=== PATIENT | female | born 1935 | race Caucasian/White ===

== ENCOUNTER → 2018-06-05 11:31 | Outpatient (CLI) | payer MEDICARE, SELFPAY ==
[2018-06-05 12:51] LABS: AST(SGOT) 28 U/L (15-37); Alanine Aminotransfer ALT/SGPT 37 U/L (13-56); Anion Gap 9 (5-15); BUN 22 mg/dL (7-18); BUN/Creat Ratio 21.2 RATIO (10-20); Calcium,Total 9.1 mg/dL (8.5-10.1); Chloride 106 mmol/L (98-107); Cholesterol 130 mg/dL (200); Creatinine, Serum 1.04 mg/dL (0.55-1.02); EST Glomerular Filtration Rate 54 mL/min (>60); Est Glom Filt Rate - Afr Amer 65 mL/min (>60); Glucose 207 mg/dL (74-106); High Density Lipoprotein 40 mg/dL; Potassium 3.7 mmol/L (3.5-5.1); Sodium Level 140 mmol/L (136-145); T4 Total, Thyroxin 10.8 ug/dL (4.8-13.9); Thyroid Stim Hormone (TSH) 1.05 uIU/mL (0.358-3.74); Triglycerides 160 mg/dL; Very Low Density Lipoprotein 32 mg/dL (5-40)
== END ==
PROVIDERS: Family Provider Family Medicine; PCP Family Medicine; Visit Provider Family Medicine
DX: E78.5 Hyperlipidemia, unspecified (principal); E03.9 Hypothyroidism, unspecified; I10 Essential (primary) hypertension
CPT/HCPCS: 36415; 80048; 80061; 84436; 84443; 84450; 84460

== ENCOUNTER → 2018-12-04 11:09 | Outpatient (CLI) | payer MEDICARE, SELFPAY ==
[2018-12-04 12:29] LABS: Anion Gap 9 (5-15); BUN 17 mg/dL (7-18); BUN/Creat Ratio 19.3 RATIO (10-20); Calcium,Total 8.8 mg/dL (8.5-10.1); Chloride 104 mmol/L (98-107); Creatinine, Serum 0.88 mg/dL (0.55-1.02); EST Glomerular Filtration Rate 65 mL/min (>60); Est Glom Filt Rate - Afr Amer 79 mL/min (>60); Glucose 118 mg/dL (74-106); Potassium 3.5 mmol/L (3.5-5.1); Sodium Level 139 mmol/L (136-145)
== END ==
PROVIDERS: Family Provider Family Medicine; PCP Family Medicine; Visit Provider Family Medicine
DX: I10 Essential (primary) hypertension (principal)
CPT/HCPCS: 36415; 80048

== ENCOUNTER → 2019-06-19 | Outpatient (CLI) | payer MEDICARE, SELFPAY ==
[2019-06-19 14:33] LABS: AST(SGOT) 30 U/L (15-37); Alanine Aminotransfer ALT/SGPT 37 U/L (13-56); Cholesterol 139 mg/dL (200); High Density Lipoprotein 42 mg/dL; T4 Total, Thyroxin 13.5 ug/dL (4.8-13.9); Thyroid Stim Hormone (TSH) 1.45 uIU/mL (0.358-3.74); Triglycerides 132 mg/dL; Very Low Density Lipoprotein 26 mg/dL (5-40)
== END | disposition home or self-care (01) ==
LOC: MFPLAB 11:45
PROVIDERS: Family Provider Family Medicine; PCP Family Medicine; Referring Provider Family Medicine; Visit Provider Family Medicine
DX: E03.9 Hypothyroidism, unspecified (principal); E78.5 Hyperlipidemia, unspecified
CPT/HCPCS: 36415; 80061; 84436; 84443; 84450; 84460

== ENCOUNTER → 2020-07-01 11:39 | Outpatient (CLI) | payer MEDICARE, SELFPAY ==
[2020-06-23 10:47] VITALS: BMI 26.4
[2020-07-01 15:52] LABS: AST(SGOT) 25 U/L (15-37); Alanine Aminotransfer ALT/SGPT 29 U/L (13-56); Albumin, Serum 4.1 g/dL (3.2-5.0); Alkaline Phosphatase 76 U/L (45-117); Anion Gap 3 (5-15); BUN 18 mg/dL (7-18); BUN/Creat Ratio 20.7 RATIO (10-20); Bilirubin, Direct 0.18 mg/dL (0.00-0.30); Calcium,Total 9.3 mg/dL (8.5-10.1); Chloride 109 mmol/L (98-107); Cholesterol 136 mg/dL (200); Creatinine, Serum 0.87 mg/dL (0.55-1.02); EST Glomerular Filtration Rate 66 mL/min (>60); Est Glom Filt Rate - Afr Amer 80 mL/min (>60); Glucose 94 mg/dL (74-106); High Density Lipoprotein 42 mg/dL; Potassium 4.4 mmol/L (3.5-5.1); Protein, Total 8.1 g/dL (6.4-8.2); Sodium Level 139 mmol/L (136-145); T4 Total, Thyroxin 11.7 ug/dL (4.8-13.9); Triglycerides 125 mg/dL; Very Low Density Lipoprotein 25 mg/dL (5-40)
== END ==
PROVIDERS: PCP Family Medicine; Referring Provider Family Medicine; Visit Provider Internal Medicine Cardiovascular Disease
DX: E78.5 Hyperlipidemia, unspecified (principal); I10 Essential (primary) hypertension; E03.9 Hypothyroidism, unspecified; I34.0 Nonrheumatic mitral (valve) insufficiency; I42.8 Other cardiomyopathies; I27.20 Pulmonary hypertension, unspecified; E78.2 Mixed hyperlipidemia; E78.00 Pure hypercholesterolemia, unspecified
CPT/HCPCS: 36415; 80048; 80061; 80076; 84436; 84443

== ENCOUNTER → 2020-07-15 10:47 | Outpatient (CLI) | payer MEDICARE, SELFPAY ==
[2020-06-23 10:47] VITALS: BMI 26.4
--- NOTE | 2020-07-15 10:49 | ECHOD_ITS ---
Reason For Study: CMP, PHTN Procedure This was a 2D Doppler, Color Flow transthoracic echocardiogram. Exam performed in department. Left Ventricle Normal LV size. Left ventricular systolic function is normal. The estimated ejection fraction is 55 %. No regional wall motion abnormalities noted. Right Ventricle Normal RV size. Normal systolic function. Atria The left atrium is moderately enlarged. The right atrium is mildly enlarged. No doppler evidence for ASD. Mitral Valve There is no mitral annular calcification. Mild diffuse mitral valve thickening. Moderate (2+) eccentric mitral valve insufficiency. Tricuspid Valve Normal tricuspid valve. Mild to moderate (1-2+) tricuspid valve insufficiency. Right ventricular systolic pressure estimated to be 42 mmHg. Aortic Valve Trisinus/trileaflet aortic valve. Mild focal aortic valve calcification. Trivial aortic valve insufficiency. Pulmonic Valve The pulmonic valve is not well visualized. Mild (1+) pulmonic valve insufficiency. Great Vessels Normal sized aortic root. Pericardium/Pleural No pericardial effusion. MMode/2D Measurements & Calculations LVIDd: 5.2 cm IVSd: 1.1 cm Ao root diam: 3.1 cm LVIDs: 3.6 cm LVPWd: 1.1 cm RVDd: 3.5 cm FS: 30.7 % LAV(MOD-bp): 84.0 ml LA A4 area: 25.9 cm2 LA dimension(2D): 4.8 cm LAV(MOD-bp) Indexed: 44.7 ml/m2 LAV(MOD-sp2): 81.2 ml LAV(MOD-sp4): 87.0 ml RA A4 area: 17.7 cm2 Time Measurements MV dec time: 0.15 sec Doppler Measurements & Calculations MV E max alex: 102.7 cm/sec Lat Peak E' Alex: 8.4 cm/sec Med Peak E' Alex: 3.3 cm/sec MV A max alex: 41.8 cm/sec E/E' lat: 12.2 E/E' med: 31.4 MV E/A: 2.5 Ao V2 max: 133.5 cm/sec AI max alex: 427.4 cm/sec LV V1 max: 71.0 cm/sec Ao max P.1 mmHg AI max P.1 mmHg LV V1 max P.0 mmHg Ao V2 mean: 100.8 cm/sec AI dec slope: 219.7 cm/sec2 LV V1 mean P.2 mmHg Ao mean P.3 mmHg AI P1/2t: 569.8 msec LV V1 mean: 52.3 cm/sec Ao V2 VTI: 31.6 cm LV V1 VTI: 17.9 cm MR max alex: 531.9 cm/sec PA V2 max: 84.0 cm/sec PI dec slope: 213.2 cm/sec2 MR max P.2 mmHg TR max alex: 312.1 cm/sec TR max P.0 mmHg Interpretation Summary Left ventricular systolic function is normal. The estimated ejection fraction is 55 %. The left atrium is moderately enlarged. The right atrium is mildly enlarged. Mild diffuse mitral valve thickening. Moderate (2+) eccentric mitral valve insufficiency. Mild to moderate (1-2+) tricuspid valve insufficiency. Mild focal aortic valve calcification. Trivial aortic valve insufficiency. Mild (1+) pulmonic valve insufficiency. Right ventricular systolic pressure estimated to be 42 mmHg. Transmitral diastolic flow velocities suggest diastolic dysfunction (pseudonormal pattern). Ordering Physician: Dwight Acuña Referring Physician: Rebekah Beckford Performed By: Cari Montilla, RDCS, RVT
== END ==
PROVIDERS: PCP Family Medicine; Referring Provider Internal Medicine Cardiovascular Disease; Visit Provider Internal Medicine Cardiovascular Disease
DX: E78.2 Mixed hyperlipidemia (principal); I34.0 Nonrheumatic mitral (valve) insufficiency; I42.8 Other cardiomyopathies; I27.20 Pulmonary hypertension, unspecified; I10 Essential (primary) hypertension
CPT/HCPCS: 93306

== ENCOUNTER → 2021-03-03 10:19 | Outpatient (CLI) | payer MEDICARE, SELFPAY ==
[2021-01-15 12:57] VITALS: BMI 26.6
[2021-03-03 12:34] LABS: Anion Gap 4 (5-15); BUN 17 mg/dL (7-18); BUN/Creat Ratio 18.1 RATIO (10-20); Calcium,Total 9.5 mg/dL (8.5-10.1); Chloride 107 mmol/L (98-107); Creatinine, Serum 0.94 mg/dL (0.55-1.02); EST Glomerular Filtration Rate 60 mL/min (>60); Est Glom Filt Rate - Afr Amer 73 mL/min (>60); Glucose 106 mg/dL (74-106); Potassium 4.2 mmol/L (3.5-5.1); Sodium Level 137 mmol/L (136-145)
== END ==
PROVIDERS: PCP Family Medicine; Referring Provider Family Medicine; Visit Provider Family Medicine
DX: I10 Essential (primary) hypertension (principal)
CPT/HCPCS: 36415; 80048

== ENCOUNTER → 2021-08-25 11:03 | Outpatient (CLI) | payer MEDICARE, SELFPAY ==
[2021-08-25 12:33] LABS: AST(SGOT) 27 U/L (15-37); Alanine Aminotransfer ALT/SGPT 33 U/L (13-56); Cholesterol 144 mg/dL (200); High Density Lipoprotein 41 mg/dL; Thyroid Stim Hormone (TSH) 1.32 uIU/mL (0.358-3.74); Triglycerides 134 mg/dL; Very Low Density Lipoprotein 27 mg/dL (5-40)
== END ==
PROVIDERS: PCP Family Medicine; Referring Provider Family Medicine; Visit Provider Family Medicine
DX: E03.9 Hypothyroidism, unspecified (principal); E78.5 Hyperlipidemia, unspecified
CPT/HCPCS: 36415; 80061; 84436; 84443; 84450; 84460

== ENCOUNTER 2021-12-15 11:02 | Outpatient (CLI) | payer MEDICARE, SELFPAY | END 2021-12-15 23:59 | disposition short-term general hospital (02) | LOC: MTLAB 11:03 | PROVIDERS: PCP Family Medicine; Referring Provider Family Medicine; Visit Provider Family Medicine | DX: N39.0 Urinary tract infection, site not specified (principal) | CPT/HCPCS: 87086; 87088 ==

== ENCOUNTER 2022-02-18 04:06 | Emergency (ER) | payer MEDICARE, SELFPAY ==
[2022-02-18 04:07] VITALS: BP 176/66; PULSE 62; RESP 19; TEMP 36.6; O2SAT 92; BMI 25.2
[2022-02-18 04:09] VITALS: BP 182/58; PULSE 63; RESP 24; O2SAT 92; BMI 25.2
--- NOTE | 2022-02-18 04:09 | RAD_ITS ---
EXAM: AP chest. HISTORY: Neuro deficit, acute, stroke suspected TECHNIQUE: XR Chest 1 View. Upright. COMPARISON: None. LIMITATIONS: None. HEART: Normal size. TUBES/LINES: None. LUNGS: The lungs are adequately inflated with mild increased linear markings predominantly in the mid to lower lung gunter, greater on the right. No confluent alveolar infiltrate or effusion. Mild bronchopulmonary cuffing in the medial lungs, possibly mild peribronchiolar edema or chronic changes. PLEURA: Normal. MEDIASTINUM: Slight peripheral calcification of the aortic arch and minimally tortuous appearance of descending thoracic aorta, no obvious kal aneurysm. BONES/SOFT TISSUES: Normal. OTHER: Normal. CONCLUSION: No confluent alveolar infiltrate or effusions. Mild increased lung markings and mildly thick-walled appearance of bronchovascular structures, uncertain chronicity. Electronically Signed: Coleen Sullivan MD at 5:24 EDT , RAD/Chest 1 View
--- NOTE | 2022-02-18 04:09 | CT_ITS ---
EXAM: CT brain without IV contrast. HISTORY: Neuro deficit, acute, stroke suspected TECHNIQUE: CT Head Stroke Protocol W/O Contrast Injection 3.75 mm axial images, 2.5 mm coronal and sagittal reconstructions. COMPARISON: None. LIMITATIONS: None. BRAIN: There is a hyperdense appearance of right M2 segment in the anterior right sylvian fissure, right sylvian fissure narrowing, and loss of juan-white matter differentiation on both sides of these right sylvian fissure, right subinsular cortex, adjacent right frontal lobe. Estimated Aspects score of 5-6. No hemorrhage. No midline shift. VENTRICLES: No hydrocephalus. EXTRA-AXIAL SPACES: No hemorrhages, fluid collections, or masses. CALVARIUM/SKULL BASE: Normal. Mild hyperostosis frontalis. FACE/SINUSES: Visualized portions unremarkable with the exception of mucous retention cyst in the left maxillary sinus. SOFT TISSUES: Normal. OTHER: None. CONCLUSION: Findings highly consistent with ischemic infarct in the right MCA distribution including dense artery sign and multifocal blurring of juan-white matter junctions with right sylvian fissure narrowing. Estimated ASPECT score 5-6. No hemorrhage or midline shift. N.B. : The above Results were Read Back by Coleen Sullivan MD to Alber Bates and understanding confirmed on 02/18/2022 04:28:33 (ET). Electronically Signed: Coleen Sullivan MD at 4:29 EDT , CT/STROKE Brain/Head without Cont
--- NOTE | 2022-02-18 04:09 | EKG12_ITS ---
Test Reason : DYSRHYTHMIA Blood Pressure : / mmHG Vent. Rate : 060 BPM Atrial Rate : 059 BPM P-R Int : 000 ms QRS Dur : 104 ms QT Int : 456 ms P-R-T Axes : 000 -10 045 degrees QTc Int : 456 ms Sinus rhythm Otherwise normal ECG Confirmed by FRANSISCA CHOI, SARITA ([id number]), editor publications SUNNY LAROSE ([id number]) on 02/19/2022 2:16:50 PM Referred By: JUMANA Confirmed By:ABDON GONGORA MD
--- NOTE | 2022-02-18 04:10 | CT_ITS ---
We are attempting to reach an attending provider to discuss findings. An addendum with communication details will be sent when the communication is complete. STUDY: CTA HEAD AND NECK WITH CONTRAST REASON FOR EXAM: Female, 86 years old. Neuro deficit, acute, stroke suspected RADIATION DOSAGE (If Supplied By Facility): CTDIvol = ( 21.39 ) mGy, DLP = ( 663.88 ) mGycm TECHNIQUE: CT angiography was performed with a multi-detector CT scanner. Data acquisition was obtained from the skull base through the vertex following intravenous administration of ISOVUE 370 100ML. MIP images were reconstructed from the axial data set. Post-processing of the angiographic images was performed, with multiplanar reformation and 3D reconstruction. Individualized dose optimization techniques were used for this CT. COMPARISON: No relevant priors. EXAM: CT angiogram brain. TECHNIQUE: CTA HEAD. COMPARISON: None. LIMITATIONS: None. CAROTID ARTERIES: Normal. ANTERIOR CEREBRAL ARTERIES: Normal. MIDDLE CEREBRAL ARTERIES: There is abrupt filling defect and almost complete occlusion of distal right M1-M2 bifurcation, slight serpiginous appearance of contrast in the proximal anterior branch, it is better opacified distally, and nonopacification of proximal posterior M2 branch in the anterior sylvian fissure with some collateral flow filling distal branches, essentially complete occlusion for a length of at least 7 mm at the proximal M2 branches presumably due to thrombus. POSTERIOR CEREBRAL ARTERIES: Normal. BASILAR ARTERY: Normal. VERTEBRAL ARTERIES: Normal. Mildly dominant left vertebral artery. Bilateral posterior inferior cerebellar arteries are patent. VENOUS STRUCTURES: Normal. OTHER: None. CONCLUSION: Filling defect consistent with thrombus at the right M1 M2 bifurcation, especially occluding the posterior branch in the anterior sylvian fissure but involving both origins, with some collateral flow. EXAM: CT angiogram neck. HISTORY: Neuro deficit, acute, stroke suspected TECHNIQUE: CTA Neck W/ Contrast Injection COMPARISON: None. LIMITATIONS: None. AORTIC ARCH: Mild peripheral calcification of the aortic arch. Mild calcification of the proximal left subclavian artery, now narrowing. CAROTID ARTERIES: Mild atherosclerotic calcification of the left carotid bulb, no significant narrowing. VERTEBRAL ARTERIES: Normal. OTHER ARTERIES: Normal. VENOUS STRUCTURES: Normal. BONES/SOFT TISSUES: Multiple small hypodensities in the thyroid, the largest roughly 1 cm in the left lobe. Straightening of the usual lordotic curvature with marked disc space narrowing at C3-T1 OTHER: Mild increased interstitial markings in the lung apices, presumed mild pulmonary edema. Mildly thickened airways in the lung apices. CONCLUSION: No suspicious vascular findings in the neck. Minimal atherosclerotic changes. Mild interstitial edema and airway thickening at the lung apices and moderate degenerative cervical spine changes. Electronically Signed: Coleen Sullivan MD at 4:51 EDT , CT/STROKE CTA Head AND Neck W/Con
[2022-02-18 04:36] LABS: Absolute Lymphocyte Count 1.29 X10^3/uL (0.83-4.51); Basophil# 0.02 X10^3/uL; Basophil% 0.2 % (0-1); Eosinophil# 0.04 X10^3/uL; Eosinophils% 0.5 % (0-5); Hematocrit 34.9 % (37-47); Hemoglobin 11.9 g/dL (12.0-15.0); Lymphocyte # 1.29 X10^3/ul (0.83-4.51); Mean Corp Hgb Conc 34.1 g/dL (32-36); Mean Corpuscular Hgb 30.1 pg (27.0-32.0); Mean Corpuscular Volume 88.1 fL (81-99); Mean Platelet Vol. 9.9 fl (6.2-12.0); Monocyte# 0.69 X10^3/uL; Monocyte% 8.6 % (0-10); NRBC Flagged by Analyzer 0 % (0-5); Neutrophil # 5.97 X10^3/uL (2.7-7.7); Neutrophil % 74.3 % (47-70); Platelet Count 244 K/mm3 (150-450); RBC Distribution Width CV 12.3 % (11.6-14.6); Red Blood Count 3.96 M/mm3 (4.2-5.4)
[2022-02-18 04:39] VITALS: BP 170/69; PULSE 68; RESP 18; O2SAT 93
[2022-02-18 04:48] LABS: International Normalized Ratio 1.3; Prothrombin Time (Protime)PT. 15.5 SECONDS (11.7-14.9)
[2022-02-18 04:49] LABS: Partial Thromboplast Time 31.1 Seconds (24.1-36.2)
[2022-02-18 04:55] LABS: Anion Gap 5 (5-15); BUN 25 mg/dL (7-18); BUN/Creat Ratio 28.7 RATIO (10-20); Calcium,Total 8.6 mg/dL (8.5-10.1); Chloride 104 mmol/L (98-107); Creatinine, Serum 0.87 mg/dL (0.55-1.02); EST Glomerular Filtration Rate 65 mL/min (>60); Est Glom Filt Rate - Afr Amer 79 mL/min (>60); Estimated Creatinine Clearance 46.82 ml/min; Glucose 221 mg/dL (74-106); Sodium Level 134 mmol/L (136-145); Troponin-I HS 25 pg/mL (3.0-54.0)
--- NOTE | 2022-02-18 04:56 | EDS_ITS ---
HPI History of Present Illness Chief Complaint: Neuro S/Sx Informant: patient and EMS Onset/Context/Timing Onset: Today Context: Sudden Onset Timing: Continuous Quality and Location: Positive for Left Facial Droop, Left Leg Parasthesia, Left Arm Weakness and Left Leg Weakness Worsened by: Nothing Relieved by: Nothing Associated Symptoms Associated Symptoms: Negative for Headache, Nausea, Vomiting and Chest Pain Narrative Narrative: Patient presents with stroke symptoms that were noticed when she woke up this morning. Patient went to bed last night around 11 PM. This was her last known well. Patient woke up around 4 AM with left-sided weakness and left facial weakness. Patient denies any headaches. Patient denies any visual changes. Patient denies any chest pain or shortness of breath. EMS noted that the patient was having difficulty lifting her left arm and left leg. [facility] Medical History (Updated 02/18/22 @ 05:[address] Abler Bates DO) Essential hypertension Hypothyroidism Mixed hyperlipidemia Non-Hodgkin lymphoma Non-rheumatic mitral regurgitation Nonischemic cardiomyopathy Pulmonary hypertension Home Medications levothyroxine 25 mcg tablet 25 mcg PO DAILY 12/11/19 [History Last Taken Unknown] simvastatin 20 mg tablet 20 mg PO DAILY 12/11/19 [History Last Taken Unknown] spironolactone 25 mg tablet 25 mg PO DAILY 12/11/19 [History Last Taken Unknown] Allergy/AdvReac Type Severity Reaction Status Date / Time Latex, Natural Rubber Allergy Other Verified 02/18/22 04:38 lisinopril Allergy Other Verified 02/18/22 04:38 Family History Mother CHF (congestive heart failure) Father Diabetes Surgical History History of hysterectomy History of tubal ligation Social History Smoking Status: Never smoker alcohol intake: never substance use type: does not use caffeine: Yes Type: carbonated beverages Number of servings: 1 ROS ROS ED Constitutional Constitutional ED: Denies chills or fever(s) Eyes Eyes: Denies blurry vision or change in vision ENT ENT ED: Denies rhinorrhea or sore throat Cardiovascular Cardiovascular: Denies chest pain or palpitations Respiratory/Chest Respiratory/Chest: Denies cough or dyspnea Gastrointestinal Gastrointestinal: Denies nausea or vomiting Genitourinary Genitourinary ED: Denies dysuria or hematuria Musculoskeletal Musculoskeletal: Denies back pain or neck pain Integumentary Denies abscess or rash Neurologic Neurologic: Reports paresthesias and weakness; Denies headache(s) Allergic/Immunologic Allergic/Immunologic ED: Denies mouth swelling or urticaria EXAM Physical Exam Const Vital Signs: 02/18/22 04:07 02/18/22 04:09 02/18/22 04:39 Temperature 97.9 F Temperature Source Temporal Pulse Rate 62 63 68 Respiratory Rate 19 H 24 H 18 Blood Pressure 176/66 H 182/58 H 170/69 H Blood Pressure Mean 102 99 102 Pulse Ox 92 92 93 Oxygen Delivery Method Room Air Room Air Room Air 02/18/22 05:01 02/18/22 05:09 02/18/22 05:26 Temperature 97.6 F L 97.6 F L Temperature Source Temporal Pulse Rate 60 62 67 Respiratory Rate 19 H 16 15 Blood Pressure 170/69 H 164/73 H 164/73 H Blood Pressure Mean 102 103 Pulse Ox 93 93 93 Oxygen Delivery Method Room Air Room Air Positive well nourished and well developed General Appearance ED: well developed and NAD HEENT Reports moist mucous membranes Neck supple and no JVD Resp normal respiratory effort and clear to auscultation bilaterally Cardio Rate: regular rate Rhythm: regular rhythm GI soft to palpation and non-tender Extremity normal to inspection Neuro oriented x3 Neuro Narrative: There is weakness of the left upper extremity and left lower extremity. Patient was able to lift both the left upper extremity and left lower extremity off of the bed however she was not able to hold them for more than 5 seconds. There is left facial weakness. There is decreased sensation to the left lower extremity. There is good sensation over the face and upper extremities bilaterally. Sensorium / Orientation: alert Motor Exam: strength abnormal Psych mental status grossly normal STROKE Vital Signs/Narrative: Vital Signs Temp Pulse Resp BP Pulse Ox 02/18/22 05:26 97.6 F L 67 15 164/73 H 93 02/18/22 05:09 97.6 F L 62 16 164/73 H 93 02/18/22 05:01 60 19 H 170/69 H 93 02/18/22 04:39 68 18 170/69 H 93 02/18/22 04:09 63 24 H 182/58 H 92 02/18/22 04:07 97.9 F 62 19 H 176/66 H 92 MDM MDM MDM Narrative Medical decision making narrative: EKG was obtained. On my interpretation, it showed a normal sinus rhythm with a rate of 60. MD interval, QRS interval, and QTc intervals were all normal. [place] was normal. There are no acute ST or T wave changes. CBC was within normal limits. PT was 15.5 and INR is 1.3. PTT was 31.1. Basic metabolic profile was essentially within normal limits. High- sensitivity troponin was 25. CT scan of the brain was obtained. There are early ischemic changes noted in the right M2 distribution. This was interpreted by the radiologist and reviewed by myself. CTA of the head and neck was obtained. There is a large vessel occlusion of the right M2 artery at the bifurcation of the M1 M2 segments. Patient was evaluated by [facility] teleneurology, Dr. Vicente. Patient is not a candidate for TPA since she is a wake-up stroke and her last known well was 5 hours prior to arrival. She recommended transferring the patient to [facility] for possible clot retrieval. Patient and family understand and are agreeable with the plan. Patient will be transferred to the emergency department [facility] as a level 1 stroke to the service of Dr. Foster. Lab Data Attestation: I reviewed the patient's lab results. Labs: Laboratory Results - last 24 hr 02/18/22 02/18/22 02/18/22 04:30 04:30 04:30 WBC 8.0 RBC 3.96 L Hgb 11.9 L Hct 34.9 L MCV 88.1 MCH 30.1 MCHC 34.1 RDW Std Deviation 40.0 RDW Coeff of [place] 12.3 Plt Count 244 MPV 9.9 Immature Gran % (Auto) 0.400 Neut % (Auto) 74.3 H Lymph % (Auto) 16.0 L [place] % (Auto) 8.6 Eos % (Auto) 0.5 Baso % (Auto) 0.2 Absolute Neuts (auto) 6.0 Absolute Lymphs (auto) 1.29 Nucleated RBC % 0 PT 15.5 H INR 1.3 APTT 31.1 Sodium 134 L Potassium 4.0 Chloride 104 Carbon Dioxide 25.0 Anion Gap 5 BUN 25 H Creatinine 0.87 Estim Creat Clear Calc 46.82 Est GFR (MDRD) Af Amer 79 Est GFR (MDRD) Non-Af 65 BUN/Creatinine Ratio 28.7 H Glucose 221 H Calcium 8.6 Troponin I High Sens 25 POC Glucose 02/18/22 05:23 WBC RBC Hgb Hct MCV MCH MCHC RDW Std Deviation RDW Coeff of [place] Plt Count MPV Immature Gran % (Auto) Neut % (Auto) Lymph % (Auto) [place] % (Auto) Eos % (Auto) Baso % (Auto) Absolute Neuts (auto) Absolute Lymphs (auto) Nucleated RBC % PT INR APTT Sodium Potassium Chloride Carbon Dioxide Anion Gap BUN Creatinine Estim Creat Clear Calc Est GFR (MDRD) Af Amer Est GFR (MDRD) Non-Af BUN/Creatinine Ratio Glucose Calcium Troponin I High Sens POC Glucose 192 H Radiography Diagnostic Testing: Clinical Impression(s) from Imaging Studies Brain CT 02/18/22 04:09 Chest X-Ray 02/18/22 04:09 Head/Neck CTA 02/18/22 04:10 ADDENDUM: 02/18/22 0506 EKG Initial EKG: Attestation: I personally reviewed and interpreted this EKG as follows: Interpretation: Sinus Rhythm (60) and No Acute Injury Pattern Stroke Documentation Questions Stroke Team Activated: Yes Reviewed Inclusion/Exclusion criteria: Yes Was Patient considered for Endovascular Intervention?: Yes-CTA +,PT transferred for further eval of endovascular intervention IV Alteplase (t-PA) Administered: No Critical Care Time Critical Care Time: Yes Critical care time (excluding procedures): 30-74 minutes (33), Including time spent:, Discussing w/Patient &/or Family/Marine Mechanic, Discussing w/Consultants, Arranging Admission or Transfer and Performing Direct Patient Care at Bedside Discharge Plan Triage Chief Complaint: Neuro S/Sx ED Provider: Alber Bates Dx/Rx/DC Orders Clinical Impression: 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
[2022-02-18 05:01] VITALS: BP 170/69; PULSE 60; RESP 19; O2SAT 93
[2022-02-18 05:09] VITALS: BP 164/73; PULSE 62; RESP 16; TEMP 36.4; O2SAT 93
[2022-02-18 05:26] VITALS: BP 164/73; PULSE 67; RESP 15; TEMP 36.4; O2SAT 93
[2022-02-18 05:26] LABS: Bedside Glucose 192 mg/dL (74-106)
== END 2022-02-18 05:28 | disposition short-term general hospital (02) ==
PROVIDERS: Emergency Provider Emergency Medicine; PCP Family Medicine; Visit Provider Emergency Medicine
DX: I63.311 Cerebral infarction due to thrombosis of right middle cerebral artery (principal); I10 Essential (primary) hypertension; E78.2 Mixed hyperlipidemia; E03.9 Hypothyroidism, unspecified; Z79.899 Other long term (current) drug therapy
CPT/HCPCS: 70450; 70496; 70498; 71045; 80048; 82962; 84484; 85025; 85610; 85730; 93005; 99285; Q9967

== ENCOUNTER 2022-02-26 20:08 | Inpatient (IN) | payer MEDICARE, SELFPAY ==
[2022-02-26 20:10] VITALS: BP 132/56; PULSE 49; RESP 18; TEMP 36.5; O2SAT 98
[2022-02-26 20:15] VITALS: BMI 28.2
[2022-02-26 21:00] VITALS: PULSE 47; O2SAT 95
[2022-02-26 22:00] VITALS: BP 146/58; PULSE 48; RESP 18; TEMP 36.6; O2SAT 95
[2022-02-26 22:21] LABS: Bedside Glucose 137 mg/dL (74-106)
[2022-02-26] MEDS: Atorvastatin Calcium 10 MG Tablet PO (23:47)
[2022-02-26] MEDS: APIXABAN 5 MG TABLET PO (23:48)
[2022-02-26] MEDS: Acetaminophen 500 MG Tablet 1000 MG PO (23:52)
[2022-02-27] VITALS (9 sets, daily range): BP systolic 113–155; BP diastolic 51–93; PULSE 44–72; RESP 16–18; TEMP 36.2–36.7; O2SAT 95–98
[2022-02-27] MEDS: Levothyroxine 25 MCG TABLET PO (05:33)
[2022-02-27 07:01] LABS: Bedside Glucose 123 mg/dL (74-106)
[2022-02-27 07:18] LABS: Absolute Lymphocyte Count 1.36 X10^3/uL (0.83-4.51); Absolute Neutrophil Count 6.2 X10^3/uL (2.0-7.7); Basophil# 0.03 X10^3/uL; Basophil% 0.3 % (0-1); Eosinophil# 0.23 X10^3/uL; Eosinophils% 2.6 % (0-5); Hemoglobin 9.5 g/dL (12.0-15.0); Lymphocyte # 1.36 X10^3/ul (0.83-4.51); Lymphocyte % 15.7 % (19-41); Mean Corp Hgb Conc 31.7 g/dL (32-36); Mean Corpuscular Hgb 29.7 pg (27.0-32.0); Mean Corpuscular Volume 93.8 fL (81-99); Mean Platelet Vol. 9.7 fl (6.2-12.0); Monocyte# 0.74 X10^3/uL; Monocyte% 8.5 % (0-10); NRBC Flagged by Analyzer 0 % (0-5); Neutrophil # 6.18 X10^3/uL (2.7-7.7); Neutrophil % 71.3 % (47-70); Platelet Count 309 K/mm3 (150-450); RBC Distribution Width CV 12.7 % (11.6-14.6); RBC Distribution Width SD 43.8 fl (35.1-43.9); White Blood Count 8.7 K/mm3 (4.4-11.0)
[2022-02-27 07:37] LABS: BUN 23 mg/dL (7-18); Creatinine, Serum 0.78 mg/dL (0.55-1.02); EST Glomerular Filtration Rate 74 mL/min (>60); Glucose 121 mg/dL (74-106)
[2022-02-27 07:38] LABS: ALB/GLOB Ratio 0.5 RATIO (0.9-2.4); AST(SGOT) 103 U/L (15-37); Alanine Aminotransfer ALT/SGPT 144 U/L (13-56); Albumin, Serum 2.3 g/dL (3.2-5.0); Alkaline Phosphatase 129 U/L (45-117); Anion Gap 5 (5-15); BUN/Creat Ratio 29.4 RATIO (10-20); Calcium,Total 8.9 mg/dL (8.5-10.1); Chloride 105 mmol/L (98-107); Est Glom Filt Rate - Afr Amer 90 mL/min (>60); Globulin 4.4 g/dL (2.2-4.2); Magnesium 1.9 mg/dL (1.6-2.6); Phosphorus 3.2 mg/dL (2.5-4.9); Potassium 3.8 mmol/L (3.5-5.1); Protein, Total 6.7 g/dL (6.4-8.2); Sodium Level 136 mmol/L (136-145)
[2022-02-27] MEDS: Multivitamins,Ther W-Minerals Tablet 1 TABLET PO (08:09)
[2022-02-27] MEDS: APIXABAN 5 MG TABLET PO ×2 (08:09→22:08)
[2022-02-27 11:21] LABS: Bedside Glucose 190 mg/dL (74-106)
--- NOTE | 2022-02-27 11:38 | HP.PCM_ITS ---
HPI - General General Date of Admission: 02/26/22 HPI Narrative RUPESH HUSTON, is a 86 YO F with a PMH of hypertension, hyperlipidemia, coronary artery disease, non-Hodgkin's lymphoma, pulmonary hypertension, nonischemic cardiomyopathy, hypothyroidism and nonrheumatic mitral regurgitation who presented to the emergency department at [facility] on 02/18/2022 complaining of sudden onset of left facial droop, left leg numbness and weakness and left arm weakness. She woke up with the sx in the AM and was last known well at 11 PM the preceding night. NC CTB showed early ischemic changes in the R M2 distribution. CTA of the head and neck was obtained and showed a large vessel occlusion of the right M2 at the bifurcation of the M1 and M2 segments. Telestroke was consulted and transfer to [facility] was recommended for possible thrombectomy. NIH at presentation to [facility] was 14. CT head showed early changes in the R M2 distribution. CTA showed R M2 occlusion. CTP at [facility] showed areas of perfusion deficit within the right MCA territory with moderate sized areas of mismatched perfusion abnormality in the posterior right MCA territory along the right parietotemporal region consistent with ischemic penumbra. There was a small area of matched perfusion deficit consistent with core infarct along the right posterior insula. There was a 49 cc mismatch and the patient was taken to the OR for emergent thrombectomy. TICI 2b revascularization was obtained. MRI of the brain done on 02/19/22 showed acute/recent infarct involving the right insula and adjacent portion of the right frontal parietal and temporal lobes with some petechial hemorrhage causing some mass effect and a mild midline shift which did not required intervention and remained stable on follow up CT scans. Significant lab included a HGBA1C of 5.9 and a LDL of 83. HDL was low at 38. While at [facility] she had PAF and was started on anticoagulation. She was placed on Coreg for rate control. MBS was completed and she had mild oral pharyngeal dysphagia. A minced and moist diet was started with thin liquids however, she failed to take in adequate fluids and calories and a Dobbhoff feeding tube was placed. Other complications at [facility] in addition to PAF were aspiration PNA (treated with 5 days of Unasyn)and urine retention (UA was negative). she was evaluated by PT,OT and ST and recommendation was made for acute rehab at [place]. Prior to the stroke she was living alone and independent. She was transferred to the acute inpt rehab unit at [facility] on 02/26/22 for 3 hours of therapy daily to restore function at or near her prior level of function. ECHO at [facility] showed the left ventricle to be mildly enlarged. There were no regional wall motion abnormalities and the EF was 55%. There was mild BL atrial enlargement. The right ventricle was also mildly enlarged but had normal function. The estimated right PA systolic pressure was elevated at 45 which is consistent with moderate pulmonary hypertension. There was no mention of a PFO. All lab from this morning was personally reviewed. The white blood cell count is normal at 8.7. Hemoglobin is decreased at 9.5 with an MCV of 93.8 and the RDW is normal. Platelets were within normal limits. Sodium and potassium are within normal limits. The BUN was 23 with a creatinine of 0.78 and an estimated creatinine clearance of 37.8. GFR is 74 which is consistent with stage II chronic renal failure however I feel the creatinine clearance more accurately reflects her kidney function. FBS is 121. Magnesium is 1.9. Phosphorus is within normal limits. Bilirubin is normal however the AST is elevated at 103, the ALT is 144 and the alkaline phosphatase is mildly elevated at 129. Post void residuals are 0 and 18 so far. The feeding tube was removed prior to transfer to rehab. BS prior to lunch today was 190. She is on sliding scale insulin coverage. All documentation from the ED at [facility] and from [facility] was reviewed along with the old chart from [facility]. PCP is Dr. Rebekah Beckford She sees Dr. Acuña for cardiology. [facility] Medical History (Updated 02/27/22 @ 13:[address] Teodora Fuchs DO) Biatrial enlargement Essential hypertension Hypothyroidism Mixed hyperlipidemia Non-Hodgkin lymphoma Non-rheumatic mitral regurgitation Nonischemic cardiomyopathy Normochromic normocytic anemia Pulmonary hypertension Home Medications levothyroxine 25 mcg tablet 25 mcg PO DAILY 12/11/19 [History Last Taken Unknown] Allergy/AdvReac Type Severity Reaction Status Date / Time amlodipine Allergy Other Verified 02/27/22 02:13 hydrochlorothiazide Allergy Other Verified 02/27/22 02:12 Latex, Natural Rubber Allergy Other Verified 02/18/22 04:38 lisinopril Allergy Other Verified 02/18/22 04:38 losartan Allergy Other Verified 02/27/22 02:11 Family History Mother CHF (congestive heart failure) Father Diabetes Surgical History History of hysterectomy History of tubal ligation Social History Smoking Status: Never smoker alcohol intake: never substance use type: does not use caffeine: Yes Type: carbonated beverages Number of servings: 1 ROS Constitutional Constitutional: Reports fatigue and weakness; Denies anorexia, change in weight, chills, fever(s) or night sweats Eyes Eyes: Denies blurry vision, change in vision, eye pain or loss of vision ENT HEENT: Reports dysphagia; Denies abnormal hearing, headache(s), hearing loss, nasal congestion or sore throat Cardiovascular Cardiovascular: Denies chest pain, dyspnea on exertion, edema, lightheadedness, orthopnea, palpitations, paroxysmal nocturnal dyspnea or syncope Respiratory/Chest Respiratory/Chest: Denies cough, dyspnea, shortness of breath at rest, shortness of breath with exertion or wheezing Gastrointestinal Gastrointestinal: Denies abdominal pain, constipation, diarrhea, dyspepsia, hematemesis, hematochezia, nausea or vomiting Genitourinary Genitourinary: Reports other Details: had urine retention while at [facility] ; Denies dysuria, hematuria, nocturia, urinary frequency, urinary hesitancy, urinary incontinence or urinary urgency Musculoskeletal Musculoskeletal: Denies back pain, joint pain, joint swelling or neck pain Integumentary Integumentary: Reports dry skin; Denies jaundice, rash or wounds Neurologic Neurologic: Reports focal weakness and sensory deficit; Denies confusion, disequilibrium, dizziness, headache(s), paresthesias, seizures or tremor(s) Psychiatric Psychiatric: Denies anxiety, depression, homicidal ideation or suicidal ideation Endocrine Endocrinology: Denies change in body appearance, polydipsia or polyuria Hematologic/Lymphatic Hematologic/Lymphatic: Denies easy bleeding, easy bruising or lymphadenopathy Allergic/Immunologic Allergic/Immunologic: Denies rhinitis, eczemia or asthma Vital Signs Vital Signs Vital Signs: 02/26/22 20:10 02/26/22 21:00 02/26/22 22:00 Temperature 97.7 F L 98 F Temperature Source Temporal Temporal Pulse Rate 49 L 47 L 48 L Pulse Rate [Lying] Pulse Rate [Sitting (for 1 minute prior to obtaining)] Pulse Rate [Standing (for 1 minute prior to obtaining)] Respiratory Rate 18 18 Respiratory Effort Normal Non-Labored Respiratory Depth Normal Respiratory Pattern Normal Blood Pressure 132/56 H 146/58 H Blood Pressure [Lying] Blood Pressure [Sitting (for 1 minute prior to obtaining)] Blood Pressure [Standing (for 1 minute prior to obtaining)] Blood Pressure Mean 81 87 Blood Pressure Mean [Lying] Blood Pressure Mean [Sitting (for 1 minute prior to obtaining)] Blood Pressure Mean [Standing (for 1 minute prior to obtaining)] Blood Pressure Source Monitor Monitor Blood Pressure Position Semi-Fowlers Semi-Fowlers Blood Pressure Location Right Arm Right Arm Pulse Ox 98 95 95 Oxygen Delivery Method Room Air Room Air Room Air 02/27/22 00:00 02/27/22 05:45 02/27/22 06:00 Temperature 98.1 F Temperature Source Temporal Pulse Rate 47 L Pulse Rate [Lying] 47 L Pulse Rate [Sitting (for 1 minute prior to obtaining)] 48 L Pulse Rate [Standing (for 1 minute prior to obtaining)] 53 L Respiratory Rate 18 Respiratory Effort Respiratory Depth Respiratory Pattern Blood Pressure 138/51 H Blood Pressure [Lying] 146/59 H Blood Pressure [Sitting (for 1 minute prior to obtaining)] 155/62 H Blood Pressure [Standing (for 1 minute prior to obtaining)] 113/93 H Blood Pressure Mean 80 Blood Pressure Mean [Lying] 88 Blood Pressure Mean [Sitting (for 1 minute prior to obtaining)] 93 Blood Pressure Mean [Standing (for 1 minute prior to obtaining)] 99 Blood Pressure Source Monitor Blood Pressure Position Semi-Fowlers Blood Pressure Location Right Arm Pulse Ox 95 98 Oxygen Delivery Method Room Air Room Air 02/27/22 08:30 02/27/22 10:00 Temperature 97.5 F L Temperature Source Oral Pulse Rate 50 L 49 L Pulse Rate [Lying] Pulse Rate [Sitting (for 1 minute prior to obtaining)] Pulse Rate [Standing (for 1 minute prior to obtaining)] Respiratory Rate 18 Respiratory Effort Normal Respiratory Depth Normal Respiratory Pattern Normal Blood Pressure 140/55 H Blood Pressure [Lying] Blood Pressure [Sitting (for 1 minute prior to obtaining)] Blood Pressure [Standing (for 1 minute prior to obtaining)] Blood Pressure Mean 83 Blood Pressure Mean [Lying] Blood Pressure Mean [Sitting (for 1 minute prior to obtaining)] Blood Pressure Mean [Standing (for 1 minute prior to obtaining)] Blood Pressure Source Monitor Blood Pressure Position Semi-Fowlers Blood Pressure Location Right Arm Pulse Ox 98 Oxygen Delivery Method Room Air Room Air Weight Weight: 175 lb 0.752 oz Body Mass Index (BMI) 28.2 Indicators for Scoring Admitted with or Primary Diagnosis of CVA/Stroke: Yes Hx of CVA/Stroke: No Modified Radames Score MRS Score at time of Evaluation: 4-Moderate/severe disability NIHSS NIHSS 1a. Level of Consciousness: Alert; keenly responsive 1b. LOC Questions: Answers BOTH questions correctly. 1c. LOC Commands: Performs both tasks correctly. 2. Best Gaze: Normal 3. Visual: No visual loss 4. Facial Palsy: Normal symmetrical movements 5a. Left Arm: Some effort against gravity; 5b. Right Arm: No drift; arm holds 90 (or 45) degrees for full 10 seconds 6a. Left Leg: Drift; leg falls by the end of 5-seconds, but does not hit bed 6b. Right Leg: No drift; leg holds 30-degree position for full 5 seconds 7. Limb Ataxia: Absent 8. Sensory: [id number] sensory loss; (LUE only) 9. Best Language: No aphasia; normal 10. Dysarthria: Normal 11. Extinction and Inattention: No abnormality Total: 4 Stroke Questions a.Reviewed Inclusion/Exclusion criteria: No Physical Exam Const alert, oriented x3, no apparent distress and well nourished Constitutional Narrative: looks tired, she just finished PT General Appearance: cooperative and well developed HEENT normocephalic, head/scalp atraumatic, moist oral mucous membranes and oropharynx normal Eyes PERRL and EOMs intact bilaterally Neck No nuchal rigidity, supple, No nodes and no carotid bruits General: trachea midline Lymph Lymphatic: no lymphadenopathy noted Resp normal respiratory effort and clear to auscultation bilaterally Cardio regular rhythm, S1 normal heart sound, S2 normal heart sound, no murmurs, no rub and no gallops Cardio Narrative: no ectopy Rate: bradycardia GI soft to palpation GI Narrative: mildly distended and tympanic, no rebound tenderness, she c/o mild tenderness with palpation. She had a BM today. Normal BS's, no masses and no hepatosplenomegaly. Extremity normal capillary refill and no calf tenderness Extremity Narrative: ROSA MARIA vazqueze are in place radial and DP pulses are 3/3 General Extremity: Negative for clubbing, cyanosis or edema Skin General Skin Exam: no breakdown and dry skin; Negative for skin tear(s) Rashes: no rashes Wounds: Negative for wounds noted Neuro CN's II-XII intact bilaterally Neuro Narrative: mild decrease in sensation of the LUE, Left arm is weak and there is also weakness in the left leg but, not as bad as in the left arm, no facial asymmetry, no neglect Speech: speech normal Psych cooperative, affect normal, denies homicidal ideation and denies suicidal ideation Psych Narrative: makes good eye contact Appearance: appropriate Attitude: No agitated Mood & Affect: Negative for anxious Results Lab / Micro Data Result Diagrams: 02/27/22 07:00 02/27/22 07:00 Labs: Laboratory Results - last 24 hr 02/26/22 22:16: POC Glucose 137 H 02/27/22 06:56: POC Glucose 123 H 02/27/22 07:00: WBC 8.7, RBC 3.20 L, Hgb 9.5 L, Hct 30.0 L, MCV 93.8, MCH 29.7, MCHC 31.7 L, RDW Std Deviation 43.8, RDW Coeff of Satnam 12.7, Plt Count 309, MPV 9.7, Immature Gran % (Auto) 1.600 H, Neut % (Auto) 71.3 H, Lymph % (Auto) 15.7 L , [place] % (Auto) 8.5, Eos % (Auto) 2.6, Baso % (Auto) 0.3, Absolute Neuts (auto) 6.2, Absolute Lymphs (auto) 1.36, Nucleated RBC % 0 02/27/22 07:00: Sodium 136, Potassium 3.8, Chloride 105, Carbon Dioxide 26.0, Anion Gap 5, BUN 23 H, Creatinine 0.78, Estim Creat Clear Calc 37.80, Est GFR (MDRD) Af Amer 90, Est GFR (MDRD) Non-Af 74, BUN/Creatinine Ratio 29.4 H, Glucose 121 H, Calcium 8.9, Phosphorus 3.2, Magnesium 1.9, Total Bilirubin 0.70, AST 103 H, ALT 144 H, Alkaline Phosphatase 129 H, Total Protein 6.7, Albumin 2.3 L, Globulin 4.4 H, Albumin/Globulin Ratio 0.5 L 02/27/22 11:12: POC Glucose 190 H Assessment & Plan Assessment/Plan (1) Physical debility: (2) Acute stroke due to occlusion of right middle cerebral artery: (3) Paroxysmal atrial fibrillation: (4) Clot: (5) Chronic anticoagulation: (6) Acute left hemiparesis: (7) Dysphagia, oropharyngeal: (8) Bradycardia: (9) Orthostatic hypotension: (10) Urine retention: (11) Prediabetes: (12) Abnormal LFTs: (13) Normochromic normocytic anemia: (14) Non-rheumatic mitral regurgitation: (15) Pulmonary hypertension: (16) Nonischemic cardiomyopathy: (17) Hypothyroidism: (18) Non-Hodgkin lymphoma: (19) Mixed hyperlipidemia: (20) Essential hypertension: (21) Biatrial enlargement: PLAN: PLAN PT for gait stability OT for ADL's ST for evaluation Analgesics as needed Bowel protocol Fall precautions Assess for Anxiety/Depression GI prophylaxis - not ordered at this time. She denies N/V/epigastric pain and denies any hx of PUD or GERD. Hemoccult stool has been ordered because of the anemia DVT prophylaxis - she is on full dose Eliquis for PAF Follow up with Dr. Beckford, Dr. Acuña and neurology following DC from Rehab AM lab including CMP, CBC, Mag and Phos-personally reviewed. Will add a vitamin D level, TSH and T4. Decrease Coreg to 6.25 mg twice daily and continue to hold if her heart rate is less than 55. Normal saline at 75 cc/h x 2 L and recheck orthostatics in the a.m. Orthostasis may be related to Flomax. I reviewed the PT/OT notes. Has not been seen by speech yet. Thought process seems pretty good to me....she answered all my questions correctly Add a magnesium supplement and potassium supplement to keep the levels at 2 and 4 respectively. Recheck lab next week Charges/Coding Visit Charges Inpatient E&M: 72887 Init Hosp L3
[2022-02-27] MEDS: Insulin Lispro 100 UNIT/ML INSULN.PEN SC ×2 (12:25→16:30)
--- NOTE | 2022-02-27 14:02 | PCM.RU.PYE ---
Admission Information Primary Diagnosis:: Post stroke debility with left hemiparesis and oral pharyngeal dysphagia Status Changes from Prescreening?: No changes Identified Actual Problem List:: Alteration in Sleep, Mobility Impaired, Self Care Deficit, Diabetes, Hyperglycemia, BP, Hypotension and Alteration-Leisure Activ. Potential Problem List:: DVT, Bleeding, Infection, UTI, Aspiration, Falls, Skin Integrity and Depression Risk of Complications DVT: LMWH and ROSA MARIA Hose Bleeding: Monitor Lab Values, Nursing to Teach Precautions for anti-coagulation therapy., Wound, if applicable, to be assessed every shift. and Stroke patients assessed for lethargy or change in status. Infection: Clinical Staff to Monitor for S/S of infection: and S/S of infection include fever, redness, warmth, etc. Urinary Tract Infection: Monitor for frequency, burning, discomfort, or incontinence. and Nursing will obtain urine sample for urinalysis and C&S when ordered. Aspiration: Clinical staff will monitor for coughing, drooling, congestion., Speech will evaluate swallowing and dsyphasia. and Nursing will monitor patient swallowing during meals. Falls: Patient will be evaluated for Fall Precautions and Patient will be placed on Fall Precautions as indicated per protocol. Skin Breakdown: Nursing will assess skin daily using assessment tool. and Nursing will place on Skin Breakdown Precautions as indicated. Pain: Clinical staff will assess patient's pain level per protocol., Medications will be given, if needed, and the pain level reassessed. and Other methods: Massage, distraction, decrease stimulus, etc. used PRN. Plan of Care Patient requires physician specializing in physical medicine and rehab oversight to provide close medical supervision of rehab issues including: Pain Management, Sleep Problems, Bowel and Bladder, Medical and co-morbidity Management, DVT prophylaxis, Rehabilitation Leadership and Coordination of treatment team Patient needs Physical Therapy: For a minimum of 1 hour and At least 5 out of 7 days Patient needs Physical Therapy to improve:: Mobility, Strengthening, Transfers, Stretching, ROM, Endurance, Stairs, Gait and Balance Patient needs Occupational Therapy: For a minimum of 1 hour and At least 5 out of 7 days Patient needs Occupational Therapy to improve ADL's incl.: Eating, Grooming, Bathing, Dressing, Toileting, Toilet transfers, Community Reintegration, Higher functioning activities, Household tasks, Adaptive Equipment, Splinting and Other activities as determined Patient requires speech therapy: For a minimum of 1 hour and At least 5 out of 7 days Patient requires speech therapy for: Swallowing, Cognition, Language Skills and Compensatory Strategies Patient requires 24/ Rehabilitation Nursing for: Pain Issues, Identifying and preventing risk factors, Monitoring and reporting current medical conditions, Assisting with ambulation, transfer, and all ADL's, Teaching patients about disease process and medications, Family teaching, Providing safe environment, Bowel and Bladder Issues, Skin integrity and Medication Management Patient needs Big Data Lead/ Case Management for: Discharge Planning, Arranging Home Equipment or Services and Family Interventions Patient needs Dietary and Nutrition Services for: Adequate Nutrition, Nutritional Supplements and Nutritional Education Goals Patient will ambulate: - (250 feet with least restrictive device at mod I) Patient will complete upper body dressing at: - (Supervision) Patient will complete lower body dressing at: - (Supervision) Patient will complete toileting at: - (Distant supervision) Patient will perform bathing at: - (Supervision) Patient will complete grooming at: MOD I level of assist. Patient will complete home management skills at: - (Supervision) Patient will achieve: - (12 steps with 1 handrail at mod I and 1 curb step) Patient will have pain level of: of 3 or less Patient's skin will: remain intact Patient will receive: adequate nutrition. Discharge Planning Pt Prognosis for Sig. Practical Improv. w/in Reasonable Time: Good Estimated Length of stay (days): 28 Anticipated D/C Destination: Home w/ family or friends Was Preadmission Assessment Accurate?: Yes
[2022-02-27 14:30] LABS: T4 Free Direct 1.57 ng/dL (0.76-1.46); Thyroid Stim Hormone (TSH) 3.97 uIU/mL (0.358-3.74)
[2022-02-27] MEDS: 0.9% Normal Saline 1,000 ML 75 ML IV (16:09)
[2022-02-27 16:16] LABS: Bedside Glucose 155 mg/dL (74-106)
[2022-02-27] MEDS: Magnesium Chloride 64 MG Delay Rel.Tablet 128 MG PO (16:17)
[2022-02-27] MEDS: Potassium Chloride Oral Tablet 10 MEQ PO (16:20)
[2022-02-27] MEDS: Tamsulosin HCl 0.4 MG Capsule PO (16:35)
[2022-02-27] MEDS: 0.9% Saline Lock 10 ML Syringe IV (17:25)
[2022-02-27 22:05] LABS: Bedside Glucose 110 mg/dL (74-106)
[2022-02-27] MEDS: Menthol/Lanolin/Calamine/Znox 113 GM Tube 1 APPLIC TOPICAL (22:07)
[2022-02-27] MEDS: Atorvastatin Calcium 10 MG Tablet PO (22:08)
--- NOTE | 2022-02-28 04:00 | NURSING ---
PT INCONTINENT OF STOOL AND URINE AND STOOL SPECIMEN SENT TO LAB. HEMATURIA NOTED IN ATTENDS. PT STRAIGHT CATHED FOR SMALL AMT RED URINE AND SENT TO LAB. PT TOLERATES PROCEDURE WELL. PT STATES SHE HAS MILD STINGING WHEN URINATING.
[2022-02-28 04:10] LABS: Mucous, Urine 0 SEEN /hpf (<or=2+); Squamous Epithelial Cells - UA 0 SEEN /hpf (5-10)
[2022-02-28 04:22] LABS: Color, Urine Red (Yellow); Glucose, Dipstick Normal (Normal); Ketone-Dipstick 5 mg/dl (Negative); Leukocyte Esterase-Dipstick 100 /ul (Negative); Nitrite-Dipstick Negative (Negative); Occult Blood-Urine 250 /ul (Negative); Protein-Dipstick 500 mg/dl (Negative); Urine Bilirubin Dipstick Negative (Negative); Urine Clarity Turbid (Clear); Urine Urobilinogen Normal (Normal)
[2022-02-28 04:30] LABS: Amorphous Sediment 2+; Bacteria 2+ /hpf (None Seen); Red Blood Cells-Urine > 100 SEEN /hpf (0-5); White Blood Cells >100 SEEN /hpf (0-5)
[2022-02-28 04:35] VITALS: BP 154/60; BP 158/65; BP 174/66; PULSE 50; PULSE 53; PULSE 56
[2022-02-28] MEDS: Acetaminophen 500 MG Tablet 1000 MG PO ×2 (04:43→21:45)
[2022-02-28] MEDS: Menthol/Lanolin/Calamine/Znox 113 GM Tube 1 APPLIC TOPICAL ×2 (05:00→21:41)
[2022-02-28] MEDS: Levothyroxine 25 MCG TABLET PO (05:00)
--- NOTE | 2022-02-28 05:16 | NURSING ---
DR CHAVEZ NOTIFIED OF PT'S UA RESULTS.
--- NOTE | 2022-02-28 05:21 | PCM.HOSP.N ---
Hospitalist Note Patient with onset hematuria. UA obtained and concerning for UTI. UCx requested. Will place on IV rocephin pending Dr. Fuchs evaluation and/or culture.
[2022-02-28] MEDS: 0.9% Normal Saline 1,000 ML 75 ML IV (05:29)
[2022-02-28 06:35] VITALS: O2SAT 95
--- NOTE | 2022-02-28 06:41 | NURSING ---
SEVEN ARRIVES TO UNIT FROM PHARMACY.
[2022-02-28] MEDS: Ceftriaxone 1 GM/50 ML BAG IV (06:42)
[2022-02-28 07:10] LABS: Bedside Glucose 114 mg/dL (74-106)
[2022-02-28 08:45] VITALS: BP 150/60; PULSE 56; RESP 20; TEMP 36.3; O2SAT 97
[2022-02-28] MEDS: Multivitamins,Ther W-Minerals Tablet 1 TABLET PO (08:59)
[2022-02-28] MEDS: APIXABAN 5 MG TABLET PO ×2 (08:59→21:40)
[2022-02-28] MEDS: Glucerna Shake 120 ML LIQUID PO ×2 (08:59→17:08)
[2022-02-28] MEDS: Potassium Chloride Oral Tablet 10 MEQ PO (08:59)
[2022-02-28] MEDS: Magnesium Chloride 64 MG Delay Rel.Tablet 128 MG PO ×2 (08:59)
[2022-02-28 10:00] VITALS: PULSE 51
[2022-02-28 11:15] LABS: Bedside Glucose 129 mg/dL (74-106)
--- NOTE | 2022-02-28 12:00 | NURSING ---
Son given update regarding new order for IV ATB.
[2022-02-28 16:25] LABS: Bedside Glucose 114 mg/dL (74-106)
[2022-02-28] MEDS: Tamsulosin HCl 0.4 MG Capsule PO (17:06)
[2022-02-28 19:27] VITALS: BP 166/56; PULSE 50; RESP 14; TEMP 35.8; O2SAT 98
[2022-02-28] MEDS: Atorvastatin Calcium 10 MG Tablet PO (21:40)
[2022-02-28 22:00] VITALS: PULSE 50
[2022-02-28 22:26] LABS: Bedside Glucose 134 mg/dL (74-106)
[2022-03-01 05:26] VITALS: BP 135/84; BP 146/51; BP 149/52; PULSE 50; PULSE 51; PULSE 54
[2022-03-01] MEDS: Acetaminophen 500 MG Tablet 1000 MG PO (06:00)
[2022-03-01] MEDS: Levothyroxine 25 MCG TABLET PO (06:00)
[2022-03-01] MEDS: Menthol/Lanolin/Calamine/Znox 113 GM Tube 1 APPLIC TOPICAL ×2 (06:11→21:21)
[2022-03-01 06:14] VITALS: BMI 28.2
[2022-03-01 07:11] LABS: Bedside Glucose 98 mg/dL (74-106)
[2022-03-01 07:32] VITALS: BP 146/51; PULSE 51; RESP 16; TEMP 36.1; O2SAT 98
[2022-03-01 08:39] LABS: Vitamin D,25 Hydroxy 18.3 ng/mL
[2022-03-01] MEDS: Potassium Chloride Oral Tablet 10 MEQ PO (08:52)
[2022-03-01] MEDS: Multivitamins,Ther W-Minerals Tablet 1 TABLET PO (08:53)
[2022-03-01] MEDS: Glucerna Shake 120 ML LIQUID PO ×3 (09:09→17:04)
[2022-03-01] MEDS: APIXABAN 5 MG TABLET PO ×2 (09:10→21:15)
[2022-03-01] MEDS: 0.9% Saline Lock 10 ML Syringe IV ×2 (09:16→21:10)
[2022-03-01] MEDS: Ceftriaxone 1 GM/50 ML BAG IV (09:17)
--- NOTE | 2022-03-01 09:35 | PCM.PROGNOTE ---
Subjective Subjective Rosa was seen on team rounds today. Day #2 Rocephin Afebrile VSS-remains bradycardic even with decrease in the Coreg dose. Blood pressure since Tuesday have ranged from 136/74 to 166/56. Coreg has been held since Tuesday evening. Orthostatic vital signs are negative today. Maintaining appropriate oxygen saturation on RA Oral intake is just over 1 L a day. She is also had 2 L of IV NS over the weekend. Last bowel movement was today. She remains incontinent of urine. The blood sugar record was reviewed and all blood sugars are less than 130 so will discontinue Accu-Cheks at this time. She has a glucose intolerance but is not diabetic. Discussed with nursing - no problems that need addressed Reviewed the PT/OT/ST notes Medication list reviewed. All lab was personally reviewed. TSH was 3.97 and the free T4 is 1.57. Vitamin D level is low at 18.3. UA over the weekend showed ketones greater than 100 RBCs per high-power field and greater than 100 WBCs per high-power field. There was 2+ bacteria. She is on Eliquis 5 mg p.o. twice daily. Urine culture is pending. Stool for occult blood was negative. Objective Data Objective Data Vital Signs: Vital Signs Temp Pulse Resp BP Pulse Ox 97.0 F L 51 L 16 146/51 H 98 03/01/22 07:32 03/01/22 07:32 03/01/22 07:32 03/01/22 07:32 03/01/22 07:32 Oxygen Delivery Method Room Air Weight: 175 lb 0.752 oz Body Mass Index (BMI) 28.2 Intake & Output: Intake and Output for Last 24 Hours 02/27/22 02/28/22 03/01/22 23:59 23:59 23:59 Intake Total 1020 / 1020 3210 / 3210 400 / 400 Output Total 925 / 925 600 / 600 Balance 95 / 95 2610 / 2610 400 / 400 Lab / Micro Data Result Diagrams: 02/27/22 07:00 02/27/22 07:00 Labs: Laboratory Results - last 24 hr 02/28/22 05:55: Vitamin D 25-Hydroxy 18.3 02/28/22 11:03: POC Glucose 129 H 02/28/22 16:11: POC Glucose 114 H 02/28/22 21:39: POC Glucose 134 H 03/01/22 06:10: POC Glucose 98 Micro: Microbiology 02/28/22 03:35 Stool Stool Occult Blood (DONTAE) - Final Physical Exam Const Constitutional Narrative: she is quite fatigued after therapy. She is more alert today than she was on Tuesday when I first saw her. General Appearance: cooperative Eyes PERRL, conjunctivae normal and no scleral icterus Chest Chest: symmetrical chest wall rise Resp clear to auscultation bilaterally Cardio regular rhythm and no gallops Rate: bradycardia GI normal to inspection, nondistended, normoactive bowel sounds, soft to palpation and non-tender GI Narrative: no guarding with palpation Extremity no calf tenderness Assessment & Plan Assessment/Plan (1) Hematuria: (2) Chronic anticoagulation: (3) Bradycardia: (4) Paroxysmal atrial fibrillation: (5) Acute left hemiparesis: (6) Physical debility: (7) Acute stroke due to occlusion of right middle cerebral artery: (8) Hypothyroidism: (9) Inadequate caloric intake: (10) Sick sinus syndrome: (11) Abnormal LFTs: PLAN: 1. CBC with diff in the AM and also a CMP and MAG 2. EKG to see if she is SB or Junctional rhythm 3. After I see the EKG will discuss with her programming specialist, Dr. Dwight Acuña. 4. She has ketones in the urine and she is eating < 50% of her meals........I am going to add Remeron at HS to help to stimulate the appetite. 5. Continue Rocephin and await the results of the urine culture to make changes. The prelim is suspected E. Coli....sensitivities are pending. I spoke with Dr. Acuña and will order a 24H holter monitor and then talk again. Charges/Coding Visit Charges Inpatient E&M: 47831 Subs Hosp L2
--- NOTE | 2022-03-01 09:41 | EKG12_ITS ---
Test Reason : RYLAND Blood Pressure : / mmHG Vent. Rate : 049 BPM Atrial Rate : 049 BPM P-R Int : 000 ms QRS Dur : 096 ms QT Int : 496 ms P-R-T Axes : 000 009 067 degrees QTc Int : 448 ms Sinus bradycardia Nonspecific ST and T wave abnormality Abnormal ECG When compared with ECG of 18-FEB-2022 05:01, Junctional rhythm has replaced Sinus rhythm Nonspecific T wave abnormality now evident in Lateral leads Confirmed by FRANSISCA CHOI, SARITA ([id number]), editorial assistant SUNNY LAROSE ([id number]) on 03/05/2022 1:27:56 PM Referred By: GERSON Confirmed By:ABDON GONGORA MD
[2022-03-01 10:00] VITALS: PULSE 51
[2022-03-01] MEDS: Cholecalciferol (VIT D3) 25 MCG TABLET (1,000 UNITS) PO (11:20)
[2022-03-01 12:51] VITALS: BMI 28.2
[2022-03-01] MEDS: Tamsulosin HCl 0.4 MG Capsule PO (17:03)
[2022-03-01 19:40] VITALS: BP 142/46; PULSE 51; RESP 16; TEMP 36.8; O2SAT 98
[2022-03-01] MEDS: Atorvastatin Calcium 10 MG Tablet PO (21:15)
[2022-03-01] MEDS: Mirtazapine 15 MG Tablet 7.5 MG PO (21:16)
[2022-03-01 21:50] VITALS: BMI 28.2
[2022-03-01 22:00] VITALS: PULSE 46; RESP 16
[2022-03-02] MEDS: Menthol/Lanolin/Calamine/Znox 113 GM Tube 1 APPLIC TOPICAL ×2 (05:10→20:41)
[2022-03-02] MEDS: Levothyroxine 25 MCG TABLET PO (05:10)
[2022-03-02 05:48] LABS: Absolute Lymphocyte Count 1.58 X10^3/uL (0.83-4.51); Absolute Neutrophil Count 7.1 X10^3/uL (2.0-7.7); Basophil# 0.03 X10^3/uL; Basophil% 0.3 % (0-1); Eosinophil# 0.19 X10^3/uL; Hematocrit 31.2 % (37-47); Hemoglobin 9.6 g/dL (12.0-15.0); Lymphocyte # 1.58 X10^3/ul (0.83-4.51); Lymphocyte % 16.3 % (19-41); Mean Corp Hgb Conc 30.8 g/dL (32-36); Mean Corpuscular Volume 94.3 fL (81-99); Mean Platelet Vol. 9.1 fl (6.2-12.0); Monocyte# 0.66 X10^3/uL; Monocyte% 6.8 % (0-10); NRBC Flagged by Analyzer 0 % (0-5); Neutrophil # 7.09 X10^3/uL (2.7-7.7); Neutrophil % 73.1 % (47-70); Platelet Count 359 K/mm3 (150-450); RBC Distribution Width CV 13.1 % (11.6-14.6); RBC Distribution Width SD 44.6 fl (35.1-43.9); Red Blood Count 3.31 M/mm3 (4.2-5.4); White Blood Count 9.7 K/mm3 (4.4-11.0)
[2022-03-02 06:23] LABS: ALB/GLOB Ratio 0.6 RATIO (0.9-2.4); AST(SGOT) 38 U/L (15-37); Alanine Aminotransfer ALT/SGPT 87 U/L (13-56); Albumin, Serum 2.3 g/dL (3.2-5.0); Alkaline Phosphatase 108 U/L (45-117); Anion Gap 3 (5-15); BUN 11 mg/dL (7-18); BUN/Creat Ratio 17.6 RATIO (10-20); Calcium,Total 8.9 mg/dL (8.5-10.1); Chloride 111 mmol/L (98-107); Creatinine, Serum 0.62 mg/dL (0.55-1.02); EST Glomerular Filtration Rate 96 mL/min (>60); Est Glom Filt Rate - Afr Amer 116 mL/min (>60); Globulin 4.1 g/dL (2.2-4.2); Glucose 89 mg/dL (74-106); Magnesium 1.9 mg/dL (1.6-2.6); Protein, Total 6.4 g/dL (6.4-8.2); Sodium Level 141 mmol/L (136-145)
[2022-03-02 07:33] VITALS: BP 160/58; PULSE 56; RESP 16; TEMP 36.4; O2SAT 96
[2022-03-02] MEDS: Multivitamins,Ther W-Minerals Tablet 1 TABLET PO (08:56)
[2022-03-02] MEDS: Potassium Chloride Oral Tablet 10 MEQ PO (08:56)
[2022-03-02] MEDS: Glucerna Shake 120 ML LIQUID PO ×2 (08:57→12:09)
[2022-03-02] MEDS: APIXABAN 5 MG TABLET PO ×2 (08:57→20:29)
[2022-03-02] MEDS: Cholecalciferol (VIT D3) 25 MCG TABLET (1,000 UNITS) PO (08:57)
[2022-03-02] MEDS: Magnesium Chloride 64 MG Delay Rel.Tablet 128 MG PO (08:57)
--- NOTE | 2022-03-02 09:30 | PN_ITS ---
Subjective Subjective Rocephin day #3 Afebrile VSS-heart rate is 56 this morning. It was 46 last night at 10 PM. Systolic blood pressure is consistently high. Maintaining appropriate oxygen saturation on RA Oral intake is improving. She took 1300 cc p.o. yesterday. Remains incontinent of urine. Discussed with nursing - no problems that need addressed Reviewed the PT/OT/ST notes Medication list reviewed. All lab was personally reviewed. White blood cell count is normal at 9.7. Immature granulocytes are still high at 1.5% but this is down from 1.6% at admission. Platelets are within normal limits. She has lymphopenia. Hemoglobin is stable at 9.6. Potassium is 4.0 and BUN is down to 11 from 23 and the creatinine is 0.62 today. AST and ALT are coming down and they are 38 and 87 respectively today. Calcium is within normal limits and the magnesium is 1.9. The Holtor monitor was placed on her today. Urine culture grew greater than 100,000 colonies of E. coli. It is resistant to ampicillin, ampicillin/sulbactam and cefazolin. It is sensitive to ceftriaxone. It is also sensitive to Nitrofurantoin and Bactrim and Levaquin but, due to her age and confusion due to the recent stroke I am concerned about adding to the confusion. She has been afebrile but, she did have a Ramsey prior to admission to rehab so I am going to treat. Will give a total of 5 days of Rocephin and repeat a UA and urine culture 1 week after the antibiotics have concluded. I spoke with the SW today and she had done a depression screening on Rosa today and she scored high. I had started her on Remeron last night to help with appetite, sleep and depression. She denied pain, SOB, lightheadedness, dysuria. She does have urinary frequency and she is still incontinent of urine. Objective Data Objective Data Vital Signs: Vital Signs Temp Pulse Resp BP Pulse Ox 97.5 F L 56 L 16 160/58 H 96 03/02/22 07:33 03/02/22 07:33 03/02/22 07:33 03/02/22 07:33 03/02/22 07:33 Oxygen Delivery Method Room Air Weight: 175 lb 0.752 oz Body Mass Index (BMI) 28.2 Intake & Output: Intake and Output for Last 24 Hours 02/28/22 03/01/22 03/02/22 23:59 23:59 23:59 Intake Total 3210 / 3210 1350 / 1410 120 / 120 Output Total 600 / 600 Balance 2610 / 2610 1350 / 1410 120 / 120 Lab / Micro Data Result Diagrams: 03/02/22 05:35 03/02/22 05:35 Labs: Laboratory Results - last 24 hr 03/02/22 05:35: WBC 9.7, RBC 3.31 L, Hgb 9.6 L, Hct 31.2 L, MCV 94.3, MCH 29.0, MCHC 30.8 L, RDW Std Deviation 44.6 H, RDW Coeff of Satnam 13.1, Plt Count 359, MPV 9.1, Immature Gran % (Auto) 1.500 H, Neut % (Auto) 73.1 H, Lymph % (Auto) 16.3 L , Morton % (Auto) 6.8, Eos % (Auto) 2.0, Baso % (Auto) 0.3, Absolute Neuts (auto) 7.1, Absolute Lymphs (auto) 1.58, Nucleated RBC % 0 03/02/22 05:35: Sodium 141, Potassium 4.0, Chloride 111 H, Carbon Dioxide 27.0, Anion Gap 3 L, BUN 11, Creatinine 0.62, Estim Creat Clear Calc 37.80, Est GFR (MDRD) Af Amer 116, Est GFR (MDRD) Non-Af 96, BUN/Creatinine Ratio 17.6, Glucose 89, Calcium 8.9, Magnesium 1.9, Total Bilirubin 0.40, AST 38 H, ALT 87 H, Alkaline Phosphatase 108, Total Protein 6.4, Albumin 2.3 L, Globulin 4.1, Albumin/Globulin Ratio 0.6 L Micro: Microbiology 02/28/22 04:00 Urine Catheter - Catheter Urine Culture - Final Presumptive E. coli 02/28/22 03:35 Stool Stool Occult Blood (DONTAE) - Final Physical Exam Const alert Constitutional Narrative: more alert today. Walking with an upright posture using the FWW. Eyes EOMs intact bilaterally, conjunctivae normal and no scleral icterus Resp no use of accessory muscles and clear to auscultation bilaterally Effort and Inspection: able to speak in complete sentences Cardio regular rhythm and no gallops Cardio Narrative: bradycardia GI normal to inspection, nondistended, normoactive bowel sounds, soft to palpation, non-tender and non-distended Extremity no calf tenderness and no pedal edema Assessment & Plan Assessment/Plan (1) Sick sinus syndrome: (2) Chronic anticoagulation: (3) Paroxysmal atrial fibrillation: (4) Acute stroke due to occlusion of right middle cerebral artery: (5) Catheter-associated urinary tract infection: (6) Vitamin D deficiency: (7) Depression determined by examination: (8) Presbycusis: PLAN: 1. Continue the Rocephin for 5 days. Repeat a UA and urine culture 5-7 days after the antibiotic concludes. 2. Schedule Tylenol 3. Continue the Potassium. Maintain the K at least at 4. 4. Continue the mag supplement. 5. Continue therapy 6,, Holtor monitor placed today Charges/Coding Visit Charges Inpatient E&M: 09929 Subs Hosp L2
[2022-03-02 10:00] VITALS: BP 153/58; BP 155/68; BP 172/65; PULSE 54; PULSE 61
[2022-03-02] MEDS: 0.9% Saline Lock 10 ML Syringe IV ×2 (10:22→20:12)
[2022-03-02] MEDS: Ceftriaxone 1 GM/50 ML BAG IV (10:23)
[2022-03-02] MEDS: Acetaminophen 500 MG Tablet 1000 MG PO ×2 (14:03→20:55)
--- NOTE | 2022-03-02 14:24 | CASEMGMT ---
Social Work Met with patient to complete initial assessment. Introduced self and role. Discussed code status. Pt states she wants to be saved but only if she will have the same quality of life and doesn't want on machines. Explained at the time of cardiac arrest, the first responders are not going to make the assessment of 'quality of life'. Pt did confirm full code and will refer to the living will, as needed. Explained [employer] insurance with NRD 03/04 and continued stay is not guaranteed with each review. The goal is for pt to return home alone. Son lives across the street. At Team meeting with son present, will discuss further assistance pt will have at home, and need for alternative DC plan. PHQ-9 completed, scored 22/27, which indicates severe depression. Pt was very open about new depressive feelings since stroke. Explained depression and increased emotions are common after strokes. Validated feelings. Provided supportive listening. Explained and provided stroke support group brochure. pt agreeable to be added to mailing list. Explained the start of antidepressant to monitor during stay. Pt agreed. Communicated to and antidepressant started. Offered to pt ongoing emotional support. SW to continue to follow. Michelle Lara ,SR SOLUTIONS CONSULTANT TEXTILES AND CLOTHING TEACHER
[2022-03-02 17:00] VITALS: BMI 28.2
[2022-03-02] MEDS: Tamsulosin HCl 0.4 MG Capsule PO (17:47)
[2022-03-02 19:35] VITALS: BP 129/90; PULSE 51; RESP 15; TEMP 36.3; O2SAT 93
[2022-03-02 20:28] VITALS: BMI 28.2
[2022-03-02] MEDS: Atorvastatin Calcium 10 MG Tablet PO (20:29)
[2022-03-02] MEDS: Mirtazapine 15 MG Tablet 7.5 MG PO (20:30)
[2022-03-02 22:00] VITALS: PULSE 50; RESP 15
[2022-03-03] MEDS: Levothyroxine 25 MCG TABLET PO (05:49)
[2022-03-03] MEDS: Acetaminophen 500 MG Tablet 1000 MG PO ×3 (05:49→21:10)
[2022-03-03] MEDS: Menthol/Lanolin/Calamine/Znox 113 GM Tube 1 APPLIC TOPICAL ×2 (05:50→21:11)
[2022-03-03 07:56] VITALS: BP 139/52; PULSE 56; RESP 18; TEMP 36.6; O2SAT 94
[2022-03-03] MEDS: Magnesium Chloride 64 MG Delay Rel.Tablet 128 MG PO (08:18)
[2022-03-03] MEDS: Potassium Chloride Oral Tablet 10 MEQ PO (08:18)
[2022-03-03] MEDS: Cholecalciferol (VIT D3) 25 MCG TABLET (1,000 UNITS) PO (08:18)
[2022-03-03] MEDS: APIXABAN 5 MG TABLET PO ×2 (08:18→21:11)
[2022-03-03] MEDS: Glucerna Shake 120 ML LIQUID PO ×2 (08:18→17:38)
[2022-03-03] MEDS: Multivitamins,Ther W-Minerals Tablet 1 TABLET PO (08:18)
[2022-03-03 10:00] VITALS: BP 148/74; BP 152/67; BP 158/65; PULSE 51; PULSE 52; PULSE 54
[2022-03-03] MEDS: Ceftriaxone 1 GM/50 ML BAG IV (11:10)
[2022-03-03 15:28] VITALS: BMI 28.2
[2022-03-03] MEDS: Tamsulosin HCl 0.4 MG Capsule PO (17:38)
[2022-03-03 19:21] VITALS: BP 150/62; PULSE 73; RESP 16; TEMP 37; O2SAT 99
[2022-03-03] MEDS: Senna/Docusate Sodium 1 Tablet 2 TABLET PO (21:10)
[2022-03-03] MEDS: Atorvastatin Calcium 10 MG Tablet PO (21:11)
[2022-03-03] MEDS: Mirtazapine 15 MG Tablet 7.5 MG PO (21:11)
[2022-03-03] MEDS: 0.9% Saline Lock 10 ML Syringe IV (21:22)
[2022-03-04 05:07] VITALS: BP 134/58; BP 153/51; BP 164/49; PULSE 59; PULSE 60; PULSE 65
[2022-03-04] MEDS: Menthol/Lanolin/Calamine/Znox 113 GM Tube 1 APPLIC TOPICAL ×2 (05:47→21:26)
[2022-03-04] MEDS: Acetaminophen 500 MG Tablet 1000 MG PO ×3 (05:47→21:24)
[2022-03-04] MEDS: Levothyroxine 25 MCG TABLET PO (05:47)
[2022-03-04] MEDS: Glucerna Shake 120 ML LIQUID PO (07:58)
[2022-03-04] MEDS: APIXABAN 5 MG TABLET PO ×2 (07:59→21:23)
[2022-03-04] MEDS: Cholecalciferol (VIT D3) 25 MCG TABLET (1,000 UNITS) PO (07:59)
[2022-03-04] MEDS: Multivitamins,Ther W-Minerals Tablet 1 TABLET PO (07:59)
[2022-03-04] MEDS: Magnesium Chloride 64 MG Delay Rel.Tablet 128 MG PO (07:59)
[2022-03-04] MEDS: Potassium Chloride Oral Tablet 10 MEQ PO (07:59)
[2022-03-04 09:00] VITALS: BP 153/51; PULSE 59; RESP 12; TEMP 35.9; O2SAT 95
--- NOTE | 2022-03-04 10:13 | PN_ITS ---
Subjective Subjective Afebrile VSS - systolic is mildly above goal. diastolics are in goal. Heart rate for the past 36 hours has ranged from 51-73. Orthostatics were negative today. Maintaining appropriate oxygen saturation on RA Oral intake is poor. If the weights can be believed her weight is up 9 and 1/2 pounds since admission . Reviewed the polisher eyeglass frames's note from yesterday. She is eating at least 50% of her meals now, up from 25% at admission. Last bowel movement was today. Remains incontinent of urine. Discussed with nursing - no problems that need addressed. Patient keeps saying she wants to go home.....she lives alone. Reviewed the PT/OT/ST notes - she is progressing. MRS is now down to a 3, from 4 at admission. Still having some left side neglect. Still fatigues easily but, willing to work because she wants to go home. She lives alone but, her son lives across the street. she ambulated 200 today with a WW at [facility] on carpet, 150' up/down inclined surface. She walked 120' with a st cane at [facility]. She is able to do her own hygiene after toileting now. Still requiring moderate assist for bathing and max assist for LB dressing. She was able to stand for 4 minutes without UE support yesterday to do home management tasks. Medication list reviewed. She wants to go home and tells me that she will be OK at home. I reinforced with her that if can not do an activity here she would not be able to do it at home. She has has deficits in cognitive function, rama with executive function and she would not be safe without 24/7 supervision for now. She may be with continued therapy. She denies shortness of breath, chest pain, lightheadedness, palpitations, dysuria. She is still incontinent of urine. Results of the 24 hour holtor which was removed yesterday are still pending. Objective Data Objective Data Vital Signs: Vital Signs Temp Pulse Resp BP Pulse Ox 96.7 F L 59 L 12 153/51 H 95 03/04/22 09:00 03/04/22 09:00 03/04/22 09:00 03/04/22 09:00 03/04/22 09:00 Oxygen Delivery Method Room Air Weight: 175 lb 7.807 oz Body Mass Index (BMI) 28.2 Intake & Output: Intake and Output for Last 24 Hours 03/02/22 03/03/22 03/04/22 23:59 23:59 23:59 Intake Total 524 / 524 710 / 710 250 / 250 Balance 524 / 524 710 / 710 250 / 250 Lab / Micro Data Result Diagrams: 03/02/22 05:35 03/02/22 05:35 Micro: Microbiology 02/28/22 04:00 Urine Catheter - Catheter Urine Culture - Final Presumptive E. coli 02/28/22 03:35 Stool Stool Occult Blood (DONTAE) - Final Physical Exam Const alert and no apparent distress Constitutional Narrative: Lying in bed. She is arguing with her son and I get t he impression this is a regular thing. He tells me that she will not take the antidepressant at home. She has always tended to do what she thinks is best..... HEENT HEENT Narrative: Very HOU[place] in the left ear......does better if you are on her R side when speaking to her. MM are moist Eyes PERRL, conjunctivae normal and no scleral icterus Resp normal respiratory effort and clear to auscultation bilaterally Resp Narrative: She was lying flat in bed when I saw her earlier today and she had no resp distress.orthopnea. Effort and Inspection: able to speak in complete sentences Cardio regular rhythm and no gallops Cardio Narrative: HR is approximately 60 GI normal to inspection, nondistended, normoactive bowel sounds, soft to palpation and non-tender Extremity Extremity Narrative: she has ankle edema today and also has some mild pretibial edema which she has not had before. Skin General Skin Exam: no breakdown Rashes: no rashes Assessment & Plan Assessment/Plan (1) Depression determined by examination: (2) Catheter-associated urinary tract infection: (3) Chronic anticoagulation: (4) Bradycardia: (5) Urine retention: (6) Paroxysmal atrial fibrillation: (7) Acute left hemiparesis: (8) Acute stroke due to occlusion of right middle cerebral artery: (9) Pulmonary hypertension: PLAN: 1. Lasix 20 mg X 1 today. 2. Await the results of the Holtor. 3. Continue the Apixaban for PAF 4. Coreg was discontinued last Tuesday 5. Continue therapy. 6. I had a discussion with the pt and her son about depression and the increased incidence in stroke patients and how the patients with depression don't tend to do so well. She at least will now be able to meake an informed decision about whether to discontinue the Remeron or not. I can not at this time recommend her going home at OR unless she has 13/06 supervision......she has poor safety awareness, decreased ability with executive function, thinks she can do more than she can at this time and she lives alone.......I do not think she would be safe. Charges/Coding Visit Charges Inpatient E&M: 79418 Subs Hosp L2
--- NOTE | 2022-03-04 14:28 | CASEMGMT ---
Social Work IDT met with patient and son for Team meeting. Discussed patient's progress in PT/OT/ST and nursing. Pt making progress. Explained [employer] NRD 03/10 with DC plans in place as continued stay is not guaranteed. IDT is recommending 24/ supervision at home. Pt lives at home alone. Son agrees and insisted on sister staying with pt at home for a few weeks to assist with transition. Provided son resources for [facility] and nonskilled HHC. Pt still struggling with loss of independence and changes from stroke. Provided emotional support. Will ReTeam. SW to continue to follow. Michelle Lara, [employer] FIELD TECHNICIAN SPOOL SORTER
--- NOTE | 2022-03-04 14:44 | NS ---
Calorie Count ordered for 03/04, 03/05, and 03/06. Discussed w/ nursing staff- staff to record percent of each food consumed on tray menu. Please keep pt menus in room for dietitian to collect. Results of 03/04 calorie count will be available in dietitian documentation on 03/05. Call clinical dietitian at [phone] with questions. Christy Lin MS, RDN, LD
[2022-03-04 16:43] VITALS: BMI 28.2
[2022-03-04 17:27] VITALS: BP 158/67; PULSE 56; RESP 16; TEMP 36.3; O2SAT 99
[2022-03-04] MEDS: Ceftriaxone 1 GM/50 ML BAG IV (17:56)
[2022-03-04] MEDS: Tamsulosin HCl 0.4 MG Capsule PO (18:00)
[2022-03-04] MEDS: Furosemide 20 MG Tablet PO (18:00)
[2022-03-04] MEDS: Atorvastatin Calcium 10 MG Tablet PO (21:23)
[2022-03-04] MEDS: Mirtazapine 15 MG Tablet 7.5 MG PO (21:23)
[2022-03-04] MEDS: 0.9% Saline Lock 10 ML Syringe IV (21:31)
[2022-03-04 22:35] VITALS: BMI 28.2
[2022-03-05] MEDS: Levothyroxine 25 MCG TABLET PO (05:19)
[2022-03-05] MEDS: Acetaminophen 500 MG Tablet 1000 MG PO ×3 (05:19→20:58)
[2022-03-05] MEDS: Menthol/Lanolin/Calamine/Znox 113 GM Tube 1 APPLIC TOPICAL ×2 (05:21→20:59)
[2022-03-05 06:00] VITALS: BP 143/59; BP 153/62; BP 154/56; PULSE 54; PULSE 58; PULSE 59
[2022-03-05 07:35] VITALS: BP 153/62; PULSE 58; RESP 18; TEMP 36.6; O2SAT 95
[2022-03-05] MEDS: Glucerna Shake 120 ML LIQUID PO ×2 (08:24→17:24)
[2022-03-05] MEDS: Magnesium Chloride 64 MG Delay Rel.Tablet 128 MG PO (08:25)
[2022-03-05] MEDS: APIXABAN 5 MG TABLET PO ×2 (08:25→21:00)
[2022-03-05] MEDS: Cholecalciferol (VIT D3) 25 MCG TABLET (1,000 UNITS) PO (08:25)
[2022-03-05] MEDS: Multivitamins,Ther W-Minerals Tablet 1 TABLET PO (08:25)
[2022-03-05] MEDS: Potassium Chloride Oral Tablet 10 MEQ PO (08:26)
[2022-03-05] MEDS: Ceftriaxone 1 GM/50 ML BAG IV (09:59)
[2022-03-05] MEDS: 0.9% Saline Lock 10 ML Syringe IV (10:06)
[2022-03-05 15:41] VITALS: BMI 28.2
--- NOTE | 2022-03-05 15:54 | PN_ITS ---
Progress Note Afebrile VSS - systolics are consistently above goal. Maintaining appropriate oxygen saturation on RA Oral intake is erratic Discussed with nursing - no problems that need addressed Reviewed the PT/OT/ST notes - The ST related to me that the patient was questioning why she is taking some of the medications and I went in and we discussed all her medications and why she is taking them. She had been on Coreg at admission to rehab but this was discontinued due to severe bradycardia and fatigue. I discussed the results of the holtor with Dr. Acuña today and no intervention needed at this time. Medication list reviewed. She tells me that she was up a lot last night urinating.....she got 20 mg of Lasix yesterday in the late afternoon. For increase in weight and pretibial and ankle edema that was getting worse. The bed is in a position with the knees elevated and the ankles downhill from the knees which is not helping the swelli ng. She is wearing the TEDS. She tells me that her legs always swell at home. She will have a weight tomorrow. She is still having urinary incontinence. Denies dysuria. Alert and oriented X3. NAD. Sitting up in bed. Lungs - CTA H- regular rate and rhythm today. no ectopy, no gallop the edema in the pretibial area is gone and the ankle edema has improved but is still mild....similar to what it was at admission. ABD - soft, NT, ND with normal BS's skin - no breakdown and no bruising Impressions 1. hx of Pulmonary HTN with swelling in the distal LE's - better with the dose of Lasix given yesterday. Await the weight tomorrow. 2. HTN - will start hydralazine 10 mg p.o. twice daily and continue to monitor the BP's 3. Depression-continue Remeron....no adverse reactions so far 4. anemia - stable. Will recheck HH and a CMP next Tuesday 5. Pulmonary HTN - moderate along with venous insufficiency - follow weights. Nursing told not to elevate the knees when she is in bed because this contributes to the edema. Visit Charges Inpatient E&M: 11255 Subs Hosp L2
[2022-03-05] MEDS: Tamsulosin HCl 0.4 MG Capsule PO (17:25)
[2022-03-05 19:13] VITALS: BP 133/45; PULSE 55; RESP 18; TEMP 36.6; O2SAT 98
[2022-03-05] MEDS: Mirtazapine 15 MG Tablet 7.5 MG PO (20:58)
[2022-03-05] MEDS: Senna/Docusate Sodium 1 Tablet 2 TABLET PO (20:58)
[2022-03-05] MEDS: Atorvastatin Calcium 10 MG Tablet PO (20:58)
[2022-03-05 20:59] VITALS: BP 148/58; PULSE 58
[2022-03-05] MEDS: hydrALAZINE 10 MG Tablet PO (20:59)
[2022-03-05 22:09] VITALS: BMI 28.2
[2022-03-06] VITALS (7 sets, daily range): BP systolic 129–169; BP diastolic 54–70; PULSE 60–66; RESP 16–18; TEMP 36.5–36.6; O2SAT 95–99; BMI 28.2
[2022-03-06] MEDS: Acetaminophen 500 MG Tablet 1000 MG PO ×2 (05:12→13:01)
[2022-03-06] MEDS: Levothyroxine 25 MCG TABLET PO (05:13)
[2022-03-06] MEDS: Menthol/Lanolin/Calamine/Znox 113 GM Tube 1 APPLIC TOPICAL ×2 (05:18→21:19)
[2022-03-06] MEDS: 0.9% Saline Lock 10 ML Syringe IV ×3 (05:26→20:18)
[2022-03-06] MEDS: hydrALAZINE 10 MG Tablet PO ×2 (08:06→21:18)
[2022-03-06] MEDS: Glucerna Shake 120 ML LIQUID PO ×2 (08:06→13:01)
[2022-03-06] MEDS: Cholecalciferol (VIT D3) 25 MCG TABLET (1,000 UNITS) PO (08:06)
[2022-03-06] MEDS: Potassium Chloride Oral Tablet 10 MEQ PO (08:06)
[2022-03-06] MEDS: APIXABAN 5 MG TABLET PO ×2 (08:06→21:19)
[2022-03-06] MEDS: Multivitamins,Ther W-Minerals Tablet 1 TABLET PO (08:06)
[2022-03-06] MEDS: Magnesium Chloride 64 MG Delay Rel.Tablet 128 MG PO (08:06)
[2022-03-06] MEDS: Ceftriaxone 1 GM/50 ML BAG IV (09:00)
[2022-03-06] MEDS: Tamsulosin HCl 0.4 MG Capsule PO (18:10)
[2022-03-06] MEDS: Mirtazapine 15 MG Tablet 7.5 MG PO (21:19)
[2022-03-06] MEDS: Atorvastatin Calcium 10 MG Tablet PO (21:19)
[2022-03-06] MEDS: Acetaminophen 650 MG/20 ML UDC 1000 MG PO (21:20)
[2022-03-07] MEDS: Levothyroxine 25 MCG TABLET PO (05:25)
[2022-03-07] MEDS: Menthol/Lanolin/Calamine/Znox 113 GM Tube 1 APPLIC TOPICAL ×2 (05:25→21:28)
[2022-03-07] MEDS: Acetaminophen 650 MG/20 ML UDC 1000 MG PO ×2 (05:25→13:04)
[2022-03-07 06:00] VITALS: BP 119/51; BP 129/49; BP 133/48; PULSE 59; PULSE 60; PULSE 65
[2022-03-07 07:47] VITALS: PULSE 67
[2022-03-07] MEDS: Cholecalciferol (VIT D3) 25 MCG TABLET (1,000 UNITS) PO (07:47)
[2022-03-07] MEDS: Multivitamins,Ther W-Minerals Tablet 1 TABLET PO (07:47)
[2022-03-07] MEDS: hydrALAZINE 10 MG Tablet PO ×2 (07:47→21:28)
[2022-03-07] MEDS: Potassium Chloride Oral Tablet 10 MEQ PO (07:47)
[2022-03-07] MEDS: Glucerna Shake 120 ML LIQUID PO ×2 (07:48→17:50)
[2022-03-07] MEDS: Magnesium Chloride 64 MG Delay Rel.Tablet 128 MG PO (07:48)
[2022-03-07] MEDS: APIXABAN 5 MG TABLET PO ×2 (07:48→21:28)
[2022-03-07 07:49] VITALS: BP 123/40; PULSE 58; RESP 16; TEMP 36.2; O2SAT 94
[2022-03-07] MEDS: Ceftriaxone 1 GM/50 ML BAG IV (10:32)
[2022-03-07] MEDS: 0.9% Saline Lock 10 ML Syringe IV ×2 (10:33→21:34)
[2022-03-07 14:21] VITALS: BMI 28.2
[2022-03-07] MEDS: Tamsulosin HCl 0.4 MG Capsule PO (17:50)
[2022-03-07 18:55] VITALS: BP 137/47; PULSE 55; RESP 16; TEMP 36.8; O2SAT 98
[2022-03-07 19:36] VITALS: PULSE 66; RESP 17; O2SAT 94; BMI 28.2
[2022-03-07] MEDS: Mirtazapine 15 MG Tablet 7.5 MG PO (21:27)
[2022-03-07] MEDS: Atorvastatin Calcium 10 MG Tablet PO (21:27)
[2022-03-07 21:28] VITALS: PULSE 64
[2022-03-08] MEDS: Levothyroxine 25 MCG TABLET PO (05:15)
[2022-03-08] MEDS: Acetaminophen 650 MG/20 ML UDC 1000 MG PO ×3 (05:15→19:57)
[2022-03-08] MEDS: Menthol/Lanolin/Calamine/Znox 113 GM Tube 1 APPLIC TOPICAL ×2 (05:15→19:56)
[2022-03-08 06:00] VITALS: BP 129/52; BP 131/59; BP 139/53; PULSE 58; PULSE 59
[2022-03-08 07:23] VITALS: BP 127/73; PULSE 64; RESP 16; TEMP 36.4; O2SAT 97
[2022-03-08 07:40] VITALS: BP 127/73; PULSE 64
[2022-03-08] MEDS: Magnesium Chloride 64 MG Delay Rel.Tablet 128 MG PO (07:40)
[2022-03-08] MEDS: hydrALAZINE 10 MG Tablet PO ×2 (07:40→19:56)
[2022-03-08] MEDS: Cholecalciferol (VIT D3) 25 MCG TABLET (1,000 UNITS) PO (07:40)
[2022-03-08] MEDS: Senna/Docusate Sodium 1 Tablet 2 TABLET PO (07:40)
[2022-03-08] MEDS: Multivitamins,Ther W-Minerals Tablet 1 TABLET PO (07:41)
[2022-03-08] MEDS: Potassium Chloride Oral Tablet 10 MEQ PO (07:41)
[2022-03-08] MEDS: APIXABAN 5 MG TABLET PO ×2 (07:41→19:55)
[2022-03-08] MEDS: Glucerna Shake 120 ML LIQUID PO ×2 (07:41→12:54)
[2022-03-08] MEDS: Ceftriaxone 1 GM/50 ML BAG IV (10:12)
[2022-03-08] MEDS: 0.9% Saline Lock 10 ML Syringe IV ×2 (10:14→20:15)
--- NOTE | 2022-03-08 13:40 | CASEMGMT ---
Social Work Called son to follow up on DC plans, if sister is able stay with pt at DC. Son confirmed the plan is for sister to come into town to stay at home with pt. Reexplained the insurance update is 03/10 and if continued stay is not approve, pt would have to DC 03/11. Son stated he and sister need notice to have sister come into town and get things ready in the home. Acknowledged, but explained unfortunately insurance does not have to give more than a days notice for DC. Suggested to begin getting things in order for pt to return home as she could be home as early as 03/11. Son stated he doesn't know what he needs to get in order because he doesn't know how the pt is doing; he hasn't spoken to anyone to get an update on how pt is ambulating, what devices she is using. Kindly reminded him of the Team meeting 03/04 that majority of the meeting was discussing pt's abilities. Explained that is the purpose of this worker's phone call to confirm DC plans and inquire about DME needs ,etc. Encouraged son to call in any time to get further updates on pt. Son stated he didn't hear any details about her mobility or needs she would have. Offered to have therapist call him to update him on pt's abilities since . Son agreed. SW to follow up after conversation to confirm DC plans. Will continue to follow. NORMA Mendez
[2022-03-08 15:33] VITALS: BMI 28.2
--- NOTE | 2022-03-08 15:42 | PCM.PROGNOTE ---
Subjective Subjective Afebrile VSS-blood pressure is within goal. The heart rate has ranged from 55-65 over the weekend. Maintaining appropriate oxygen saturation on RA Oral intake is improving. I reviewed the dietitian's note from 02/04/2022 and the patient is now adequately meeting her nutritional needs. Last bowel movement is today. Discussed with nursing - no problems that need addressed Reviewed the PT/OT/ST notes -0 Although she was not seen on TEAM rounds today we discussed her a team meeting prior to rounds starting. She still has poor insight into her deficits and poor safety awareness. Although she is progressing well with therapy she would not be safe at home without 13/06 supervision at this time. Medication list reviewed. Rosa denies CP, SOB, lightheadedness, palpitations, N/V/abd pain, dysuria. Urinary frequency has improved with tx of the UTI. No urine retention. The only thing she is really complaining about is how many pills she is taking. She is still asking me how this happened even though I have already explained this to her several times. Objective Data Objective Data Vital Signs: Vital Signs Temp Pulse Resp BP Pulse Ox 97.6 F L 64 16 127/73 H 97 03/08/22 07:23 03/08/22 07:40 03/08/22 07:23 03/08/22 07:40 03/08/22 07:23 Oxygen Delivery Method Room Air Weight: 171 lb 3.2 oz Body Mass Index (BMI) 28.2 Intake & Output: Intake and Output for Last 24 Hours 03/06/22 03/07/22 03/08/22 23:59 23:59 23:59 Intake Total 1490 / 1490 1470 / 1470 575 / 575 Output Total 700 / 700 800 / 800 Balance 790 / 790 670 / 670 575 / 575 Lab / Micro Data Result Diagrams: 03/09/22 05:34 03/02/22 05:35 Micro: Microbiology 02/28/22 04:00 Urine Catheter - Catheter Urine Culture - Final Presumptive E. coli 02/28/22 03:35 Stool Stool Occult Blood (DONTAE) - Final Physical Exam Const alert and no apparent distress General Appearance: cooperative HEENT moist oral mucous membranes Eyes conjunctivae normal and no scleral icterus Resp clear to auscultation bilaterally Cardio regular rhythm Cardio Narrative: HR is in the high 50's at the time of my exam. GI normal to inspection, nondistended, normoactive bowel sounds, soft to palpation and non-tender GI Narrative: No guarding with palpation Extremity no calf tenderness and no pedal edema Skin General Skin Exam: no breakdown Rashes: no rashes Psych Psych Narrative: She is more pleasant and less grumpy than at admission. More talkative also. Appearance: grossly normal Assessment & Plan Assessment/Plan (1) Depression determined by examination: (2) Vitamin D deficiency: (3) Catheter-associated urinary tract infection: (4) Chronic anticoagulation: (5) Bradycardia: (6) Acute left hemiparesis: (7) Clot: (8) Cognitive dysfunction: PLAN: 1. Continue therapy. 2. I do not feel she would be safe at home by herself and will require 24/7 supervision at SD. She is ambulating much better and is doing her ADL's but, her memory is poor, she is impulsive and she has poor safety awareness. Charges/Coding Visit Charges Inpatient E&M: 88968 Subs Hosp L2
[2022-03-08] MEDS: Tamsulosin HCl 0.4 MG Capsule PO (17:50)
[2022-03-08 19:23] VITALS: BP 168/58; PULSE 60; RESP 17; TEMP 36.2; O2SAT 97
[2022-03-08] MEDS: Mirtazapine 15 MG Tablet 7.5 MG PO (19:55)
[2022-03-08 19:56] VITALS: BP 168/58; PULSE 60
[2022-03-08] MEDS: Atorvastatin Calcium 10 MG Tablet PO (19:56)
[2022-03-08 20:14] VITALS: BMI 28.2
[2022-03-08 22:00] VITALS: PULSE 63; RESP 16; O2SAT 97
[2022-03-09 05:41] LABS: Hematocrit 36.3 % (37-47); Hemoglobin 11.1 g/dL (12.0-15.0); Mean Corp Hgb Conc 30.6 g/dL (32-36); Mean Corpuscular Hgb 29.1 pg (27.0-32.0); Mean Corpuscular Volume 95.3 fL (81-99); Mean Platelet Vol. 8.9 fl (6.2-12.0); Platelet Count 255 K/mm3 (150-450); RBC Distribution Width CV 13.7 % (11.6-14.6); RBC Distribution Width SD 47.2 fl (35.1-43.9); Red Blood Count 3.81 M/mm3 (4.2-5.4); White Blood Count 5.7 K/mm3 (4.4-11.0)
[2022-03-09] MEDS: Acetaminophen 650 MG/20 ML UDC 1000 MG PO ×3 (05:42→20:00)
[2022-03-09] MEDS: Levothyroxine 25 MCG TABLET PO (05:42)
[2022-03-09] MEDS: Menthol/Lanolin/Calamine/Znox 113 GM Tube 1 APPLIC TOPICAL ×2 (05:43→20:01)
[2022-03-09 07:26] VITALS: BP 137/48; PULSE 57; RESP 18; TEMP 36.5; O2SAT 96
[2022-03-09] MEDS: APIXABAN 5 MG TABLET PO ×2 (07:50→19:59)
[2022-03-09] MEDS: Cholecalciferol (VIT D3) 25 MCG TABLET (1,000 UNITS) PO (07:50)
[2022-03-09] MEDS: Potassium Chloride Oral Tablet 10 MEQ PO (07:50)
[2022-03-09] MEDS: Multivitamins,Ther W-Minerals Tablet 1 TABLET PO (07:50)
[2022-03-09] MEDS: Glucerna Shake 120 ML LIQUID PO (07:50)
[2022-03-09] MEDS: Magnesium Chloride 64 MG Delay Rel.Tablet 128 MG PO (07:51)
[2022-03-09 08:00] VITALS: O2SAT 99
[2022-03-09 09:31] VITALS: BP 137/48; PULSE 60
[2022-03-09] MEDS: hydrALAZINE 10 MG Tablet PO ×2 (09:31→19:59)
[2022-03-09] MEDS: 0.9% Saline Lock 10 ML Syringe IV (11:07)
--- NOTE | 2022-03-09 11:29 | PCM.PN.BLA ---
Progress Note Day #05/27 Rocephin Blood pressure is adequately controlled. Heart rate ranges from the high 50s to mid 60s. She denies lightheadedness. Maintaining appropriate oxygen saturation on room air Good oral intake She has lost approximately 6-1/2 pounds since admission to the rehab unit however her appetite is much improved since the addition of Remeron to her drug regimen and she is taking in adequate nutrition now. All lab from today was personally reviewed. The white blood cell count is within normal limits. Hemoglobin is up to 11.1 from 9.6. Platelets are within normal limits. Once again she asked my how this happened. She also complained about how many medications she is taking. Can not seem to recall what I have explained to her in the past about the stroke and why she is on the meds she is on. She denies dysuria and the nurses tell me she is sleeping better and not up as much at night asking to go to the BR. No diarrhea. Denies lightheadedness. Physical Exam Const alert and no apparent distress Constitutional Narrative: sassy......this seems to be her personality. She has definitely perked up since she is sleeping at night and the Remeron was started. General Appearance: cooperative Resp normal respiratory effort and clear to auscultation bilaterally Effort and Inspection: able to speak in complete sentences Cardio regular rate, regular rhythm and no gallops GI normal to inspection, nondistended, normoactive bowel sounds, soft to palpation and non-tender Extremity no calf tenderness and no pedal edema Skin General Skin Exam: no breakdown Rashes: no rashes Assessment & Plan Assessment/Plan (1) Cognitive dysfunction: (2) Sick sinus syndrome: (3) Chronic anticoagulation: (4) Paroxysmal atrial fibrillation: (5) Clot: (6) Acute stroke due to occlusion of right middle cerebral artery: (7) Hypothyroidism: (8) Catheter-associated urinary tract infection: PLAN: 1. Rocephin will finish today 2. Continue the Remeron - no adverse SE's and she is doing better with appetite and improved mood 3. Plan for DC is still up in the air. The SW called her son, Yang, today to see if someone would be able to be with her 13/06 at least for the first 2 weeks to make sure she is going to be safe at home.......needs continued ST to improve cognitive function. No driving if she is able to go home. Yang also talked with the PT on the phone. 4. Continue therapy Visit Charges Inpatient E&M: 41611 Subs Hosp L2
[2022-03-09] MEDS: Ceftriaxone 1 GM Vial IM (13:21)
[2022-03-09] MEDS: Tamsulosin HCl 0.4 MG Capsule PO (16:01)
[2022-03-09 17:00] VITALS: BMI 28.2
[2022-03-09 19:00] VITALS: BP 140/50; PULSE 57; RESP 16; TEMP 36.2; O2SAT 97
[2022-03-09] MEDS: Mirtazapine 15 MG Tablet 7.5 MG PO (19:58)
[2022-03-09 19:59] VITALS: BP 140/50; PULSE 57
[2022-03-09] MEDS: Atorvastatin Calcium 10 MG Tablet PO (19:59)
[2022-03-09 23:05] VITALS: BMI 28.2
[2022-03-10] MEDS: Levothyroxine 25 MCG TABLET PO (05:37)
[2022-03-10] MEDS: Acetaminophen 650 MG/20 ML UDC 1000 MG PO (05:37)
[2022-03-10] MEDS: Menthol/Lanolin/Calamine/Znox 113 GM Tube 1 APPLIC TOPICAL ×2 (05:40→20:09)
[2022-03-10 08:39] VITALS: BP 146/49; PULSE 61; RESP 18; TEMP 36.6; O2SAT 97
[2022-03-10 09:04] VITALS: BP 146/49; PULSE 64
[2022-03-10] MEDS: APIXABAN 5 MG TABLET PO ×2 (09:04→20:10)
[2022-03-10] MEDS: Cholecalciferol (VIT D3) 25 MCG TABLET (1,000 UNITS) PO (09:04)
[2022-03-10] MEDS: Potassium Chloride Oral Tablet 10 MEQ PO (09:04)
[2022-03-10] MEDS: Multivitamins,Ther W-Minerals Tablet 1 TABLET PO (09:04)
[2022-03-10] MEDS: Magnesium Chloride 64 MG Delay Rel.Tablet 128 MG PO (09:04)
[2022-03-10] MEDS: hydrALAZINE 10 MG Tablet PO ×2 (09:04→20:07)
--- NOTE | 2022-03-10 09:20 | CASEMGMT ---
Social Work Followed up with son after PT spoke with him yesterday. Son stated he will talk to his sister tori to confirm, but the plan remains taking pt home with sister providing 13/06 supervision. Discussed DME needs. Son to purchase cane, shower chair, half bed rail, and get another grab bar in the shower. Assisted will direction on medical supply companies. SW to order FWW and HHC. SW to continue to follow. Michelle Lara, NORMA RODRIGUEZW
--- NOTE | 2022-03-10 15:31 | CASEMGMT ---
Addendum entered by Michelle Lara 03/10/22 15:39: Received return phone call from son. Son expressed frustration with the short notice for DC. Son stated I don't know how you expect my sister to come in from [place] with a day and a half notice. I specifically told you we needed several days notice. Reexplained it is the insurance companies decision on a discharge date and the notice only needs to be a day minimum, and they provided two days notice. Offered appeal rights, but cautioned if the reason for appealing is going to be because his sister cannot get into town soon enough, the appeal is likely to not be overturned. Son wants to file the appeal because this is ridiculous. Provided phone number for appeal. Son stated he will talk to his sister tori and will speak with SW tomorrow at Team meeting. Son did confirm [facility] and [facility] referrals. Original Note: Social Work Left message with son updating him insurance issued LCD 03/11, DC 03/12. Offered appeal information. Son previously stated he prefers [facility]. Referral made for PT/OT/ST/SN. Referred to [facility] for [facility]. Will still Team 03/11. Plan: DC home alone 03/12, [facility] PT/OT/ST/SN, [facility] Michelle Lara, GUIDE DOG MOBILITY INSTRUCTOR CAMERA CONTROL OPERATOR
[2022-03-10 15:53] VITALS: BMI 28.2
[2022-03-10] MEDS: Tamsulosin HCl 0.4 MG Capsule PO (17:53)
[2022-03-10 19:00] VITALS: BP 144/51; PULSE 56; RESP 14; TEMP 36.3; O2SAT 97
[2022-03-10 20:07] VITALS: BP 144/51; PULSE 60
[2022-03-10] MEDS: Mirtazapine 15 MG Tablet 7.5 MG PO (20:10)
[2022-03-10] MEDS: Atorvastatin Calcium 10 MG Tablet PO (20:10)
[2022-03-10 23:25] VITALS: BMI 28.2
[2022-03-11] MEDS: Levothyroxine 25 MCG TABLET PO (06:43)
[2022-03-11] MEDS: Menthol/Lanolin/Calamine/Znox 113 GM Tube 1 APPLIC TOPICAL ×2 (06:44→21:48)
[2022-03-11 07:55] VITALS: BP 121/50; PULSE 64; RESP 16; TEMP 36.5; O2SAT 94
[2022-03-11] MEDS: Potassium Chloride Oral Tablet 10 MEQ PO (08:42)
[2022-03-11] MEDS: Magnesium Chloride 64 MG Delay Rel.Tablet 128 MG PO (08:43)
[2022-03-11] MEDS: Senna/Docusate Sodium 1 Tablet 2 TABLET PO ×2 (08:43→21:46)
[2022-03-11] MEDS: Multivitamins,Ther W-Minerals Tablet 1 TABLET PO (08:43)
[2022-03-11] MEDS: APIXABAN 5 MG TABLET PO ×2 (08:43→21:47)
[2022-03-11] MEDS: Cholecalciferol (VIT D3) 25 MCG TABLET (1,000 UNITS) PO (08:44)
[2022-03-11 08:48] VITALS: BP 121/50; PULSE 64
[2022-03-11] MEDS: hydrALAZINE 10 MG Tablet PO ×2 (08:48→21:47)
--- NOTE | 2022-03-11 12:27 | DCINST_ITS ---
Discharge Instructions Diet Discharge Diet: - (no added salt, low fat, carb consistent diet) Activity Discharge Activity: May Not Drive and Use Walker (Use the walker for ambulating longer distances in the community.) Weight Bearing Status: Full weight bearing Lifting Restrictions: no more than 5-10 lbs. Keep extremity elevated above heart level: Legs Dressing / Incision Call your doctor if you observe: Fever of 101 or Higher, Inability to urinate, Inability to have a bowel movement, Shortness of breath, Dizziness, Fainting spells, Chest pain, Increased palpitations (irregular heartbeat) and Calf discomfort Follow Up Care Please Follow Up With: Rebekah Beckford MD When: within the next 1-2 weeks. Test Results: Test results from this visit will be discussed in further detail at your follow-up appointment, if applicable. Discharge Plan Admission Admit Date/Time: 02/26/22 20:08 Primary Reason for Your Visit: Post stroke debility Attending Provider: Teodora Fuchs Primary Care Provider: Rebekah Beckford Instructions Additional Instructions / Restrictions: 1. Schedule regular trips to the toilet during the daytime to prevent incontinence of urine. Wear a Depends at night. 2. Drink enough fluids every day to keep your urine a pale yellow. This will help to maintain good blood flow to your brain and help prevent future strokes. 3. Take ALL of the medications prescribed to you as directed.......this will help prevent additional strokes. 4. When you are leaving your house and walking longer distances consider using a wheeled walker rather than a straight cane. It provides greater stability. 5. I think it would be an excellent idea for YOU to fill your pill box and have either your son or daughter check it with you. I want you to do as much as you can independently at home to preserve your ability to function and maintain independence. Use it or lose it! If someone else does everything for you it will increase debility and decrease independence. 6. I started you on an antidepressant when you came to rehab. We give every patient with a stroke a test to determine if you may be depressed and your scored high on the test for depression meaning you are likely depressed. since starting the antidepressant which is called Remeron (also called Mirtazapine) you are eating better, drinking better and you are more talkative and social. We have all enjoyed your quick wit and your sassy demeanor. Being by your self all the time leads to depression and depression in older folks leads to memory loss and cognitive decline. Don't isolate yourself at home. Doing crosswords puzzles, anagrams, Sudoku and reading the paper daily are some of the things you could do daily to keep your mind sharp. Playing games and doing jigsaw puzzles also helps. Keep active. 7. I would like you to take the antidepressant for at least 3-6 months and if you are doing well at that time discuss with Dr. Beckford possibly discontinuing the antidepressant to see how you do. you are only the lowest dose there is of the Remeron and you have had no adverse drug reactions. It will help to keep you motivated to work hard in therapy and regain your independence. 8. You were place on a potassium supplement and a magnesium supplement to help keep your heart in a regular rhythm rather than in atrial fibrillation. The lab we checked prior to you leaving rehab showed the potassium and magnesium are now at a good level. 9. Since you were dehydrated when you came to the hospital and you were on a diuretic at that time I would avoid using a diuretic to control your BP. You were not drinking enough water and being dehydrated decreases the blood flow to the brain and can cause strokes. You were put on a drug called Coreg to slow your heart down when you were in atrial fibrillation but, when your heart went back into a normal rhythm it was TOO SLOW and we had to discontinued the Coreg. I currently have you on a BP medication called Hydralazine twice a day and your BP looks good. Hydralazine does not slow the heart rate down.....it can increase the heart rate by a few beats per minute. 10. If you start having bleeding from your gums, blood in your stool, large bruises, nose bleeds or blood in your urine call Dr. Beckford for instructions. 11.. You can not drive. Your concentration still waxes and wanes and I think you would be putting yourself and others at risk if you drive. If the neurologist says you can drive I recommend attending a course/exam to make sure that you will be safe driving. The secondary social studies teacher gave you the name of the course we generally recommend for patients with strokes and traumatic brain injuries prior to them starting to drive again. 12. Take care of yourself Rosa. If you have any questions after you leave rehab please call me at: Office: [phone] Discharge Orders/Prescriptions Prescriptions: New Eliquis 5 mg Tablet 5 mg PO BID Qty: 60 RF: 0 atorvastatin 10 mg Tablet 10 mg PO QHS Qty: 30 RF: 0 cholecalciferol (vitamin D3) 25 mcg (1,000 unit) Tablet 25 mcg PO DAILY Qty: 30 RF: 0 hydralazine 10 mg Tablet 10 mg PO BID Qty: 60 RF: 0 Mag 64 64 mg Tablet,Delayed Release (Dr/Ec) 128 mg PO DAILY Qty: 60 RF: 0 tamsulosin 0.4 mg Capsule 0.4 mg PO DAILY@1730 Qty: 30 RF: 0 mirtazapine 15 mg Tablet 7.5 mg PO QHS Qty: 16 RF: 0 potassium chloride 10 mEq Tablet,Er Particles/Crystals 10 meq PO DAILYCM Qty: 30 RF: 0 Multivitamins,Ther W-Minerals [Multivitamin With Minerals (Bkc)] 1 tab PO BREAKFAST Qty: 0 RF: 0 Continued levothyroxine 25 mcg tablet 25 mcg PO DAILY Qty: 30 RF: 0 Referrals / Follow Up: Yobani Teresa MD [Other] - 07/05/22 10:00 am Rebekah Beckford MD [Primary Care Provider] - 03/17/22 10:10 am Disposition Disposition (needs filled in before D/C Order can be placed): Home Health Service
--- NOTE | 2022-03-11 13:05 | CASEMGMT ---
Social Work IDT met with patient and son for Team meeting. Discussed patient's progress in PT/OT/ST and nursing. Pt is engaging well in conversation today. Inquired to son about appeal. Son stated he has taken the day off work tomorrow so he can discharge her and sister will be in town Tuesday afternoon. [facility] is already scheduled and [facility] has already arrived to pt room. NORMA Mendez
[2022-03-11 14:17] VITALS: BMI 28.2
[2022-03-11] MEDS: Tamsulosin HCl 0.4 MG Capsule PO (17:02)
[2022-03-11 19:13] VITALS: BP 150/58; PULSE 69; RESP 18; TEMP 36.8; O2SAT 97
[2022-03-11 21:43] VITALS: BP 138/51; PULSE 70
[2022-03-11] MEDS: Mirtazapine 15 MG Tablet 7.5 MG PO (21:46)
[2022-03-11 21:47] VITALS: BP 138/51; PULSE 70
[2022-03-11] MEDS: Atorvastatin Calcium 10 MG Tablet PO (21:54)
[2022-03-12] MEDS: Levothyroxine 25 MCG TABLET PO (06:59)
[2022-03-12] MEDS: Menthol/Lanolin/Calamine/Znox 113 GM Tube 1 APPLIC TOPICAL (06:59)
[2022-03-12 07:24] VITALS: BP 135/47; PULSE 66; RESP 16; TEMP 36.9; O2SAT 96
[2022-03-12 08:37] VITALS: PULSE 66
[2022-03-12] MEDS: Multivitamins,Ther W-Minerals Tablet 1 TABLET PO (08:37)
[2022-03-12] MEDS: Magnesium Chloride 64 MG Delay Rel.Tablet 128 MG PO (08:37)
[2022-03-12] MEDS: APIXABAN 5 MG TABLET PO (08:37)
[2022-03-12] MEDS: hydrALAZINE 10 MG Tablet PO (08:37)
[2022-03-12] MEDS: Senna/Docusate Sodium 1 Tablet 2 TABLET PO (08:37)
[2022-03-12] MEDS: Potassium Chloride Oral Tablet 10 MEQ PO (08:37)
[2022-03-12] MEDS: Cholecalciferol (VIT D3) 25 MCG TABLET (1,000 UNITS) PO (08:38)
--- NOTE | 2022-03-12 10:09 | DS.PCM_ITS ---
Providers Date of Admission: 02/26/22 Primary Care Physician: Dr. Rebekah Beckford MD Reason For Visit: Post Stroke Debility Diagnosis Discharge Diagnosis (1) Physical debility: Status: Acute Code(s): R53.81 - Other malaise (2) Clot: Status: Acute Code(s): I82.90 - Acute embolism and thrombosis of unspecified vein (3) Acute stroke due to occlusion of right middle cerebral artery: Status: Acute Code(s): I63.511 - Cerebral infarction due to unspecified occlusion or stenosis of right middle cerebral artery (4) History of embolectomy: Status: Acute Code(s): Z98.890 - Other specified postprocedural states (5) Cognitive dysfunction: Status: Acute Code(s): F09 - Unspecified mental disorder due to known physiological condition (6) Dysphagia, oropharyngeal: Status: Acute Code(s): R13.12 - Dysphagia, oropharyngeal phase (7) Acute left hemiparesis: Status: Acute Code(s): G81.94 - Hemiplegia, unspecified affecting left nondominant side (8) Dehydration: Status: Resolved Code(s): E86.0 - Dehydration (9) Paroxysmal atrial fibrillation: Status: Acute Code(s): I48.0 - Paroxysmal atrial fibrillation (10) Chronic anticoagulation: Status: Acute Code(s): Z79.01 - local intermodal truck driver (current) use of anticoagulants (11) Inanition: Status: Acute Code(s): R64 - Cachexia (12) Depression determined by examination: Status: Acute Code(s): F32.A - Depression, unspecified (13) Normochromic normocytic anemia: Status: Acute Code(s): D64.9 - Anemia, unspecified (14) Bradycardia: Status: Resolved Code(s): R00.1 - Bradycardia, unspecified (15) Sick sinus syndrome: Status: Suspected Code(s): I49.5 - Sick sinus syndrome (16) Urine retention: Status: Acute Code(s): R33.9 - Retention of urine, unspecified (17) Hematuria: Status: Resolved Code(s): R31.9 - Hematuria, unspecified (18) Catheter-associated urinary tract infection: Status: Resolved Code(s): T83.511A - Infection and inflammatory reaction due to indwelling urethral catheter, initial encounter; N39.0 - Urinary tract infection, site not specified (19) Abnormal LFTs: Status: Resolved Code(s): R79.89 - Other specified abnormal findings of blood chemistry (20) Orthostatic hypotension: Status: Resolved Code(s): I95.1 - Orthostatic hypotension (21) Hypothyroidism: Status: Chronic Code(s): E03.9 - Hypothyroidism, unspecified (22) Vitamin D deficiency: Status: Acute Code(s): E55.9 - Vitamin D deficiency, unspecified (23) Biatrial enlargement: Status: Chronic Code(s): I51.7 - Cardiomegaly (24) Pulmonary hypertension: Status: Chronic Code(s): I27.20 - Pulmonary hypertension, unspecified (25) Nonischemic cardiomyopathy: Status: Inactive Code(s): I42.8 - Other cardiomyopathies (26) Non-Hodgkin lymphoma: Status: Chronic Code(s): C85.90 - Non-Hodgkin lymphoma, unspecified, unspecified site (27) Mixed hyperlipidemia: Status: Chronic Code(s): E78.2 - Mixed hyperlipidemia (28) Essential hypertension: Status: Chronic Code(s): I10 - Essential (primary) hypertension (29) Presbycusis: Status: Acute Code(s): H91.10 - Presbycusis, unspecified ear (30) Prediabetes: Status: Acute Code(s): R73.03 - Prediabetes Plan: 1. Discharge home with [facility] for PT/OT/ST/RN. Her daughter and son will provide / observation/supervision for at least 2 weeks to determine if she is able to safely function independently living alone again. They will also allow Rosa to set up her pillbox for the week under their supervision. They will allow her to function as independently as possible and not do tasks for her that she could do herself, including but not limited to household management. 2. Rosa agrees to take all medications as prescribed and if she thinks that she is having an adverse reaction she will call her PCP for instructions on what to do. 3. She will follow up with Dr. Teresa at [facility] for neurology. 4. She will follow up with Dr. Acuña for cardiology care. 5. She will follow up with Dr. Beckford within the next 1-2 weeks for primary care. 6. DME included a FWW. She is to use the FWW for ambulating outside of the home for longer distances and can use a straight cane in the house. 7. Vitamin D was low at 18 and she was started on a supplement. If she has not had a BMD test in the past 2 years would consider to evaluate for osteopenia/osteoporosis. 8. Continue Remeron at 7.5 mg Q HS. Her oral intake has improved from taking 25% of her diet and needing a feeding tube at [facility] to eating 75-100% following addition of the Remeron to her drug regimen. She has had no adverse reactions and she is sleeping well, she is more talkative and outgoing and confusion has significantly improved. Medications at Discharge Home Medications Multivitamins,Ther W-Minerals [Multivitamin With Minerals (BKC)] 1 tab PO BREAKFAST #0 03/11/22 apixaban [Eliquis] 5 mg PO BID #60 tab 03/11/22 atorvastatin 10 mg PO QHS #30 tab 03/11/22 cholecalciferol (vitamin D3) 25 mcg PO DAILY #30 tab 03/11/22 hydralazine 10 mg PO BID #60 tab 03/11/22 levothyroxine 25 mcg PO DAILY #30 tab 03/11/22 magnesium chloride [Mag 64] 128 mg PO DAILY #60 tab 03/11/22 mirtazapine 7.5 mg PO QHS #16 tab 03/11/22 potassium chloride 10 meq PO DAILYCM #30 tab 03/11/22 tamsulosin 0.4 mg PO DAILY@1730 #30 cap 03/11/22 Hospital Course Operations - (Thrombectomy at [facility] to remove clot from the R MCA and restore TICI 2b flow. ) Procedures - (24 hr holtor monitor ) Summary of Care Provided Minutes Spent on Discharge: 40 Hospital Course: ROSA HUSTON, is a 86 YO F with a PMH of essential hypertension, hyperlipidemia, coronary artery disease, non-Hodgkin's lymphoma, pulmonary hypertension, nonischemic cardiomyopathy, hypothyroidism and nonrheumatic mitral regurgitation who presented to the emergency department at [facility] on 02/18/2022 complaining of sudden onset of left facial droop, left leg numbness/weakness and left arm weakness. She woke up with the sx in the AM and was last known well at 11 PM the preceding night. [place] CTB showed early ischemic changes in the R M2 distribution. CTA of the head and neck was obtained and showed a large vessel occlusion of the right M2 at the bifurcation of the M1 and M2 segments. Telestroke was consulted and transfer to [facility] was recommended for possible thrombectomy. NIH at presentation to [facility] was 14. CT head showed early changes in the R M2 distribution. CTA showed R M2 occlusion. CTP at [facility] showed areas of perfusion deficit within the right MCA territory with moderate sized areas of mismatched perfusion abnormality in the posterior right MCA territory along the right parietotemporal region consistent with ischemic penumbra. There was a small area of matched perfusion deficit consistent with core infarct along the right posterior insula. There was a 49 cc mismatch and the patient was taken to the OR for emergent thrombectomy. TICI 2b revascularization was obtained. MRI of the brain done on 02/19/22 showed acute/recent infarct involving the right insula and adjacent portion of the right frontal, parietal and temporal lobes with some petechial hemorrhage causing some mass effect and a mild midline shift which did not require intervention and remained stable on follow up CT scans. Significant lab included a HGBA1C of 5.9 and a LDL of 83. HDL was low at 38. While at [facility] she had PAF and was started on anticoagulation. She was placed on Coreg for rate control. Eliquis was increased to 5 mg BID because she had an embolic stroke while taking 2.5 mg BID. MBS was completed and she had mild oral pharyngeal dysphagia. A minced and moist diet was started with thin liquids however, she failed to take in adequate fluids and calories and a Dobbhoff feeding tube was placed. Other complications at [facility] in addition to PAF were aspiration PNA (treated with 5 days of Unasyn)and urine retention (UA was negative). She was started on Flomax and this resolved the urine retention. She was evaluated by PT,OT and ST and recommendation was made for acute rehab at [place]. Prior to the stroke she was living alone and independent. She was transferred to the acute inpt rehab unit at [facility] on 02/26/22 for 3 hours of therapy daily to restore function at or near her prior level of function. ECHO at [facility] showed the left ventricle to be mildly enlarged. There were no regional wall motion abnormalities and the EF was 55%. There was mild BL atrial enlargement. The right ventricle was also mildly enlarged but had normal function. The estimated right PA systolic pressure was elevated at 45 which is consistent with moderate pulmonary hypertension. There was no mention of a PFO. Rosa was quite depressed when she presented to the rehab unit. She was dehydrated and not eating more than 25% of her meals. The SW administered a depression inventory and she scored in the high range for likelihood of depression. She also had confusion and decreased motivation to do therapy. Memory was poor. She was started on Remeron 7.5 mg Q HS and within a week her appetite had increased. At the time of DC she is eating 75-100% of her meals and she is doing much better with cognitive function. She is now talkative and interacting well with the staff. She is laughing and has a very quit wit. She had a Ramsey catheter while at [facility] and developed a UTI with increased urinary frequency, urinary incontinence and dysuria. She was started on IV Rocephin and a urine culture was ordered. The urine grew E. Coli and it was resistant to Ampicillin, Augmentin and Zosyn. It was sensitive to Rocephin and the Rocephin was continued for a total of 7 days. She is now continent of urin e during the day but, still has incontinence at night. She was advised to schedule regular visits during the day to the toilet and consider wearing Depends at night. Post void residuals were checked during her time in rehab and she is no longer retaining urine since she has started the Flomax. Orthostatics were positive at admission. We hydrated with IV fluids and the orthostatic hypotension resolved. Since her appetite has increased she has been staying adequately hydrated and is aware of how much she has to drink to stay well hydrated. Spironolactone was discontinued and she was started on a potassium supplement. K just prior to DC was 4. She is also taking a magnesium supplement now to keep the Mag at about 2. She converted to SR during her admission and became quite bradycardic dipping down into the 30's at times. The Coreg dose was decreased and then had to be discontinued. A Holtor monitor was obtained because SSS was suspected. The Holtor was obtained 3-4 days AFTER the Coreg had been discontinued. The minimum heart rate was 39 bpm and the maximum heart rate while in normal sinus rhythm was 81 bpm. The average heart rate was 53 and the patient was asymptomatic. She had occasional premature atrial complexes, 30 atrial couplets and 18 atrial runs totaling 76 beats. The fastest run of ectopic atrial rhythm was 3 beats with a heart rate of 135 bpm. There were occasional premature ventricular complexes and 4 ventricular couplets with no VT. Dr. Acuña recommended no intervention at this time and Rosa will follow up with him in the office post DC. Rosa make excellent progress in therapy and prior to discharge she was able to ascend/descend 5 steps with 1 handrail at [facility]. She has ambulated up to 200' with a SC on various surfaces at [facility] (contact guard assist). She is independent with her ADL's. She was discharged home on 03/12/22 with [facility] for PT/OT/ST/RN. She will have 13/06 supervision provided by family. She has appts set up for Dr. Teresa at [facility] and with Dr. Beckford. She will also be set up for a follow up appt with Dr. Acuña. On the day of DC her NIHSS score was 6 and it was 4 at admission to rehab but, she had been lying in bed for quite a while and she was stiff. she could not hold the L arm up at all and it fell immediately to the bed. The left leg fell to the bed with 2 sec. I reviewed the therapy notes from the prceding day and the strength in the Left arm and leg was better.......I suspect she needs to get up and moving for things to loosen up. Physical Exam Const alert, oriented x3 and no apparent distress General Appearance: cooperative, well kempt and well developed HEENT moist oral mucous membranes HEENT Narrative: can not hear if you are on her left side due to severe hearing loss.......hearing in the R ear is grossly normal. Head and Scalp: normocephalic Eyes PERRL, EOMs intact bilaterally, conjunctivae normal and no scleral icterus Neck No nuchal rigidity, no lymphadenopathy and no carotid bruits General: trachea midline Chest Chest: symmetrical chest wall rise Resp normal respiratory effort, normal air movement and clear to auscultation bilaterally Effort and Inspection: able to speak in complete sentences Cardio regular rate, regular rhythm, S1 normal heart sound, S2 normal heart sound and no gallops GI normal to inspection, nondistended, normoactive bowel sounds, soft to palpation and non-tender Extremity no calf tenderness and no pedal edema Skin no rashes or lesions noted General Skin Exam: no breakdown Wounds: Negative for wounds noted Neuro Neuro Narrative: see the NIHSS. I spoke to PT and OT this morning and tehy verify that she can not move the LUE unless the OT supports the arm then she has some movement in the forearm/wrist. The Left hip gets stiff and she has a hard time with the left leg until she gets loosened up. She was even exercising with weights on the Left leg yesterday. Psych mental status grossly normal, cooperative and affect normal Psych Narrative: affect is no longer flat and she is pleasant now and interacts with staff well Appearance: grossly normal and appropriate Attitude: calm Activity / Motor Behavior: appropriate eye contact; Negative for psychomotor slowing or restless Mood & Affect: euthymic mood; Negative for tearful or fearful Attention / Concentration: other attention and concentration have significantly improved since admission. She needs occasional voice cues to focus and pay attention but, she then does better. Weight / BMI Weight Weight: 167 lb 5.294 oz Body Mass Index (BMI) 28.2 ABG / Lab / Microbiology Data Result Diagrams: 03/09/22 05:34 03/02/22 05:35 Microbiology: Microbiology 02/28/22 04:00 Urine Catheter - Catheter Urine Culture - Final Presumptive E. coli 02/28/22 03:35 Stool Stool Occult Blood (DONTAE) - Final Indicators for Scoring Admitted with or Primary Diagnosis of CVA/Stroke: Yes Hx of CVA/Stroke: Yes Modified Teller Score MRS Score at time of Evaluation: 3-Moderate disability NIHSS NIHSS 1a. Level of Consciousness: Alert; keenly responsive 1b. LOC Questions: Answers BOTH questions correctly. 1c. LOC Commands: Performs both tasks correctly. 2. Best Gaze: Normal 3. Visual: No visual loss 4. Facial Palsy: Normal symmetrical movements 5a. Left Arm: No effort against gravity; arm falls 5b. Right Arm: No drift; arm holds 90 (or 45) degrees for full 10 seconds 6a. Left Leg: Some effort against gravity; 6b. Right Leg: No drift; leg holds 30-degree position for full 5 seconds 7. Limb Ataxia: Absent 8. Sensory: Krxn-rs-rthhqekn sensory loss; (mild decrease in sensation to the left face and the L arm) 9. Best Language: No aphasia; normal 10. Dysarthria: Normal 11. Extinction and Inattention: No abnormality Total: 6 Stroke Questions Stroke Team Activated: No D/C Instructions Discharge Diet: - (no added salt, low fat, carb consistent diet) Weight Bearing Status: Full weight bearing Keep extremity elevated above heart level: Legs Call your doctor if you observe: Fever of 101 or Higher, Inability to urinate, Inability to have a bowel movement, Shortness of breath, Dizziness, Fainting spells, Chest pain, Increased palpitations (irregular heartbeat) and Calf discomfort Please Follow Up With: Rebekah Beckford MD When: within the next 1-2 weeks. Meaningful Use Info Meaningful Use Diagnoses (Choose all that apply): Ischemic CVA (embolic to the R MCA M2 branch) CVA Therapy Assessed for PT,OT and/or ST?: Yes Ischemic Stroke Antithrombotic order at d/c?: No Reason antithrombotic not ordered: Treatment not Indicated Dx of Atrial fib/flutter?: Yes Anticoagulant at discharge?: Yes Statins at discharge?: Yes Primary Dx Acute Ischemic CVA?: Yes IV tPA ordered during stay?: No Reason IV t-PA not ordered: Treatment not Indicated (We are a rehab unit and she was treated for CVA at another facility.......she was on Eliquis at the time of the stroke. She had an embolectomy at [facility]. ) Discharge Plan Admission Admit Date/Time: 02/26/22 20:08 Primary Reason for Your Visit: Post stroke debility Attending Provider: Teodora Fuchs Primary Care Provider: Rebekah Beckford Instructions Additional Instructions / Restrictions: 1. Schedule regular trips to the toilet during the daytime to prevent incontinence of urine. Wear a Depends at night. 2. Drink enough fluids every day to keep your urine a pale yellow. This will help to maintain good blood flow to your brain and help prevent future strokes. 3. Take ALL of the medications prescribed to you as directed.......this will help prevent additional strokes. 4. When you are leaving your house and walking longer distances consider using a wheeled walker rather than a straight cane. It provides greater stability. 5. I think it would be an excellent idea for YOU to fill your pill box and have either your son or daughter check it with you. I want you to do as much as you can independently at home to preserve your ability to function and maintain independence. Use it or lose it! If someone else does everything for you it will increase debility and decrease independence. 6. I started you on an antidepressant when you came to rehab. We give every patient with a stroke a test to determine if you may be depressed and your scored high on the test for depression meaning you are likely depressed. since starting the antidepressant which is called Remeron (also called Mirtazapine) you are eating better, drinking better and you are more talkative and social. We have all enjoyed your quick wit and your sassy demeanor. Being by your self all the time leads to depression and depression in older folks leads to memory loss and cognitive decline. Don't isolate yourself at home. Doing crosswords puzzles, anagrams, Sudoku and reading the paper daily are some of the things you could do daily to keep your mind sharp. Playing games and doing jigsaw puzzles also helps. Keep active. 7. I would like you to take the antidepressant for at least 3-6 months and if you are doing well at that time discuss with Dr. Beckford possibly discontinuing the antidepressant to see how you do. you are only the lowest dose there is of the Remeron and you have had no adverse drug reactions. It will help to keep you motivated to work hard in therapy and regain your independence. 8. You were place on a potassium supplement and a magnesium supplement to help keep your heart in a regular rhythm rather than in atrial fibrillation. The lab we checked prior to you leaving rehab showed the potassium and magnesium are now at a good level. 9. Since you were dehydrated when you came to the hospital and you were on a diuretic at that time I would avoid using a diuretic to control your BP. You were not drinking enough water and being dehydrated decreases the blood flow to the brain and can cause strokes. You were put on a drug called Coreg to slow your heart down when you were in atrial fibrillation but, when your heart went back into a normal rhythm it was TOO SLOW and we had to discontinued the Coreg. I currently have you on a BP medication called Hydralazine twice a day and your BP looks good. Hydralazine does not slow the heart rate down.....it can increase the heart rate by a few beats per minute. 10. If you start having bleeding from your gums, blood in your stool, large bruises, nose bleeds or blood in your urine call Dr. Beckford for instructions. 11.. You can not drive. Your concentration still waxes and wanes and I think you would be putting yourself and others at risk if you drive. If the neurologist says you can drive I recommend attending a course/exam to make sure that you will be safe driving. The social organization professor gave you the name of the course we generally recommend for patients with strokes and traumatic brain injuries prior to them starting to drive again. 12. Take care of yourself Rosa. If you have any questions after you leave rehab please call me at: Office: [phone] Discharge Orders/Prescriptions Prescriptions: New Eliquis 5 mg Tablet 5 mg PO BID Qty: 60 RF: 0 atorvastatin 10 mg Tablet 10 mg PO QHS Qty: 30 RF: 0 cholecalciferol (vitamin D3) 25 mcg (1,000 unit) Tablet 25 mcg PO DAILY Qty: 30 RF: 0 hydralazine 10 mg Tablet 10 mg PO BID Qty: 60 RF: 0 Mag 64 64 mg Tablet,Delayed Release (Dr/Ec) 128 mg PO DAILY Qty: 60 RF: 0 tamsulosin 0.4 mg Capsule 0.4 mg PO DAILY@1730 Qty: 30 RF: 0 mirtazapine 15 mg Tablet 7.5 mg PO QHS Qty: 16 RF: 0 potassium chloride 10 mEq Tablet,Er Particles/Crystals 10 meq PO DAILYCM Qty: 30 RF: 0 Multivitamins,Ther W-Minerals [Multivitamin With Minerals (Bkc)] 1 tab PO BREAKFAST Qty: 0 RF: 0 Continued levothyroxine 25 mcg tablet 25 mcg PO DAILY Qty: 30 RF: 0 Referrals / Follow Up: Yobani Teresa MD [Other] - 07/05/22 10:00 am Rebekah Beckford MD [Primary Care Provider] - 03/17/22 10:10 am Disposition Disposition (needs filled in before D/C Order can be placed): Home Health Service Charges/Coding Visit Charges Inpatient E&M: 58223 Disch Hosp
[2022-03-12 11:00] VITALS: BMI 28.2
--- NOTE | 2022-03-12 13:49 | NURSING ---
discharge instructions given to pt and pts son. pt and son deny questions or concerns. pt discharged home via car transport.
== END 2022-03-12 13:50 | disposition home health service (06) | DRG 57 ==
PROVIDERS: Admitting Provider Internal Medicine; PCP Family Medicine; Visit Provider Internal Medicine
DX: I69.354 Hemiplegia and hemiparesis following cerebral infarction affecting left non-dominant side (principal); I42.8 Other cardiomyopathies; C85.90 Non-Hodgkin lymphoma, unspecified, unspecified site; I27.20 Pulmonary hypertension, unspecified; B96.20 Unspecified Escherichia coli [E. coli] as the cause of diseases classified elsewhere; D64.9 Anemia, unspecified; T83.511A Infection and inflammatory reaction due to indwelling urethral catheter, initial encounter; I48.0 Paroxysmal atrial fibrillation; E11.22 Type 2 diabetes mellitus with diabetic chronic kidney disease; N39.0 Urinary tract infection, site not specified; I25.10 Atherosclerotic heart disease of native coronary artery without angina pectoris; N18.2 Chronic kidney disease, stage 2 (mild); E03.9 Hypothyroidism, unspecified; E78.2 Mixed hyperlipidemia; I12.9 Hypertensive chronic kidney disease with stage 1 through stage 4 chronic kidney disease, or unspecified chronic kidney disease; E55.9 Vitamin D deficiency, unspecified; I69.392 Facial weakness following cerebral infarction; Z79.01 Long term (current) use of anticoagulants; R13.12 Dysphagia, oropharyngeal phase; Z79.890 Hormone replacement therapy; Z79.899 Other long term (current) drug therapy; F32.A Depression, unspecified
CPT/HCPCS: 36415; 80053; 81001; 82274; 82306; 82962; 83735; 84100; 84439; 84443; 85025; 85027; 87086; 87088; 87186; 92507; 92523; 92526; 92610; 93005; 93225; 93226; 96125; 97110; 97112; 97116; 97129; 97130; 97162; 97165; 97530; 97535; 97802; 97803; 99251; J7030; J7050; A4216; G0463

== ENCOUNTER → 2022-03-17 | Outpatient (CLI) | payer MEDICARE, SELFPAY ==
[2022-03-17 15:40] LABS: ALB/GLOB Ratio 0.5 RATIO (0.9-2.4); AST(SGOT) 141 U/L (15-37); Alanine Aminotransfer ALT/SGPT 154 U/L (13-56); Alkaline Phosphatase 107 U/L (45-117); Anion Gap 7 (5-15); BUN 14 mg/dL (7-18); BUN/Creat Ratio 17.8 RATIO (10-20); CPK Total, Creatine Kinase 23 U/L (26-192); Calcium,Total 9.9 mg/dL (8.5-10.1); Chloride 103 mmol/L (98-107); Creatinine, Serum 0.79 mg/dL (0.55-1.02); EST Glomerular Filtration Rate 73 mL/min (>60); Est Glom Filt Rate - Afr Amer 89 mL/min (>60); Globulin 5.6 g/dL (2.2-4.2); Glucose 160 mg/dL (74-106); Potassium 4.1 mmol/L (3.5-5.1); Protein, Total 8.6 g/dL (6.4-8.2); Sodium Level 136 mmol/L (136-145)
[2022-03-17 15:49] LABS: Erythrocyte Sedimentation Rate 65 mm/hr (0-30)
[2022-03-17 15:54] LABS: Absolute Lymphocyte Count 1.04 X10^3/uL (0.83-4.51); Absolute Neutrophil Count 8.3 X10^3/uL (2.0-7.7); Basophil# 0.01 X10^3/uL; Basophil% 0.1 % (0-1); Eosinophil# 0.07 X10^3/uL; Eosinophils% 0.7 % (0-5); Hemoglobin 12.3 g/dL (12.0-15.0); Lymphocyte # 1.04 X10^3/ul (0.83-4.51); Mean Corp Hgb Conc 31.5 g/dL (32-36); Mean Corpuscular Hgb 29.2 pg (27.0-32.0); Mean Corpuscular Volume 92.6 fL (81-99); Mean Platelet Vol. 10.3 fl (6.2-12.0); Monocyte# 0.89 X10^3/uL; Monocyte% 8.6 % (0-10); NRBC Flagged by Analyzer 0 % (0-5); Neutrophil # 8.31 X10^3/uL (2.7-7.7); Neutrophil % 80.2 % (47-70); Platelet Count 334 K/mm3 (150-450); RBC Distribution Width CV 13.6 % (11.6-14.6); RBC Distribution Width SD 45.9 fl (35.1-43.9); Red Blood Count 4.21 M/mm3 (4.2-5.4); White Blood Count 10.4 K/mm3 (4.4-11.0)
[2022-03-19 15:08] LABS: Creatine Kinase MB 0 % (0-3); Creatine Kinase MM 100 % (97-100); Creatine Kinase,Total,Serum 27 U/L (26-161); Macro I 0 % (Not Observed); Macro II 0 % (Not Observed)
[2022-03-19 18:08] LABS: Creatine Kinase BB 0 % (0)
== END | disposition home or self-care (01) ==
LOC: MFPLAB 11:26
PROVIDERS: PCP Family Medicine; Referring Provider Family Medicine; Visit Provider Family Medicine
DX: M79.10 Myalgia, unspecified site (principal)
CPT/HCPCS: 36415; 80053; 82550; 82552; 85025; 85652

== ENCOUNTER → 2022-03-26 | Outpatient (CLI) | payer MEDICARE, SELFPAY ==
[2022-03-26 12:33] LABS: Absolute Lymphocyte Count 1.74 X10^3/uL (0.83-4.51); Absolute Neutrophil Count 4.7 X10^3/uL (2.0-7.7); Basophil# 0.02 X10^3/uL; Basophil% 0.3 % (0-1); Eosinophil# 0.13 X10^3/uL; Eosinophils% 1.8 % (0-5); Hemoglobin 11.7 g/dL (12.0-15.0); Lymphocyte # 1.74 X10^3/ul (0.83-4.51); Lymphocyte % 24.1 % (19-41); Mean Corp Hgb Conc 30.8 g/dL (32-36); Mean Corpuscular Hgb 29.1 pg (27.0-32.0); Mean Corpuscular Volume 94.5 fL (81-99); Mean Platelet Vol. 9.8 fl (6.2-12.0); Monocyte# 0.48 X10^3/uL; Monocyte% 6.7 % (0-10); NRBC Flagged by Analyzer 0 % (0-5); Neutrophil # 4.68 X10^3/uL (2.7-7.7); Neutrophil % 64.9 % (47-70); Platelet Count 395 K/mm3 (150-450); RBC Distribution Width CV 13.9 % (11.6-14.6); RBC Distribution Width SD 47.9 fl (35.1-43.9); Red Blood Count 4.02 M/mm3 (4.2-5.4); White Blood Count 7.2 K/mm3 (4.4-11.0)
[2022-03-26 12:58] LABS: ALB/GLOB Ratio 0.8 RATIO (0.9-2.4); AST(SGOT) 38 U/L (15-37); Alanine Aminotransfer ALT/SGPT 56 U/L (13-56); Albumin, Serum 3.4 g/dL (3.2-5.0); Alkaline Phosphatase 90 U/L (45-117); Anion Gap 8 (5-15); BUN 14 mg/dL (7-18); BUN/Creat Ratio 21.2 RATIO (10-20); Calcium,Total 9.3 mg/dL (8.5-10.1); Chloride 108 mmol/L (98-107); Creatinine, Serum 0.66 mg/dL (0.55-1.02); EST Glomerular Filtration Rate 90 mL/min (>60); Est Glom Filt Rate - Afr Amer 109 mL/min (>60); Globulin 4.1 g/dL (2.2-4.2); Glucose 101 mg/dL (74-106); Potassium 4.1 mmol/L (3.5-5.1); Protein, Total 7.5 g/dL (6.4-8.2); Sodium Level 142 mmol/L (136-145)
== END | disposition home or self-care (01) ==
LOC: MFPLAB 10:04
PROVIDERS: PCP Family Medicine; Referring Provider Family Medicine; Visit Provider Family Medicine
DX: R74.8 Abnormal levels of other serum enzymes (principal)
CPT/HCPCS: 36415; 80053; 85025

== ENCOUNTER → 2022-10-11 | Outpatient (CLI) | payer MEDICARE, SELFPAY | END | disposition home or self-care (01) | LOC: LABSPEC 11:05 | PROVIDERS: PCP Family Medicine; Visit Provider Family Medicine | DX: R35.0 Frequency of micturition (principal); R19.7 Diarrhea, unspecified | CPT/HCPCS: 87177; 87209 ==

== ENCOUNTER → 2023-01-11 | Outpatient (CLI) | payer MEDICARE, SELFPAY ==
[2023-01-11 15:31] LABS: Anion Gap 8 (5-15); BUN 18 mg/dL (7-18); Calcium,Total 9.6 mg/dL (8.5-10.1); Chloride 106 mmol/L (98-107); Cholesterol 192 mg/dL (200); Creatinine, Serum 0.78 mg/dL (0.55-1.02); EST Glomerular Filtration Rate 74 mL/min (>60); Est Glom Filt Rate - Afr Amer 89 mL/min (>60); Glucose 104 mg/dL (74-106); High Density Lipoprotein 42 mg/dL; Potassium 4.3 mmol/L (3.5-5.1); Sodium Level 141 mmol/L (136-145); Triglycerides 99 mg/dL; Very Low Density Lipoprotein 20 mg/dL (5-40)
== END | disposition home or self-care (01) ==
LOC: MFPLAB 11:59
PROVIDERS: PCP Family Medicine; Referring Provider Family Medicine; Visit Provider Family Medicine
DX: I10 Essential (primary) hypertension (principal)
CPT/HCPCS: 36415; 80048; 80061

== ENCOUNTER 2023-11-25 15:26 | Emergency (ER) | payer MEDICARE, SELFPAY ==
[2023-11-25 15:29] VITALS: BP 141/123; PULSE 117; RESP 18; TEMP 35.7; O2SAT 98; BMI 21.1
--- NOTE | 2023-11-25 16:27 | EDS_ITS ---
HPI History of Present Illness Chief Complaint: Nausea/Vomiting/Diarrhea Informant: patient and family Narrative Narrative: Patient presents with GI symptoms. History is through her and somewhat through her sister. Patient is extremely nonspecific. Despite trying to pin her down to specific answers I cannot get them. Her biggest complaints is that she wants a Pepsi because she has not had 1 today. Her second biggest complaint is that she is not sleeping well at night. They evidently were at a [employer] event where multiple people have had nausea vomiting diarrhea afterwards. There is a question of norovirus but I cannot get how this was found or diagnosed. She has never been tested. Patient states that about 4 to 5 days ago she had a upset stomach. She she cannot define what this means. There was never any pain though. She never had diarrhea until 2 episodes last night. Never had blood in that. She has never vomited. She denies being nauseated but then states she cannot eat because her stomach is upset. I think she means she is nauseated. But she adamantly denies pain. She has not been sleeping well this week because of all these issues. So last night she took equate medicine that had a side effect of drowsiness. She took 3 of them. She did sleep. She has no idea what these medicines were. I explained that equally it is a brand name. This does not define what medications were in it. [facility] Medical History Biatrial enlargement Chronic anticoagulation Clot Essential hypertension Hypothyroidism Mixed hyperlipidemia Non-Hodgkin lymphoma Non-rheumatic mitral regurgitation Nonischemic cardiomyopathy Normochromic normocytic anemia Prediabetes Presbycusis Pulmonary hypertension Home Medications Multivitamins,Ther W-Minerals [Multivitamin With Minerals (BKC)] 1 tab PO BREAKFAST ##0 03/11/22 [Rx Last Taken Unknown] apixaban 5 mg tablet (Eliquis) 5 mg PO BID #60 tabs 03/11/22 [Rx Last Taken Unknown] atorvastatin 10 mg tablet 10 mg PO QHS #30 tabs 03/11/22 [Rx Last Taken Unknown] cholecalciferol (vitamin D3) 25 mcg (1,000 unit) tablet 25 mcg PO DAILY #30 tabs 03/11/22 [Rx Last Taken Unknown] hydralazine 10 mg tablet 10 mg PO BID #60 tabs 03/11/22 [Rx Last Taken Unknown] levothyroxine 25 mcg tablet 25 mcg PO DAILY hypothyroidism #30 tabs 03/11/22 [Rx Last Taken Unknown] magnesium chloride 64 mg (magnesium chloride) tablet,delayed release (Mag 64) 128 mg (2 x 64 mg) PO DAILY #60 tabs 03/11/22 [Rx Last Taken Unknown] mirtazapine 15 mg tablet 7.5 mg (1/2 x 15 mg) PO QHS #16 tabs 03/11/22 [Rx Last Taken Unknown] potassium chloride 10 mEq tablet,extended release(part/cryst) 10 meq PO DAILYCM #30 tabs 03/11/22 [Rx Last Taken Unknown] tamsulosin 0.4 mg capsule 0.4 mg PO DAILY@1730 #30 caps 03/11/22 [Rx Last Taken Unknown] cephalexin 500 mg capsule 500 mg PO TID 7 days #21 CAPSULES 11/25/23 [Rx Last Taken Unknown] ondansetron 4 mg disintegrating tablet 4 mg PO Q8H PRN PRN Nausea #10 tabs 11/25/23 [Rx Last Taken Unknown] Allergy/AdvReac Type Severity Reaction Status Date / Time amlodipine Allergy Other Verified 11/25/23 15:29 hydrochlorothiazide Allergy Other Verified 11/25/23 15:29 Latex, Natural Rubber Allergy Other Verified 11/25/23 15:29 lisinopril Allergy Other Verified 11/25/23 15:29 losartan Allergy Other Verified 11/25/23 15:29 Family History Mother CHF (congestive heart failure) Father Diabetes Surgical History History of embolectomy History of hysterectomy History of tubal ligation Social History Smoking Status: Never smoker alcohol intake: never substance use type: does not use caffeine: Yes Type: carbonated beverages Number of servings: 1 ROS ROS ED Constitutional Constitutional ED: Denies fever(s) or subjective Eyes Eyes: Denies change in vision ENT ENT ED: Reports rhinorrhea and other Details: Patient did admit to rhinorrhea. But no other URI symptoms. Cardiovascular Cardiovascular: Denies chest pain Respiratory/Chest Respiratory/Chest: Denies cough Gastrointestinal Gastrointestinal: Reports diarrhea and nausea; Denies abdominal pain, constipation, melena or vomiting Genitourinary Genitourinary ED: Denies dysuria Musculoskeletal Musculoskeletal: Denies myalgias Integumentary Denies rash Neurologic Neurologic: Denies headache(s), paresthesias or weakness Endocrine Endocrinology: Denies polydipsia or polyuria Hematologic/Lymphatic Hematologic/Lymphatic: Reports easy bleeding and easy bruising Allergic/Immunologic Allergic/Immunologic ED: Denies urticaria EXAM Physical Exam Narrative Exam Narrative: CONSTITUTIONAL: Patient is nontoxic in appearance. The patient looks comfortable. HEENT: No notable trauma. Mucous membranes do look dry on exam. No sinus tenderness. No drainage. No indication of pain with swallowing. EYES: No conjunctival injection. CARDIOVASCULAR: Regular rate when I listen to the patient. No notable murmur. No JVD. RESPIRATORY: No respiratory distress. Breathing is unlabored. No wheezes. No rhonchi. No rales. No pain with a deep breath. GASTROINTESTINAL: Not distended. Bowel sounds are normal. No tenderness. No guarding. No rebound. No palpable mass. No bruit. Overall very benign abdomen. GENITOURINARY: No tenderness over the bladder. No CVA tenderness. MUSCULOSKELETAL: Atraumatic. No peripheral edema. No cord. No tenderness along the deep venous system. No asymmetry. NEUROLOGICAL: Patient is alert and appropriate. No focal deficit noted. She is not a good informant for details. SKIN: No noted rashes. No diaphoresis. PSYCHIATRIC: Patient is calm. Mood is appropriate. She gets very excited and animated when she talks about getting a Pepsi. She drinks Pepsi every day and she has not had 1 today. Her sister calls her a Pepsi addict. Const Vital Signs: 11/25/23 15:29 Temperature 96.3 F L Temperature Source Temporal Pulse Rate 117 H Respiratory Rate 18 Blood Pressure 141/123 H Blood Pressure Mean 129 Pulse Ox 98 Oxygen Delivery Method Room Air MDM MDM MDM Narrative Medical decision making narrative: Patient's CBC is normal. Patient's electrolytes do show a slight bump of her creatinine to 1.39. But she is given IV fluids here. She states she only had 2 episodes of diarrhea and no vomiting. Her glucose is normal at 85. Her urine?does show will be dark of night Treitz leukocyte Estrace 25-58 set in for or plus bacteria. This is consistent with UTI even though there is no burning. I talked with the patient and her sister. Since her viral studies are negative, she is able to eat and drink, I really do not want to put her in the hospital. I think if we can manage her as an outpatient she will do better. I will write for some Zofran in case she develops nausea although she denies being nauseated. Her history is sometimes a little hard to follow. Lab Data Labs: Laboratory Results - last 24 hr 11/25/23 11/25/23 16:45 17:10 WBC 7.7 RBC 4.67 Hgb 13.3 Hct 42.5 MCV 91.0 MCH 28.5 MCHC 31.3 L RDW Std Deviation 48.8 H RDW Coeff of [place]nam 15.3 H Plt Count 242 MPV 10.6 Immature Gran % (Auto) 0.500 Neut % (Auto) 72.7 H Lymph % (Auto) 15.4 L [place] % (Auto) 10.7 H Eos % (Auto) 0.3 Baso % (Auto) 0.4 Absolute Neuts (auto) 5.6 Absolute Lymphs (auto) 1.19 Nucleated RBC % 0 Sodium 140 Potassium 4.5 Chloride 108 H Carbon Dioxide 22.0 Anion Gap 10 BUN 35 H Creatinine 1.39 H Estim Creat Clear Calc 27.04 Est GFR (MDRD) Af Amer 46 L Est GFR (MDRD) Non-Af 38 L BUN/Creatinine Ratio 25.2 H Glucose 85 Calcium 9.6 Urine Color Yellow Urine Clarity Sl. Cloudy Urine pH 5.0 Ur Specific [place] 1.025 Urine Protein 30 H Urine Glucose (UA) Normal Urine Ketones 5 H Urine Occult Blood 25 H Urine Nitrite Positive H Urine Bilirubin 1 H Urine Urobilinogen 1 H Ur Leukocyte Esterase 500 H Urine RBC 0 SEEN Urine WBC 25-50 SEEN Ur Squamous Epith Cells 0-5 SEEN Urine Bacteria 4+ Urine Mucus 0 SEEN Discharge Plan Triage Chief Complaint: Nausea/Vomiting/Diarrhea ED Provider: Ian Horn Dx/Rx/DC Orders Clinical Impression: Acute UTI, Dehydration Instructions: Urinary Tract Infections in Women, Dehydration Prescriptions: New cephalexin [cephalexin] 500 mg capsule 500 mg PO TID 7 Days Qty: 21 0RF ondansetron [ondansetron] 4 mg tablet,disintegrating 4 mg PO Q8H PRN PRN (Reason: Nausea) Qty: 10 0RF No Action Eliquis 5 mg Tablet 5 mg PO BID Qty: 60 0RF Rx Instructions: take 1 tab every 12 hours to prevent blood clots/strokes atorvastatin 10 mg Tablet 10 mg PO QHS Qty: 30 0RF Rx Instructions: Take this medication at bedtime cholecalciferol (vitamin D3) 25 mcg (1,000 unit) Tablet 25 mcg PO DAILY Qty: 30 0RF hydralazine 10 mg Tablet 10 mg PO BID Qty: 60 0RF Mag 64 64 mg Tablet,Delayed Release (Dr/Ec) 128 mg PO DAILY Qty: 60 0RF tamsulosin 0.4 mg Capsule 0.4 mg PO DAILY@1730 Qty: 30 0RF Rx Instructions: To prevent urine retention mirtazapine 15 mg Tablet 7.5 mg PO QHS Qty: 16 0RF Rx Instructions: 1/2 tab at bedtime every night potassium chloride 10 mEq Tablet,Er Particles/Crystals 10 meq PO DAILYCM Qty: 30 0RF Multivitamins,Ther W-Minerals [Multivitamin With Minerals (Bkc)] 1 tab PO BREAKFAST Qty: 0 0RF levothyroxine 25 mcg tablet 25 mcg PO DAILY Qty: 30 0RF Primary Care Provider: Rebekah Beckford Referrals: Rebekah Beckford MD [Primary Care Provider] - 3-5 Days Disposition Disposition: Home, Self Care
[2023-11-25] MEDS: Ondansetron 4 MG/2 ML Vial IV (16:57)
[2023-11-25] MEDS: 0.9% Normal Saline (1000mL) 1,000 ML 1000 ML IV (16:57)
[2023-11-25 16:59] LABS: Absolute Lymphocyte Count 1.19 X10^3/uL (0.83-4.51); Absolute Neutrophil Count 5.6 X10^3/uL (2.0-7.7); Basophil# 0.03 X10^3/uL; Basophil% 0.4 % (0-1); Eosinophil# 0.02 X10^3/uL; Eosinophils% 0.3 % (0-5); Hematocrit 42.5 % (37-47); Hemoglobin 13.3 g/dL (12.0-15.0); Lymphocyte # 1.19 X10^3/ul (0.83-4.51); Lymphocyte % 15.4 % (19-41); Mean Corp Hgb Conc 31.3 g/dL (32-36); Mean Corpuscular Hgb 28.5 pg (27.0-32.0); Mean Platelet Vol. 10.6 fl (6.2-12.0); Monocyte# 0.83 X10^3/uL; Monocyte% 10.7 % (0-10); NRBC Flagged by Analyzer 0 % (0-5); Neutrophil # 5.63 X10^3/uL (2.7-7.7); Neutrophil % 72.7 % (47-70); Platelet Count 242 K/mm3 (150-450); RBC Distribution Width CV 15.3 % (11.6-14.6); RBC Distribution Width SD 48.8 fl (35.1-43.9); Red Blood Count 4.67 M/mm3 (4.2-5.4); White Blood Count 7.7 K/mm3 (4.4-11.0)
[2023-11-25 17:11] LABS: Anion Gap 10 (5-15); BUN 35 mg/dL (7-18); BUN/Creat Ratio 25.2 RATIO (10-20); Calcium,Total 9.6 mg/dL (8.5-10.1); Chloride 108 mmol/L (98-107); Creatinine, Serum 1.39 mg/dL (0.55-1.02); EST Glomerular Filtration Rate 38 mL/min (>60); Est Glom Filt Rate - Afr Amer 46 mL/min (>60); Estimated Creatinine Clearance 27.04 ml/min; Glucose 85 mg/dL (74-106); Potassium 4.5 mmol/L (3.5-5.1); Sodium Level 140 mmol/L (136-145)
[2023-11-25 17:16] LABS: Mucous, Urine 0 SEEN /hpf (<or=2+); Red Blood Cells-Urine 0 SEEN /hpf (0-5)
[2023-11-25 17:29] LABS: Color, Urine Yellow (Yellow); Glucose, Dipstick Normal (Normal); Ketone-Dipstick 5 mg/dl (Negative); Leukocyte Esterase-Dipstick 500 /ul (Negative); Nitrite-Dipstick Positive (Negative); Occult Blood-Urine 25 /ul (Negative); Protein-Dipstick 30 mg/dl (Negative); Specific Gravity, Urine 1.025 (1.002-1.030); Urine Clarity Sl. Cloudy (Clear); Urine Urobilinogen 1 mg/dl (Normal)
[2023-11-25 17:31] LABS: Urine Bilirubin Dipstick 1 mg/dL (Negative)
[2023-11-25 17:36] LABS: Bacteria 4+ /hpf (None Seen); Squamous Epithelial Cells - UA 0-5 SEEN /hpf (5-10); White Blood Cells 25-50 SEEN /hpf (0-5)
[2023-11-25 18:00] VITALS: RESP 20
[2023-11-25] MEDS: Cephalexin 250 MG Capsule 500 MG PO (19:27)
[2023-11-25 19:31] VITALS: BP 123/73; PULSE 79; RESP 18; O2SAT 97
== END 2023-11-25 20:10 | disposition home or self-care (01) ==
PROVIDERS: Emergency Provider Emergency Medicine; PCP Family Medicine; Visit Provider Emergency Medicine
DX: N39.0 Urinary tract infection, site not specified (principal); E86.0 Dehydration
CPT/HCPCS: 80048; 81001; 85025; 87631; 96361; 96374; 99282; J7030; A4216; J2405

== ENCOUNTER 2023-12-01 14:44 | Emergency (ER) | payer MEDICARE, SELFPAY ==
[2023-12-01] VITALS (8 sets, daily range): BP systolic 119–141; BP diastolic 74–87; PULSE 68–101; RESP 15–16; TEMP 36.4; O2SAT 97–99
[2023-12-01 15:42] LABS: Absolute Neutrophil Count 3.7 X10^3/uL (2.0-7.7); Basophil# 0.02 X10^3/uL; Basophil% 0.4 % (0-1); Eosinophil# 0.07 X10^3/uL; Eosinophils% 1.3 % (0-5); Hematocrit 40.3 % (37-47); Hemoglobin 12.6 g/dL (12.0-15.0); Lymphocyte % 21.6 % (19-41); Mean Corp Hgb Conc 31.3 g/dL (32-36); Mean Corpuscular Hgb 28.5 pg (27.0-32.0); Mean Corpuscular Volume 91.2 fL (81-99); Mean Platelet Vol. 10.1 fl (6.2-12.0); Monocyte# 0.51 X10^3/uL; Monocyte% 9.2 % (0-10); NRBC Flagged by Analyzer 0 % (0-5); Neutrophil # 3.69 X10^3/uL (2.7-7.7); Neutrophil % 66.4 % (47-70); Platelet Count 202 K/mm3 (150-450); RBC Distribution Width CV 15.6 % (11.6-14.6); RBC Distribution Width SD 50.9 fl (35.1-43.9); Red Blood Count 4.42 M/mm3 (4.2-5.4); White Blood Count 5.6 K/mm3 (4.4-11.0)
--- NOTE | 2023-12-01 15:43 | RAD_ITS ---
STUDY: X-RAY CHEST REASON FOR EXAM: Female, 88 years old. MEDICAL CLEARANCE TECHNIQUE: AP portable COMPARISON: February 18, 2022 FINDINGS: There are small bilateral pleural effusions and bibasilar consolidation more pronounced on the right. Tiny calcified granuloma in left upper lobe Normal size heart. Normal mediastinum and jesus. Normal visualized pulmonary arteries. Mildly calcified aortic arch and descending thoracic aorta. Normal visualized thoracic spine. Normal visualized ribs, clavicles, and shoulders. There is no demonstrated abnormality of the visualized soft tissue structures of the upper abdomen. RAD/Chest 1 View (Portable) IMPRESSION: Bilateral pleural effusions and consolidation of the lower lobes more pronounced on the right Electronically Signed: Sanju Meade MD at 16:55 EST ,
[2023-12-01 16:00] LABS: Anion Gap 7 (5-15); BUN 18 mg/dL (7-18); BUN/Creat Ratio 18.7 RATIO (10-20); Calcium,Total 9.6 mg/dL (8.5-10.1); Chloride 106 mmol/L (98-107); Creatinine, Serum 0.96 mg/dL (0.55-1.02); EST Glomerular Filtration Rate 58 mL/min (>60); Est Glom Filt Rate - Afr Amer 70 mL/min (>60); Glucose 104 mg/dL (74-106); Sodium Level 138 mmol/L (136-145)
[2023-12-01 17:30] LABS: Mucous, Urine 0 SEEN /hpf (<or=2+)
[2023-12-01 17:34] LABS: Color, Urine Yellow (Yellow); Glucose, Dipstick Normal (Normal); Ketone-Dipstick Negative (Negative); Leukocyte Esterase-Dipstick 25 /ul (Negative); Nitrite-Dipstick Negative (Negative); Occult Blood-Urine 250 /ul (Negative); Protein-Dipstick 30 mg/dl (Negative); Specific Gravity, Urine 1.015 (1.002-1.030); Urine Bilirubin Dipstick Negative (Negative); Urine Clarity Clear (Clear); Urine Urobilinogen Normal (Normal)
[2023-12-01 17:40] LABS: Bacteria RARE /hpf (None Seen); Red Blood Cells-Urine 25-50 SEEN /hpf (0-5); Squamous Epithelial Cells - UA 0-5 SEEN /hpf (5-10); White Blood Cells 0-5 SEEN /hpf (0-5)
[2023-12-01 17:54] LABS: Amphetamine Urine VISTA NEGATIVE (<1000 ng/mL); Barbiturate Urine VISTA NEGATIVE (< 200 ng/mL); Benzodiazepine Urine VISTA NEGATIVE (< 200 ng/mL); Cocaine Urine VISTA NEGATIVE (< 300 ng/mL); Ecstacy Urine VISTA NEGATIVE (< 500 ng/mL); Methadone Urine VISTA NEGATIVE (< 300 ng/mL); PCP Urine VISTA NEGATIVE (< 25 ng/mL); THC Urine VISTA NEGATIVE (< 50 ng/mL); Vista UDS pH Range 5
--- NOTE | 2023-12-01 18:35 | EX.ED.VIS.PS ---
HPI HPI - Psych History of Present Illness Chief Complaint: Mental Health Narrative Narrative: 88-year-old female presenting with chief complaint of fatigue. She states he has not slept in days. She states this is really her issue. Patient states that she does not feel as if she can take care of herself and has not felt like going to the store although she still feels she can drive. She states she has been able to get in and out of her trailer which is for 5 steps. She states that with her history of UTIs and stroke they just never been able to get her back to normal. Patient states that she does live at home alone and her family expressed concern to nursing staff that she could not take care of herself. Patient states that she does not want to hurt herself in any way or to hurt anybody else but she does feel like she does not want to keep on living with helping able to care for herself on her own. [facility] Medical History Biatrial enlargement Chronic anticoagulation Clot Essential hypertension Hypothyroidism Mixed hyperlipidemia Non-Hodgkin lymphoma Non-rheumatic mitral regurgitation Nonischemic cardiomyopathy Normochromic normocytic anemia Prediabetes Presbycusis Pulmonary hypertension Home Medications Multivitamins,Ther W-Minerals [Multivitamin With Minerals (BKC)] 1 tab PO BREAKFAST ##0 03/11/22 [Rx Last Taken Unknown] apixaban 5 mg tablet (Eliquis) 5 mg PO BID #60 tabs 03/11/22 [Rx Last Taken Unknown] atorvastatin 10 mg tablet 10 mg PO QHS #30 tabs 03/11/22 [Rx Last Taken Unknown] cholecalciferol (vitamin D3) 25 mcg (1,000 unit) tablet 25 mcg PO DAILY #30 tabs 03/11/22 [Rx Last Taken Unknown] hydralazine 10 mg tablet 10 mg PO BID #60 tabs 03/11/22 [Rx Last Taken Unknown] levothyroxine 25 mcg tablet 25 mcg PO DAILY hypothyroidism #30 tabs 03/11/22 [Rx Last Taken Unknown] magnesium chloride 64 mg (magnesium chloride) tablet,delayed release (Mag 64) 128 mg (2 x 64 mg) PO DAILY #60 tabs 03/11/22 [Rx Last Taken Unknown] mirtazapine 15 mg tablet 7.5 mg (1/2 x 15 mg) PO QHS #16 tabs 03/11/22 [Rx Last Taken Unknown] tamsulosin 0.4 mg capsule 0.4 mg PO DAILY@1730 #30 caps 03/11/22 [Rx Last Taken Unknown] cephalexin 500 mg capsule 500 mg PO TID 7 days #21 CAPSULES 11/25/23 [Rx Last Taken Unknown] ondansetron 4 mg disintegrating tablet 4 mg PO Q8H PRN PRN Nausea #10 tabs 11/25/23 [Rx Last Taken Unknown] Allergy/AdvReac Type Severity Reaction Status Date / Time amlodipine Allergy Other Verified 11/25/23 15:29 hydrochlorothiazide Allergy Other Verified 11/25/23 15:29 Latex, Natural Rubber Allergy Other Verified 11/25/23 15:29 lisinopril Allergy Other Verified 11/25/23 15:29 losartan Allergy Other Verified 11/25/23 15:29 Family History Mother CHF (congestive heart failure) Father Diabetes Surgical History History of embolectomy History of hysterectomy History of tubal ligation Social History Smoking Status: Never smoker alcohol intake: never substance use type: does not use caffeine: Yes Type: carbonated beverages Number of servings: 1 ROS ROS ED Constitutional Constitutional ED: Denies chills, fever(s) or sweats Eyes Eyes: Denies blurry vision or change in vision ENT ENT ED: Denies ear pain or sore throat Cardiovascular Cardiovascular: Denies chest pain, palpitations or racing heartbeat Respiratory/Chest Respiratory/Chest: Denies cough, dyspnea or sputum Gastrointestinal Gastrointestinal: Denies abdominal pain, constipation, diarrhea, nausea or vomiting Genitourinary Genitourinary ED: Denies dysuria, hematuria or urinary frequency Musculoskeletal Musculoskeletal: Denies arthralgias, myalgias or neck pain Integumentary Denies abscess, Abrasions or rash Neurologic Neurologic: Denies headache(s), paresthesias or weakness Psychiatric Psychiatric: Reports depression; Denies anxiety, suicidal ideation or suicidal thoughts Endocrine Endocrinology: Denies polydipsia or polyuria EXAM Physical Exam Const Vital Signs: 12/01/23 14:45 12/01/23 17:25 12/01/23 18:00 Temperature 97.5 F L Temperature Source Temporal Pulse Rate 82 101 H Respiratory Rate 16 16 16 Blood Pressure 119/84 H 141/87 H 141/87 H Blood Pressure Mean 95 105 105 Pulse Ox 99 97 98 Oxygen Delivery Method Room Air Room Air Room Air 12/01/23 19:00 12/01/23 20:00 12/01/23 21:00 Temperature Temperature Source Pulse Rate Respiratory Rate 15 16 15 Blood Pressure Blood Pressure Mean Pulse Ox Oxygen Delivery Method 12/01/23 22:00 Temperature Temperature Source Pulse Rate 68 Respiratory Rate 16 Blood Pressure 132/74 H Blood Pressure Mean 93 Pulse Ox 97 Oxygen Delivery Method Room Air Positive well nourished General Appearance ED: NAD; Negative for pallor HEENT Reports moist mucous membranes normocephalic and atraumatic Eyes PERRL and EOMs intact bilaterally Resp normal respiratory effort Cardio Rate: regular rate Rhythm: regular rhythm Neuro oriented x3 and CN's II-XII intact bilaterally Sensorium / Orientation: alert Psych mental status grossly normal Appearance: grossly normal Attitude: calm and engaged Activity / Motor Behavior: appropriate eye contact Thought Content: normal thought content, No suicidality and No homicidality Attention / Concentration: attention grossly intact Memory / Cognition: memory grossly intact Insight: fair Judgement: fair Skin General Skin Exam: Negative for jaundice or pallor MDM MDM MDM Narrative Medical decision making narrative: Patient presenting with inability to care for self at home. She states she does not want to hurt herself but does not feel like she can go on living and caring for herself. This was expressed to the nursing staff by family members prior to my arrival into the room. Patient is currently alone. She is alert and awake in no acute distress. Her symptoms are only insomnia, fatigue, the feeling that she cannot go on living and caring for self alone. Initially it was thought the patient was suicidal show medical clearance labs were obtained. CBC, BMP unremarkable. Urinalysis shows occult blood but no evidence of infection necessarily. EtOH negative. Drug screen negative. Chest x-ray on my interpretation shows small bilateral pleural effusions. Patient not hypoxic, tachypneic. She not having chest pain or shortness of breath. Patient medically clear. Crisis came to evaluate the patient but is unclear what the patient's needs are. We are unable to get a hold of the patient's family until tomorrow morning initially. Later I was told that the family did call in and spoke with crisis and there is a plan to have the patient go home with them tomorrow. Patient wants to be safety contracted and it is told me that the family will be able to stay with her. Given this I will not admit her. I do not believe she needs admission to geriatric psych. Patient will be signed out to incoming ED physician for monitoring. Impression: 1. Debility 2. Pleural effusions 3. Depression Lab Data Attestation: I reviewed the patient's lab results. Labs: Laboratory Results - last 24 hr 12/01/23 12/01/23 15:20 17:20 WBC 5.6 RBC 4.42 Hgb 12.6 Hct 40.3 MCV 91.2 MCH 28.5 MCHC 31.3 L RDW Std Deviation 50.9 H RDW Coeff of [place] 15.6 H Plt Count 202 MPV 10.1 Immature Gran % (Auto) 1.100 H Neut % (Auto) 66.4 Lymph % (Auto) 21.6 [place] % (Auto) 9.2 Eos % (Auto) 1.3 Baso % (Auto) 0.4 Absolute Neuts (auto) 3.7 Absolute Lymphs (auto) 1.20 Nucleated RBC % 0 Sodium 138 Potassium 4.0 Chloride 106 Carbon Dioxide 25.0 Anion Gap 7 BUN 18 Creatinine 0.96 Est GFR (MDRD) Af Amer 70 Est GFR (MDRD) Non-Af 58 L BUN/Creatinine Ratio 18.7 Glucose 104 Calcium 9.6 Urine Color Yellow Urine Clarity Clear Urine pH 5.0 Ur Specific [place] 1.015 Urine Protein 30 H Urine Glucose (UA) Normal Urine Ketones Negative Urine Occult Blood 250 H Urine Nitrite Negative Urine Bilirubin Negative Urine Urobilinogen Normal Ur Leukocyte Esterase 25 H Urine RBC 25-50 SEEN Urine WBC 0-5 SEEN Ur Squamous Epith Cells 0-5 SEEN Urine Bacteria RARE Urine Mucus 0 SEEN Urine Opiates Screen NEGATIVE Urine Methadone Screen NEGATIVE Ur Barbiturates Screen NEGATIVE Ur Phencyclidine Scrn NEGATIVE Ur Amphetamines Screen NEGATIVE MDMA (Ecstasy) Screen NEGATIVE U Benzodiazepines Scrn NEGATIVE Urine Cocaine Screen NEGATIVE U Cannabinoids Screen NEGATIVE Ur Drug Screen Comment Ethyl Alcohol 5.0 Radiography Diagnostic Testing: Clinical Impression(s) from Imaging Studies Chest X-Ray 12/01/23 15:43 IMPRESSION: Bilateral pleural effusions and consolidation of the lower lobes more pronounced on the right Electronically Signed: Sanju Meade MD at 16:55 EST Reading Location ID and State: [facility] / [place] Tel , Service support , Discharge Plan Triage Chief Complaint: Mental Health ED Provider: Al Sands Dx/Rx/DC Orders Prescriptions: No Action Eliquis 5 mg Tablet 5 mg PO BID Qty: 60 0RF Rx Instructions: take 1 tab every 12 hours to prevent blood clots/strokes atorvastatin 10 mg Tablet 10 mg PO QHS Qty: 30 0RF Rx Instructions: Take this medication at bedtime cholecalciferol (vitamin D3) 25 mcg (1,000 unit) Tablet 25 mcg PO DAILY Qty: 30 0RF hydralazine 10 mg Tablet 10 mg PO BID Qty: 60 0RF Mag 64 64 mg Tablet,Delayed Release (Dr/Ec) 128 mg PO DAILY Qty: 60 0RF tamsulosin 0.4 mg Capsule 0.4 mg PO DAILY@1730 Qty: 30 0RF Rx Instructions: To prevent urine retention mirtazapine 15 mg Tablet 7.5 mg PO QHS Qty: 16 0RF Rx Instructions: 1/2 tab at bedtime every night Multivitamins,Ther W-Minerals [Multivitamin With Minerals (Bkc)] 1 tab PO BREAKFAST Qty: 0 0RF levothyroxine 25 mcg tablet 25 mcg PO DAILY Qty: 30 0RF cephalexin [cephalexin] 500 mg capsule 500 mg PO TID 7 Days Qty: 21 0RF ondansetron [ondansetron] 4 mg tablet,disintegrating 4 mg PO Q8H PRN PRN (Reason: Nausea) Qty: 10 0RF Primary Care Provider: Rebekah Beckford Referrals: Rebekah Beckford MD [Primary Care Provider] -
[2023-12-01] MEDS: Atorvastatin Calcium 10 MG Tablet PO (21:51)
[2023-12-01] MEDS: APIXABAN 5 MG TABLET PO (21:51)
[2023-12-01] MEDS: Cephalexin 500 MG Capsule PO (21:51)
--- NOTE | 2023-12-01 22:25 | ED.RN ---
Per Crisis they talked to pts daughter and she should be here on 12/02/23 in the early afternoon. Per crisis pt is safety planned home with her daughter who will stay with her indefinite till they come up with a plan. If pt sister is willing to come get pt in the am and stay with her till daughter gets to pts house they are ok with that but do not want pt going home alone. Dr. Sands, charge nurse notified.
[2023-12-02] VITALS (8 sets, daily range): BP systolic 110–141; BP diastolic 67–87; PULSE 74–97; RESP 15–18; O2SAT 91–99
[2023-12-02] MEDS: Cephalexin 500 MG Capsule PO ×2 (09:31→14:44)
[2023-12-02] MEDS: hydrALAZINE 10 MG Tablet PO (09:31)
[2023-12-02] MEDS: Tolterodine Tartrate 2 MG CAP.SA PO (09:31)
[2023-12-02] MEDS: APIXABAN 5 MG TABLET PO (09:32)
== END 2023-12-02 17:16 | disposition home or self-care (01) ==
PROVIDERS: Emergency Provider Student in an Organized Health Care Education/Training Program; PCP Family Medicine; Visit Provider Student in an Organized Health Care Education/Training Program
DX: R53.81 Other malaise (principal); I42.8 Other cardiomyopathies; J90 Pleural effusion, not elsewhere classified; F32.A Depression, unspecified; E78.2 Mixed hyperlipidemia; Z79.01 Long term (current) use of anticoagulants; Z79.899 Other long term (current) drug therapy
CPT/HCPCS: 71045; 80048; 80307; 80320; 81001; 85025; 87426; 93005; 99283; A4216; G0480

== ENCOUNTER → 2023-12-12 | Outpatient (CLI) | payer MEDICARE, SELFPAY ==
[2023-12-12 13:34] LABS: Bacteria 0 SEEN /hpf (None Seen); Mucous, Urine 0 SEEN /hpf (<or=2+)
[2023-12-12 15:38] LABS: Color, Urine Yellow (Yellow); Glucose, Dipstick Normal (Normal); Ketone-Dipstick 5 mg/dl (Negative); Leukocyte Esterase-Dipstick 100 /ul (Negative); Nitrite-Dipstick Positive (Negative); Occult Blood-Urine 10 /ul (Negative); Protein-Dipstick 100 mg/dl (Negative); Specific Gravity, Urine 1.025 (1.002-1.030); Urine Clarity Cloudy (Clear); Urine Urobilinogen 1 mg/dl (Normal)
[2023-12-12 16:11] LABS: Urine Bilirubin Dipstick 1 mg/dL (Negative)
[2023-12-12 16:15] LABS: Squamous Epithelial Cells - UA 10-25 SEEN /hpf (5-10)
[2023-12-12 16:16] LABS: Red Blood Cells-Urine 0-5 SEEN /hpf (0-5); White Blood Cells 5-10 SEEN /hpf (0-5)
[2023-12-12 16:17] LABS: Amorphous Sediment 4+
== END | disposition home or self-care (01) ==
LOC: LABSPEC 13:33
PROVIDERS: PCP Family Medicine; Visit Provider Family Medicine
DX: R30.0 Dysuria (principal)
CPT/HCPCS: 81001; 87086; 87088

== ENCOUNTER → 2023-12-16 | Outpatient (CLI) | payer MEDICARE, SELFPAY ==
[2023-12-16 17:43] LABS: Absolute Lymphocyte Count 0.95 X10^3/uL (0.83-4.51); Absolute Neutrophil Count 3.1 X10^3/uL (2.0-7.7); Basophil# 0.02 X10^3/uL; Basophil% 0.4 % (0-1); Eosinophil# 0.09 X10^3/uL; Hematocrit 42.3 % (37-47); Hemoglobin 12.7 g/dL (12.0-15.0); Lymphocyte # 0.95 X10^3/ul (0.83-4.51); Lymphocyte % 20.8 % (19-41); Mean Corpuscular Volume 93.4 fL (81-99); Monocyte% 8.8 % (0-10); NRBC Flagged by Analyzer 0 % (0-5); Neutrophil % 67.8 % (47-70); Platelet Count 177 K/mm3 (150-450); RBC Distribution Width CV 16.4 % (11.6-14.6); RBC Distribution Width SD 56.5 fl (35.1-43.9); Red Blood Count 4.53 M/mm3 (4.2-5.4); White Blood Count 4.6 K/mm3 (4.4-11.0)
[2023-12-16 18:10] LABS: BNP,B-Type NATRIURETIC PEPTIDE 513.6 pg/mL (0-100)
[2023-12-16 18:22] LABS: ALB/GLOB Ratio 0.9 RATIO (0.9-2.4); AST(SGOT) 28 U/L (15-37); Alanine Aminotransfer ALT/SGPT 30 U/L (13-56); Albumin, Serum 3.5 g/dL (3.2-5.0); Alkaline Phosphatase 86 U/L (45-117); Anion Gap 5 (5-15); BUN 22 mg/dL (7-18); Calcium,Total 9.2 mg/dL (8.5-10.1); Chloride 109 mmol/L (98-107); Creatinine, Serum 1.05 mg/dL (0.55-1.02); EST Glomerular Filtration Rate 53 mL/min (>60); Est Glom Filt Rate - Afr Amer 64 mL/min (>60); Globulin 3.8 g/dL (2.2-4.2); Glucose 137 mg/dL (74-106); Potassium 4.2 mmol/L (3.5-5.1); Protein, Total 7.3 g/dL (6.4-8.2); Sodium Level 140 mmol/L (136-145)
== END | disposition home or self-care (01) ==
LOC: MFPLAB 15:46
PROVIDERS: PCP Family Medicine; Visit Provider Family Medicine
DX: I42.9 Cardiomyopathy, unspecified (principal); I48.0 Paroxysmal atrial fibrillation; E03.9 Hypothyroidism, unspecified
CPT/HCPCS: 36415; 80053; 83880; 84443; 85025

== ENCOUNTER → 2023-12-23 | Outpatient (CLI) | payer MEDICARE, SELFPAY ==
[2023-12-23 18:24] LABS: BNP,B-Type NATRIURETIC PEPTIDE 431.4 pg/mL (0-100)
[2023-12-23 18:44] LABS: ALB/GLOB Ratio 0.8 RATIO (0.9-2.4); AST(SGOT) 27 U/L (15-37); Alanine Aminotransfer ALT/SGPT 23 U/L (13-56); Albumin, Serum 3.4 g/dL (3.2-5.0); Alkaline Phosphatase 80 U/L (45-117); Anion Gap 6 (5-15); BUN 22 mg/dL (7-18); BUN/Creat Ratio 20.6 RATIO (10-20); Calcium,Total 9.1 mg/dL (8.5-10.1); Chloride 103 mmol/L (98-107); Creatinine, Serum 1.07 mg/dL (0.55-1.02); EST Glomerular Filtration Rate 51 mL/min (>60); Est Glom Filt Rate - Afr Amer 62 mL/min (>60); Globulin 4.3 g/dL (2.2-4.2); Glucose 84 mg/dL (74-106); Potassium 3.1 mmol/L (3.5-5.1); Protein, Total 7.7 g/dL (6.4-8.2); Sodium Level 137 mmol/L (136-145)
== END | disposition home or self-care (01) ==
LOC: MFPLAB 14:25
PROVIDERS: PCP Family Medicine; Visit Provider Family Medicine
DX: I11.0 Hypertensive heart disease with heart failure (principal); I50.9 Heart failure, unspecified; R60.0 Localized edema
CPT/HCPCS: 36415; 80053; 83880

== ENCOUNTER 2024-01-24 16:39 | Inpatient (IN) | payer MEDICARE, SELFPAY ==
[2024-01-24] VITALS (9 sets, daily range): BP systolic 105–130; BP diastolic 48–76; PULSE 65–81; RESP 12–18; TEMP 36.1–37.1; O2SAT 93–98; BMI 22.2; BMI 21.4
--- NOTE | 2024-01-24 17:20 | EKG12_ITS ---
Test Reason : ALT LOC Blood Pressure : / mmHG Vent. Rate : 090 BPM Atrial Rate : 000 BPM P-R Int : 000 ms QRS Dur : 096 ms QT Int : 368 ms P-R-T Axes : 000 -18 175 degrees QTc Int : 450 ms Atrial fibrillation with premature ventricular or aberrantly conducted complexes Cannot rule out Septal infarct , age undetermined Abnormal ECG Confirmed by Cornelio Cole ([id number]), editorial manager SUNNY LAROSE ([id number]) on 01/25/2024 9:39:35 AM Referred By: Confirmed By:Cornelio Cole
--- NOTE | 2024-01-24 17:22 | EX.ED.DYSGE1 ---
HPI History of Present Illness Chief Complaint: Alt LOC Informant: patient and EMS Narrative Narrative: 80-year-old female history of atrial fibrillation and prior stroke presenting to the emergency room with EMS with a chief complaint of slurred speech. Reportedly the patient is on Eliquis from the prior stroke/A-fib. The patient daughter reportedly called her today was noted to have slurred speech. Home health came to see her today and also noted this. Primary care was contacted who advised transportation to the emergency department. Patient feels generally fatigued. There is a report of a recent UTI but I do not know if that is currently being treated. The patient herself notes that her left leg is weak from prior stroke and does not feel that that is any different. [facility] Medical History Biatrial enlargement Chronic anticoagulation Clot Essential hypertension Hypothyroidism Mixed hyperlipidemia Non-Hodgkin lymphoma Non-rheumatic mitral regurgitation Nonischemic cardiomyopathy Normochromic normocytic anemia Prediabetes Presbycusis Pulmonary hypertension Home Medications apixaban 5 mg tablet (Eliquis) 5 mg PO BID #60 tabs 03/11/22 [Rx Last Taken Unknown] atorvastatin 10 mg tablet 10 mg PO QHS #30 tabs 03/11/22 [Rx Last Taken Unknown] levothyroxine 25 mcg tablet 25 mcg PO DAILY hypothyroidism #30 tabs 03/11/22 [Rx Last Taken Unknown] mirtazapine 15 mg tablet 7.5 mg (1/2 x 15 mg) PO QHS #16 tabs 03/11/22 [Rx Last Taken Unknown] tamsulosin 0.4 mg capsule 0.4 mg PO DAILY@1730 #30 caps 03/11/22 [Rx Last Taken Unknown] ondansetron 4 mg disintegrating tablet 4 mg PO Q8H PRN PRN Nausea #10 tabs 11/25/23 [Rx Last Taken Unknown] fesoterodine 4 mg tablet,extended release 24 hr 4 mg PO DAILY 12/02/23 [History Last Taken Unknown] hydralazine 10 mg tablet 10 mg PO DAILY 12/02/23 [History Last Taken Unknown] omeprazole 20 mg capsule,delayed release 20 mg PO DAILY 01/24/24 [History Last Taken Unknown] potassium chloride 20 mEq tablet,extended release(part/cryst) 20 meq PO DAILY 03/05/24 [History Last Taken Unknown] Allergy/AdvReac Type Severity Reaction Status Date / Time amlodipine Allergy Other Verified 01/24/24 16:41 hydrochlorothiazide Allergy Other Verified 01/24/24 16:41 Latex, Natural Rubber Allergy Other Verified 01/24/24 16:41 lisinopril Allergy Other Verified 01/24/24 16:41 losartan Allergy Other Verified 01/24/24 16:41 Family History Mother CHF (congestive heart failure) Father Diabetes Surgical History History of embolectomy History of hysterectomy History of tubal ligation Social History Smoking Status: Never smoker alcohol intake: never substance use type: does not use caffeine: Yes Type: carbonated beverages Number of servings: 1 ROS ROS ED Constitutional Constitutional ED: Reports chills; Denies fever(s) or weight loss Eyes Eyes: Denies change in vision or diplopia ENT ENT ED: Denies ear pain, rhinorrhea or sore throat Cardiovascular Cardiovascular: Denies chest pain, orthopnea, palpitations or racing heartbeat Respiratory/Chest Respiratory/Chest: Reports cough; Denies dyspnea or orthopnea Gastrointestinal Gastrointestinal: Denies abdominal pain, diarrhea, nausea or vomiting Genitourinary Genitourinary ED: Denies dysuria, hematuria or urinary frequency Musculoskeletal Musculoskeletal: Reports other Details: Patient notes pain in the bilateral lower legs secondary to swelling ; Denies arthralgias or myalgias Integumentary Denies abscess or rash Neurologic Neurologic: Reports other Details: Generalized weakness reported slurred speech ; Denies headache(s) Psychiatric Psychiatric: Denies anxiety, depression, suicidal ideation or suicidal thoughts Endocrine Endocrinology: Denies polydipsia, polyphagia or polyuria Allergic/Immunologic Allergic/Immunologic ED: Denies mouth swelling, tongue swelling or urticaria EXAM Physical Exam Const Vital Signs: 01/24/24 16:41 01/24/24 16:46 01/24/24 17:46 Temperature 97.1 F L 97.6 F L 98.8 F Temperature Source Temporal Temporal Temporal Pulse Rate 77 81 76 Respiratory Rate 18 18 16 Blood Pressure 105/67 105/67 123/76 H Blood Pressure Mean 79 79 91 Pulse Ox 97 96 98 Oxygen Delivery Method Room Air Room Air Room Air 01/24/24 18:00 01/24/24 18:26 01/24/24 18:46 Temperature 98.1 F 98.1 F 97.8 F Temperature Source Temporal Temporal Temporal Pulse Rate 76 70 67 Respiratory Rate 18 13 12 Blood Pressure 111/58 L 111/48 L 106/48 L Blood Pressure Mean 75 69 67 Pulse Ox 98 98 94 Oxygen Delivery Method Room Air Room Air Room Air 01/24/24 20:00 01/24/24 20:00 01/24/24 20:59 Temperature 97.4 F L 97.6 F L Temperature Source Oral Pulse Rate 65 65 75 Respiratory Rate 16 17 Blood Pressure 111/62 107/57 L Blood Pressure Mean 78 73 Pulse Ox 93 95 Oxygen Delivery Method Room Air Positive well nourished and well developed General Appearance ED: well developed HEENT Reports normocephalic, head/scalp atraumatic and moist mucous membranes Eyes PERRL and EOMs intact bilaterally Neck no lymphadenopathy, supple and no JVD Resp normal respiratory effort and clear to auscultation bilaterally Cardio regular rate, regular rhythm and no murmurs GI normal to inspection, nondistended, normoactive bowel sounds and non-tender Palpation: soft Back/Spine no CVA tenderness and normal ROM Extremity normal to inspection General Extremety ED: Yes edema and tenderness General Extremity: edema bilateral lower extremity Neuro oriented x3 and CN's II-XII intact bilaterally Sensorium / Orientation: alert; Negative for orientation impaired Sensory Exam: No sensory level loss detected Motor Exam: general weakness Psych mental status grossly normal Mood & Affect: Negative for depressed or tearful Skin no rashes or lesions noted and no wounds MDM MDM MDM Narrative Medical decision making narrative: Patient is NIH of 1. Last known well from what we can track down is probably 3 days ago. The 1 point on her NIH is actually residual from prior stroke. Her workup is essentially negative. Manage interpretation of the chest x-ray is no acute process. CT of the brain shows old right frontal and temporal infarcts. Her EKG is atrial fibrillation that is rate controlled. Urinalysis is 4+ bacteria negative nitrates 0-5 white cells. This to be sent for culture. Went ahead and gave her dose of Rocephin after discussing with the hospitalist. White count 5.8 creatinine 0.81 normal electrolytes INR 2 with a PTT of 41.3 I spoke with the patient and at the this time she is now saying that she does not know anything about slurred speech that she states that she was sent here because her legs were swollen. I spoke with her primary care doctor who tells me that she received a call from the caregiver who knows her quite well stating that her speech was definitely off and was not what it normally is. It was off of that phone call that she was sent to the emergency department. I have never heard the patient speak before daughter lives out of town I tried to describe what I am hearing when I listen to her which in speaking with her primary care doctor does seem differently. Primary care states that the patient generally talks very clearly and is easy to carry on a conversation with. There is a lot of questions on this case and she lives alone and is 88 he is reasonable that we bring her in for observation. History & Record Review Discussion w/independent historian: Patient and Other () Lab Data Attestation: I reviewed the patient's lab results. Labs: Laboratory Results - last 24 hr 01/24/24 01/24/24 01/24/24 17:34 17:35 18:10 WBC 5.8 RBC 5.11 Hgb 14.8 Hct 45.8 MCV 89.6 MCH 29.0 MCHC 32.3 RDW Std Deviation 55.3 H RDW Coeff of [place] 16.8 H Plt Count 114 L MPV 11.4 Immature Gran % (Auto) 0.200 Neut % (Auto) 75.3 H Lymph % (Auto) 16.5 L [place] % (Auto) 7.5 Eos % (Auto) 0.2 Baso % (Auto) 0.3 Absolute Neuts (auto) 4.4 Absolute Lymphs (auto) 0.95 Nucleated RBC % 0 PT 23.0 H INR 2.0 APTT 41.3 H Sodium 140 Potassium 3.7 Chloride 108 H Carbon Dioxide 25.0 Anion Gap 7 BUN 13 Creatinine 0.81 Estim Creat Clear Calc 46.69 Est GFR (MDRD) Af Amer 85 Est GFR (MDRD) Non-Af 71 BUN/Creatinine Ratio 16.0 Glucose 83 Lactic Acid 2.0 Calcium 8.5 Magnesium 1.6 Total Bilirubin 2.50 H Direct Bilirubin 1.36 H AST 52 H ALT 26 Alkaline Phosphatase 84 Troponin I High Sens 38 B-Natriuretic Peptide 698.6 H Total Protein 8.0 Albumin 3.4 Globulin 4.6 H Procalcitonin 0.04 Urine Color Maggy Urine Clarity Sl. Cloudy Urine pH 5.0 Ur Specific [place] 1.020 Urine Protein 30 H Urine Glucose (UA) Normal Urine Ketones 15 H Urine Occult Blood 10 H Urine Nitrite Negative Urine Bilirubin 3 H Urine Urobilinogen 8 H Ur Leukocyte Esterase 25 H Urine RBC 0-5 SEEN Urine WBC 0-5 SEEN Ur Squamous Epith Cells 0-5 SEEN Urine Bacteria 4+ Urine Mucus 2+ Radiography Diagnostic Testing: Clinical Impression(s) from Imaging Studies Brain CT 01/24/24 17:50 IMPRESSION: Right frontal and temporal infarct. No hemorrhage. Electronically Signed: Robel Velázquez MD at 18:34 EST , Chest X-Ray 01/24/24 17:55 IMPRESSION: Bilateral pneumonia or edema. Left pleural effusion. Electronically Signed: Robel Velázquez MD at 18:40 EST , EKG Initial EKG: Attestation: I personally reviewed and interpreted this EKG as follows: Comments: Atrial fibrillation with a ventricular rate of 90 bpm. Discharge Plan Dx/Rx/DC Orders Clinical Impression: Atrial fibrillation, Chronic anticoagulation, Dysarthria Disposition Disposition: Acute Care Hospital [facility] Discharge Date/Time: 01/24/24 22:05 NIHSS NIHSS 1a. Level of Consciousness: Alert; keenly responsive 1b. LOC Questions: Answers BOTH questions correctly. 1c. LOC Commands: Performs both tasks correctly. 2. Best Gaze: Normal 3. Visual: No visual loss 4. Facial Palsy: Normal symmetrical movements 5a. Left Arm: No drift; arm holds 90 (or 45) degrees for full 10 seconds 5b. Right Arm: No drift; arm holds 90 (or 45) degrees for full 10 seconds 6a. Left Leg: Drift; leg falls by the end of 5-seconds, but does not hit bed 6b. Right Leg: No drift; leg holds 30-degree position for full 5 seconds 7. Limb Ataxia: Absent 8. Sensory: Normal; no sensory loss 9. Best Language: No aphasia; normal 10. Dysarthria: Normal 11. Extinction and Inattention: No abnormality Total: 1
[2024-01-24 17:48] LABS: Absolute Lymphocyte Count 0.95 X10^3/uL (0.83-4.51); Absolute Neutrophil Count 4.4 X10^3/uL (2.0-7.7); Basophil# 0.02 X10^3/uL; Basophil% 0.3 % (0-1); Eosinophil# 0.01 X10^3/uL; Eosinophils% 0.2 % (0-5); Hematocrit 45.8 % (37-47); Hemoglobin 14.8 g/dL (12.0-15.0); Lymphocyte # 0.95 X10^3/ul (0.83-4.51); Lymphocyte % 16.5 % (19-41); Mean Corp Hgb Conc 32.3 g/dL (32-36); Mean Corpuscular Volume 89.6 fL (81-99); Mean Platelet Vol. 11.4 fl (6.2-12.0); Monocyte# 0.43 X10^3/uL; Monocyte% 7.5 % (0-10); NRBC Flagged by Analyzer 0 % (0-5); Neutrophil # 4.35 X10^3/uL (2.7-7.7); Neutrophil % 75.3 % (47-70); Platelet Count 114 K/mm3 (150-450); RBC Distribution Width CV 16.8 % (11.6-14.6); RBC Distribution Width SD 55.3 fl (35.1-43.9); Red Blood Count 5.11 M/mm3 (4.2-5.4); White Blood Count 5.8 K/mm3 (4.4-11.0)
--- NOTE | 2024-01-24 17:50 | CT_ITS ---
STUDY: CT BRAIN WITHOUT CONTRAST REASON FOR EXAM: Female, 88 years old. Slurred speech RADIATION DOSAGE (If Supplied By Facility): CTDIvol = ( 44.99 ) mGy, DLP = ( 779.24 ) mGycm TECHNIQUE: Transaxial CT imaging of the brain was performed without administration of intravenous contrast material. Individualized dose optimization techniques were used for this CT. COMPARISON: February 18, 2022 FINDINGS: Normal soft tissue structures. Normal calvarium. There is mild cerebral atrophy with widening of the extra-axial spaces and ventricular dilatation. There is a right frontal and temporal diminished density volume loss and encephalomalacia consistent with infarct of uncertain age. Normal basal ganglia and thalami. Normal brainstem. Normal cerebellum. There is no intracranial hemorrhage. There are no findings of an acute ischemic infarction. Normal visualized paranasal sinuses. CT/Brain/Head without Contrast IMPRESSION: Right frontal and temporal infarct. No hemorrhage. Electronically Signed: Robel Velázquez MD at 18:34 EST ,
--- NOTE | 2024-01-24 17:55 | RAD_ITS ---
STUDY: X-RAY CHEST REASON FOR EXAM: Female, 88 years old. Stroke TECHNIQUE: Single AP portable view of the chest. COMPARISON: December 01, 2023 FINDINGS: There are monitoring devices. There are bilateral lower lung airspace increased opacities. There is small left pleural effusion. There is moderate cardiac enlargement. Normal mediastinum and jesus. Normal visualized pulmonary arteries. Normal visualized aortic arch and descending thoracic aorta. Normal visualized thoracic spine. Normal visualized ribs, clavicles, and shoulders. There is no demonstrated abnormality of the visualized soft tissue structures of the upper abdomen. RAD/Chest 1 View (Portable) IMPRESSION: Bilateral pneumonia or edema. Left pleural effusion. Electronically Signed: Robel Velázquez MD at 18:40 EST ,
[2024-01-24 17:58] LABS: Partial Thromboplast Time 41.3 Seconds (24.1-36.2)
[2024-01-24 18:06] LABS: AST(SGOT) 52 U/L (15-37); Alanine Aminotransfer ALT/SGPT 26 U/L (13-56); Albumin, Serum 3.4 g/dL (3.2-5.0); Alkaline Phosphatase 84 U/L (45-117); Anion Gap 7 (5-15); BUN 13 mg/dL (7-18); Bilirubin, Direct 1.36 mg/dL (0.00-0.30); Calcium,Total 8.5 mg/dL (8.5-10.1); Chloride 108 mmol/L (98-107); Creatinine, Serum 0.81 mg/dL (0.55-1.02); EST Glomerular Filtration Rate 71 mL/min (>60); Est Glom Filt Rate - Afr Amer 85 mL/min (>60); Estimated Creatinine Clearance 46.69 ml/min; Globulin 4.6 g/dL (2.2-4.2); Glucose 83 mg/dL (74-106); Potassium 3.7 mmol/L (3.5-5.1); Sodium Level 140 mmol/L (136-145); Troponin-I HS 38 pg/mL (3.0-54.0)
[2024-01-24 18:21] LABS: Color, Urine Amber (Yellow); Glucose, Dipstick Normal (Normal); Ketone-Dipstick 15 mg/dl (Negative); Leukocyte Esterase-Dipstick 25 /ul (Negative); Nitrite-Dipstick Negative (Negative); Occult Blood-Urine 10 /ul (Negative); Protein-Dipstick 30 mg/dl (Negative); Urine Clarity Sl. Cloudy (Clear); Urine Urobilinogen 8 mg/dl (Normal)
[2024-01-24 18:23] LABS: Urine Bilirubin Dipstick 3 mg/dL (Negative)
[2024-01-24 18:27] LABS: Bacteria 4+ /hpf (None Seen); Mucous, Urine 2+ /hpf (<or=2+)
[2024-01-24 18:28] LABS: Red Blood Cells-Urine 0-5 SEEN /hpf (0-5); Squamous Epithelial Cells - UA 0-5 SEEN /hpf (5-10); White Blood Cells 0-5 SEEN /hpf (0-5)
--- NOTE | 2024-01-24 20:58 | HP.PCM.HOS_ITS ---
HPI - General General Date of Admission: 01/24/24 Date of Service: 01/24/24 Chief Complaint: Slurred speech. HPI Narrative The patient is an 88 y/o F w/ PMHx: PAF on Eliquis, Hx CVA, Anxiety and Depression, Hypothyroidism, GERD, Hx Urinary retention who presents to the [facility] ED on 01/24/24 with history of onset slurred speech which was noticed by the daughter upon calling her mother today as well as home health who evaluated her on day of presentation and noted that the speech was off prompting primary care to be contacted who advised evaluation immediately in the ED. Patient notes otherwise she feels generalized fatigue and does report a recent urinary tract infection but is unclear exactly if she has been treated. She does state that her left leg is chronically weak from her prior stroke and it is unchanged. In the ED NIH stroke scale 1 secondary to left lower extremity drift which is a chronic component. Patient initial altered voice when she continues talking seems to normalize of note. Patient does report that she has chronic issues with dyspnea and does have intermittent coughing but no recent increased weight gain or severe orthopnea. She denies any recent marked upper respiratory type symptoms and denies any ill contacts. She notes the cough she has is nonproductive aside from occasional white phlegm. Workup in the ED included T97.4, heart 65, BP 111/62, respiratory rate 16, 93% on room air, CBC with WBC 5 .8, hemoglobin 14.8, platelets 114 without marked shift, coags with PT 23, INR 2, PTT 41.3, CMP with chloride 108, T. bili 2.50, D bili 1.36, AST/ALT 52/26, alk phos 84, troponin 38, lactic acid 2.0, urinalysis with cloudy appearing urine, specific remedy 1.020, urine protein 30, ketone 15, occult blood 10, negative nitrite, leukocyte Estrace 25 with urine RBC and WBC 0-5 with 4+ urine bacteria, urine culture pending per ED, chest x-ray with questionable bilateral pneumonia versus edema, left pleural effusion, CT of the brain with right frontal and temporal infarct with no hemorrhage of uncertain age, EKG w/ atrial fibrillation rate controlled with no acute evidence of ischemia. In the ED p atient ministered IV Marcoephiimmanuel. [facility] Medical History (Updated 01/25/24 @ 02:[address] Joanne Recio MD) Biatrial enlargement Chronic anticoagulation Clot Cognitive dysfunction Essential hypertension History of cerebral thrombosis Hypothyroidism Mixed hyperlipidemia Non-Hodgkin lymphoma Non-rheumatic mitral regurgitation Nonischemic cardiomyopathy Normochromic normocytic anemia Paroxysmal atrial fibrillation Prediabetes Presbycusis Pulmonary hypertension Home Medications apixaban 5 mg tablet (Eliquis) 5 mg PO BID #60 tabs 03/11/22 [Rx Last Taken Unknown] atorvastatin 10 mg tablet 10 mg PO QHS #30 tabs 03/11/22 [Rx Last Taken Unknown] levothyroxine 25 mcg tablet 25 mcg PO DAILY hypothyroidism #30 tabs 03/11/22 [Rx Last Taken Unknown] mirtazapine 15 mg tablet 7.5 mg (1/2 x 15 mg) PO QHS #16 tabs 03/11/22 [Rx Last Taken Unknown] tamsulosin 0.4 mg capsule 0.4 mg PO DAILY@1730 #30 caps 03/11/22 [Rx Last Taken Unknown] ondansetron 4 mg disintegrating tablet 4 mg PO Q8H PRN PRN Nausea #10 tabs 11/25/23 [Rx Last Taken Unknown] fesoterodine 4 mg tablet,extended release 24 hr 4 mg PO DAILY 12/02/23 [History Last Taken Unknown] hydralazine 10 mg tablet 10 mg PO DAILY 12/02/23 [History Last Taken Unknown] omeprazole 20 mg capsule,delayed release 20 mg PO DAILY 01/24/24 [History Last Taken Unknown] potassium chloride 20 mEq tablet,extended release(part/cryst) 20 meq PO DAILY 01/24/24 [History Last Taken Unknown] Allergy/AdvReac Type Severity Reaction Status Date / Time amlodipine Allergy Other Verified 01/24/24 16:41 hydrochlorothiazide Allergy Other Verified 01/24/24 16:41 Latex, Natural Rubber Allergy Other Verified 01/24/24 16:41 lisinopril Allergy Other Verified 01/24/24 16:41 losartan Allergy Other Verified 01/24/24 16:41 Family History Mother CHF (congestive heart failure) Father Diabetes Surgical History History of embolectomy History of hysterectomy History of tubal ligation Social History (Updated 01/25/24 @ 02:[address] Joanne Recio MD) household members: none Smoking Status: Never smoker alcohol intake: never substance use type: does not use caffeine: Yes Type: carbonated beverages Number of servings: 1 ROS ROS Narrative Admission Review of Systems: CONSTITUTIONAL: No weight loss, fever, chills, + weakness or fatigue. HEENT: Eyes: No visual loss, blurred vision, double vision or yellow sclerae. Ears, Nose, Throat: No hearing loss, sneezing, congestion, runny nose or sore throat. SKIN: No rash or itching, lesions, wounds. CARDIOVASCULAR: No chest pain, chest pressure or chest discomfort, palpitations, edema, orthopnea, syncopal events. RESPIRATORY: + Dyspnea, worse with exertion, not markedly productive cough. No wheezing or hemoptysis. GASTROINTESTINAL: No anorexia, nausea, vomiting or diarrhea, abdominal pain, melena, BRBPR. GENITOURINARY: + Recent history of urinary tract infection with urinary frequency, retention however these are currently denied now. NEUROLOGICAL: + New onset altered speech described as slurred, chronic left lower extremity weakness status post prior CVA. No headache, dizziness, syncope, new paralysis, ataxia, numbness or tingling in the extremities, new focal weakness, change in bowel or bladder control, seizure. MUSCULOSKELETAL: + muscle, back pain, joint pain or stiffness. HEMATOLOGIC: + Anemia, easy bleeding/bruising. LYMPHATICS: No enlarged nodes. No history of splenectomy. PSYCHIATRIC: No history of depression or anxiety. ENDOCRINOLOGIC: No reports of sweating, cold or heat intolerance. No polyuria or polydipsia. ALLERGIES: No history of asthma, hives, eczema or rhinitis. Vital Signs Vital Signs Vital Signs: 01/24/24 16:41 01/24/24 16:46 01/24/24 17:46 Temperature 97.1 F L 97.6 F L 98.8 F Temperature Source Temporal Temporal Temporal Pulse Rate 77 81 76 Respiratory Rate 18 18 16 Blood Pressure 105/67 105/67 123/76 H Blood Pressure Mean 79 79 91 Pulse Ox 97 96 98 Oxygen Delivery Method Room Air Room Air Room Air 01/24/24 18:00 01/24/24 18:26 01/24/24 18:46 Temperature 98.1 F 98.1 F 97.8 F Temperature Source Temporal Temporal Temporal Pulse Rate 76 70 67 Respiratory Rate 18 13 12 Blood Pressure 111/58 L 111/48 L 106/48 L Blood Pressure Mean 75 69 67 Pulse Ox 98 98 94 Oxygen Delivery Method Room Air Room Air Room Air 01/24/24 20:00 01/24/24 20:00 Temperature 97.4 F L Temperature Source Oral Pulse Rate 65 65 Respiratory Rate 16 Blood Pressure 111/62 Blood Pressure Mean 78 Pulse Ox 93 Oxygen Delivery Method Room Air Weight Weight: 141 lb 15.643 oz Body Mass Index (BMI) 22.2 Physical Exam Narrative Physical Examination: General: Awake, alert, oriented to self, place and recent events, remains cooperative, seated upright in the ED bed, notes being fatigued, her speech normalizes through discussion but initially it is atypical, does not appear slurred but is oddly high-pitched. Skin: Normal color, normal turgor, no icterus, no cyanosis. HEENT: AT/NC, EOMI, PERRLA, dry MM, no carotid bruits or JVD noted. Lungs: Mildly diminished, greater bases, appropriate effort, no rales, ronchi or wheezing. Heart: Regular; no gallop, rub audible. Abdomen: Soft, NTTP, ND, mildly hyperactive BS, no appreciated HSM. Extremities: No cyanosis, no clubbing, no marked peripheral edema. Neurological: Patient awake, alert, oriented as noted, cognitive function per chart with some cognitive impairment, suspect baseline intact; pupils equally reactive to light and accommodation, cranial nerves grossly normal, moving all 4 extremities, chronic left lower extremity mild drift otherwise no focal deficits, finger-nose and uusc-me-ejvw appropriate, equivocal Babinski, speech again normalizes during discussions when she continues to talk. Psychiatric: Affect appears mildly flat, fatigued, no acute evidence of depressive or anxiety feelings but does have underlying history. Results Lab / Micro Data 01/24/24 17:35 01/24/24 17:35 Labs: Laboratory Results - last 24 hr 01/24/24 17:34: Lactic Acid 2.0 01/24/24 17:35: WBC 5.8, RBC 5.11, Hgb 14.8, Hct 45.8, MCV 89.6, MCH 29.0, MCHC 32.3, RDW Std Deviation 55.3 H, RDW Coeff of [place] 16.8 H, Plt Count 114 L, MPV 11.4, Immature Gran % (Auto) 0.200, Neut % (Auto) 75.3 H, Lymph % (Auto) 16.5 L, Davidson % (Auto) 7.5, Eos % (Auto) 0.2, Baso % (Auto) 0.3, Absolute Neuts (auto) 4.4, Absolute Lymphs (auto) 0.95, Nucleated RBC % 0, PT 23.0 H, INR 2.0, APTT 41.3 H, Sodium 140, Potassium 3.7, Chloride 108 H, Carbon Dioxide 25.0, Anion Gap 7, BUN 13, Creatinine 0.81, Estim Creat Clear Calc 46.69, Est GFR (MDRD) Af Amer 85, Est GFR (MDRD) Non-Af 71, BUN/Creatinine Ratio 16.0, Glucose 83, Calcium 8.5, Total Bilirubin 2.50 H, Direct Bilirubin 1.36 H, AST 52 H, ALT 26, Alkaline Phosphatase 84, Troponin I High Sens 38, Total Protein 8.0, Albumin 3.4, Globulin 4.6 H 01/24/24 18:10: Urine Color Amggy, Urine Clarity Sl. Cloudy, Urine pH 5.0, Ur Specific [place] 1.020, Urine Protein 30 H, Urine Glucose (UA) Normal, Urine Ketones 15 H, Urine Occult Blood 10 H, Urine Nitrite Negative, Urine Bilirubin 3 H, Urine Urobilinogen 8 H, Ur Leukocyte Esterase 25 H, Urine RBC 0-5 SEEN, Urine WBC 0-5 SEEN, Ur Squamous Epith Cells 0-5 SEEN, Urine Bacteria 4+, Urine Mucus 2+ Imaging Radiology Impression Brain CT 01/24/24 17:50 IMPRESSION: Right frontal and temporal infarct. No hemorrhage. Electronically Signed: Robel Velázquez MD at 18:34 EST , Chest X-Ray 01/24/24 17:55 IMPRESSION: Bilateral pneumonia or edema. Left pleural effusion. Electronically Signed: Robel Velázquez MD at 18:40 EST , Assessment & Plan Assessment/Plan (1) TIA (transient ischemic attack): PLAN: Plan The patient is an 88 y/o F w/ PMHx: PAF on Eliquis, Hx CVA, Anxiety and Depression, Hypothyroidism, GERD, Hx Urinary retention who presents to the [facility] ED on 01/24/24 with history of onset slurred speech which was noticed by the william jackson upon calling her mother today as well as home health who evaluated her on day of presentation and noted that the speech was off prompting primary care to be contacted who advised evaluation immediately in the ED. #1. Altered Speech, Slurred concerning for Acute CVA w/ Hx prior CVA w/ Chronic LLE weakness/hemiparesis: Will admit to PCU, will obtain MRI Brain, CTA head and Neck, ECHO with bubble as does not appear to have been performed prior, PT/OT/Speech/Nutrition evaluation per protocol. Will allow permissive HTN, maintain on asa, Eliquis, statin w/ AM FLP, fall precautions. Mag, TSH, FLP, HgbA1c requested. Maintain on fall and aspiration precautions. Neurology consulted, pending. #2. Recent Acute Urinary Tract Infection with still significant bacteria noted on urinalysis with chart reported previous history of urinary retention: UA upon ED evaluation remarkable with still 4+ bacteria noted however leukocyte esterase, nitrites both not marked and urine WBCs also not marked. ED pending UCx. Will continue to monitor I/Os. Will continue IV Rocephin w/ transition as able pending sensitivities and speciation versus d/c if negative culture. Will continue patient on Flomax regimen. #3. Abnormal chest x-ray with questionable overload versus pneumonia: BNP requested, request sputum cultures, full respiratory viral panel and urine antigens as well as procalcitonin, repeat CXR in AM. If BNP notable may consider pulse dose IV lasix but given #1 would attempt to defer decreasing her pressure. #4. Thrombocytopenia, appears new, possibly reactive given presentation as noted above: Admission platelet 114, previously normal range, will repeat CBC in AM. #5. PAF: We will continue patient home Eliquis regimen, per current list not on rate or rhythm agent of note. #6. Hypertension: Will maintain permissive hypertension with parent agents per stroke protocol, add back home regimen once appropriate. #7. Hyperlipidemia: Continue home statin regimen. AM FLP. #8. Anxiety and depression: Will continue patient home mirtazapine regimen. #9. Hypothyroidism: We will continue patient home levothyroxine regimen, TSH pending. #10. DVT prophylaxis: We will continue patient home Eliquis regimen. #11. CODE status: Patient CHUCK is her daughter Bhavna and living will is currently in place. Discussed CODE status at length including difference between FULL code, DNR-CCA and DNR-CC status. Following discussions about the differences in these status, requested DNR-CCA, no intubation status. Advanced Care Planning Face to Face Time: 16 minutes. Charges/Coding Visit Charges Inpatient E&M: 42554 Init Hosp L3 Procedures Hospitalists Procedures: 92011 Advncd Care Plan 30 Min
[2024-01-24] MEDS: Ceftriaxone 1 GM/50 ML BAG IV (21:32)
[2024-01-24 21:44] LABS: Reflex Lactate? Y
--- NOTE | 2024-01-24 22:08 | CT_ITS ---
STUDY: CTA HEAD AND NECK WITH CONTRAST REASON FOR EXAM: Female, 88 years old. Neuro deficit, acute, stroke suspected RADIATION DOSAGE (If Supplied By Facility): CTDIvol = ( 46.35 ) mGy, DLP = ( 1400.50 ) mGycm TECHNIQUE: CT angiography was performed with a multi-detector CT scanner. Data acquisition was obtained from the skull base through the vertex following intravenous administration of IV 100mL Isovue-370. MIP images were reconstructed from the axial data set. Post-processing of the angiographic images was performed, with multiplanar reformation and 3D reconstruction. Individualized dose optimization techniques were used for this CT. COMPARISON: No relevant priors. FINDINGS: Normal bilateral petrous carotid arteries. Normal right cavernous carotid artery with a normal supraclinoid bifurcation. Normal left cavernous carotid artery with a normal supraclinoid bifurcation. Normal right A1 segments of the anterior cerebral artery. Normal left A1 segments of the anterior cerebral artery. Normal intact anterior communicating artery (ACOM). Normal bilateral A2 segments of the anterior cerebral arteries. Normal right M1 and M2 segments of the middle cerebral arteries, with a normal M1 bifurcation. Normal left M1 and M2 segments of the middle cerebral arteries, with a normal M1 bifurcation. Normal right posterior communicating artery (PCOM). There is non-visualization of the left posterior communicating artery (PCOM). Normal bilateral vertebral arteries. Normal basilar artery with a normal basilar bifurcation. The visualized bilateral superior cerebellar (SCA) arteries are normal. Normal bilateral P1, P2 and visualized P3 segments of the posterior cerebral arteries. There is no demonstrated aneurysm of the [place]. There is involutional change of the visualized brain with right frontal and temporal volume loss and encephalomalacia. There are bilateral pleural effusions. AORTIC ARCH: There is atherosclerotic calcific plaque formation of the aortic arch and great vessels arising from the aortic arch, without a hemodynamically significant stenosis. There is a normal origin of the brachiocephalic, left common carotid, and left subclavian arteries. RIGHT CAROTID ARTERIES: Normal right common carotid artery (CCA). Normal right common carotid bulb. Normal origin of the right internal carotid (ICA) artery without a hemodynamically significant stenosis. Normal visualized cervical portion of the right internal carotid artery. Normal origin of the right external carotid artery (ECA). LEFT CAROTID ARTERIES: Normal left common carotid artery (CCA). There is mild atherosclerotic plaque formation with minimal narrowing of the left carotid bulb. Normal origin of the left internal carotid (ICA) artery without a hemodynamically significant stenosis. Normal visualized cervical portion of the left internal carotid artery. Normal origin of the left external carotid artery (ECA). VERTEBRAL ARTERIES: Normal bilateral vertebral arteries. CT/CTA Head AND Neck W/ Contrast IMPRESSION: No intracranial aneurysm or large vessel occlusion. Mild plaque of the left carotid bifurcation. No hemodynamically significant internal carotid artery stenosis. Electronically Signed: Robel Velázquez MD at 23:49 EST ,
[2024-01-24 22:24] LABS: Magnesium 1.6 mg/dL (1.6-2.6)
--- NOTE | 2024-01-24 22:26 | ECHOD_ITS ---
Reason For Study: TIA/CVA Procedure This was a 2D Doppler, Color Flow transthoracic echocardiogram. Exam performed portable in patient room. Left Ventricle Mildly dilated left ventricle. Severe global left ventricular systolic dysfunction. The left ventricular ejection fraction is 20 %. Stage 3 diastolic dysfunction. Right Ventricle Normal RV size. Mild to moderate global right ventricular systolic dysfunction. Atria There is severe biatrial dilatation. Mitral Valve Bileaflet diffuse mitral valve thickening. Severe (4+) mitral valve insufficiency. Tricuspid Valve Mild tricuspid valve insufficiency. Right ventricular systolic pressure estimated to be 53 mmHg. Aortic Valve Trisinus/trileaflet aortic valve. Moderate diffuse aortic valve calcification. Consider low gradient mild aortic valve stenosis. Mild (1+) aortic valve insufficiency. Pulmonic Valve The pulmonic valve is not well visualized. Great Vessels Normal sized aortic root. The inferior vena cava is dilated. Pericardium/Pleural No pericardial effusion. Medication Performed a rapid injection of agitated mix of 9 cc saline and 1cc air to assess for atrial septal defect. MMode/2D Measurements & Calculations LVIDd: 5.7 cm IVSd: 0.92 cm Ao root diam: 2.7 cm LVIDs: 4.3 cm LVPWd: 1.0 cm RVDd: 3.7 cm FS: 23.8 % LAV(MOD-bp): 79.6 ml LVAd ap4: 30.3 cm2 LVAd ap2: 31.8 cm2 LAV(MOD-bp) Indexed: 45.5 ml/m2 LVLd ap4: 7.6 cm LVLd ap2: 7.5 cm LAV(MOD-sp2): 106.1 ml EDV(MOD-sp4): 99.4 ml EDV(MOD-sp2): 111.2 ml LAV(MOD-sp4): 52.9 ml EDV(sp4-el): 101.7 ml EDV(sp2-el): 115.0 ml LVAs ap4: 23.1 cm2 LVAs ap2: 23.9 cm2 LVLs ap4: 6.6 cm LVLs ap2: 6.8 cm ESV(MOD-sp4): 70.0 ml ESV(MOD-sp2): 72.5 ml ESV(sp4-el): 68.2 ml ESV(sp2-el): 71.4 ml EF(MOD-sp4): 29.6 % EF(MOD-sp2): 34.8 % EF(sp4-el): 33.0 % SV(MOD-sp4): 29.4 ml SV(MOD-sp2): 38.8 ml SV(sp4-el): 33.6 ml LA A4 area: 19.1 cm2 LA dimension(2D): 5.0 cm RA A4 area: 24.7 cm2 TAPSE: 1.3 cm Time Measurements MV dec time: 0.13 sec Doppler Measurements & Calculations MV E max alex: 98.1 cm/sec Lat Peak E' Alex: 7.0 cm/sec Med Peak E' Alex: 5.8 cm/sec MV A max alex: 42.8 cm/sec E/E' lat: 14.0 E/E' med: 16.9 MV E/A: 2.3 Ao V2 max: 142.5 cm/sec AI max alex: 391.3 cm/sec LV V1 max: 64.8 cm/sec Ao max P.3 mmHg AI max P.3 mmHg LV V1 max P.7 mmHg Ao V2 mean: 96.7 cm/sec LV V1 mean P.0 mmHg Ao mean P.4 mmHg AI dec slope: 252.4 cm/sec2 LV V1 mean: 48.6 cm/sec Ao V2 VTI: 33.7 cm AI P1/2t: 454.1 msec LV V1 VTI: 14.6 cm AV (velocity ratio): 0.43 MR max alex: 500.9 cm/sec PA V2 max: 111.3 cm/sec TR max alex: 309.2 cm/sec MR max P.4 mmHg PA V2 mean: 61.0 cm/sec TR max P.2 mmHg MR mean alex: 383.1 cm/sec MR mean P.6 mmHg MR VTI: 181.5 cm ECHO/Echo Complete Interpretation Summary Mildly dilated left ventricle. Severe global left ventricular systolic dysfunction. The left ventricular ejection fraction is 20 %. Stage 3 diastolic dysfunction. Mild to moderate global right ventricular systolic dysfunction. Severe (4+) mitral valve insufficiency. Mild tricuspid valve insufficiency. Right ventricular systolic pressure estimated to be 53 mmHg. Consider low gradient mild aortic valve stenosis. Mild (1+) aortic valve insufficiency. There is severe biatrial dilatation. Left pleural effusion. Ordering Physician: Joanne Recio Referring Physician: Rebekah Beckford Performed By: Cari Montilla, AYSHA, RVT
[2024-01-24 22:32] LABS: BNP,B-Type NATRIURETIC PEPTIDE 698.6 pg/mL (0-100)
[2024-01-24 22:34] LABS: Lactic Acid 1.1 mmol/L (0.4-1.9)
[2024-01-24 22:43] LABS: Procalcitonin 0.04 ng/mL (0.00-0.09)
[2024-01-25] VITALS (8 sets, daily range): BP systolic 98–126; BP diastolic 58–83; PULSE 70–77; RESP 16; TEMP 35.8–36.5; O2SAT 93–96; BMI 21.4
[2024-01-25] MEDS: 0.9% Saline Lock 10 ML Syringe IV ×2 (03:35→19:48)
[2024-01-25] MEDS: Furosemide 20 MG/2 ML VIAL IV (03:35)
--- NOTE | 2024-01-25 05:55 | RAD_ITS ---
INDICATION: Dyspnea, cough EXAMINATION/TECHNIQUE: X-RAY - XR Chest 1 View AP portable. 5:00 AM COMPARISON: 01/24/2024 FINDINGS: LINES/DEVICES: None. LUNGS: Alveolar infiltrates in the lung bases greater on the left, increased compared to prior. Small left pleural effusion increased. No pneumothorax. MEDIASTINUM: Unremarkable. CARDIAC SILHOUETTE: Not enlarged. BONES AND SOFT TISSUES: No acute abnormalities. RAD/Chest 1 View (Portable) IMPRESSION: Bibasilar air space disease with small left pleural effusion increased compared to the prior, likely pneumonia. Electronically Signed: Mignon Pfeiffer MD at 5:48 EST ,
[2024-01-25 08:08] LABS: Absolute Lymphocyte Count 1.02 X10^3/uL (0.83-4.51); Absolute Neutrophil Count 1.5 X10^3/uL (2.0-7.7); Basophil# 0.01 X10^3/uL; Basophil% 0.3 % (0-1); Eosinophil# 0.03 X10^3/uL; Hematocrit 39.9 % (37-47); Hemoglobin 13.1 g/dL (12.0-15.0); Lymphocyte # 1.02 X10^3/ul (0.83-4.51); Lymphocyte % 35.3 % (19-41); Mean Corp Hgb Conc 32.8 g/dL (32-36); Mean Corpuscular Hgb 29.4 pg (27.0-32.0); Mean Corpuscular Volume 89.7 fL (81-99); Monocyte# 0.33 X10^3/uL; Monocyte% 11.4 % (0-10); NRBC Flagged by Analyzer 0 % (0-5); Neutrophil # 1.49 X10^3/uL (2.7-7.7); Neutrophil % 51.7 % (47-70); Platelet Count 104 K/mm3 (150-450); RBC Distribution Width CV 16.7 % (11.6-14.6); RBC Distribution Width SD 54.6 fl (35.1-43.9); Red Blood Count 4.45 M/mm3 (4.2-5.4); White Blood Count 2.9 K/mm3 (4.4-11.0)
[2024-01-25 08:48] LABS: ALB/GLOB Ratio 0.7 RATIO (0.9-2.4); AST(SGOT) 39 U/L (15-37); Alanine Aminotransfer ALT/SGPT 19 U/L (13-56); Albumin, Serum 2.6 g/dL (3.2-5.0); Alkaline Phosphatase 64 U/L (45-117); Anion Gap 8 (5-15); BUN 12 mg/dL (7-18); BUN/Creat Ratio 16.5 RATIO (10-20); Calcium,Total 7.9 mg/dL (8.5-10.1); Chloride 110 mmol/L (98-107); Cholesterol 108 mg/dL (200); Creatinine, Serum 0.73 mg/dL (0.55-1.02); EST Glomerular Filtration Rate 80 mL/min (>60); Est Glom Filt Rate - Afr Amer 97 mL/min (>60); Estimated Creatinine Clearance 47.27 ml/min; Globulin 3.7 g/dL (2.2-4.2); Glucose 60 mg/dL (74-106); High Density Lipoprotein 22 mg/dL; Potassium 3.3 mmol/L (3.5-5.1); Protein, Total 6.3 g/dL (6.4-8.2); Sodium Level 142 mmol/L (136-145); Thyroid Stim Hormone (TSH) 2.03 uIU/mL (0.358-3.74); Triglycerides 86 mg/dL; Very Low Density Lipoprotein 17 mg/dL (5-40)
--- NOTE | 2024-01-25 09:00 | MRI_ITS ---
HISTORY: Stroke. TECHNIQUE: Multiplanar and multisequence MR images of the brain were obtained without contrast. 270 images. COMPARISON: CT prior day. FINDINGS: BRAIN PARENCHYMA: Multiple foci and small zones of increased T2 FLAIR signal in the bilateral cerebral white matter. Old moderate to large right frontotemporal parietal infarct. Old right basal ganglia lacunar infarct. No abnormal focus of restricted diffusion. No acute intracranial hemorrhage identified. CSF SPACES: Mild volume loss. No significant midline shift or other mass effect.No extra-axial fluid collection. VASCULAR SYSTEM: Major intracranial flow voids are maintained. PARANASAL SINUSES AND MASTOID AIR CELLS: Left maxillary sinus mucous retention cyst. ORBITS: Bilateral lens resections. MRI/Brain without Contrast IMPRESSION: No evidence for acute infarct. Chronic right MCA territory infarct. Chronic involutional and white matter changes. Electronically Signed: Marguerite Willett MD at 12:35 EST ,
[2024-01-25] MEDS: APIXABAN 5 MG TABLET PO ×2 (09:05→19:55)
[2024-01-25] MEDS: Aspirin 81 MG TAB.CHEW PO (09:05)
[2024-01-25] MEDS: Potassium Chloride Oral Tablet 20 MEQ PO (09:05)
[2024-01-25] MEDS: Pantoprazole Sodium 20 MG Tablet PO (09:05)
[2024-01-25 10:52] LABS: Hemoglobin A1c 5.6 % (3.8-5.6)
[2024-01-25] MEDS: Magnesium Sulfate 2 GM in Dextrose 5%-Water (100mL Bag) 100 ML IV (11:00)
[2024-01-25] MEDS: Potassium Chloride Oral Tablet 20 MEQ 40 MEQ PO (11:01)
--- NOTE | 2024-01-25 11:30 | CASEMGMT ---
RN?CM?MERCERIZING RANGE FEEDER?CM?to room to meet with patient for initial transition planning/care coordination?assessment.?RN?CM?introduced self and role at [facility].? Pt voices understanding and consents to?assessment?at this time.? Pt resting in bed in no distress at this time.? Pt is A/O at this time and answers all questions appropriately.??Very [place]. Care providers, pharmacy, and demographics verified/updated at this time. PCP: Dr Beckford Specialists: Pt was seeing Dr Acuña @ [facility]/cardiology, but she will be switching to a delivery architect @ [facility] and has an upcoming appt there. Dr Eisenberg-urology Preferred Pharmacy: [facility] Retail Insurance: [employer] Prescription Benefit:?Yes Living Will/HPOA:?Pt states she completed LW and HCPOA in 2021 w/her distance learning coordinator after she had a stroke, and that her daughter, Bhavna, is her HCPOA. LNOK: Pt has 5 adult children. Dtr, Bhavna, is her HCPOA and lives in [place] and she goes back and forth b/w [place] and [place] often. Pt states she just left [place] to go back to [place] a couple of weeks ago. She has a son, Yang, who lives in the [facility]. She states her other 3 children have nothing to do with me. Living Arrangements: Lives alone in mobile home w/5 steps to enter w/railing on one side. Pt states she is independent w/ADL's and IADL's, gets her own groceries, and manages her own medications. Transportation:?Pt states drives self and states no transportation concerns at this time.?Pt states she thinks her daughter may be on her way to [place] from [place] and if she is, she can take her home @ discharge. Otherwise, she does not have anyone else to take her home. SELF SEALING FUEL TANK REPAIRER ROBIN, Jennifer, made aware. DME: States has the following DME:?RTS and grab bars. She states she also has, but does not use: a cane, walker, and shower chair. She states the walker is under my bed and needs assembled and states the shower chair also needs assembled. Pt interested in medical alert info and this was provided to her at this time. Pt states no need for further DME at this time.? HHC/SNF: Pt was @ [facility] 2021 after having a stroke and also had [facility] in the past. Pt states, I don't want to go back to rehab and states she wishes to go home @ discharge. She does not think she will need HHC either. She did state she could use assistance w/paying her bills and getting groceries. Clare MCKEON, made aware. CCN: Pt is active w/[facility] and states they come to her home every Tuesday morning. Pt wishes to return home and feels she will be safe going home at time of discharge.? CM?to follow for any further discharge planning/needs.? Pt voices no further concerns/needs at this time.? Advised pt to ask for?CM?if any further questions/concerns/needs arise.? Voices understanding. PLAN:??PT/OT evals pending. Anticipate Home w/HHC or OP therapy or [facility]N to resume. Dontrell BSN?RN?CM
--- NOTE | 2024-01-25 13:24 | PCM.PN.HOSP ---
Reason for Visit Reason for Visit: Diagnoses Transient cerebral ischemic attack, unspecified (01/24/24) Subjective Subjective Patient admitted yesterday evening for CVA rule out after presenting with slurred speech. Patient seen at bedside later this morning. She was sitting up comfortably in the bedside chair, in no acute distress. Patient was very hard of hearing, difficult to have a conversation with her. Patient denied any acute pain or discomfort at this time. States she was up walking around the room with the assistance of therapy and had no significant issue with this. She was answer questions appropriately for me and did not appear to have any slurred speech. She did continue to feel somewhat more fatigued than her baseline, which had been an ongoing concern for her over the past several days to weeks. No other acute concerns this time. Objective Data Objective Data Vital Signs: Vital Signs Temp Pulse Resp BP Pulse Ox O2 Del Method 96.5 F L 77 16 119/83 H 96 Room Air 01/25/24 08:59 01/25/24 08:59 01/25/24 08:59 01/25/24 08:59 01/25/24 08:59 01/25/24 09:25 Oxygen Delivery Method Room Air Weight: 62.1 kg Body Mass Index (BMI) 21.4 Intake & Output: Intake and Output for Last 24 Hours 01/23/24 01/24/24 01/25/24 23:59 23:59 23:59 Intake Total 50 / 50 404 / 404 Output Total 1700 / 1700 Balance 50 / 50 -1296 / -1296 Lab / Micro Data 01/25/24 07:45 01/25/24 07:45 Labs: Laboratory Results - last 24 hr 01/24/24 17:34: Lactic Acid 2.0 01/24/24 17:35: WBC 5.8, RBC 5.11, Hgb 14.8, Hct 45.8, MCV 89.6, MCH 29.0, MCHC 32.3, RDW Std Deviation 55.3 H, RDW Coeff of Satnam 16.8 H, Plt Count 114 L, MPV 11.4, Immature Gran % (Auto) 0.200, Neut % (Auto) 75.3 H, Lymph % (Auto) 16.5 L, [place] % (Auto) 7.5, Eos % (Auto) 0.2, Baso % (Auto) 0.3, Absolute Neuts (auto) 4.4, Absolute Lymphs (auto) 0.95, Nucleated RBC % 0, PT 23.0 H, INR 2.0, APTT 41.3 H, Sodium 140, Potassium 3.7, Chloride 108 H, Carbon Dioxide 25.0, Anion Gap 7, BUN 13, Creatinine 0.81, Estim Creat Clear Calc 46.69, Est GFR (MDRD) Af Amer 85, Est GFR (MDRD) Non-Af 71, BUN/Creatinine Ratio 16.0, Glucose 83, Calcium 8.5, Magnesium 1.6, Total Bilirubin 2.50 H, Direct Bilirubin 1.36 H, AST 52 H, ALT 26, Alkaline Phosphatase 84, Troponin I High Sens 38, B-Natriuretic Peptide 698.6 H, Total Protein 8.0, Albumin 3.4, Globulin 4.6 H, Procalcitonin 0.04 01/24/24 18:10: Urine Color Maggy, Urine Clarity Sl. Cloudy, Urine pH 5.0, Ur Specific [place] 1.020, Urine Protein 30 H, Urine Glucose (UA) Normal, Urine Ketones 15 H, Urine Occult Blood 10 H, Urine Nitrite Negative, Urine Bilirubin 3 H, Urine Urobilinogen 8 H, Ur Leukocyte Esterase 25 H, Urine RBC 0-5 SEEN, Urine WBC 0-5 SEEN, Ur Squamous Epith Cells 0-5 SEEN, Urine Bacteria 4+, Urine Mucus 2+ 01/24/24 22:00: Lactic Acid 1.1 01/25/24 07:45: WBC 2.9 L, RBC 4.45, Hgb 13.1, Hct 39.9, MCV 89.7, MCH 29.4, MCHC 32.8, RDW Std Deviation 54.6 H, RDW Coeff of Satnam 16.7 H, Plt Count 104 L, MPV 11.0, Immature Gran % (Auto) 0.300, Neut % (Auto) 51.7, Lymph % (Auto) 35.3, [place] % (Auto) 11.4 H, Eos % (Auto) 1.0, Baso % (Auto) 0.3, Absolute Neuts (auto) 1.5 L, Absolute Lymphs (auto) 1.02, Nucleated RBC % 0, Sodium 142, Potassium 3.3 L, Chloride 110 H, Carbon Dioxide 24.0, Anion Gap 8, BUN 12, Creatinine 0.73, Estim Creat Clear Calc 47.27, Est GFR (MDRD) Af Amer 97, Est GFR (MDRD) Non-Af 80, BUN/Creatinine Ratio 16.5, Glucose 60 L, Hemoglobin A1c 5.6, Calcium 7.9 L, Total Bilirubin 1.80 H, AST 39 H, ALT 19, Alkaline Phosphatase 64, Total Protein 6.3 L, Albumin 2.6 L, Globulin 3.7, Albumin/Globulin Ratio 0.7 L, Triglycerides 86, Cholesterol 108, LDL Cholesterol 69, VLDL Cholesterol 17, HDL Cholesterol 22 L, TSH 2.03 Micro: Microbiology 01/25/24 03:35 Mucosa - Nasopharyngeal Respiratory Panel (PCR) - Final Influenzae B 01/25/24 06:20 Urine, Clean Catch Legionella Antigen - Final 01/25/24 06:20 Urine, Clean Catch Streptococcus pneumoniae Antigen (M - Final Radiography Diagnostic Testing: Radiology Impression Brain CT 01/24/24 17:50 IMPRESSION: Right frontal and temporal infarct. No hemorrhage. Electronically Signed: Robel Velázquez MD at 18:34 EST , Chest X-Ray 01/24/24 17:55 IMPRESSION: Bilateral pneumonia or edema. Left pleural effusion. Electronically Signed: Robel Velázquez MD at 18:40 EST , Head/Neck CTA 01/24/24 22:08 IMPRESSION: No intracranial aneurysm or large vessel occlusion. Mild plaque of the left carotid bifurcation. No hemodynamically significant internal carotid artery stenosis. Electronically Signed: Robel Velázquez MD at 23:49 EST , Chest X-Ray 01/25/24 05:55 IMPRESSION: Bibasilar air space disease with small left pleural effusion increased compared to the prior, likely pneumonia. Electronically Signed: Mignon Pfeiffer MD at 5:48 EST , Brain MRI 01/25/24 09:00 IMPRESSION: No evidence for acute infarct. Chronic right MCA territory infarct. Chronic involutional and white matter changes. Electronically Signed: Marguerite Willett MD at 12:35 EST , Physical Exam Const alert, no apparent distress and average body habitus Constitutional Narrative: Elderly female, sitting up comfortably in bedside chair, very hard of hearing but otherwise answering questions appropriately, in no acute distress. General Appearance: cooperative and comfortable HEENT normocephalic, head/scalp atraumatic, nasal mucous membranes and turbinates normal and moist oral mucous membranes HEENT Narrative: Very hard of hearing. Eyes PERRL, EOMs intact bilaterally and conjunctivae normal Neck full ROM Lymph Lymphatic: no lymphadenopathy noted Chest inspection of chest normal Resp normal respiratory effort, normal air movement, no use of accessory muscles and clear to auscultation bilaterally Cardio regular rate, regular rhythm, no murmurs and peripheral pulses 2+ throughout GI normal to inspection, nondistended, normoactive bowel sounds, soft to palpation, non-tender and non-distended Back/Spine normal ROM Extremity normal to inspection, full ROM and no pedal edema Skin no rashes or lesions noted Neuro no focal motor deficits and no sensory deficits noted Neuro Narrative: No slurred speech noted. Speech: speech normal Psych mental status grossly normal Assessment & Plan Assessment/Plan (1) Cardiomyopathy: QUALIFIERS: Cardiomyopathy type: unspecified Qualified Code(s): I42.9 - Cardiomyopathy, unspecified (2) Heart failure with reduced ejection fraction: (3) Dysarthria: PLAN: Plan Patient is an 88-year-old female who presented [facility] ED on 01/24/2024 with slurred speech concerning for stroke. 1. Slurred speech, resolved; CVA ruled out ? Stroke workup negative including CT brain without contrast, CTA head/neck, MRI brain without contrast. ? TTE did show new diagnosis of HFrEF with other findings as noted below. ? Neurology evaluated. No acute infarct noted on MRI, no concern for acute stroke. No additional neurology workup needed. 2. New diagnosis of HFrEF ? TTE on admit showed newly reduced EF of 20%, severe global LV systolic dysfunction, stage III diastolic dysfunction, mild to moderate global RV systolic function, severe biatrial dilation, severe mitral valve insufficiency, elevated RVSP, low gradient mild aortic valve stenosis. Notably, patient has history of nonischemic cardiomyopathy with last echo in 2019 showing EF 55% ? BNP 698 on admit, mildly increased from previous values. Chest x-ray showed bibasilar airspace disease with small pleural effusion increased from prior chest x-ray. Patient does have mild lower extremity edema noted on exam. ? Cardiology consulted. Patient reported worsening lower extremity edema and dyspnea on exertion prior to this admission. She lives alone and noted it has been more difficult to take care of her home environment. Has not been on any guideline directed medical therapy to this point as she has listed allergies to both LISA and ARB therapy, and also has a history of sick sinus syndrome so beta-blockers have been withheld. ? Per cardiology, plan is to slowly institute guideline directed medical therapy as tolerated. Started Lopressor 12.5 mg twice daily and spironolactone 25 mg daily. Also spot dosing Lasix and monitoring I's and O's for now. Continue Eliquis for A-fib as noted below. Recommended avoiding Jardiance due to resting glucose of 60. 3. Influenza B infection ? Positive for influenza B infection on admission. Chest x-ray with findings as noted above. Stable on room air since admission. Declined Tamiflu therapy. Continue symptomatic management. Chronic medical conditions: ? Paroxysmal A-fib: Continue home Eliquis. Not on any rate controlling agents. ? Hyperlipidemia: Lipid panel showed total cholesterol 108, LDL 69, HDL 22. Increased from home atorvastatin 10 mg at night to atorvastatin 40 mg at night. ? Anxiety and depression: Continue home mirtazapine. ? Hypothyroidism: TSH 2.03. Continue home Synthroid. ? 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 Charges/Coding Visit Charges Inpatient E&M: 37070 Subs Hosp L2
--- NOTE | 2024-01-25 14:10 | CON.PCM.NE_ITS ---
Assessment and Plan: Neuro Assessment/Plan #toxic metabolic encephalopahty #history of prior cardioembolic stroke secondary to afib -continue treating infections -continue eliquis for secondary stroke prevention -no acute infarct on MRI. No need for additional neuro work up. Will sign off. HPI Consult Data Date of Consult: 01/25/24 HPI Narrative HPI Narrative: RUPESH HUSTON, is a 88 F w a PMH of afib, hypothyroidism prior R MCA storke, HTN, cognitive impairement presenting with confusion and slurred speech noted by daughter and home health aid for a couple days. Has been confused since tuesday. Has had a prior stroke with residual cognitive impairment. Found to have a UTI, influenza, and pneumonia. Has been taking eliquis for afib. [facility] Medical History (Updated 01/25/24 @ 02:[address] Joanne Recio MD) Biatrial enlargement Chronic anticoagulation Clot Cognitive dysfunction Essential hypertension History of cerebral thrombosis Hypothyroidism Mixed hyperlipidemia Non-Hodgkin lymphoma Non-rheumatic mitral regurgitation Nonischemic cardiomyopathy Normochromic normocytic anemia Paroxysmal atrial fibrillation Prediabetes Presbycusis Pulmonary hypertension Home Medications apixaban 5 mg tablet (Eliquis) 5 mg PO BID #60 tabs 03/11/22 [Rx Last Taken Unknown] atorvastatin 10 mg tablet 10 mg PO QHS #30 tabs 03/11/22 [Rx Last Taken Unknown] levothyroxine 25 mcg tablet 25 mcg PO DAILY hypothyroidism #30 tabs 03/11/22 [Rx Last Taken Unknown] mirtazapine 15 mg tablet 7.5 mg (1/2 x 15 mg) PO QHS #16 tabs 03/11/22 [Rx Last Taken Unknown] tamsulosin 0.4 mg capsule 0.4 mg PO DAILY@1730 #30 caps 03/11/22 [Rx Last Taken Unknown] ondansetron 4 mg disintegrating tablet 4 mg PO Q8H PRN PRN Nausea #10 tabs 11/25/23 [Rx Last Taken Unknown] fesoterodine 4 mg tablet,extended release 24 hr 4 mg PO DAILY 12/02/23 [History Last Taken Unknown] hydralazine 10 mg tablet 10 mg PO DAILY 12/02/23 [History Last Taken Unknown] omeprazole 20 mg capsule,delayed release 20 mg PO DAILY 01/24/24 [History Last Taken Unknown] potassium chloride 20 mEq tablet,extended release(part/cryst) 20 meq PO DAILY 01/24/24 [History Last Taken Unknown] Allergy/AdvReac Type Severity Reaction Status Date / Time amlodipine Allergy Other Verified 01/24/24 16:41 hydrochlorothiazide Allergy Other Verified 01/24/24 16:41 Latex, Natural Rubber Allergy Other Verified 01/24/24 16:41 lisinopril Allergy Other Verified 01/24/24 16:41 losartan Allergy Other Verified 01/24/24 16:41 Family History Mother CHF (congestive heart failure) Father Diabetes Surgical History History of embolectomy History of hysterectomy History of tubal ligation Social History (Updated 01/25/24 @ 02:[address] Joanne Recio MD) household members: none Smoking Status: Never smoker alcohol intake: never substance use type: does not use caffeine: Yes Type: carbonated beverages Number of servings: 1 Physical Exam Narrative MS-awake, alert, oriented x3, able to name, no aphasia, no neglect, hard of hearing CN- VFF, no gaze deviation, EOMI, no facial droop M- antigavriy in all extremities S - nml to LT in all ext C- no gorss ataxia Lab / Micro Data 01/25/24 07:45 01/25/24 07:45 Labs: Laboratory Results - last 24 hr 01/24/24 17:34: Lactic Acid 2.0 01/24/24 17:35: WBC 5.8, RBC 5.11, Hgb 14.8, Hct 45.8, MCV 89.6, MCH 29.0, MCHC 32.3, RDW Std Deviation 55.3 H, RDW Coeff of Satnam 16.8 H, Plt Count 114 L, MPV 11.4, Immature Gran % (Auto) 0.200, Neut % (Auto) 75.3 H, Lymph % (Auto) 16.5 L, [place] % (Auto) 7.5, Eos % (Auto) 0.2, Baso % (Auto) 0.3, Absolute Neuts (auto) 4.4, Absolute Lymphs (auto) 0.95, Nucleated RBC % 0, PT 23.0 H, INR 2.0, APTT 41.3 H, Sodium 140, Potassium 3.7, Chloride 108 H, Carbon Dioxide 25.0, Anion Gap 7, BUN 13, Creatinine 0.81, Estim Creat Clear Calc 46.69, Est GFR (MDRD) Af Amer 85, Est GFR (MDRD) Non-Af 71, BUN/Creatinine Ratio 16.0, Glucose 83, Calcium 8.5, Magnesium 1.6, Total Bilirubin 2.50 H, Direct Bilirubin 1.36 H, AST 52 H, ALT 26, Alkaline Phosphatase 84, Troponin I High Sens 38, B-Natriuretic Peptide 698.6 H, Total Protein 8.0, Albumin 3.4, Globulin 4.6 H, Procalcitonin 0.04 01/24/24 18:10: Urine Color Maggy, Urine Clarity Sl. Cloudy, Urine pH 5.0, Ur Specific [place] 1.020, Urine Protein 30 H, Urine Glucose (UA) Normal, Urine Ketones 15 H, Urine Occult Blood 10 H, Urine Nitrite Negative, Urine Bilirubin 3 H, Urine Urobilinogen 8 H, Ur Leukocyte Esterase 25 H, Urine RBC 0-5 SEEN, Urine WBC 0-5 SEEN, Ur Squamous Epith Cells 0-5 SEEN, Urine Bacteria 4+, Urine Mucus 2+ 01/24/24 22:00: Lactic Acid 1.1 01/25/24 07:45: WBC 2.9 L, RBC 4.45, Hgb 13.1, Hct 39.9, MCV 89.7, MCH 29.4, MCHC 32.8, RDW Std Deviation 54.6 H, RDW Coeff of Satnam 16.7 H, Plt Count 104 L, MPV 11.0, Immature Gran % (Auto) 0.300, Neut % (Auto) 51.7, Lymph % (Auto) 35.3, [place] % (Auto) 11.4 H, Eos % (Auto) 1.0, Baso % (Auto) 0.3, Absolute Neuts (auto) 1.5 L, Absolute Lymphs (auto) 1.02, Nucleated RBC % 0, Sodium 142, Potassium 3.3 L, Chloride 110 H, Carbon Dioxide 24.0, Anion Gap 8, BUN 12, Creatinine 0.73, Estim Creat Clear Calc 47.27, Est GFR (MDRD) Af Amer 97, Est GFR (MDRD) Non-Af 80, BUN/Creatinine Ratio 16.5, Glucose 60 L, Hemoglobin A1c 5.6, Calcium 7.9 L, Total Bilirubin 1.80 H, AST 39 H, ALT 19, Alkaline Phosphatase 64, Total Protein 6.3 L, Albumin 2.6 L, Globulin 3.7, Albumin/Globulin Ratio 0.7 L, Triglycerides 86, Cholesterol 108, LDL Cholesterol 69, VLDL Cholesterol 17, HDL Cholesterol 22 L, TSH 2.03 Micro: Microbiology 01/25/24 03:35 Mucosa - Nasopharyngeal Respiratory Panel (PCR) - Final Influenzae B 01/25/24 06:20 Urine, Clean Catch Legionella Antigen - Final 01/25/24 06:20 Urine, Clean Catch Streptococcus pneumoniae Antigen (M - Final Imaging Radiology Impression Brain CT 01/24/24 17:50 IMPRESSION: Right frontal and temporal infarct. No hemorrhage. Electronically Signed: Robel Velázquez MD at 18:34 EST , Chest X-Ray 01/24/24 17:55 IMPRESSION: Bilateral pneumonia or edema. Left pleural effusion. Electronically Signed: Robel Velázquez MD at 18:40 EST , Head/Neck CTA 01/24/24 22:08 IMPRESSION: No intracranial aneurysm or large vessel occlusion. Mild plaque of the left carotid bifurcation. No hemodynamically significant internal carotid artery stenosis. Electronically Signed: Robel Velázuqez MD at 23:49 EST , Chest X-Ray 01/25/24 05:55 IMPRESSION: Bibasilar air space disease with small left pleural effusion increased compared to the prior, likely pneumonia. Electronically Signed: Mignon Pfeiffer MD at 5:48 EST , Brain MRI 01/25/24 09:00 IMPRESSION: No evidence for acute infarct. Chronic right MCA territory infarct. Chronic involutional and white matter changes. Electronically Signed: Marguerite Willett MD at 12:35 EST Reading Location ID and State: [facility] / [place] Tel , Service support , Active Medications Active Medications Active Medications: Current Medications Generic Name Dose Route Start Last Admin Trade Name Freq PRN Reason Stop Dose Admin Acetaminophen 650 mg 01/24/24 22:26 Acetaminophen 325 Mg Tablet PO Q4H PRN PRN Fever, pain 1-08/30 Al Hydroxide/Mg Hydroxide 30 ml 01/24/24 22:26 Mag Hydrox/Al Hydrox/Simeth 30 Ml Udc PO Q6H PRN PRN Gastric Burning Albuterol Sulfate 2.5 mg 01/24/24 22:26 Albuterol 2.5 Mg/3 Ml Vial.Neb. INHALATION Q2H PRN PRN Dyspnea, wheezing Apixaban 5 mg 01/25/24 10:00 01/25/24 09:05 Apixaban 5 Mg Tablet PO 5 mg BID LIBORIO Administration Aspirin 81 mg 01/25/24 08:00 01/25/24 09:05 Aspirin 81 Mg Tab.Chew PO 81 mg BREAKFAST LIBORIO Administration Atorvastatin Calcium 10 mg 01/25/24 22:00 Atorvastatin Calcium 10 Mg Tablet PO QHS LIBORIO Guaifenesin 20 ml 01/24/24 22:26 Guaifenesin 10 Ml Udc (200mg/10ml) PO Q4H PRN PRN COUGH Hydralazine HCl 5 mg 01/24/24 22:26 Hydralazine 20 Mg/Ml Vial IV Q30M PRN to maintain BP goals Ceftriaxone Sodium 1 gm in 50 mls @ 100 mls/hr 01/25/24 22:00 Rocephin IV 2200 LIBORIO Labetalol HCl 10 - 20 mg 01/24/24 22:26 Labetalol (Prefilled) 20 Mg/4 Ml IV Q10M PRN PRN to Maintain BP Goals Levothyroxine Sodium 25 mcg 01/25/24 06:00 01/25/24 06:34 Levothyroxine 25 Mcg Tablet PO Not Given 0600 [facility] Melatonin 3 mg 01/24/24 22:26 Melatonin 3 Mg Tablet PO QHS PRN PRN INSOMNIA Mirtazapine 7.5 mg 01/25/24 22:00 Mirtazapine 15 Mg Tablet PO QHS [facility] Ondansetron HCl 4 mg 01/24/24 22:26 Ondansetron 4 Mg/2 Ml Vial IV Q8H PRN PRN NAUSEA/VOMITING Pantoprazole Sodium 20 mg 01/25/24 10:00 01/25/24 09:05 Pantoprazole Sodium 20 Mg Tablet PO 20 mg DAILY [facility] Administration Potassium Chloride 20 meq 01/25/24 08:00 01/25/24 09:05 Potassium Chloride Oral Tablet 20 Meq [facility]q [facility] Administration Prochlorperazine Edisylate 5 mg 01/24/24 22:26 Prochlorperazine 10 Mg/2 Ml Vial IV Q4H PRN PRN Breakthrough Nausea/Vomiting Senna/Docusate Sodium 2 tablet 01/24/24 22:26 Senna/Docusate Sodium 1 Tablet PO BID PRN PRN Constipation Sodium Chloride 10 - 40 ml 01/24/24 22:28 01/25/24 03:35 0.9% Saline Lock 10 Ml Syringe IV 10 ml UD PRN Administration SALINE FLUSH Tamsulosin HCl 0.4 mg 01/25/24 17:30 Tamsulosin Hcl 0.4 Mg Capsule PO DAILY@1730 [facility]
--- NOTE | 2024-01-25 17:16 | PCM.CONS.C ---
Assessment & Plan Assessment/Plan (1) Cardiomyopathy: QUALIFIERS: Cardiomyopathy type: unspecified Qualified Code(s): I42.9 - Cardiomyopathy, unspecified PLAN: Patient has a history of a nonischemic cardiomyopathy her previous echo in 2019 showed an EF of 55%. She does have some valvular heart disease at that time her mitral regurg was 2+ it is now 4+. The patient has not been on any guideline directed medical therapy for multiple reasons. She appears to be allergic to both LISA and ARB therapy. She has had a history of sick sinus syndrome in the past and beta-blockers have been withheld. She apparently has not been congested and did not require Lasix in the home environment although recently she has developed dyspnea on exertion and lower extremity edema. She wears compression wraps on both lower extremities detention up her calves. (2) Heart failure with reduced ejection fraction: PLAN: The patient presents with his chest x-ray evidence of volume overload. She has had increasing lower extremity edema and dyspnea on exertion that his quality of life limiting she is unable to take care of her home environment. [place] and up until recently has been able to do everything to care for herself. We will try to slowly institute guideline directed medical therapy to treat her heart failure. We will avoid LISA and ARB therapy given her linda octaviano allergies. Low-dose beta-rajwinder therapy will be instituted and we will monitor her heart rate closely as well as her blood pressure. Will also add spironolactone 25 mg daily. The patient would be an ideal candidate for Jardiance however her glucose untreated is even in the 60-70 range. The patient has designated her self is DNR CCA. The objective is to get her as comfortable as possible and try to get her back to where she can take care of herself in her home environment. (3) Atrial fibrillation: QUALIFIERS: Atrial fibrillation type: persistent (not longstanding) Qualified Code(s): I48.19 - Other persistent atrial fibrillation PLAN: Patient has a history historically of paroxysmal atrial fibrillation this appears to be persistent now she is tolerating Eliquis without nuisance bleeding. (4) Chronic anticoagulation: PLAN: The patient is to continue long-term Eliquis her hemoglobin is stable at 13. (5) Sick sinus syndrome: PLAN: Patient has a history of sick sinus syndrome apparently in remote past when she spontaneously converted into sinus rhythm from atrial fibs she would have prolonged sinus node recovery times. We will monitor this closely in the hospital her heart rate is 65 in atrial fibrillation at this time. PLAN: Plan 1. Will slowly institute guideline directed medical therapy as tolerated starting with Lopressor 12.5 mg twice daily and spironolactone 25 mg each morning. Will also give her a dose of Lasix each morning and monitor I's and O's. These meds should be held if her systolic blood pressure is less than 95 her renal function is well-preserved. 2. Continue the Eliquis as tolerated. 3. I would avoid Jardiance due to her resting glucose of 60. 4. Will follow-up with you and assist with titration as needed. HPI Consult Data Date of Consult: 01/25/24 HPI Narrative Reason for Consultation: CHF HPI Narrative: RUPESH HUSTON, is a 88 F who presents to the emergency department on 01/24/2024 with slurred speech and a presumed TIA. 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 She has a history of atrial fibrillation and has been on long-term Eliquis since her CVA. On admission the patient's chest x-ray was consistent with a pneumonia versus pulmonary edema she has a left pleural effusion. CT of the head showed a right frontal and temporal infarct of an uncertain timeframe. The patient was treated with Rocephin in the emergency department for presumed pneumonia she also had urine that was consistent with a UTI and been treated for recent UTI. Her BNP in December 2023 was 431 on admission it was 698. She also complains of bilateral lower extremity edema which has been worsening recently. Her main complaint was the slurred speech and her dyspnea on exertion which is limiting her ability to care for [place]. The EKG on admission showed atrial fibrillation with no ischemic changes her troponin was 38. An echocardiogram was done today which showed an EF of 20% stage III diastolic dysfunction mild RV dysfunction and severe biatrial dilation. She has 4+ mitral regurgitation and right ventricular systolic pressure of 53. She has 1+ AI and a question of low gradient aortic stenosis. Over the last 24 hours the patient is -1300 cc. The patient's blood pressure has been adequate until just this evening when it dropped down to the 95 systolic range. Of note her bilirubin was elevated liver functions were mildly elevated all consistent with hepatic congestion. The patient was last evaluated in 2021 and [facility] office. The last echocardiogram I can find is from 2019 where left-ventricular ejection fraction was 55% she had moderate left atrial enlargement 2+ mitral regurgitation aortic valve calcification with trace AI. At that time she was being followed for atrial fibrillation. [facility] Medical History Biatrial enlargement Chronic anticoagulation Clot Cognitive dysfunction Essential hypertension History of cerebral thrombosis Hypothyroidism Mixed hyperlipidemia Non-Hodgkin lymphoma Non-rheumatic mitral regurgitation Nonischemic cardiomyopathy Normochromic normocytic anemia Paroxysmal atrial fibrillation Prediabetes Presbycusis Pulmonary hypertension Home Medications apixaban 5 mg tablet (Eliquis) 5 mg PO BID #60 tabs 03/11/22 [Rx Last Taken Unknown] atorvastatin 10 mg tablet 10 mg PO QHS #30 tabs 03/11/22 [Rx Last Taken Unknown] levothyroxine 25 mcg tablet 25 mcg PO DAILY hypothyroidism #30 tabs 03/11/22 [Rx Last Taken Unknown] mirtazapine 15 mg tablet 7.5 mg (1/2 x 15 mg) PO QHS #16 tabs 03/11/22 [Rx Last Taken Unknown] tamsulosin 0.4 mg capsule 0.4 mg PO DAILY@1730 #30 caps 03/11/22 [Rx Last Taken Unknown] ondansetron 4 mg disintegrating tablet 4 mg PO Q8H PRN PRN Nausea #10 tabs 11/25/23 [Rx Last Taken Unknown] fesoterodine 4 mg tablet,extended release 24 hr 4 mg PO DAILY 12/02/23 [History Last Taken Unknown] hydralazine 10 mg tablet 10 mg PO DAILY 12/02/23 [History Last Taken Unknown] omeprazole 20 mg capsule,delayed release 20 mg PO DAILY 01/24/24 [History Last Taken Unknown] potassium chloride 20 mEq tablet,extended release(part/cryst) 20 meq PO DAILY 01/24/24 [History Last Taken Unknown] Allergy/AdvReac Type Severity Reaction Status Date / Time amlodipine Allergy Other Verified 01/24/24 16:41 hydrochlorothiazide Allergy Other Verified 01/24/24 16:41 Latex, Natural Rubber Allergy Other Verified 01/24/24 16:41 lisinopril Allergy Other Verified 01/24/24 16:41 losartan Allergy Other Verified 01/24/24 16:41 Family History Mother CHF (congestive heart failure) Father Diabetes Surgical History History of embolectomy History of hysterectomy History of tubal ligation Social History household members: none Smoking Status: Never smoker alcohol intake: never substance use type: does not use caffeine: Yes Type: carbonated beverages Number of servings: 1 ROS Constitutional Constitutional: Reports as per HPI Eyes Eyes: Reports systems reviewed and no addt'l complaints, except as documented ENT HEENT: Reports systems reviewed and no addt'l complaints, except as documented Cardiovascular Cardiovascular: Reports as per HPI Respiratory/Chest Respiratory/Chest: Reports dyspnea on exertion Gastrointestinal Gastrointestinal: Reports systems reviewed and no addt'l complaints, except as documented Genitourinary Genitourinary: Reports systems reviewed and no addt'l complaints, except as documented Musculoskeletal Musculoskeletal: Reports as per HPI Integumentary Integumentary: Reports systems reviewed and no addt'l complaints, except as documented Neurologic Neurologic: Reports abnormal hearing and memory loss Psychiatric Psychiatric: Reports systems reviewed and no addt'l complaints, except as documented Endocrine Endocrinology: Reports systems reviewed and no addt'l complaints, except as documented Hematologic/Lymphatic Hematologic/Lymphatic: Reports systems reviewed and no addt'l complaints, except as documented Allergic/Immunologic Allergic/Immunologic: Reports systems reviewed and no addt'l complaints, except as documented Physical Exam Const alert Constitutional Narrative: Oriented x [address] questionable time. HEENT normocephalic Eyes EOMs intact bilaterally Neck Neck Narrative: JVD is noted at the angle of the jaw at 90 degrees. Carotids: Negative for bruit Chest Chest Narrative: Pectus carinatum is noted. Resp normal respiratory effort Auscultation: rales bilateral lower and wheezes expiratory wheezes and anterior Cardio Rate: regular rate Rhythm: abnormal rhythm irregularly irregular Heart Sounds: S1 normal, S2 normal and murmur diastolic I/ and systolic II/ soft left sternal border; Negative for click or gallop Bruits: Negative for carotid bruit Peripheral Pulses: radial pulses present and posterior tibial pulses present GI soft to palpation Extremity General Extremity: edema bilateral lower extremity Details: moderate (2+ pitting edema from just above the ankle wraps up to the knees.) Skin no rashes or lesions noted Neuro Neuro Narrative: The patient has obvious short-term and long-term memory recall. Psych cooperative Risk Stratification Risk Stratification Applicable: No Charges/Coding Visit Charges Inpatient E&M: 39912 Init Hosp L3 Objective Data Vital Signs: Vital Signs Temp Pulse Resp BP Pulse Ox O2 Del Method 96.9 F L 71 16 98/58 L 95 Room Air 01/25/24 15:00 01/25/24 15:00 01/25/24 15:00 01/25/24 15:00 01/25/24 15:00 01/25/24 15:00 Oxygen Delivery Method Room Air Weight: 136 lb 14.513 oz Body Mass Index (BMI) 21.4 Intake & Output: Intake and Output for Last 24 Hours 01/23/24 01/24/24 01/25/24 23:59 23:59 23:59 Intake Total 50 / 50 404 / 404 Output Total 1700 / 1700 Balance 50 / 50 -1296 / -1296 Lab / Micro Data Attestation: I reviewed the patient's lab results. 01/25/24 07:45 01/25/24 07:45 Labs: Laboratory Results - last 24 hr 01/24/24 17:34: Lactic Acid 2.0 01/24/24 17:35: WBC 5.8, RBC 5.11, Hgb 14.8, Hct 45.8, MCV 89.6, MCH 29.0, MCHC 32.3, RDW Std Deviation 55.3 H, RDW Coeff of Satnam 16.8 H, Plt Count 114 L, MPV 11.4, Immature Gran % (Auto) 0.200, Neut % (Auto) 75.3 H, Lymph % (Auto) 16.5 L, Schley % (Auto) 7.5, Eos % (Auto) 0.2, Baso % (Auto) 0.3, Absolute Neuts (auto) 4.4, Absolute Lymphs (auto) 0.95, Nucleated RBC % 0, PT 23.0 H, INR 2.0, APTT 41.3 H, Sodium 140, Potassium 3.7, Chloride 108 H, Carbon Dioxide 25.0, Anion Gap 7, BUN 13, Creatinine 0.81, Estim Creat Clear Calc 46.69, Est GFR (MDRD) Af Amer 85, Est GFR (MDRD) Non-Af 71, BUN/Creatinine Ratio 16.0, Glucose 83, Calcium 8.5, Magnesium 1.6, Total Bilirubin 2.50 H, Direct Bilirubin 1.36 H, AST 52 H, ALT 26, Alkaline Phosphatase 84, Troponin I High Sens 38, B-Natriuretic Peptide 698.6 H, Total Protein 8.0, Albumin 3.4, Globulin 4.6 H, Procalcitonin 0.04 01/24/24 18:10: Urine Color Maggy, Urine Clarity Sl. Cloudy, Urine pH 5.0, Ur Specific Printer 1.020, Urine Protein 30 H, Urine Glucose (UA) Normal, Urine Ketones 15 H, Urine Occult Blood 10 H, Urine Nitrite Negative, Urine Bilirubin 3 H, Urine Urobilinogen 8 H, Ur Leukocyte Esterase 25 H, Urine RBC 0-5 SEEN, Urine WBC 0-5 SEEN, Ur Squamous Epith Cells 0-5 SEEN, Urine Bacteria 4+, Urine Mucus 2+ 01/24/24 22:00: Lactic Acid 1.1 01/25/24 07:45: WBC 2.9 L, RBC 4.45, Hgb 13.1, Hct 39.9, MCV 89.7, MCH 29.4, MCHC 32.8, RDW Std Deviation 54.6 H, RDW Coeff of Satnam 16.7 H, Plt Count 104 L, MPV 11.0, Immature Gran % (Auto) 0.300, Neut % (Auto) 51.7, Lymph % (Auto) 35.3, Schley % (Auto) 11.4 H, Eos % (Auto) 1.0, Baso % (Auto) 0.3, Absolute Neuts (auto) 1.5 L, Absolute Lymphs (auto) 1.02, Nucleated RBC % 0, Sodium 142, Potassium 3.3 L, Chloride 110 H, Carbon Dioxide 24.0, Anion Gap 8, BUN 12, Creatinine 0.73, Estim Creat Clear Calc 47.27, Est GFR (MDRD) Af Amer 97, Est GFR (MDRD) Non-Af 80, BUN/Creatinine Ratio 16.5, Glucose 60 L, Hemoglobin A1c 5.6, Calcium 7.9 L, Total Bilirubin 1.80 H, AST 39 H, ALT 19, Alkaline Phosphatase 64, Total Protein 6.3 L, Albumin 2.6 L, Globulin 3.7, Albumin/Globulin Ratio 0.7 L, Triglycerides 86, Cholesterol 108, LDL Cholesterol 69, VLDL Cholesterol 17, HDL Cholesterol 22 L, TSH 2.03 Micro: Microbiology 01/25/24 03:35 Mucosa - Nasopharyngeal Respiratory Panel (PCR) - Final Influenzae B 01/25/24 06:20 Urine, Clean Catch Legionella Antigen - Final 01/25/24 06:20 Urine, Clean Catch Streptococcus pneumoniae Antigen (M - Final Rhythm Strip Rhythm Strip: A-fib Rate: 65 Cardiology Labs/Tests 01/24/24 17:34: Lactic Acid 2.0 01/24/24 17:35: WBC 5.8, RBC 5.11, Hgb 14.8, Hct 45.8, MCV 89.6, MCH 29.0, MCHC 32.3, Plt Count 114 L, MPV 11.4, Immature Gran % (Auto) 0.200, Neut % (Auto) 75.3 H, Lymph % (Auto) 16.5 L, Schley % (Auto) 7.5, Eos % (Auto) 0.2, Baso % (Auto) 0.3, Absolute Neuts (auto) 4.4, Nucleated RBC % 0, PT 23.0 H, INR 2.0, APTT 41.3 H, Sodium 140, Potassium 3.7, Chloride 108 H, Carbon Dioxide 25.0, Anion Gap 7, BUN 13, Creatinine 0.81, Est GFR (MDRD) Af Amer 85, Est GFR (MDRD) Non-Af 71, BUN/Creatinine Ratio 16.0, Glucose 83, Calcium 8.5, Magnesium 1.6, Total Bilirubin 2.50 H, Direct Bilirubin 1.36 H, B-Natriuretic Peptide 698.6 H 01/24/24 18:10: Urine Color Maggy, Urine Clarity Sl. Cloudy, Urine pH 5.0, Ur Specific Printer 1.020, Urine Protein 30 H, Urine Glucose (UA) Normal, Urine Ketones 15 H, Urine Occult Blood 10 H, Urine Nitrite Negative, Urine Bilirubin 3 H, Urine Urobilinogen 8 H, Ur Leukocyte Esterase 25 H, Urine RBC 0-5 SEEN, Urine WBC 0-5 SEEN 01/24/24 22:00: Lactic Acid 1.1 01/25/24 07:45: WBC 2.9 L, RBC 4.45, Hgb 13.1, Hct 39.9, MCV 89.7, MCH 29.4, MCHC 32.8, Plt Count 104 L, MPV 11.0, Immature Gran % (Auto) 0.300, Neut % (Auto) 51.7, Lymph % (Auto) 35.3, Schley % (Auto) 11.4 H, Eos % (Auto) 1.0, Baso % (Auto) 0.3, Absolute Neuts (auto) 1.5 L, Nucleated RBC % 0, Sodium 142, Potassium 3.3 L, Chloride 110 H, Carbon Dioxide 24.0, Anion Gap 8, BUN 12, Creatinine 0.73, Est GFR (MDRD) Af Amer 97, Est GFR (MDRD) Non-Af 80, BUN/Creatinine Ratio 16.5, Glucose 60 L, Hemoglobin A1c 5.6, Calcium 7.9 L, Total Bilirubin 1.80 H, Triglycerides 86, Cholesterol 108, LDL Cholesterol 69, VLDL Cholesterol 17, HDL Cholesterol 22 L Rhythm: EKG: ECHO: Stress Test: Cardiac Cath: PCI: CT Surgery: Holter monitor: EPS: PPM: CXR: Chest CT Scan: Radiography Diagnostic Testing: Radiology Impression Brain CT 01/24/24 17:50 IMPRESSION: Right frontal and temporal infarct. No hemorrhage. Electronically Signed: Robel Velázquez MD at 18:34 EST , Chest X-Ray 01/24/24 17:55 IMPRESSION: Bilateral pneumonia or edema. Left pleural effusion. Electronically Signed: Robel Velázquez MD at 18:40 EST , Head/Neck CTA 01/24/24 22:08 IMPRESSION: No intracranial aneurysm or large vessel occlusion. Mild plaque of the left carotid bifurcation. No hemodynamically significant internal carotid artery stenosis. Electronically Signed: Robel Velázquez MD at 23:49 EST , Echocardiogram 01/24/24 22:26 Interpretation Summary Mildly dilated left ventricle. Severe global left ventricular systolic dysfunction. The left ventricular ejection fraction is 20 %. Stage 3 diastolic dysfunction. Mild to moderate global right ventricular systolic dysfunction. Severe (4+) mitral valve insufficiency. Mild tricuspid valve insufficiency. Right ventricular systolic pressure estimated to be 53 mmHg. Consider low gradient mild aortic valve stenosis. Mild (1+) aortic valve insufficiency. There is severe biatrial dilatation. Left pleural effusion. Ordering Physician: Joanne Recio Referring Physician: Rebekah Beckford Performed By: Cari Montilla, RDCS, RVT Chest X-Ray 01/25/24 05:55 IMPRESSION: Bibasilar air space disease with small left pleural effusion increased compared to the prior, likely pneumonia. Electronically Signed: Mignon Pfeiffer MD at 5:48 EST , Brain MRI 01/25/24 09:00 IMPRESSION: No evidence for acute infarct. Chronic right MCA territory infarct. Chronic involutional and white matter changes. Electronically Signed: Marguerite Willett MD at 12:35 EST ,
[2024-01-25] MEDS: Spironolactone 25 MG Tablet PO (18:12)
[2024-01-25] MEDS: Tamsulosin HCl 0.4 MG Capsule PO (18:12)
[2024-01-25] MEDS: Ceftriaxone 1 GM/50 ML BAG IV (19:44)
[2024-01-25] MEDS: Mirtazapine 15 MG Tablet 7.5 MG PO (19:54)
[2024-01-25] MEDS: Atorvastatin Calcium 40 MG Tablet PO (19:55)
[2024-01-25] MEDS: Metoprolol Tartrate 25 MG Tablet 12.5 MG PO (19:55)
[2024-01-26] VITALS (7 sets, daily range): BP systolic 97–114; BP diastolic 50–80; PULSE 60–77; RESP 14–16; TEMP 36.1–36.6; O2SAT 94–97; BMI 21.4
[2024-01-26] MEDS: Levothyroxine 25 MCG TABLET PO (05:07)
[2024-01-26 06:47] LABS: Hematocrit 42.1 % (37-47); Hemoglobin 13.6 g/dL (12.0-15.0); Mean Corp Hgb Conc 32.3 g/dL (32-36); Mean Corpuscular Hgb 29.1 pg (27.0-32.0); Mean Corpuscular Volume 90.1 fL (81-99); Mean Platelet Vol. 11.5 fl (6.2-12.0); Platelet Count 108 K/mm3 (150-450); RBC Distribution Width CV 16.9 % (11.6-14.6); RBC Distribution Width SD 55.8 fl (35.1-43.9); Red Blood Count 4.67 M/mm3 (4.2-5.4)
[2024-01-26 07:14] LABS: Anion Gap 8 (5-15); BUN 14 mg/dL (7-18); BUN/Creat Ratio 17.8 RATIO (10-20); Calcium,Total 8.1 mg/dL (8.5-10.1); Chloride 110 mmol/L (98-107); Creatinine, Serum 0.78 mg/dL (0.55-1.02); EST Glomerular Filtration Rate 73 mL/min (>60); Est Glom Filt Rate - Afr Amer 89 mL/min (>60); Estimated Creatinine Clearance 47.27 ml/min; Glucose 84 mg/dL (74-106); Sodium Level 143 mmol/L (136-145)
[2024-01-26] MEDS: APIXABAN 5 MG TABLET PO (10:08)
[2024-01-26] MEDS: Aspirin 81 MG TAB.CHEW PO (10:09)
[2024-01-26] MEDS: Potassium Chloride Oral Tablet 20 MEQ PO (10:09)
[2024-01-26] MEDS: Spironolactone 25 MG Tablet PO (10:09)
[2024-01-26] MEDS: Pantoprazole Sodium 20 MG Tablet PO (10:09)
[2024-01-26] MEDS: Furosemide 20 MG Tablet PO (10:10)
[2024-01-26] MEDS: Metoprolol Tartrate 25 MG Tablet 12.5 MG PO ×2 (10:10→20:13)
--- NOTE | 2024-01-26 10:28 | PN.CARD_ITS ---
Subjective Subjective The patient is resting comfortably in bed 30 degrees. Her dementia prohibits meaningful evaluation of her symptoms. She denied any shortness of breath. The nursing staff reports that she tolerated her medical regiment as ordered. It was just started late yesterday. Blood pressure seems well-controlled today and her I's and O's are negative a liter from yesterday. Objective Data Vital Signs: Vital Signs Temp Pulse Resp BP Pulse Ox O2 Del Method 97.8 F 71 16 114/67 97 Room Air 01/26/24 10:07 01/26/24 10:10 01/26/24 10:07 01/26/24 10:07 01/26/24 10:07 01/26/24 10:07 Oxygen Delivery Method Room Air Weight: 136 lb 10.986 oz Body Mass Index (BMI) 21.4 Intake & Output: Intake and Output for Last 24 Hours 01/24/24 01/25/24 01/26/24 23:59 23:59 23:59 Intake Total 50 / 50 934 / 934 120 / 120 Output Total 1950 / 1950 200 / 200 Balance 50 / 50 -1016 / -1016 -80 / -80 Lab / Micro Data 01/26/24 06:21 01/26/24 06:21 Labs: Laboratory Results - last 24 hr 01/25/24 07:45: Hemoglobin A1c 5.6 01/26/24 06:21: WBC 3.0 L, RBC 4.67, Hgb 13.6, Hct 42.1, MCV 90.1, MCH 29.1, MCHC 32.3, RDW Std Deviation 55.8 H, RDW Coeff of Satnam 16.9 H, Plt Count 108 L, MPV 11.5, Sodium 143, Potassium 4.0, Chloride 110 H, Carbon Dioxide 25.0, Anion Gap 8, BUN 14, Creatinine 0.78, Estim Creat Clear Calc 47.27, Est GFR (MDRD) Af Amer 89, Est GFR (MDRD) Non-Af 73, BUN/Creatinine Ratio 17.8, Glucose 84, Calcium 8.1 L Micro: Microbiology 01/25/24 03:35 Mucosa - Nasopharyngeal Respiratory Panel (PCR) - Final Influenzae B 01/25/24 06:20 Urine, Clean Catch Legionella Antigen - Final 01/25/24 06:20 Urine, Clean Catch Streptococcus pneumoniae Antigen (M - Final Rhythm Strip Rhythm Strip: A-fib Rate: 65 Cardiology Labs/Tests 01/25/24 07:45: Hemoglobin A1c 5.6 01/26/24 06:21: WBC 3.0 L, RBC 4.67, Hgb 13.6, Hct 42.1, MCV 90.1, MCH 29.1, MCHC 32.3, Plt Count 108 L, MPV 11.5, Sodium 143, Potassium 4.0, Chloride 110 H, Carbon Dioxide 25.0, Anion Gap 8, BUN 14, Creatinine 0.78, Est GFR (MDRD) Af Amer 89, Est GFR (MDRD) Non-Af 73, BUN/Creatinine Ratio 17.8, Glucose 84, Calcium 8.1 L Rhythm: EKG: ECHO: Stress Test: Cardiac Cath: PCI: CT Surgery: Holter monitor: EPS: PPM: CXR: Chest CT Scan: Radiography Diagnostic Testing: Radiology Impression Echocardiogram 01/24/24 22:26 Interpretation Summary Mildly dilated left ventricle. Severe global left ventricular systolic dysfunction. The left ventricular ejection fraction is 20 %. Stage 3 diastolic dysfunction. Mild to moderate global right ventricular systolic dysfunction. Severe (4+) mitral valve insufficiency. Mild tricuspid valve insufficiency. Right ventricular systolic pressure estimated to be 53 mmHg. Consider low gradient mild aortic valve stenosis. Mild (1+) aortic valve insufficiency. There is severe biatrial dilatation. Left pleural effusion. Ordering Physician: Joanne Recio Referring Physician: Rebekah Beckford Performed By: Cari Montilla, RDCS, RVT Brain MRI 01/25/24 09:00 IMPRESSION: No evidence for acute infarct. Chronic right MCA territory infarct. Chronic involutional and white matter changes. Electronically Signed: Marguerite Willett MD at 12:35 EST Reading Location ID and State: [facility] / [place] Tel , Service support , Physical Exam Const alert Constitutional Narrative: Appears more confused than yesterday. She is able to answer some questions but has to search for answers. HEENT normocephalic Eyes EOMs intact bilaterally Neck Neck Narrative: JVD noted above the clavicle at 30 degrees. Chest Chest Narrative: Pectus carinatum noted Resp normal respiratory effort Auscultation: crackles bilateral base and rhonchi throughout Cardio regular rate Cardio Narrative: Distant heart tones. Rhythm: abnormal rhythm irregularly irregular Heart Sounds: S1 normal and S2 normal; Negative for click, gallop or murmur GI soft to palpation Extremity no pedal edema Extremity Narrative: Ankles and lower extremities are tender to palpation. Skin no rashes or lesions noted Neuro Neuro Narrative: The patient is confused but cooperative and has a hard time recalling answers to questions. She did remember me being in the room last evening but did not know my name. Psych Psych Narrative: See neuro description Assessment & Plan Assessment/Plan (1) Heart failure with reduced ejection fraction: PLAN: The patient has started on guideline directed medical therapy. She received a dose of beta-rajwinder and spironolactone. Her renal function is normal her heart rate is unchanged and her blood pressure is tolerating the medications. She should be slowly titrated as tolerated on Lopressor. The patient is intolerant due to her reactions to LISA inhibitor and ARB therapy. An d I do not feel she is a candidate for SGLT 2 inhibitor therapy given her glucose in the 60s recently. Given her volume status I recommend she be continued on low-dose Lasix at 20 mg daily with monitoring her volume status. Her ejection fraction should be reevaluated in 3 months with a limited ech ocardiogram. (2) Atrial fibrillation: QUALIFIERS: Atrial fibrillation type: persistent (not longstanding) Qualified Code(s): I48.19 - Other persistent atrial fibrillation PLAN: Heart rate is well-controlled at 60 bpm she remains on Eliquis. The dose will be dropped to a dose of 2.5 mg twice daily given her 88 years of age.. There is no nuisance bleeding documented. PLAN: Plan 1. Decrease Eliquis to 2.5 mg twice daily. 2. Continue Lopressor 12.5 mg twice daily as blood pressure and heart rate will tolerate would increase to 25 mg twice daily in the next 48 to 72 hours. 3. Monitor basic metabolic panel in the next 48 hours due to the addition of spironolactone and diuresis with continuing the Lasix at 20 mg daily. 4. When discharged the patient should follow-up in the office of the [facility] in 2 to 3 weeks. Charges/Coding Visit Charges Inpatient E&M: 22440 [facility] Hosp L3
--- NOTE | 2024-01-26 13:54 | NURSING ---
spoke with patient's daughter Bhavna who is HCPOA and lives in [place]. updated on POC and she expressed desire for patient to go to rehab at time of DC. MIKE Sparks notified of this.
--- NOTE | 2024-01-26 14:19 | CASEMGMT ---
SW was informed by RN that patient's daughter is worried about patient going home and would like patient to go to TCU. SW spoke with patient and she was agreeable. SW also spoke with patient's daughter Bhavna. Bhavna would like patient to go to TCU. Bhavna declined a list of facilities. SW made a referral to TCU. TCU is able to take patient. However, there is a possibility that patient could get denied by insurance. SW did talk with patient's daughter Bhavna about this and the back up plan would be home health. Plan: [facility] pending insurance approval. Clare Parham [employer]
--- NOTE | 2024-01-26 15:14 | PCM.PN.HOSP ---
Reason for Visit Reason for Visit: Diagnoses Transient cerebral ischemic attack, unspecified (01/24/24) Cardiomyopathy, unspecified (01/24/24) Other persistent atrial fibrillation (01/24/24) Sick sinus syndrome (01/24/24) Unspecified systolic (congestive) heart failure (01/24/24) Dysarthria and anarthria (01/24/24) medical terminologist (current) use of anticoagulants (01/24/24) Subjective Subjective No acute events overnight. Patient seen at bedside this morning. Patient was sitting up in bedside chair, appeared fatigued when I saw her that was in no acute distress. Continues to be difficult to have conversation with patient given that she is still hard of hearing. Patient does appear slightly more fatigued and confused this morning than previous days. She generally feels weaker than her baseline as well. Otherwise no acute concerns this morning. Objective Data Objective Data Vital Signs: Vital Signs Temp Pulse Resp BP Pulse Ox O2 Del Method 97.8 F 71 16 114/67 97 Room Air 01/26/24 10:07 01/26/24 10:10 01/26/24 10:07 01/26/24 10:07 01/26/24 10:07 01/26/24 10:07 Oxygen Delivery Method Room Air Weight: 62 kg Body Mass Index (BMI) 21.4 Intake & Output: Intake and Output for Last 24 Hours 01/24/24 01/25/24 01/26/24 23:59 23:59 23:59 Intake Total 50 / 50 934 / 934 120 / 120 Output Total 1950 / 1950 200 / 200 Balance 50 / 50 -1016 / -1016 -80 / -80 Lab / Micro Data 01/26/24 06:21 01/26/24 06:21 Labs: Laboratory Results - last 24 hr 01/26/24 06:21: WBC 3.0 L, RBC 4.67, Hgb 13.6, Hct 42.1, MCV 90.1, MCH 29.1, MCHC 32.3, RDW Std Deviation 55.8 H, RDW Coeff of Satnam 16.9 H, Plt Count 108 L, MPV 11.5, Sodium 143, Potassium 4.0, Chloride 110 H, Carbon Dioxide 25.0, Anion Gap 8, BUN 14, Creatinine 0.78, Estim Creat Clear Calc 47.27, Est GFR (MDRD) Af Amer 89, Est GFR (MDRD) Non-Af 73, BUN/Creatinine Ratio 17.8, Glucose 84, Calcium 8.1 L Micro: Microbiology 01/24/24 18:10 Urine, Catheterized Urine Culture - Preliminary Gram positive ying 01/25/24 03:35 Mucosa - Nasopharyngeal Respiratory Panel (PCR) - Final Influenzae B 01/25/24 06:20 Urine, Clean Catch Legionella Antigen - Final 01/25/24 06:20 Urine, Clean Catch Streptococcus pneumoniae Antigen (M - Final Rhythm Strip Rhythm Strip: A-fib Rate: 65 Physical Exam Const alert, no apparent distress and average body habitus Constitutional Narrative: Elderly female, sitting up comfortably in bedside chair, very hard of hearing, appears more fatigued today and slightly confused compared to yesterday, otherwise in no acute distress. General Appearance: cooperative and comfortable HEENT normocephalic, head/scalp atraumatic, nasal mucous membranes and turbinates normal and moist oral mucous membranes HEENT Narrative: Very hard of hearing. Eyes PERRL, EOMs intact bilaterally and conjunctivae normal Neck full ROM Lymph Lymphatic: no lymphadenopathy noted Chest inspection of chest normal Resp normal respiratory effort and no use of accessory muscles Resp Narrative: Breathing comfortably on room air. Mildly decreased breath sounds bilaterally in lung bases. No wheezing or crackles noted. Cardio regular rate, regular rhythm, no murmurs and peripheral pulses 2+ throughout GI normal to inspection, nondistended, normoactive bowel sounds, soft to palpation, non-tender and non-distended Back/Spine normal ROM Extremity full ROM Extremity Narrative: +1-2 lower extremity pitting edema noted. Skin no rashes or lesions noted Neuro no focal motor deficits and no sensory deficits noted Neuro Narrative: No slurred speech noted. Speech: speech normal Assessment & Plan Assessment/Plan (1) Cardiomyopathy: QUALIFIERS: Cardiomyopathy type: unspecified Qualified Code(s): I42.9 - Cardiomyopathy, unspecified (2) Heart failure with reduced ejection fraction: (3) Dysarthria: PLAN: Plan Patient is an 88-year-old female who presented [facility] ED on 01/24/2024 with slurred speech concerning for stroke. 1. Slurred speech, resolved; CVA ruled out ? Stroke workup negative including CT brain without contrast, CTA head/neck, MRI brain without contrast. ? TTE did show new diagnosis of HFrEF with other findings as noted below. ? Neurology evaluated. No acute infarct noted on MRI, no concern for acute stroke. No additional neurology workup needed. 2. New diagnosis of HFrEF ? TTE on admit showed newly reduced EF of 20%, severe global LV systolic dysfunction, stage III diastolic dysfunction, mild to moderate global RV systolic function, severe biatrial dilation, severe mitral valve insufficiency, elevated RVSP, low gradient mild aortic valve stenosis. Notably, patient has history of nonischemic cardiomyopathy with last echo in 2019 showing EF 55% ? BNP 698 on admit, mildly increased from previous values. Chest x-ray showed bibasilar airspace disease with small pleural effusion increased from prior chest x-ray. Patient does have mild lower extremity edema noted on exam. ? On further history gathered by cardiology, patient reported worsening lower extremity edema and dyspnea on exertion prior to this admission. She lives alone and noted it has been more difficult to take care of her home environment. Has not been on any guideline directed medical therapy to this point as she has listed allergies to both LISA and ARB therapy, and also has a history of sick sinus syndrome so beta-blockers have been withheld. ? Cardiology following. Started Lopressor 12.5 mg twice daily and spironolactone 25 mg daily on 01/24 with hold parameters in place. Spot dosing Lasix as needed and monitoring I's and O's closely. Continue Eliquis for A-fib as noted below. Recommend avoiding Jardiance due to rectal glucose 60. Also recommending SNF placement for the patient at discharge given her worsening weakness from baseline and her medical needs with titrating medications over the next few weeks. 3. Influenza B infection ? Positive for influenza B infection on admission. Chest x-ray with findings as noted above. Stable on room air since admission. Declined Tamiflu therapy. Continue symptomatic management. 4. Debility ? PT/OT/case management following. Patient lives at home alone, is significantly weaker than her baseline at this time. Discussed with patient and daughter and they requesting that patient go to the TCU if possible. Awaiting insurance approval at this time. Chronic medical conditions: ? Paroxysmal A-fib: Continue home Eliquis. Not on any rate controlling agents. ? Hyperlipidemia: Lipid panel showed total cholesterol 108, LDL 69, HDL 22. Increased from home atorvastatin 10 mg at night to atorvastatin 40 mg at night. ? Anxiety and depression: Continue home mirtazapine. ? Hypothyroidism: TSH 2.03. Continue home Synthroid. ? 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 Charges/Coding Visit Charges Inpatient E&M: 04219 Subs Hosp L2
[2024-01-26] MEDS: Tamsulosin HCl 0.4 MG Capsule PO (16:16)
[2024-01-26] MEDS: Ceftriaxone 1 GM/50 ML BAG IV (20:08)
[2024-01-26] MEDS: 0.9% Saline Lock 10 ML Syringe IV (20:09)
[2024-01-26] MEDS: Mirtazapine 15 MG Tablet 7.5 MG PO (20:13)
[2024-01-26] MEDS: APIXABAN 2.5 MG TABLET (WCH) PO (20:13)
[2024-01-26] MEDS: Atorvastatin Calcium 40 MG Tablet PO (20:15)
[2024-01-27 03:20] VITALS: BP 105/57; PULSE 56; RESP 16; TEMP 36.6; O2SAT 98
[2024-01-27 04:36] VITALS: BMI 21.7
[2024-01-27 07:44] VITALS: O2SAT 97
[2024-01-27 07:44] LABS: Anion Gap 6 (5-15); BUN 14 mg/dL (7-18); BUN/Creat Ratio 21.3 RATIO (10-20); Calcium,Total 8.1 mg/dL (8.5-10.1); Chloride 111 mmol/L (98-107); Creatinine, Serum 0.66 mg/dL (0.55-1.02); EST Glomerular Filtration Rate 90 mL/min (>60); Est Glom Filt Rate - Afr Amer 109 mL/min (>60); Estimated Creatinine Clearance 47.27 ml/min; Glucose 84 mg/dL (74-106); Sodium Level 141 mmol/L (136-145)
--- NOTE | 2024-01-27 08:19 | PCM.PN.CARD ---
Subjective Subjective The patient was sleeping when I went in the room this morning. I was able to awaken her easily but she was obviously disoriented. Last evening she got herself out of bed and was dressing herself telling the nursing staff she was leaving and going home. The patient has tolerated to her medical regiment as ordered blood pressure and heart rate are stable her weight actually has gone up 2 pounds by the bed scale. I's and O's appear to be incomplete. Her urine has been dark according to the nursing staff. Her renal function remains within normal range. Objective Data Vital Signs: Vital Signs Temp Pulse Resp BP Pulse Ox O2 Del Method 97.8 F 56 L 16 105/57 L 98 Room Air 01/27/24 03:20 01/27/24 03:20 01/27/24 03:20 01/27/24 03:20 01/27/24 03:20 01/27/24 03:21 Oxygen Delivery Method Room Air Weight: 138 lb 14.259 oz Body Mass Index (BMI) 21.7 Intake & Output: Intake and Output for Last 24 Hours 01/25/24 01/26/24 01/27/24 23:59 23:59 23:59 Intake Total 934 / 934 550 / 670 120 / 120 Output Total 1950 / 1950 300 / 300 Balance -1016 / -1016 250 / 370 120 / 120 Lab / Micro Data Attestation: I reviewed the patient's lab results. 01/26/24 06:21 01/27/24 06:10 Labs: Laboratory Results - last 24 hr 01/27/24 06:10: Sodium 141, Potassium 4.0, Chloride 111 H, Carbon Dioxide 24.0, Anion Gap 6, BUN 14, Creatinine 0.66, Estim Creat Clear Calc 47.27, Est GFR (MDRD) Af Amer 109, Est GFR (MDRD) Non-Af 90, BUN/Creatinine Ratio 21.3 H, Glucose 84, Calcium 8.1 L Micro: Microbiology 01/24/24 18:10 Urine, Catheterized Urine Culture - Final [place] odontolyticus Rhythm Strip Rhythm Strip: A-fib Rate: 55 Cardiology Labs/Tests 01/27/24 06:10: Sodium 141, Potassium 4.0, Chloride 111 H, Carbon Dioxide 24.0, Anion Gap 6, BUN 14, Creatinine 0.66, Est GFR (MDRD) Af Amer 109, Est GFR (MDRD) Non-Af 90, BUN/Creatinine Ratio 21.3 H, Glucose 84, Calcium 8.1 L Rhythm: EKG: ECHO: Stress Test: Cardiac Cath: PCI: CT Surgery: Holter monitor: EPS: PPM: CXR: Chest CT Scan: Physical Exam Const Constitutional Narrative: Asleep and just oriented when awakened. She was cooperative with exam. HEENT normocephalic Eyes EOMs intact bilaterally Neck supple Chest Chest Narrative: Pectus carinatum Resp normal respiratory effort Auscultation: crackles diffuse Cardio regular rate Cardio Narrative: Distant heart tones Rhythm: abnormal rhythm irregularly irregular Heart Sounds: S1 normal and S2 normal; Negative for gallop, murmur or rub GI soft to palpation Extremity no pedal edema Skin no rashes or lesions noted Neuro Neuro Narrative: Lethargic, drowsy, but follows simple commands. Psych Psych Narrative: Lethargic Assessment & Plan Assessment/Plan (1) Heart failure with reduced ejection fraction: PLAN: The patient is tolerating the medical regiment for guideline directed therapy for heart failure reduced ejection fraction. From a cardiovascular standpoint I feel the patient is appropriately treated. Her volume status is difficult to ascertain her pulmonary exam suggest that she is still wet although she does not have any peripheral edema she has not been out of the bed much either. She is disoriented at times and in my opinion will need supervised care for at least some period of time. She is tolerating the current meds at the current dosages with a good response and I recommend that she continue on the same medications. Given the fact she had low blood sugars I do not feel she is a candidate for SGL T2 inhibitors. Cardiology will sign off if further assistance is needed please call. PLAN: Plan 1. Continue current cardiovascular meds as ordered. They should be titrated to response if things change. 2. The patient can be followed up in our office after discharge. 3. Given the patient's overall medical situation and her mental status consideration for extended care facility is ongoing and being evaluated by the primary service. Charges/Coding Visit Charges Inpatient E&M: 50720 Subs Hosp L2
[2024-01-27 08:53] VITALS: BP 117/70; PULSE 90; RESP 16; TEMP 35.8; O2SAT 95
[2024-01-27] MEDS: Spironolactone 25 MG Tablet PO (08:56)
[2024-01-27 08:57] VITALS: PULSE 90
[2024-01-27] MEDS: Metoprolol Tartrate 25 MG Tablet 12.5 MG PO (08:57)
[2024-01-27] MEDS: Potassium Chloride Oral Tablet 20 MEQ PO (08:57)
[2024-01-27] MEDS: Aspirin 81 MG TAB.CHEW PO (08:57)
[2024-01-27] MEDS: APIXABAN 2.5 MG TABLET (WCH) PO (08:57)
[2024-01-27] MEDS: Pantoprazole Sodium 20 MG Tablet PO (08:57)
[2024-01-27] MEDS: Furosemide 20 MG Tablet PO (08:58)
--- NOTE | 2024-01-27 11:19 | CASEMGMT ---
Patient was approved to go to [facility]. SW notified physician, RN, patient, and national secretary. All in agreement with d/c plan to TCU. Plan: d/c to [facility] under skilled level of care. Clare WHITMORE
--- NOTE | 2024-01-27 11:39 | PCM.TXEXTCAR ---
Diet Diet Order/Speech Therapy: 01/26/24 08:44 Diet: Cardiac - Heart Healthy Food consistency:: Soft & Bite Sized Liquid Consistency:: Regular/Thin Is pt able to select menu?: No Routine Orders/Code Status Routine Lab Work: BMP (repeat in 1 week to monitor kidney function) Code Status: DNRCC-A (DO NOT INTUBATE) Therapies Weight Bearing: Full weight bearing Physical Therapy: Eval and Treat Occupational Therapy: Eval and Treat Problem/Diagnosis (1) Heart failure with reduced ejection fraction: Status: Acute Code(s): I50.20 - Unspecified systolic (congestive) heart failure Plan Patient is an 88-year-old female who presented [facility] ED on 01/24/2024 with slurred speech concerning for stroke. Hospital course as noted below. Patient discharged to SNF in stable condition on 01/26. 1. Slurred speech, resolved; CVA ruled out ? Stroke workup negative including CT brain without contrast, CTA head/neck, MRI brain without contrast. ? TTE did show new diagnosis of HFrEF with other findings as noted below. ? Neurology evaluated. No acute infarct noted on MRI, no concern for acute stroke. No additional neurology workup needed. 2. New diagnosis of HFrEF ? TTE on admit showed newly reduced EF of 20%, severe global LV systolic dysfunction, stage III diastolic dysfunction, mild to moderate global RV systolic function, severe biatrial dilation, severe mitral valve insufficiency, elevated RVSP, low gradient mild aortic valve stenosis. Notably, patient has history of nonischemic cardiomyopathy with last echo in 2019 showing EF 55% ? BNP 698 on admit, mildly increased from previous values. Chest x-ray showed bibasilar airspace disease with small pleural effusion increased from prior chest x-ray. Patient does have mild lower extremity edema noted on exam. ? On further history gathered by cardiology, patient reported worsening lower extremity edema and dyspnea on exertion prior to this admission. She lives alone and noted it has been more difficult to take care of her home environment. Has not been on any guideline directed medical therapy to this point as she has listed allergies to both LISA and ARB therapy, and also has a history of sick sinus syndrome so beta-blockers have been withheld. ? Cardiology followed. Started Lopressor 12.5 mg twice daily and spironolactone 25 mg daily on 01/24, patient tolerated well. Continue Eliquis for A-fib as noted below. Recommend avoiding Jardiance due to rectal glucose 60. Outpatient follow up with cardiology after discharge from SNF. 3. Influenza B infection ? Positive for influenza B infection on admission. Chest x-ray with findings as noted above. Stable on room air since admission. Declined Tamiflu therapy. Continue symptomatic management. 4. Debility ? PT/OT/case management followed. Patient lived at home alone, was significantly weaker than her baseline during hospitalization. Discharged to SNF ([facility]) in stable condition on 01/26. Chronic medical conditions: ? Paroxysmal A-fib: Continue home Eliquis. Not on any rate controlling agents. ? Hyperlipidemia: Lipid panel showed total cholesterol 108, LDL 69, HDL 22. Increased from home atorvastatin 10 mg at night to atorvastatin 40 mg at night. ? Anxiety and depression: Continue home mirtazapine. ? Hypothyroidism: TSH 2.03. Continue home Synthroid. ? 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 Allergies/Procedures Done in Hospital Allergies amlodipine Allergy (Verified 01/24/24 16:41) Other hydrochlorothiazide Allergy (Verified 01/24/24 16:41) Other Latex, Natural Rubber Allergy (Verified 01/24/24 16:41) Other lisinopril Allergy (Verified 01/24/24 16:41) Other losartan Allergy (Verified 01/24/24 16:41) Other Procedures: EKG, Transthoracic Echo and - (CT brain without contrast, chest x-ray x 2, CTA head/neck, MRI brain without contrast) Type of Care/Length of Stay Estimated LOS: Convalescent Care Less Than 30 days Type of Care Needed: Skilled Rehab Potential: Fair Prognosis: Fair Additional Orders/Day of Discharge H&P will serve as current which was dated: 01/24/24 Day of Discharge: 01/27/24 Dietary and Speech Recommendations Dietitian Recommendations/Changes: Continue Cardiac diet with texture/consistency per [employer] to manage medical conditions. Discharge Plan Admission Admit Date/Time: 01/24/24 21:10 Attending Provider: Dave Ramirez Primary Care Provider: Rebekah Beckford Consulting Providers: Joanne Recio; Cornelio Cole Discharge Orders/Prescriptions Prescriptions: No Action Eliquis 5 mg Tablet 5 mg PO BID Qty: 60 0RF Rx Instructions: take 1 tab every 12 hours to prevent blood clots/strokes atorvastatin 10 mg Tablet 10 mg PO QHS Qty: 30 0RF Rx Instructions: Take this medication at bedtime tamsulosin 0.4 mg Capsule 0.4 mg PO DAILY@1730 Qty: 30 0RF Rx Instructions: To prevent urine retention mirtazapine 15 mg Tablet 7.5 mg PO QHS Qty: 16 0RF Rx Instructions: 1/2 tab at bedtime every night levothyroxine 25 mcg tablet 25 mcg PO DAILY Qty: 30 0RF ondansetron [ondansetron] 4 mg tablet,disintegrating 4 mg PO Q8H PRN PRN (Reason: Nausea) Qty: 10 0RF fesoterodine 4 mg tablet extended release 24 hr 4 mg PO DAILY hydralazine 10 mg Tablet 10 mg PO DAILY potassium chloride 20 mEq tablet,ER particles/crystals 20 meq PO DAILY Patient Comments: TAKE 1 TABLET BY MOUTH EVERY DAY omeprazole 20 mg capsule,delayed release(DR/EC) 20 mg PO DAILY Patient Comments: TAKE 1 CAPSULE BY MOUTH ONCE A DAY FOR 14 DAYS Referrals / Follow Up: Rebekah Beckford MD [Primary Care Provider] - Charges/Coding Visit Charges Inpatient E&M: 50857 Disch Hosp >30min
--- NOTE | 2024-01-27 11:43 | DCINST_ITS ---
Discharge Instructions Diet Discharge Diet: No restrictions Activity Discharge Activity: No Restrictions Weight Bearing Status: Full weight bearing Follow Up Care Test Results: Test results from this visit will be discussed in further detail at your follow- up appointment, if applicable. Discharge Plan Admission Admit Date/Time: 01/24/24 21:10 Primary Reason for Your Visit: Strokelike symptoms, weakness Attending Provider: Dave Ramirez Primary Care Provider: Rebekah Beckford Consulting Providers: Joanne Recio; Cornelio Cole Discharge Orders/Prescriptions Prescriptions: New atorvastatin 40 mg Tablet 40 mg PO QHS Qty: 0 0RF spironolactone 25 mg Tablet 25 mg PO DAILY Qty: 0 0RF aspirin 81 mg Tablet,Chewable 81 mg PO BREAKFAST Qty: 0 0RF furosemide 20 mg Tablet 20 mg PO DAILY Qty: 0 0RF metoprolol tartrate 25 mg Tablet 12.5 mg PO BID Qty: 0 0RF Eliquis 5 mg Tablet 2.5 mg PO BID Qty: 0 0RF Continued Eliquis 5 mg Tablet 5 mg PO BID Qty: 60 0RF Rx Instructions: take 1 tab every 12 hours to prevent blood clots/strokes tamsulosin 0.4 mg Capsule 0.4 mg PO DAILY@1730 Qty: 30 0RF Rx Instructions: To prevent urine retention mirtazapine 15 mg Tablet 7.5 mg PO QHS Qty: 16 0RF Rx Instructions: 1/2 tab at bedtime every night levothyroxine 25 mcg tablet 25 mcg PO DAILY Qty: 30 0RF ondansetron 4 mg tablet,disintegrating 4 mg PO Q8H PRN PRN (Reason: Nausea) Qty: 10 0RF fesoterodine 4 mg tablet extended release 24 hr 4 mg PO DAILY potassium chloride 20 mEq tablet,ER particles/crystals 20 meq PO DAILY Patient Comments: TAKE 1 TABLET BY MOUTH EVERY DAY omeprazole 20 mg capsule,delayed release(DR/EC) 20 mg PO DAILY Patient Comments: TAKE 1 CAPSULE BY MOUTH ONCE A DAY FOR 14 DAYS Discontinued atorvastatin 10 mg Tablet 10 mg PO QHS Qty: 30 0RF Rx Instructions: Take this medication at bedtime hydralazine 10 mg Tablet 10 mg PO DAILY Referrals / Follow Up: Rebekah Beckford MD [Primary Care Provider] - Disposition Disposition (needs filled in before D/C Order can be placed): Detention Facility
--- NOTE | 2024-01-27 11:46 | PCM.DC.SUM ---
Providers Date of Admission: 01/24/24 Date of Discharge: 01/27/24 Primary Care Physician: Dr. Rebekah Beckford MD Consultations 01/24/24 22:26 Consult: Tele-Neurology Routine Consulting Provider: [facility] Reason for Consult: Acute Ischemic Stroke/TIA EMERGENT Consult: No Notified: Yes Date Notified: 01/25/24 Time Notified: 06:24 Method of Notification: Answering Service Nursing Unit Staff Notify [facility] of Tele-Neurology Consult: Yes 01/25/24 15:00 Consult: Cardiology Routine Consulting Provider: Cornelio Cole Reason for Consult: new onset severe HFrEF EMERGENT Consult: No Notified: Yes Date Notified: 01/25/24 Time Notified: 15:41 Method of Notification: Text Reason For Visit: TIA/CVA, POSS UTI Diagnosis Discharge Diagnosis (1) Heart failure with reduced ejection fraction: Status: Acute Code(s): I50.20 - Unspecified systolic (congestive) heart failure Medications at Discharge Home Medications levothyroxine 25 mcg tablet 25 mcg PO DAILY hypothyroidism #30 tabs 03/11/22 mirtazapine 15 mg tablet 7.5 mg (1/2 x 15 mg) PO QHS sleep #16 tabs 03/11/22 tamsulosin 0.4 mg capsule 0.4 mg PO DAILY@1730 urine retention #30 caps 03/11/22 ondansetron 4 mg disintegrating tablet 4 mg PO Q8H PRN PRN Nausea #10 tabs 11/25/23 fesoterodine 4 mg tablet,extended release 24 hr 4 mg PO DAILY overactive bladder 12/02/23 omeprazole 20 mg capsule,delayed release 20 mg PO DAILY acid reflux 01/24/24 potassium chloride 20 mEq tablet,extended release(part/cryst) 20 meq PO DAILY supplement 01/24/24 apixaban 5 mg tablet (Eliquis) 2.5 mg (1/2 x 5 mg) PO BID blood thinner #0 tabs 01/27/24 atorvastatin 40 mg tablet 40 mg PO QHS cholesterol #0 tabs 01/27/24 furosemide 20 mg tablet 20 mg PO DAILY water pill #0 tabs 01/27/24 metoprolol tartrate 25 mg tablet 12.5 mg (1/2 x 25 mg) PO BID blood pressure #0 tabs 01/27/24 spironolactone 25 mg tablet 25 mg PO DAILY water pill #0 tabs 01/27/24 Hospital Course Operations None Procedures EKG, Transthoracic echo and - (CT brain without contrast, chest x-ray x 2, CTA head/neck, MRI brain without contrast) Summary of Care Provided Minutes Spent on Discharge: 35 Hospital Course: Patient is an 88-year-old female who presented [facility] ED on 01/24/2024 with slurred speech concerning for stroke. Hospital course as noted below. Patient discharged to SNF in stable condition on 01/26. 1. Slurred speech, resolved; CVA ruled out ? Stroke workup negative including CT brain without contrast, CTA head/neck, MRI brain without contrast. ? TTE did show new diagnosis of HFrEF with other findings as noted below. ? Neurology evaluated. No acute infarct noted on MRI, no concern for acute stroke. No additional neurology workup needed. 2. New diagnosis of HFrEF ? TTE on admit showed newly reduced EF of 20%, severe global LV systolic dysfunction, stage III diastolic dysfunction, mild to moderate global RV systolic function, severe biatrial dilation, severe mitral valve insufficiency, elevated RVSP, low gradient mild aortic valve stenosis. Notably, patient has history of nonischemic cardiomyopathy with last echo in 2019 showing EF 55% ? BNP 698 on admit, mildly increased from previous values. Chest x-ray showed bibasilar airspace disease with small pleural effusion increased from prior chest x-ray. Patient does have mild lower extremity edema noted on exam. ? On further history gathered by cardiology, patient reported worsening lower extremity edema and dyspnea on exertion prior to this admission. She lives alone and noted it has been more difficult to take care of her home environment. Has not been on any guideline directed medical therapy to this point as she has listed allergies to both LISA and ARB therapy, and also has a history of sick sinus syndrome so beta-blockers have been withheld. ? Cardiology followed. Started Lopressor 12.5 mg twice daily and spironolactone 25 mg daily on 01/24, patient tolerated well. Continue Eliquis for A-fib as noted below. Recommend avoiding Jardiance due to rectal glucose 60. Outpatient follow up with cardiology after discharge from SNF. 3. Influenza B infection ? Positive for influenza B infection on admission. Chest x-ray with findings as noted above. Stable on room air during admission. Declined Tamiflu therapy. Continue symptomatic management. 4. Debility ? PT/OT/case management followed. Patient lived at home alone, was significantly weaker than her baseline during hospitalization. Discharged to SNF ([facility]) in stable condition on 01/26. Chronic medical conditions: ? Paroxysmal A-fib: Continue home Eliquis. Not on any rate controlling agents. ? Hyperlipidemia: Lipid panel showed total cholesterol 108, LDL 69, HDL 22. Increased from home atorvastatin 10 mg at night to atorvastatin 40 mg at night. ? Anxiety and depression: Continue home mirtazapine. ? Hypothyroidism: TSH 2.03. Continue home Synthroid. ? 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 Physical Exam Const alert, no apparent distress and average body habitus Constitutional Narrative: Elderly female, sitting up comfortably in bedside chair, very hard of hearing, fatigued appearing and slightly confused, otherwise in no acute distress. General Appearance: cooperative and comfortable HEENT normocephalic, head/scalp atraumatic, nasal mucous membranes and turbinates normal and moist oral mucous membranes HEENT Narrative: Very hard of hearing. Eyes PERRL, EOMs intact bilaterally and conjunctivae normal Neck full ROM Lymph Lymphatic: no lymphadenopathy noted Chest inspection of chest normal Resp normal respiratory effort and no use of accessory muscles Resp Narrative: Breathing comfortably on room air. Mildly decreased breath sounds bilaterally in lung bases. No wheezing or crackles noted. Cardio regular rate, regular rhythm, no murmurs and peripheral pulses 2+ throughout GI normal to inspection, nondistended, normoactive bowel sounds, soft to palpation, non-tender and non-distended Back/Spine normal ROM Extremity full ROM Extremity Narrative: +1-2 lower extremity pitting edema noted. Skin no rashes or lesions noted Neuro no focal motor deficits and no sensory deficits noted Neuro Narrative: No slurred speech noted. Speech: speech normal Weight / BMI Weight Weight: 63 kg Body Mass Index (BMI) 21.7 ABG / Lab / Microbiology Data 01/26/24 06:21 01/27/24 06:10 Laboratory: Laboratory Results - last 24 hr 01/27/24 06:10: Sodium 141, Potassium 4.0, Chloride 111 H, Carbon Dioxide 24.0, Anion Gap 6, BUN 14, Creatinine 0.66, Estim Creat Clear Calc 47.27, Est GFR (MDRD) Af Amer 109, Est GFR (MDRD) Non-Af 90, BUN/Creatinine Ratio 21.3 H, Glucose 84, Calcium 8.1 L Microbiology: Microbiology 01/24/24 18:10 Urine, Catheterized Urine Culture - Final [place] odontolyticus 01/25/24 03:35 Mucosa - Nasopharyngeal Respiratory Panel (PCR) - Final Influenzae B 01/25/24 06:20 Urine, Clean Catch Legionella Antigen - Final 01/25/24 06:20 Urine, Clean Catch Streptococcus pneumoniae Antigen (M - Final D/C Instructions Discharge Diet: No restrictions Weight Bearing Status: Full weight bearing Meaningful Use Info Meaningful Use Diagnoses (Choose all that apply): None applicable Discharge Plan Admission Admit Date/Time: 01/24/24 21:10 Primary Reason for Your Visit: Strokelike symptoms, weakness Attending Provider: Dave Ramirez Primary Care Provider: Rebekah Beckford Consulting Providers: Joanne Recio; Cornelio Cole Discharge Orders/Prescriptions Prescriptions: New atorvastatin 40 mg Tablet 40 mg PO QHS Qty: 0 0RF spironolactone 25 mg Tablet 25 mg PO DAILY Qty: 0 0RF furosemide 20 mg Tablet 20 mg PO DAILY Qty: 0 0RF metoprolol tartrate 25 mg Tablet 12.5 mg PO BID Qty: 0 0RF Eliquis 5 mg Tablet 2.5 mg PO BID Qty: 0 0RF Continued tamsulosin 0.4 mg Capsule 0.4 mg PO DAILY@1730 Qty: 30 0RF Rx Instructions: To prevent urine retention mirtazapine 15 mg Tablet 7.5 mg PO QHS Qty: 16 0RF Rx Instructions: 1/2 tab at bedtime every night levothyroxine 25 mcg tablet 25 mcg PO DAILY Qty: 30 0RF ondansetron 4 mg tablet,disintegrating 4 mg PO Q8H PRN PRN (Reason: Nausea) Qty: 10 0RF fesoterodine 4 mg tablet extended release 24 hr 4 mg PO DAILY potassium chloride 20 mEq tablet,ER particles/crystals 20 meq PO DAILY Patient Comments: TAKE 1 TABLET BY MOUTH EVERY DAY omeprazole 20 mg capsule,delayed release(DR/EC) 20 mg PO DAILY Patient Comments: TAKE 1 CAPSULE BY MOUTH ONCE A DAY FOR 14 DAYS Discontinued atorvastatin 10 mg Tablet 10 mg PO QHS Qty: 30 0RF Rx Instructions: Take this medication at bedtime hydralazine 10 mg Tablet 10 mg PO DAILY Referrals / Follow Up: Rebekah Beckford MD [Primary Care Provider] - Disposition Disposition (needs filled in before D/C Order can be placed): Long Term Facility Charges/Coding Visit Charges Inpatient E&M: 78379 Disch Hosp >30min
--- NOTE | 2024-01-27 11:56 | PHA.DC_ITS ---
Pharmacy [facility] Reconciliation Pharmacy Service has performed discharge medication reconciliation for this patient. The patient's discharge medication list was reviewed for discrepancies and discrepancies were resolved. Medications at Discharge Home Medications apixaban 5 mg tablet (Eliquis) 5 mg PO BID #60 tabs 03/11/22 levothyroxine 25 mcg tablet 25 mcg PO DAILY hypothyroidism #30 tabs 03/11/22 mirtazapine 15 mg tablet 7.5 mg (1/2 x 15 mg) PO QHS #16 tabs 03/11/22 tamsulosin 0.4 mg capsule 0.4 mg PO DAILY@1730 #30 caps 03/11/22 ondansetron 4 mg disintegrating tablet 4 mg PO Q8H PRN PRN Nausea #10 tabs 11/25/23 fesoterodine 4 mg tablet,extended release 24 hr 4 mg PO DAILY 12/02/23 omeprazole 20 mg capsule,delayed release 20 mg PO DAILY 01/24/24 potassium chloride 20 mEq tablet,extended release(part/cryst) 20 meq PO DAILY 01/24/24 apixaban 5 mg tablet (Eliquis) 2.5 mg (1/2 x 5 mg) PO BID #0 tabs 01/27/24 aspirin 81 mg chewable tablet 81 mg PO BREAKFAST #0 tabs 01/27/24 atorvastatin 40 mg tablet 40 mg PO QHS #0 tabs 01/27/24 furosemide 20 mg tablet 20 mg PO DAILY #0 tabs 01/27/24 metoprolol tartrate 25 mg tablet 12.5 mg (1/2 x 25 mg) PO BID #0 tabs 01/27/24 spironolactone 25 mg tablet 25 mg PO DAILY #0 tabs 01/27/24
== END 2024-01-27 14:02 | disposition skilled nursing facility (03) | DRG 291 ==
LOC: ED 21:03 → PCU 21:58
PROVIDERS: Admitting Provider Family Medicine; Emergency Provider Emergency Medicine; PCP Family Medicine; Visit Provider Hospitalist
DX: I11.0 Hypertensive heart disease with heart failure (principal); I50.21 Acute systolic (congestive) heart failure; I48.19 Other persistent atrial fibrillation; I42.8 Other cardiomyopathies; Z79.01 Long term (current) use of anticoagulants; I48.0 Paroxysmal atrial fibrillation; E03.9 Hypothyroidism, unspecified; F32.A Depression, unspecified; I08.0 Rheumatic disorders of both mitral and aortic valves; K21.9 Gastro-esophageal reflux disease without esophagitis; E78.5 Hyperlipidemia, unspecified; F41.9 Anxiety disorder, unspecified; J10.1 Influenza due to other identified influenza virus with other respiratory manifestations; Z66 Do not resuscitate; Z79.899 Other long term (current) drug therapy
CPT/HCPCS: 36415; 70450; 70496; 70498; 70551; 71045; 80048; 80053; 80061; 80076; 81001; 83036; 83605; 83735; 83880; 84145; 84443; 84484; 85025; 85027; 85610; 85730; 87077; 87086; 87088; 87449; 87633; 92526; 92610; 93005; 93306; 94762; 97116; 97162; 97166; 97530; 97535; 99285; J7030; J7050; Q9967; A4216; J1940

== ENCOUNTER 2024-01-27 14:05 | Inpatient (IN) | payer MEDICARE, SELFPAY ==
[2024-01-27 14:17] VITALS: BP 97/59; PULSE 69; RESP 96; TEMP 35.9; O2SAT 19; BMI 21.0
--- NOTE | 2024-01-27 14:37 | HP.PCM_ITS ---
HPI - General General Date of Admission: 01/27/24 Date of Service: 01/27/24 Chief Complaint: Here for rehabilitation. HPI Narrative 01/24/2024 RUPESH HUSTON, is a 88 Female who presents to [facility] ED change in mental status. Slurred speech, on Eliquis for atrial fibrillation/prior stroke. Feels tired, history of UTI, left leg weakness chronic. NIH 1. Chest X-ray okay, CT brain old right frontal/temporal infarcts. EKG atrial fibrillation. UA c/w UTI, urine culture sent, Rocephin iv given for UTI. 01/24/[address] [facility]. MRI brain, CTA head/neck, Echo, PT/OT/ST, Neurology for stroke. Rocephin IV for UTI, urine culture pending. BNP for CXR overload versus pneumonia. 01/24/2024 Echo Mild dilated LV. Severe global LV systolic dysfunction. EF 20%. Stage 3 diastolic dysfunction. 01/25/2024 Dysarthria resolved. MRI brain negative for stroke. Metoprolol 12.5mg bid, Aldactone 25mg daily, Lasix for acute HFrEF. Patient declined Tamiflu for influenza B. 01/26/2024 More tired, more confused. PT/OT for SNF. 01/27/2024 Confused. Avoid SGLT2i 2/2 Hypoglycemia. 01/27/2024 Admit to TCU with debility, here for rehabilitation, strengthening, prior to discharge home alone. [facility] Medical History (Updated 01/27/24 @ 14:[address] Lasha Camargo MD) Biatrial enlargement Chronic anticoagulation Clot Cognitive dysfunction Essential hypertension History of cerebral thrombosis Hypothyroidism Mixed hyperlipidemia Non-Hodgkin lymphoma Non-rheumatic mitral regurgitation Nonischemic cardiomyopathy Normochromic normocytic anemia Paroxysmal atrial fibrillation Prediabetes Presbycusis Pulmonary hypertension Urine retention Home Medications apixaban 5 mg tablet (Eliquis) 5 mg PO BID #60 tabs 03/11/22 [Rx Last Taken Unknown] levothyroxine 25 mcg tablet 25 mcg PO DAILY hypothyroidism #30 tabs 03/11/22 [Rx Last Taken Unknown] mirtazapine 15 mg tablet 7.5 mg (1/2 x 15 mg) PO QHS #16 tabs 03/11/22 [Rx Last Taken Unknown] tamsulosin 0.4 mg capsule 0.4 mg PO DAILY@1730 #30 caps 03/11/22 [Rx Last Taken Unknown] ondansetron 4 mg disintegrating tablet 4 mg PO Q8H PRN PRN Nausea #10 tabs 11/25/23 [Rx Last Taken Unknown] fesoterodine 4 mg tablet,extended release 24 hr 4 mg PO DAILY 12/02/23 [History Last Taken Unknown] omeprazole 20 mg capsule,delayed release 20 mg PO DAILY 01/24/24 [History Last Taken Unknown] potassium chloride 20 mEq tablet,extended release(part/cryst) 20 meq PO DAILY 01/24/24 [History Last Taken Unknown] apixaban 5 mg tablet (Eliquis) 2.5 mg (1/2 x 5 mg) PO BID #0 tabs 01/27/24 [Rx Last Taken Unknown] aspirin 81 mg chewable tablet 81 mg PO BREAKFAST #0 tabs 01/27/24 [Rx Last Taken Unknown] atorvastatin 40 mg tablet 40 mg PO QHS #0 tabs 01/27/24 [Rx Last Taken Unknown] furosemide 20 mg tablet 20 mg PO DAILY #0 tabs 01/27/24 [Rx Last Taken Unknown] metoprolol tartrate 25 mg tablet 12.5 mg (1/2 x 25 mg) PO BID #0 tabs 01/27/24 [Rx Last Taken Unknown] spironolactone 25 mg tablet 25 mg PO DAILY #0 tabs 01/27/24 [Rx Last Taken Unknown] Allergy/AdvReac Type Severity Reaction Status Date / Time amlodipine Allergy Other Verified 01/24/24 16:41 hydrochlorothiazide Allergy Other Verified 01/24/24 16:41 Latex, Natural Rubber Allergy Other Verified 01/24/24 16:41 lisinopril Allergy Other Verified 01/24/24 16:41 losartan Allergy Other Verified 01/24/24 16:41 Family History Mother CHF (congestive heart failure) Father Diabetes Surgical History History of embolectomy History of hysterectomy History of tubal ligation Social History household members: none Smoking Status: Never smoker alcohol intake: never substance use type: does not use caffeine: Yes Type: carbonated beverages Number of servings: 1 ROS Constitutional Constitutional: Denies chills, fever(s) or weight gain ENT HEENT: Denies headache(s), nasal congestion or nasal discharge Cardiovascular Cardiovascular: Denies chest pain or palpitations Respiratory/Chest Respiratory/Chest: Denies cough, excessive phlegm production or shortness of breath with exertion Gastrointestinal Gastrointestinal: Denies abdominal pain, nausea or vomiting Genitourinary Genitourinary: Denies dysuria Musculoskeletal Musculoskeletal: Denies joint pain or joint swelling Integumentary Integumentary: Denies rash or wounds Neurologic Neurologic: Denies focal weakness, numbness or tingling Psychiatric Psychiatric: Denies anxiety, auditory hallucinations, depression, homicidal ideation or suicidal ideation Vital Signs Vital Signs Vital Signs: 01/27/24 14:17 Temperature 96.7 F L Temperature Source Temporal Pulse Rate 69 Respiratory Rate 96 H Blood Pressure 97/59 L Blood Pressure Mean 71 Pulse Ox 19 Oxygen Delivery Method Room Air Weight Weight: 60.98 kg Body Mass Index (BMI) 21.0 Physical Exam Const alert General Appearance: cooperative HEENT normocephalic Eyes PERRL and EOMs intact bilaterally Neck supple, no JVD and no carotid bruits Resp normal respiratory effort, normal air movement and clear to auscultation bilaterally Cardio regular rate and regular rhythm GI normal to inspection, nondistended, normoactive bowel sounds, non-tender and non-distended Extremity normal capillary refill General Extremity: Negative for edema Skin no rashes or lesions noted General Skin Exam: no breakdown Neuro Neuro Narrative: Moving all 4 extremities. Psych affect normal Appearance: appropriate Assessment & Plan Assessment/Plan (1) Debility: (2) Dysarthria: (3) TIA (transient ischemic attack): (4) Urinary tract infection: (5) Acute HFrEF (heart failure with reduced ejection fraction): (6) Influenza B: (7) Atrial fibrillation: QUALIFIERS: Atrial fibrillation type: persistent (not longstanding) Qualified Code(s): I48.19 - Other persistent atrial fibrillation (8) Stroke: (9) Hyperlipidemia: (10) Hypothyroidism: (11) Appetite loss: (12) Overactive bladder: (13) GERD (gastroesophageal reflux disease): (14) Hypokalemia: PLAN: Plan 88 year old female with below past medical history hospitalized for dysarthria/TIA, complicated by acute HFrEF, UTI, influenza B, admitted to TCU with debility, here for rehabilitation, strengthening, prior to discharge home alone. * Debility - PT/OT. * Pain - Tylenol 1000mg q6 prn pain (1-10). * Bowel - senna/colace 1 tablet bid prn, Magnesium citrate 300ml daily prn. * Adult immunization - Administer pneumonia vaccine, covid vaccine, flu vaccine as appropriate. * DVT prophylaxis - on Eliquis 2.5mg bid. * TIA/dysarthria - Eliquis 2.5mg bid. * Hyperlipidemia - Atorvastatin 40mg qhs. * acute HFrEF - Metoprlol 12.5mg bid, Aldactone 25mg daily, Fuorsemide 20mg daily. * Atrial fibrillation - Metoprolol 12.5mg bid, Eliquis 2.5mg bid. * Urinary retention - Tamsulosin 0.4mg daily. * Appetite loss - Mirtazapine 15mg qhs, stable chronic buttermaker use, GDR not recommended. * Hypothyroidism - Levothyroxine 25mcg daily. * Overactive bladder - Fesoferodine 4mg (or [facility] formulary equivalent) daily. * Hypokalemia - KCL 20meq daily. * GERD - Omeprazole 20mg daily (or [facility] formulary equivalent).
[2024-01-27] MEDS: Tamsulosin HCl 0.4 MG Capsule 0.400000000000000022 MG PO (18:36)
[2024-01-27 18:52] VITALS: PULSE 76; RESP 16; O2SAT 96
[2024-01-27] MEDS: APIXABAN 2.5 MG TABLET (WCH) PO (21:22)
[2024-01-27] MEDS: Ensure Plus High Protein 120 ML LIQUID PO (21:22)
[2024-01-27] MEDS: Mirtazapine 15 MG Tablet 7.5 MG PO (21:23)
[2024-01-27] MEDS: Atorvastatin Calcium 40 MG Tablet PO (21:23)
[2024-01-27 21:39] VITALS: BP 100/68; PULSE 71
[2024-01-27] MEDS: Metoprolol Tartrate 25 MG Tablet 12.5 MG PO (21:39)
[2024-01-28] MEDS: Ensure Plus High Protein 120 ML LIQUID PO ×2 (05:54→17:46)
[2024-01-28] MEDS: Levothyroxine 25 MCG TABLET PO (05:54)
[2024-01-28 06:55] LABS: Bedside Glucose 100 mg/dL (74-106)
[2024-01-28 08:36] LABS: Absolute Lymphocyte Count 0.94 X10^3/uL (0.83-4.51); Basophil# 0.02 X10^3/uL; Basophil% 0.6 % (0-1); Eosinophil# 0.07 X10^3/uL; Hematocrit 42.9 % (37-47); Hemoglobin 13.2 g/dL (12.0-15.0); Lymphocyte # 0.94 X10^3/ul (0.83-4.51); Lymphocyte % 26.8 % (19-41); Mean Corp Hgb Conc 30.8 g/dL (32-36); Mean Corpuscular Hgb 28.8 pg (27.0-32.0); Mean Corpuscular Volume 93.5 fL (81-99); Mean Platelet Vol. 10.9 fl (6.2-12.0); Monocyte# 0.42 X10^3/uL; NRBC Flagged by Analyzer 0 % (0-5); Neutrophil # 2.04 X10^3/uL (2.7-7.7); Platelet Count 114 K/mm3 (150-450); RBC Distribution Width CV 16.8 % (11.6-14.6); RBC Distribution Width SD 57.7 fl (35.1-43.9); Red Blood Count 4.59 M/mm3 (4.2-5.4); White Blood Count 3.5 K/mm3 (4.4-11.0)
[2024-01-28] MEDS: APIXABAN 2.5 MG TABLET (WCH) PO ×2 (08:40→22:06)
[2024-01-28] MEDS: Tolterodine Tartrate 2 MG CAP.SA PO (08:40)
[2024-01-28] MEDS: Potassium Chloride Oral Tablet 20 MEQ PO (08:40)
[2024-01-28] MEDS: Pantoprazole Sodium 20 MG Tablet PO (08:41)
[2024-01-28 08:50] LABS: Anion Gap 3 (5-15); BUN 15 mg/dL (7-18); BUN/Creat Ratio 19.8 RATIO (10-20); Calcium,Total 8.7 mg/dL (8.5-10.1); Chloride 111 mmol/L (98-107); Creatinine, Serum 0.76 mg/dL (0.55-1.02); EST Glomerular Filtration Rate 76 mL/min (>60); Est Glom Filt Rate - Afr Amer 93 mL/min (>60); Estimated Creatinine Clearance 46.79 ml/min; Glucose 90 mg/dL (74-106); Potassium 4.3 mmol/L (3.5-5.1); Sodium Level 139 mmol/L (136-145)
[2024-01-28 11:04] VITALS: BP 97/51; PULSE 69
[2024-01-28] MEDS: Tuberculin,Purif.prot.deriv. 50 TU/ML Vial 0.100000000000000006 ML ID (11:05)
[2024-01-28 15:46] VITALS: BP 108/58; PULSE 78; RESP 16; TEMP 36.1; O2SAT 96
[2024-01-28] MEDS: Tamsulosin HCl 0.4 MG Capsule 0.400000000000000022 MG PO (17:46)
[2024-01-28 22:04] VITALS: BP 115/52; PULSE 64
[2024-01-28] MEDS: Metoprolol Tartrate 25 MG Tablet 12.5 MG PO (22:04)
[2024-01-28] MEDS: Mirtazapine 15 MG Tablet 7.5 MG PO (22:05)
[2024-01-28] MEDS: Atorvastatin Calcium 40 MG Tablet PO (22:06)
[2024-01-29] MEDS: Levothyroxine 25 MCG TABLET PO (05:46)
[2024-01-29 06:00] VITALS: BMI 20.5
[2024-01-29 06:15] VITALS: O2SAT 95
[2024-01-29 09:46] VITALS: BP 103/52; PULSE 71
[2024-01-29] MEDS: Furosemide 20 MG Tablet PO (09:46)
[2024-01-29] MEDS: Metoprolol Tartrate 25 MG Tablet 12.5 MG PO (09:46)
[2024-01-29] MEDS: Pantoprazole Sodium 20 MG Tablet PO (09:46)
[2024-01-29] MEDS: Tolterodine Tartrate 2 MG CAP.SA PO (09:46)
[2024-01-29] MEDS: Potassium Chloride Oral Tablet 20 MEQ PO (09:46)
[2024-01-29] MEDS: APIXABAN 2.5 MG TABLET (WCH) PO ×2 (09:46→23:02)
[2024-01-29] MEDS: Ensure Plus High Protein 120 ML LIQUID PO ×2 (11:06→17:23)
[2024-01-29] MEDS: Spironolactone 25 MG Tablet PO (11:06)
[2024-01-29 11:14] VITALS: BP 105/56; PULSE 65
[2024-01-29 15:26] VITALS: BP 97/56; PULSE 65; RESP 14; TEMP 36.3; O2SAT 95
[2024-01-29] MEDS: Tamsulosin HCl 0.4 MG Capsule 0.400000000000000022 MG PO (17:23)
[2024-01-29] MEDS: Atorvastatin Calcium 40 MG Tablet PO (23:03)
[2024-01-29] MEDS: Mirtazapine 15 MG Tablet 7.5 MG PO (23:03)
[2024-01-30] MEDS: Levothyroxine 25 MCG TABLET PO (05:42)
[2024-01-30] MEDS: Acetaminophen 500 MG Tablet 1000 MG PO (05:43)
[2024-01-30] MEDS: Tolterodine Tartrate 2 MG CAP.SA PO (09:01)
[2024-01-30] MEDS: Potassium Chloride Oral Tablet 20 MEQ PO (09:01)
[2024-01-30] MEDS: Pantoprazole Sodium 20 MG Tablet PO (09:01)
[2024-01-30] MEDS: APIXABAN 2.5 MG TABLET (WCH) PO ×2 (09:01→21:02)
[2024-01-30 09:09] VITALS: BP 94/35; PULSE 70; RESP 16; TEMP 36.1; O2SAT 93
--- NOTE | 2024-01-30 11:22 | PCM.PN.DRR ---
Documented by User: Tesfaye Shannon 01/30/24 11:42 TCU RX Drug Regimen Review Subjective/Objective Subjective/Objective: Subjective: TCU admission note. 88 year old female with below past medical history hospitalized for dysarthria/TIA, complicated by acute HFrEF, UTI, influenza B, admitted to TCU with debility, here for rehabilitation, strengthening, prior to discharge home alone. Objective: Allergies amlodipine Allergy (Verified 01/24/24 16:41) Other hydrochlorothiazide Allergy (Verified 01/24/24 16:41) Other Latex, Natural Rubber Allergy (Verified 01/24/24 16:41) Other lisinopril Allergy (Verified 01/24/24 16:41) Other losartan Allergy (Verified 01/24/24 16:41) Other Current Medications Generic Name Dose Route Start Last Admin Trade Name Freq PRN Reason Stop Dose Admin Acetaminophen 1,000 mg 01/29/24 13:35 01/30/24 05:43 Acetaminophen 500 Mg Tablet PO 1,000 mg Q6H PRN PRN Administration Pain Score 1-10 Apixaban 2.5 mg 01/27/24 22:00 01/30/24 09:01 Apixaban 2.5 Mg Tablet ([facility]) PO 2.5 mg BID LIBORIO Administration Atorvastatin Calcium 40 mg 01/27/24 22:00 01/29/24 23:03 Atorvastatin Calcium 40 Mg Tablet PO 40 mg QHS LIBORIO Administration Calamine/Phenol 1 applic 01/30/24 14:00 Menthol/Lanolin/Calamine/Znox 113 Gm Tube TOPICAL TID [facility] Protocol Levothyroxine Sodium 25 mcg 01/28/24 06:00 01/30/24 05:42 Levothyroxine 25 Mcg Tablet PO 25 mcg DAILY@0600 LIBORIO Administration Magnesium Citrate 300 ml 01/27/24 14:58 Magnesium Citrate 300 Ml PO DAILY PRN Constipation Mirtazapine 7.5 mg 01/27/24 22:00 01/29/24 23:03 Mirtazapine 15 Mg Tablet PO 7.5 mg QHS LIBORIO Administration Nutritional Formula (Lactose Free) 120 ml 01/27/24 22:00 01/30/24 05:42 Ensure Plus High Protein 120 Ml Liquid PO Not Given 4X/DAY LIBORIO Ondansetron HCl 4 mg 01/27/24 15:23 Ondansetron Odt 4 Mg Tablet PO Q8H PRN PRN Nausea Pantoprazole Sodium 20 mg 01/28/24 10:00 01/30/24 09:01 Pantoprazole Sodium 20 Mg Tablet PO 20 mg DAILY LIBORIO Administration Potassium Chloride 20 meq 01/28/24 08:00 01/30/24 09:01 Potassium Chloride Oral Tablet 20 Meq PO 20 meq DAILYCM LIBORIO Administration Senna/Docusate Sodium 1 tablet 01/27/24 14:58 Senna/Docusate Sodium 1 Tablet PO BID PRN Constipation Tamsulosin HCl 0.4 mg 01/27/24 17:30 01/29/24 17:23 Tamsulosin Hcl 0.4 Mg Capsule PO 0.4 mg DAILY@1730 LIBORIO Administration Tolterodine Tartrate 2 mg 01/28/24 10:00 01/30/24 09:01 Tolterodine Tartrate 2 Mg Cap.Sa PO 2 mg DAILY LIBORIO Administration Tuberculin PPD 0.1 ml 02/04/24 10:00 Tuberculin,Purif.Prot.Deriv. 50 Tu/Ml Vial ID 02/04/24 10:01 X1 ONE Problem List (Updated 01/27/24 @ 14:[address] Lasha Camargo MD) Hypokalemia (Acute) GERD (gastroesophageal reflux disease) (Acute) Overactive bladder (Acute) Appetite loss (Acute) Hypothyroidism (Acute) Hyperlipidemia (Acute) Stroke (Acute) Influenza B (Acute) Acute HFrEF (heart failure with reduced ejection fraction) (Acute) Urinary tract infection (Acute) Debility (Acute) TIA (transient ischemic attack) (Acute) Dysarthria (Acute) Atrial fibrillation (Acute) Vital Signs Temp Pulse Resp BP Pulse Ox O2 Del Method 97 F L 70 16 94/35 L 93 Room Air 01/30/24 09:09 01/30/24 09:09 01/30/24 09:09 01/30/24 09:09 01/30/24 09:09 01/30/24 09:09 Oxygen Delivery Method Room Air Weight: 59.466 kg Body Mass Index (BMI) 20.5 Sodium 139 mmol/L (136-145) 01/28/24 08:23 Potassium 4.3 mmol/L (3.5-5.1) 01/28/24 08:23 Chloride 111 mmol/L (98-107) H 01/28/24 08:23 Carbon Dioxide 25.0 mmol/L (21.0-32.0) 01/28/24 08:23 Anion Gap 3 (5-15) L 01/28/24 08:23 BUN 15 mg/dL (7-18) 01/28/24 08:23 Creatinine 0.76 mg/dL (0.55-1.02) 01/28/24 08:23 Est GFR (MDRD) Af Amer 93 mL/min (>60) 01/28/24 08:23 Est GFR (MDRD) Non-Af 76 mL/min (>60) 01/28/24 08:23 BUN/Creatinine Ratio 19.8 RATIO (10-20) 01/28/24 08:23 Glucose 90 mg/dL (74-106) 01/28/24 08:23 Assessment/Plan: 1. Pain: acetaminophen 1000 mg PO Q6H PRN pain. The patient has used 1 PRN dose of acetaminophen so far this admission. Please continue to monitor LFTs (AST/ALT = 39/19 U/L on 01/25/24), pain levels and PRN medication usage. 2. Bowel: senna/docusate 1 tablet PO BID PRN constipation, magnesium citrate 300 mL PO daily PRN constipation. The patient has not required PRN doses of senna/docusate or magnesium citrate so far this admission. The patient's last bowel movement was 01/28/24. Please continue to monitor for bowel movements, PRN medication usage, diarrhea and constipation. 3. Atrial Fibrillation: apixaban 2.5 mg PO BID. Please continue to monitor for s/s of atrial fibrillation, for s/s of bleeding/excessive bruising, for s/s of stroke, hemoglobin levels (Hgb = 13.2 g/dL on 01/28/24), and platelet count (Plt = 114 K/mm3 on 01/28/24). 4. Hyperlipidemia: atorvastatin 40 mg PO QHS. Please continue to monitor lipid levels (cholesterol = 108 mg/dL, with LDL = 69 mg/dL on 01/25/24), and for myalgias. 5. Hypothyroidism: levothyroxine 25 mcg PO daily. Please continue to monitor thyroid levels (TSH = 2.03 uIU/mL on 01/25/24, with T4 = 1.57 ng/dL on 4/9/22), as well as for s/s of hypo/hyperthyroidism. 6. GERD: pantoprazole 20 mg PO daily. Please continue to monitor for s/s of GERD, for diarrhea that could indicate clostridium difficile infection, and for s/s of bone resorption issues such as bone fractures. 7. Urinary retention: tamsulosin 0.4 mg PO daily @ 1730. Please continue to monitor for s/s of urinary retention, for s/s of orthostasis, and for dizziness. 8. Overactive bladder: tolterodine tartrate 2 mg PO daily. Please continue to monitor for bladder spasms, dry mouth, headache, anxiety, and constipation. 9. Hypokalemia: potassium chloride 20 mEq PO daily with a meal. Please continue to monitor potassium levels (K = 4.3 mmol/L on 01/28/24), and for GI distress with potassium administration. 10. Nausea: ondansetron 4 mg PO Q8H PRN nausea. The patient has not required any PRN doses of ondansetron so far this admission. Please continue to monitor for nausea and PRN medication administration. 11. Nutrition: ensure plus high protein 120 mL PO 4x/day. Please continue to monitor overall nutritional status. 12. Skin irritation: calmoseptine 1 application topically TID. Please continue to monitor for skin irritation and skin integrity. Assessment/Plan for indications treated with psychotropic medications: 1 Appetite loss: mirtazapine 15 mg PO QHS. Please see provider note regarding stable chronic long-term therapy GDR not recommended. Please continue to monitor appetite, for drowsiness, for s/s of orthostasis, for s/s of serotonin syndrome, for constipation and dry mouth. Medical chart and medication regimen reviewed. The following medication irregularities or issues were identified: NA Date Date of Note:: 01/30/24 Documented by User: Dr. Lasha Camargo MD 01/30/24 12:16 TCU RX Drug Regimen Review Provider Comments Provider responsibility Provider Comments to Recommendations by Pharmacy: Agree
[2024-01-30] MEDS: Ensure Plus High Protein 120 ML LIQUID PO (12:21)
[2024-01-30] MEDS: Menthol/Lanolin/Calamine/Znox 113 GM Tube 1 APPLIC TOPICAL ×2 (12:21→21:02)
--- NOTE | 2024-01-30 12:26 | NURSING ---
Offered Covid vaccine, VIS provided. Patient refused at this time.
--- NOTE | 2024-01-30 12:26 | NURSING ---
Offered Covid vaccine, VIS provided. Patient refused at this time.
--- NOTE | 2024-01-30 13:14 | NURSING ---
Offered Covid vaccine, VIS provided. Patient refused at this time.
--- NOTE | 2024-01-30 14:09 | NURSING ---
Cyber Crime Investigator Note; Activity Asset: Jayy Lee is on Isolation at this time. She is independent in her choice of daily activities with reminders. Rosa is hard of hearing and need to talk in her right ear. She stated she really only watches tv at night and enjoys [employer]. She will read some and was given a word search packet to work on. Rosa will need room visits during isolation for extra social, mental and physical well being. Staff will remind her of weekly activities and respect her right to say no. Rosa also stated she wont need the Research Mechanic unless she asks for him.
[2024-01-30 15:02] VITALS: BMI 20.5
[2024-01-30] MEDS: Tamsulosin HCl 0.4 MG Capsule 0.400000000000000022 MG PO (17:18)
--- NOTE | 2024-01-30 17:48 | CASEMGMT ---
Social Work SW phoned dtr to complete initial assessment and discuss DC plans. Dtr stated son now lives out of the country and she is primary contact. Dtr will provide updated advanced directives naming her as HCPOA, this evening. Dtr okay with pt's sister as secondary contact. Dtr states she is currently in town to assist pt indefinitely as she is retired, but lives in [place] and will return. SW educated to [facility] insurance with NRD 01/30 and requesting DC plans in place for [facility]. SW explained appeal rights. Educated to pt currently needing min-CGA for some physical tasks and ST is treating pt for swallowing and cognitive deficits. Currently, pt would need assistance at home if insurance does approve continued stay for pt to make continued improvement. Dtr stated she is able to provide 24/7 care for pt at time of DC. SW to update dtr with outcome of insurance and will have POC meeting to discuss details of pt's progress on 01/31. SW spoke with pt. Pt known to this worker from previous stay. Pt is very [employer]. Confirmed DNR-CCA, no intubation and pt's goals to return home. SW will continue to follow for DC planning. Michelle Lara, COCOA MILLING MACHINE OPERATOR [employer]
[2024-01-30] MEDS: Atorvastatin Calcium 40 MG Tablet PO (21:02)
[2024-01-30] MEDS: Mirtazapine 15 MG Tablet 7.5 MG PO (21:03)
[2024-01-30 22:15] VITALS: RESP 16
[2024-01-31] MEDS: Menthol/Lanolin/Calamine/Znox 113 GM Tube 1 APPLIC TOPICAL ×3 (05:59→21:19)
[2024-01-31 06:00] VITALS: BMI 20.5
[2024-01-31] MEDS: Levothyroxine 25 MCG TABLET PO (06:00)
[2024-01-31 07:01] VITALS: BP 114/55; PULSE 57; O2SAT 96
[2024-01-31 07:02] VITALS: PULSE 57; RESP 16; O2SAT 96
[2024-01-31] MEDS: APIXABAN 2.5 MG TABLET (WCH) PO ×2 (08:49→21:18)
[2024-01-31] MEDS: Tolterodine Tartrate 2 MG CAP.SA PO (08:49)
[2024-01-31] MEDS: Potassium Chloride Oral Tablet 20 MEQ PO (08:49)
[2024-01-31] MEDS: Pantoprazole Sodium 20 MG Tablet PO (08:49)
[2024-01-31 10:25] VITALS: BP 115/57; PULSE 80; RESP 16; TEMP 36.6; O2SAT 97
--- NOTE | 2024-01-31 16:01 | CASEMGMT ---
Addendum entered by Michelle Lara 02/01/24 15:24: [facility] accepted pt and requesting SN. SN added to order Original Note: Social Work Insurance issued LCD 02/01, DC 02/02. SW phoned dtr to update. Explained appeal rights. Dtr is agreeable for pt to DC home with her assistance. SW offered skilled HHC and list of providers with quality and resource data via [employer]. Dtr agreed to HHC but denied list and would like to use [facility], whom pt used prior. Dtr denied DME needs. Dtr to transport. MIKE phoned referral to [facility] for PT/OT/ST Plan: DC home with dtr assistance 02/02, [facility] PT/OT/ST NORMA Mendez
[2024-01-31] MEDS: Tamsulosin HCl 0.4 MG Capsule 0.400000000000000022 MG PO (16:59)
--- NOTE | 2024-01-31 20:37 | DS.PCM_ITS ---
Providers Date of Admission: 01/27/24 Primary Care Physician: Dr. Rebekah Beckford MD Reason For Visit: TIA UTI Diagnosis Discharge Diagnosis (1) Debility: Status: Acute Code(s): R53.81 - Other malaise (2) Dysarthria: Status: Acute Code(s): R47.1 - Dysarthria and anarthria (3) TIA (transient ischemic attack): Status: Acute Code(s): G45.9 - Transient cerebral ischemic attack, unspecified (4) Urinary tract infection: Status: Acute Code(s): N39.0 - Urinary tract infection, site not specified (5) Acute HFrEF (heart failure with reduced ejection fraction): Status: Acute Code(s): I50.21 - Acute systolic (congestive) heart failure (6) Influenza B: Status: Acute Code(s): J10.1 - Influenza due to other identified influenza virus with other respiratory manifestations (7) Atrial fibrillation: Status: Acute Code(s): I48.91 - Unspecified atrial fibrillation Qualifiers: Atrial fibrillation type: persistent (not longstanding) Qualified Code(s): I48.19 - Other persistent atrial fibrillation (8) Stroke: Status: Acute Code(s): I63.9 - Cerebral infarction, unspecified (9) Hyperlipidemia: Status: Acute Code(s): E78.5 - Hyperlipidemia, unspecified (10) Hypothyroidism: Status: Acute Code(s): E03.9 - Hypothyroidism, unspecified (11) Appetite loss: Status: Acute Code(s): R63.0 - Anorexia (12) Overactive bladder: Status: Acute Code(s): N32.81 - Overactive bladder (13) GERD (gastroesophageal reflux disease): Status: Acute Code(s): K21.9 - Gastro-esophageal reflux disease without esophagitis (14) Hypokalemia: Status: Acute Code(s): E87.6 - Hypokalemia Plan 88 year old female with below past medical history hospitalized for dysarthria/TIA, complicated by acute HFrEF, UTI, influenza B, admitted to TCU with debility, here for rehabilitation, strengthening, prior to discharge home alone. * Debility - PT/OT. * Pain - Tylenol 1000mg q6 prn pain (1-10). * Bowel - senna/colace 1 tablet bid prn, Magnesium citrate 300ml daily prn. * Adult immunization - Administer pneumonia vaccine, covid vaccine, flu vaccine as appropriate. * DVT prophylaxis - on Eliquis 2.5mg bid. * TIA/dysarthria - Eliquis 2.5mg bid. * Hyperlipidemia - Atorvastatin 40mg qhs. * acute HFrEF - Metoprlol 12.5mg bid, Aldactone 25mg daily, Fuorsemide 20mg daily. * Atrial fibrillation - Metoprolol 12.5mg bid, Eliquis 2.5mg bid. * Urinary retention - Tamsulosin 0.4mg daily. * Appetite loss - Mirtazapine 15mg qhs, stable chronic penitentiary use, GDR not recommended. * Hypothyroidism - Levothyroxine 25mcg daily. * Overactive bladder - Fesoferodine 4mg (or [facility] formulary equivalent) daily. * Hypokalemia - KCL 20meq daily. * GERD - Omeprazole 20mg daily (or [facility] formulary equivalent). Medications at Discharge Home Medications levothyroxine 25 mcg tablet 25 mcg PO DAILY hypothyroidism #30 tabs 03/11/22 mirtazapine 15 mg tablet 7.5 mg (1/2 x 15 mg) PO QHS sleep #16 tabs 03/11/22 tamsulosin 0.4 mg capsule 0.4 mg PO DAILY@1730 urine retention #30 caps 03/11/22 fesoterodine 4 mg tablet,extended release 24 hr 4 mg PO DAILY overactive bladder 12/02/23 omeprazole 20 mg capsule,delayed release 20 mg PO DAILY acid reflux 01/24/24 potassium chloride 20 mEq tablet,extended release(part/cryst) 20 meq PO DAILY supplement 01/24/24 apixaban 5 mg tablet (Eliquis) 2.5 mg (1/2 x 5 mg) PO BID 30 days #30 tabs 01/31/24 atorvastatin 40 mg tablet 40 mg PO QHS 30 days #30 tabs 01/31/24 Hospital Course Operations None Procedures None Summary of Care Provided Minutes Spent on Discharge: 35 Hospital Course: 88 year old female with below past medical history hospitalized for dysarthria/TIA, complicated by acute HFrEF, UTI, influenza B, admitted to TCU with debility, here for rehabilitation, strengthening, prior to discharge home alone. BB, ACEI, Loop diuretic stopped due to hypotension. Discharge home with daughter assistance 02/03/2024, [facility] PT/OT/ST. Physical Exam Const alert General Appearance: cooperative HEENT normocephalic Eyes PERRL and EOMs intact bilaterally Neck supple, no JVD and no carotid bruits Resp normal respiratory effort, normal air movement and clear to auscultation bilaterally Cardio regular rate and regular rhythm GI normal to inspection, nondistended, normoactive bowel sounds, non-tender and non-distended Extremity normal capillary refill General Extremity: Negative for edema Skin no rashes or lesions noted General Skin Exam: no breakdown Psych affect normal Appearance: appropriate Weight / BMI Weight Weight: 59.511 kg Body Mass Index (BMI) 20.5 ABG / Lab / Microbiology Data 01/28/24 08:23 01/28/24 08:23 D/C Instructions Discharge Diet: No restrictions Discharge Activity: Return to Normal Activity, May Shower and Use Walker Weight Bearing Status: Weight bearing as tolerated Call your doctor if you observe: Fever of 101 or Higher, Inability to urinate, Inability to have a bowel movement, Shortness of breath, Dizziness, Fainting spells, Swelling in the ankles, Chest pain and Uncontrolled pain Additional Instructions: Discharge home with daughter assistance 02/03/2024, [facility] PT/OT/ST. Meaningful Use Info Meaningful Use Diagnoses (Choose all that apply): None applicable Discharge Plan Admission Admit Date/Time: 01/27/24 14:05 Primary Reason for Your Visit: Debility. Attending Provider: Lasha Camargo Chi Primary Care Provider: Rebekah Beckford Instructions Additional Instructions / Restrictions: Discharge home with daughter assistance 02/03/2024, [facility] PT/OT/ST. Discharge Orders/Prescriptions Prescriptions: New Eliquis 5 mg Tablet 2.5 mg PO BID 30 Days Qty: 30 0RF atorvastatin 40 mg Tablet 40 mg PO QHS 30 Days Qty: 30 0RF Continued tamsulosin 0.4 mg Capsule 0.4 mg PO DAILY@1730 Qty: 30 0RF Rx Instructions: To prevent urine retention mirtazapine 15 mg Tablet 7.5 mg PO QHS Qty: 16 0RF Rx Instructions: 1/2 tab at bedtime every night levothyroxine 25 mcg tablet 25 mcg PO DAILY Qty: 30 0RF fesoterodine 4 mg tablet extended release 24 hr 4 mg PO DAILY potassium chloride 20 mEq tablet,ER particles/crystals 20 meq PO DAILY Patient Comments: TAKE 1 TABLET BY MOUTH EVERY DAY omeprazole 20 mg capsule,delayed release(DR/EC) 20 mg PO DAILY Patient Comments: TAKE 1 CAPSULE BY MOUTH ONCE A DAY FOR 14 DAYS Discontinued ondansetron 4 mg tablet,disintegrating 4 mg PO Q8H PRN PRN (Reason: Nausea) Qty: 10 0RF atorvastatin 40 mg Tablet 40 mg PO QHS Qty: 0 0RF spironolactone 25 mg Tablet 25 mg PO DAILY Qty: 0 0RF furosemide 20 mg Tablet 20 mg PO DAILY Qty: 0 0RF metoprolol tartrate 25 mg Tablet 12.5 mg PO BID Qty: 0 0RF Eliquis 5 mg Tablet 2.5 mg PO BID Qty: 0 0RF Referrals / Follow Up: Rebekah Beckford MD [Primary Care Provider] - Disposition Disposition (needs filled in before D/C Order can be placed): Home Health Service
[2024-01-31] MEDS: Atorvastatin Calcium 40 MG Tablet PO (21:18)
[2024-01-31] MEDS: Mirtazapine 15 MG Tablet 7.5 MG PO (21:18)
[2024-02-01] MEDS: Levothyroxine 25 MCG TABLET PO (05:59)
[2024-02-01] MEDS: Menthol/Lanolin/Calamine/Znox 113 GM Tube 1 APPLIC TOPICAL ×3 (05:59→20:24)
[2024-02-01 06:00] VITALS: BMI 20.2
[2024-02-01] MEDS: Pantoprazole Sodium 20 MG Tablet PO (08:57)
[2024-02-01] MEDS: Tolterodine Tartrate 2 MG CAP.SA PO (08:57)
[2024-02-01] MEDS: APIXABAN 2.5 MG TABLET (WCH) PO ×2 (08:57→20:23)
[2024-02-01] MEDS: Potassium Chloride Oral Tablet 20 MEQ PO (08:57)
[2024-02-01 13:17] VITALS: BP 102/59; PULSE 73; RESP 14; TEMP 36.4; O2SAT 96
[2024-02-01 18:21] VITALS: BP 104/50; PULSE 85
[2024-02-01] MEDS: Tamsulosin HCl 0.4 MG Capsule 0.400000000000000022 MG PO (18:28)
[2024-02-01] MEDS: Furosemide 20 MG Tablet PO (18:28)
[2024-02-01] MEDS: Atorvastatin Calcium 40 MG Tablet PO (20:23)
[2024-02-01] MEDS: Mirtazapine 15 MG Tablet 7.5 MG PO (20:23)
[2024-02-01 20:39] VITALS: PULSE 81; RESP 16; O2SAT 93
[2024-02-02] MEDS: Levothyroxine 25 MCG TABLET PO (05:34)
[2024-02-02] MEDS: Menthol/Lanolin/Calamine/Znox 113 GM Tube 1 APPLIC TOPICAL ×3 (05:37→22:48)
[2024-02-02] MEDS: Tolterodine Tartrate 2 MG CAP.SA PO (09:47)
[2024-02-02] MEDS: Potassium Chloride Oral Tablet 20 MEQ PO (09:47)
[2024-02-02] MEDS: APIXABAN 2.5 MG TABLET (WCH) PO ×2 (09:47→22:47)
[2024-02-02] MEDS: Pantoprazole Sodium 20 MG Tablet PO (09:48)
[2024-02-02] MEDS: Furosemide 20 MG Tablet PO (09:48)
[2024-02-02 10:14] VITALS: BP 105/66; PULSE 72; RESP 18; TEMP 36.4; O2SAT 96
--- NOTE | 2024-02-02 11:22 | CASEMGMT ---
Social Work BIMS () and PHQ-2 () completed for MDS asssessment. Michelle Lara MSW PROJECT STRUCTURAL ENGINEER
[2024-02-02] MEDS: Tamsulosin HCl 0.4 MG Capsule 0.400000000000000022 MG PO (16:53)
[2024-02-02 17:23] VITALS: BMI 19.6
[2024-02-02 21:00] VITALS: RESP 16
[2024-02-02] MEDS: Mirtazapine 15 MG Tablet 7.5 MG PO (22:47)
[2024-02-02] MEDS: Atorvastatin Calcium 40 MG Tablet PO (22:48)
[2024-02-03] MEDS: Levothyroxine 25 MCG TABLET PO (05:10)
[2024-02-03] MEDS: Menthol/Lanolin/Calamine/Znox 113 GM Tube 1 APPLIC TOPICAL (05:24)
[2024-02-03 05:36] LABS: Absolute Neutrophil Count 2.3 X10^3/uL (2.0-7.7); Basophil# 0.03 X10^3/uL; Basophil% 0.6 % (0-1); Eosinophil# 0.04 X10^3/uL; Eosinophils% 0.9 % (0-5); Hematocrit 39.8 % (37-47); Hemoglobin 12.6 g/dL (12.0-15.0); Lymphocyte % 34.3 % (19-41); Mean Corp Hgb Conc 31.7 g/dL (32-36); Mean Corpuscular Hgb 28.8 pg (27.0-32.0); Mean Corpuscular Volume 90.9 fL (81-99); Mean Platelet Vol. 10.6 fl (6.2-12.0); Monocyte# 0.67 X10^3/uL; Monocyte% 14.3 % (0-10); NRBC Flagged by Analyzer 0 % (0-5); Neutrophil # 2.32 X10^3/uL (2.7-7.7); Neutrophil % 49.7 % (47-70); Platelet Count 153 K/mm3 (150-450); RBC Distribution Width CV 16.1 % (11.6-14.6); RBC Distribution Width SD 53.8 fl (35.1-43.9); Red Blood Count 4.38 M/mm3 (4.2-5.4); White Blood Count 4.7 K/mm3 (4.4-11.0)
[2024-02-03 05:47] VITALS: RESP 16; O2SAT 95
[2024-02-03 05:54] LABS: Anion Gap 6 (5-15); BUN 8 mg/dL (7-18); BUN/Creat Ratio 10.6 RATIO (10-20); Calcium,Total 8.5 mg/dL (8.5-10.1); Chloride 107 mmol/L (98-107); Creatinine, Serum 0.75 mg/dL (0.55-1.02); EST Glomerular Filtration Rate 77 mL/min (>60); Est Glom Filt Rate - Afr Amer 93 mL/min (>60); Estimated Creatinine Clearance 43.51 ml/min; Glucose 77 mg/dL (74-106); Sodium Level 139 mmol/L (136-145)
[2024-02-03] MEDS: Tolterodine Tartrate 2 MG CAP.SA PO (09:01)
[2024-02-03] MEDS: Potassium Chloride Oral Tablet 20 MEQ PO (09:01)
[2024-02-03] MEDS: APIXABAN 2.5 MG TABLET (WCH) PO (09:02)
[2024-02-03] MEDS: Furosemide 20 MG Tablet PO (09:02)
[2024-02-03] MEDS: Pantoprazole Sodium 20 MG Tablet PO (09:02)
[2024-02-03 12:10] VITALS: BP 130/73; PULSE 63; RESP 16; TEMP 36.6; O2SAT 96
--- NOTE | 2024-02-08 12:42 | MDS.RN ---
Information for the mds was obtained from review of the clinical record, interview of resident, staff, and direct observation of resident's care.
== END 2024-02-03 12:00 | disposition home health service (06) | DRG 56 ==
PROVIDERS: Admitting Provider Family Medicine Geriatric Medicine; PCP Family Medicine; Referring Provider Family Medicine Geriatric Medicine; Visit Provider Family Medicine Geriatric Medicine
DX: I69.322 Dysarthria following cerebral infarction (principal); I50.21 Acute systolic (congestive) heart failure; I42.8 Other cardiomyopathies; I48.19 Other persistent atrial fibrillation; N39.0 Urinary tract infection, site not specified; I11.0 Hypertensive heart disease with heart failure; E03.9 Hypothyroidism, unspecified; K21.9 Gastro-esophageal reflux disease without esophagitis; E87.6 Hypokalemia; J10.1 Influenza due to other identified influenza virus with other respiratory manifestations; E78.2 Mixed hyperlipidemia; N32.81 Overactive bladder; Z79.82 Long term (current) use of aspirin; Z79.01 Long term (current) use of anticoagulants; Z79.899 Other long term (current) drug therapy; R33.9 Retention of urine, unspecified
CPT/HCPCS: 36415; 80048; 82962; 85025; 92507; 92523; 92526; 92610; 97110; 97162; 97166; 97530; 97535; 97802

== ENCOUNTER 2024-02-09 14:01 | Emergency (ER) | payer MEDICARE, SELFPAY ==
[2024-02-09] VITALS (8 sets, daily range): BP systolic 91–122; BP diastolic 50–66; PULSE 71–95; RESP 16–23; TEMP 36.1–36.6; O2SAT 94–99; BMI 24.1
--- NOTE | 2024-02-09 14:08 | EKG12_ITS ---
Test Reason : NEURO Blood Pressure : / mmHG Vent. Rate : 075 BPM Atrial Rate : 000 BPM P-R Int : 000 ms QRS Dur : 110 ms QT Int : 392 ms P-R-T Axes : 000 085 029 degrees QTc Int : 437 ms Atrial fibrillation with premature ventricular or aberrantly conducted complexes Abnormal ECG Confirmed by Cornelio Cole ([id number]), publishing editor VIRGIL QUIROGA ([id number]) on 02/10/2024 8:30:38 AM Referred By: Confirmed By:Cornelio Cole
--- NOTE | 2024-02-09 14:09 | CT_ITS ---
STUDY: CTA HEAD AND NECK WITH CONTRAST REASON FOR EXAM: Female, 88 years old. Neuro deficit, acute, stroke suspected RADIATION DOSAGE (If Supplied By Facility): CTDIvol = ( 25.43 ) mGy, DLP = ( 901.34 ) mGycm TECHNIQUE: CT angiography was performed with a multi-detector CT scanner. Data acquisition was obtained from the skull base through the vertex following intravenous administration of IV 100mL Isovue-370. MIP images were reconstructed from the axial data set. Post-processing of the angiographic images was performed, with multiplanar reformation and 3D reconstruction. Individualized dose optimization techniques were used for this CT. COMPARISON: Comparison is made with prior study dated January 24, 2024. FINDINGS: Bilateral pleural effusions with bibasilar atelectasis. Heterogeneous appearance of both lobes of the thyroid. Normal bilateral petrous carotid arteries. Normal right cavernous carotid artery with a normal supraclinoid bifurcation. Normal left cavernous carotid artery with a normal supraclinoid bifurcation. Normal right A1 segments of the anterior cerebral artery. Normal left A1 segments of the anterior cerebral artery. Normal intact anterior communicating artery (ACOM). Normal bilateral A2 segments of the anterior cerebral arteries. Normal right M1 and M2 segments of the middle cerebral arteries, with a normal M1 bifurcation. Normal left M1 and M2 segments of the middle cerebral arteries, with a normal M1 bifurcation. Normal right posterior communicating artery (PCOM). Normal left posterior communicating artery (PCOM). Normal bilateral vertebral arteries. Normal basilar artery with a normal basilar bifurcation. The visualized bilateral superior cerebellar (SCA) arteries are normal. Normal bilateral P1, P2 and visualized P3 segments of the posterior cerebral arteries. There is no demonstrated aneurysm of the [place]. AORTIC ARCH: There is atherosclerotic calcific plaque formation of the aortic arch and great vessels arising from the aortic arch, without a hemodynamically significant stenosis. There is a normal origin of the brachiocephalic, left common carotid, and left subclavian arteries. There are calcific plaques at the origin of the left subclavian artery and right brachiocephalic artery. RIGHT CAROTID ARTERIES: Normal right common carotid artery (CCA). Normal right common carotid bulb. Normal origin of the right internal carotid (ICA) artery without a hemodynamically significant stenosis. Normal visualized cervical portion of the right internal carotid artery. Normal origin of the right external carotid artery (ECA). LEFT CAROTID ARTERIES: Normal left common carotid artery (CCA). Normal left common carotid bulb. There is mild atherosclerotic plaque formation of the origin of the left internal carotid artery with less than 50% cross sectional diameter stenosis. Normal visualized cervical portion of the left internal carotid artery. Normal origin of the left external carotid artery (ECA). VERTEBRAL ARTERIES: Normal bilateral vertebral arteries. CT/STROKE CTA Head AND Neck W/Con IMPRESSION: Minimal plaque at the origin of the left internal carotid artery causing less than 50% stenosis. Stable examination. N.B. : The above Results were Read Back by Mitchell Rhoades MD to Emy Fierro and understanding confirmed on 02/09/2024 14:35:55 (ET). Electronically Signed: Mitchell Rhoades MD at 14:39 EDT ,
--- NOTE | 2024-02-09 14:10 | CT_ITS ---
STUDY: CT HEAD STROKE PROTOCOL W/O CONTRAST INJECTION REASON FOR EXAM: Female, 88 years old. Neuro deficit, acute, stroke suspected RADIATION DOSAGE (If Supplied By Facility): CTDIvol = ( 47.07 ) mGy, DLP = ( 855.03 ) mGycm TECHNIQUE: Transaxial CT imaging of the brain was performed without administration of intravenous contrast material. Individualized dose optimization techniques were used for this CT. COMPARISON: Comparison is made with prior study January 24, 2024. FINDINGS: Normal soft tissue structures. Normal calvarium. There is mild cerebral atrophy with widening of the extra-axial spaces and ventricular dilatation. There are areas of decreased attenuation within the white matter tracts of the supratentorial brain, consistent with microvascular disease changes. Stable encephalomalacia in the right frontal temporal parietal lobes. This is unchanged. No significant edema is seen. Normal basal ganglia and thalami. Normal brainstem. There is mild cerebellar atrophy. There is no intracranial hemorrhage. There are no findings of an acute ischemic infarction. Stable left maxillary retention cyst or polyp. ASPECT score: 8 CT/STROKE Brain/Head without Cont IMPRESSION: Chronic involutional changes of the brain. Stable encephalomalacia involving the right frontal temporal parietal lobes. N.B. : The above Results were Read Back by Mitchell Rhoades MD to Dr savita MD, and understanding confirmed on 02/09/2024 14:21:45 (ET). Electronically Signed: Mitchell Rhoades MD at 14:22 EDT ,
--- NOTE | 2024-02-09 14:27 | EX.ED.DYSGE1 ---
HPI History of Present Illness Chief Complaint: Stroke Alert Informant: patient and family Narrative Narrative: Patient presents with daughter secondary to left-sided weakness. Stroke alert called in triage. Patient has a history of prior stroke and she tells me she has chronic left-sided weakness from this. Patient was recently admitted to the hospital for TIA and dysarthria along with influenza. She went to TCU and was just discharged on the . Daughter states that she sat around most of the weekend and went to see her PCP on Tuesday. They gave her a shot of what the daughter thinks was a steroid. By Tuesday she was feeling improved and was ambulating with her walker without difficulty. Reportedly today occupational therapy came to work with her. They noted that she seems slightly more confused and when walking down the [place] with her walker bumped into the wall 4 times. Patient tells me she feels at her baseline and does not know why she is here. Patient does have history of A-fib and is on Eliquis. [facility] Medical History (Updated 02/09/24 @ 16:[address] Emy Fierro MD) Atrial fibrillation Biatrial enlargement CHF (congestive heart failure) Chronic anticoagulation Clot Cognitive dysfunction Essential hypertension GERD (gastroesophageal reflux disease) History of cerebral thrombosis Hypothyroidism Mixed hyperlipidemia Non-Hodgkin lymphoma Non-rheumatic mitral regurgitation Nonischemic cardiomyopathy Normochromic normocytic anemia Paroxysmal atrial fibrillation Prediabetes Presbycusis Pulmonary hypertension Stroke Urine retention Home Medications levothyroxine 25 mcg tablet 25 mcg PO DAILY hypothyroidism #30 tabs 03/11/22 [Rx Last Taken Unknown] mirtazapine 15 mg tablet 7.5 mg (1/2 x 15 mg) PO QHS sleep #16 tabs 03/11/22 [Rx Last Taken Unknown] tamsulosin 0.4 mg capsule 0.4 mg PO DAILY@1730 urine retention #30 caps 03/11/22 [Rx Last Taken Unknown] fesoterodine 4 mg tablet,extended release 24 hr 4 mg PO DAILY overactive bladder 12/02/23 [History Last Taken Unknown] omeprazole 20 mg capsule,delayed release 20 mg PO DAILY acid reflux 01/24/24 [History Last Taken Unknown] potassium chloride 20 mEq tablet,extended release(part/cryst) 20 meq PO DAILY supplement 01/24/24 [History Last Taken Unknown] apixaban 5 mg tablet (Eliquis) 2.5 mg (1/2 x 5 mg) PO BID 30 days #30 tabs 01/31/24 [Rx Last Taken Unknown] atorvastatin 40 mg tablet 40 mg PO QHS 30 days #30 tabs 01/31/24 [Rx Last Taken Unknown] Allergy/AdvReac Type Severity Reaction Status Date / Time amlodipine Allergy Other Verified 02/09/24 14:10 hydrochlorothiazide Allergy Other Verified 02/09/24 14:10 Latex, Natural Rubber Allergy Other Verified 02/09/24 14:10 lisinopril Allergy Other Verified 02/09/24 14:10 losartan Allergy Other Verified 02/09/24 14:10 Family History Mother CHF (congestive heart failure) Father Diabetes Surgical History History of embolectomy History of hysterectomy History of tubal ligation Social History household members: none Smoking Status: Never smoker alcohol intake: never substance use type: does not use caffeine: Yes Type: carbonated beverages Number of servings: 1 ROS ROS ED Constitutional Constitutional ED: Denies chills or fever(s) Eyes Eyes: Denies discharge from eye(s) ENT ENT ED: Denies discharge from eye(s), rhinorrhea or sore throat Cardiovascular Cardiovascular: Denies chest pain or palpitations Respiratory/Chest Respiratory/Chest: Denies cough or dyspnea Gastrointestinal Gastrointestinal: Denies abdominal pain, nausea or vomiting Genitourinary Genitourinary ED: Denies dysuria Musculoskeletal Musculoskeletal: Denies back pain or extremity pain Integumentary Denies Abrasions or rash Neurologic Neurologic: Reports weakness; Denies headache(s) Psychiatric Psychiatric: Denies anxiety or depression Allergic/Immunologic Allergic/Immunologic ED: Denies lip swelling or urticaria EXAM Physical Exam Const Vital Signs: 02/09/24 14:07 02/09/24 14:15 02/09/24 14:25 Temperature 98 F Temperature Source Temporal Pulse Rate 87 75 Respiratory Rate 18 18 Blood Pressure 91/61 122/66 H Blood Pressure Mean 71 84 Pulse Ox 94 94 Oxygen Delivery Method Room Air Room Air Room Air 02/09/24 14:38 02/09/24 15:08 02/09/24 15:30 Temperature Temperature Source Pulse Rate 87 71 75 Respiratory Rate 21 H 23 H 17 Blood Pressure 122/66 H 112/65 100/58 L Blood Pressure Mean 84 80 72 Pulse Ox 98 99 94 Oxygen Delivery Method Room Air Room Air Room Air 02/09/24 15:59 02/09/24 16:00 02/09/24 16:00 Temperature Temperature Source Pulse Rate 74 74 74 Respiratory Rate 16 16 16 Blood Pressure 107/50 L 107/50 L 107/50 L Blood Pressure Mean 69 69 69 Pulse Ox 99 99 99 Oxygen Delivery Method Room Air Room Air Room Air Positive well nourished and well developed General Appearance ED: well developed HEENT Reports moist mucous membranes Eyes EOMs intact bilaterally Chest Wall inspection of chest normal and palpation of chest normal Resp normal respiratory effort and clear to auscultation bilaterally Cardio regular rate and regular rhythm GI non-tender Palpation: soft Extremity Extremity Narrative: Quick neuro exam performed in triage. Patient able to lift her right arm without difficulty. Left arm she is able to flex at the elbow without difficulty and shrugs her left shoulder. She is unable to tell me if this is baseline from her prior stroke. She is able to lift both legs up from the wheelchair without difficulty. She has no obvious facial droop. She answers questions appropriately. On repeat examination NIH score is 8, primarily left-sided weakness from her prior stroke. She states that this is her at her baseline. Neuro oriented x3 MDM MDM MDM Narrative Medical decision making narrative: Patient sent to CT from triage. IV line established. Labwork obtained to evaluate for leukocytosis, anemia, and electrolyte derangement. Noncontrast head CT obtained followed by CTA of the head and neck. Given history of old stroke with frequent UTIs will also check urine to evaluate for possible infection causing worsening of her chronic symptoms. History & Record Review Discussion w/independent historian: Patient Lab Data Attestation: I reviewed the patient's lab results. Labs: Laboratory Results - last 24 hr 02/09/24 02/09/24 14:37 15:15 WBC 5.8 RBC 4.19 L Hgb 12.1 Hct 39.3 MCV 93.8 MCH 28.9 MCHC 30.8 L RDW Std Deviation 55.6 H RDW Coeff of [place] 16.0 H Plt Count 231 MPV 10.5 Immature Gran % (Auto) 0.700 Neut % (Auto) 67.3 Lymph % (Auto) 17.9 L [place] % (Auto) 12.7 H Eos % (Auto) 0.9 Baso % (Auto) 0.5 Absolute Neuts (auto) 3.9 Absolute Lymphs (auto) 1.03 Nucleated RBC % 0 PT 20.5 H INR 1.8 APTT 32.3 Sodium 135 L Potassium 5.0 Chloride 105 Carbon Dioxide 25.0 Anion Gap 5 BUN 19 H Creatinine 0.91 Estim Creat Clear Calc 41.56 Est GFR (MDRD) Af Amer 75 Est GFR (MDRD) Non-Af 62 BUN/Creatinine Ratio 21.0 H Glucose 127 H Calcium 8.8 Troponin I High Sens 25 Urine Color Yellow Urine Clarity Clear Urine pH 5.0 Ur Specific [place] 1.005 Urine Protein 30 H Urine Glucose (UA) Normal Urine Ketones Negative Urine Occult Blood 10 H Urine Nitrite Negative Urine Bilirubin Negative Urine Urobilinogen 4 H Ur Leukocyte Esterase 25 H Urine RBC 0 SEEN Urine WBC 0-5 SEEN Ur Squamous Epith Cells 0-5 SEEN Urine Bacteria 0 SEEN Urine Mucus 0 SEEN Radiography Diagnostic Testing: Clinical Impression(s) from Imaging Studies Head/Neck CTA 02/09/24 14:09 IMPRESSION: Minimal plaque at the origin of the left internal carotid artery causing less than 50% stenosis. Stable examination. N.B. : The above Results were Read Back by Mitchell Rhoades MD to Emy Fierro and understanding confirmed on 02/09/2024 14:35:55 (ET). Electronically Signed: Mitchell Rhoades MD at 14:39 EDT , ADDENDUM: 02/09/24 1445 IMPRESSION: Minimal plaque at the origin of the left internal carotid artery causing less than 50% stenosis. Stable examination. N.B. : The above Results were Read Back by Mitchell Rhoades MD to Emy Fierro and understanding confirmed on 02/09/2024 14:35:55 (ET). Electronically Signed: Mitchell Rhoades MD at 14:39 EDT , Brain CT 02/09/24 14:10 IMPRESSION: Chronic involutional changes of the brain. Stable encephalomalacia involving the right frontal temporal parietal lobes. N.B. : The above Results were Read Back by Mitchell Rhoades MD to Dr savita MD, and understanding confirmed on 02/09/2024 14:21:45 (ET). Electronically Signed: Mitchell Rhoades MD at 14:22 EDT , ADDENDUM: 02/09/24 1429 IMPRESSION: Chronic involutional changes of the brain. Stable encephalomalacia involving the right frontal temporal parietal lobes. N.B. : The above Results were Read Back by Mitchell Rhoades MD to Dr savita MD, and understanding confirmed on 02/09/2024 14:21:45 (ET). Electronically Signed: Mitchell Rhoades MD at 14:22 EDT , Chest X-Ray 02/09/24 14:50 IMPRESSION: Left basilar consolidation with small left pleural effusion. Blunting of the right costophrenic angle with a mild right basilar infiltrate. Electronically Signed: Mitchell Rhoades MD at 15:03 EDT , Treatment and Re-Evaluation :: CBC was normal white count 5.8 with a hemoglobin of 12.1. Normal differential. INR is 1.8. Chemistry studies reveal a sodium of 135, BUN of 19, creatinine 0.91. Glucose is 127. Troponin is normal at 25. Urinalysis reveals no evidence of infection. Portable chest x-ray per my interpretation reveals chronic changes small pleural effusion. Radiology interpretation reviewed and agrees. EKG is A-fib at 75 with PVCs. No acute ischemia. CT scan of the head reveals old stroke with no acute findings. CTA of the head and neck reveals a stable exam with less than 50% stenosis at the origin of the left internal carotid. Test results are discussed with patient and daughter at bedside. Patient was just here for stroke workup and is already on Eliquis. They would prefer not to be readmitted. Patient is able to get up and ambulate with her walker without difficulty. I spoke with Dr. Shields, on-call for the patient's PCP. He asked that the patient call either today or tomorrow and they will get her in for follow-up in the next couple days. Discharge Plan Triage Chief Complaint: Stroke Alert ED Provider: Emy Fierro Dx/Rx/DC Orders Clinical Impression: Brain TIA Instructions: ED TIA: Transient Ischemic Attack Prescriptions: No Action tamsulosin 0.4 mg Capsule 0.4 mg PO DAILY@1730 Qty: 30 0RF Rx Instructions: To prevent urine retention mirtazapine 15 mg Tablet 7.5 mg PO QHS Qty: 16 0RF Rx Instructions: 1/2 tab at bedtime every night levothyroxine 25 mcg tablet 25 mcg PO DAILY Qty: 30 0RF fesoterodine 4 mg tablet extended release 24 hr 4 mg PO DAILY potassium chloride 20 mEq tablet,ER particles/crystals 20 meq PO DAILY Patient Comments: TAKE 1 TABLET BY MOUTH EVERY DAY omeprazole 20 mg capsule,delayed release(DR/EC) 20 mg PO DAILY Patient Comments: TAKE 1 CAPSULE BY MOUTH ONCE A DAY FOR 14 DAYS Eliquis 5 mg Tablet 2.5 mg PO BID 30 Days Qty: 30 0RF atorvastatin 40 mg Tablet 40 mg PO QHS 30 Days Qty: 30 0RF Primary Care Provider: Rebekah Beckford Referrals: Rebekah Beckford MD [Primary Care Provider] - 3-5 Days Disposition Disposition: Home, Self Care
[2024-02-09 14:46] LABS: Absolute Lymphocyte Count 1.03 X10^3/uL (0.83-4.51); Absolute Neutrophil Count 3.9 X10^3/uL (2.0-7.7); Basophil# 0.03 X10^3/uL; Basophil% 0.5 % (0-1); Eosinophil# 0.05 X10^3/uL; Eosinophils% 0.9 % (0-5); Hematocrit 39.3 % (37-47); Hemoglobin 12.1 g/dL (12.0-15.0); Lymphocyte # 1.03 X10^3/ul (0.83-4.51); Lymphocyte % 17.9 % (19-41); Mean Corp Hgb Conc 30.8 g/dL (32-36); Mean Corpuscular Hgb 28.9 pg (27.0-32.0); Mean Corpuscular Volume 93.8 fL (81-99); Mean Platelet Vol. 10.5 fl (6.2-12.0); Monocyte# 0.73 X10^3/uL; Monocyte% 12.7 % (0-10); NRBC Flagged by Analyzer 0 % (0-5); Neutrophil # 3.87 X10^3/uL (2.7-7.7); Neutrophil % 67.3 % (47-70); Platelet Count 231 K/mm3 (150-450); RBC Distribution Width SD 55.6 fl (35.1-43.9); Red Blood Count 4.19 M/mm3 (4.2-5.4); White Blood Count 5.8 K/mm3 (4.4-11.0)
--- NOTE | 2024-02-09 14:50 | RAD_ITS ---
STUDY: X-RAY CHEST REASON FOR EXAM: Female, 88 years old. Neuro deficit, acute, stroke suspected TECHNIQUE: Single AP portable view of the chest. COMPARISON: Comparison is made with prior study dated January 25, 2024. FINDINGS: EKG electrodes are seen. Small left pleural effusion with left basilar infiltrate. Mild increased markings at the right lung base with blunting of the right costo phrenic angle. Normal size heart. Normal mediastinum and jesus. Normal visualized pulmonary arteries. There is atherosclerotic calcification of the aortic arch with tortuosity. There are degenerative changes of the visualized thoracic spine. Normal visualized ribs, clavicles, and shoulders. There is no demonstrated abnormality of the visualized soft tissue structures of the upper abdomen. RAD/Chest 1 View IMPRESSION: Left basilar consolidation with small left pleural effusion. Blunting of the right costophrenic angle with a mild right basilar infiltrate. Electronically Signed: Mitchell Rhoades MD at 15:03 EDT ,
[2024-02-09 14:56] LABS: International Normalized Ratio 1.8; Partial Thromboplast Time 32.3 Seconds (24.1-36.2); Prothrombin Time (Protime)PT. 20.5 SECONDS (11.7-14.9)
[2024-02-09 15:05] LABS: Anion Gap 5 (5-15); BUN 19 mg/dL (7-18); Calcium,Total 8.8 mg/dL (8.5-10.1); Chloride 105 mmol/L (98-107); Creatinine, Serum 0.91 mg/dL (0.55-1.02); EST Glomerular Filtration Rate 62 mL/min (>60); Est Glom Filt Rate - Afr Amer 75 mL/min (>60); Estimated Creatinine Clearance 41.56 ml/min; Glucose 127 mg/dL (74-106); Sodium Level 135 mmol/L (136-145); Troponin-I HS 25 pg/mL (3.0-54.0)
[2024-02-09 15:27] LABS: Bacteria 0 SEEN /hpf (None Seen); Mucous, Urine 0 SEEN /hpf (<or=2+); Red Blood Cells-Urine 0 SEEN /hpf (0-5)
[2024-02-09 15:32] LABS: Color, Urine Yellow (Yellow); Glucose, Dipstick Normal (Normal); Ketone-Dipstick Negative (Negative); Leukocyte Esterase-Dipstick 25 /ul (Negative); Nitrite-Dipstick Negative (Negative); Occult Blood-Urine 10 /ul (Negative); Protein-Dipstick 30 mg/dl (Negative); Specific Gravity, Urine 1.005 (1.002-1.030); Urine Bilirubin Dipstick Negative (Negative); Urine Clarity Clear (Clear); Urine Urobilinogen 4 mg/dl (Normal)
--- NOTE | 2024-02-09 15:51 | CHAPLAIN ---
Type of Pastoral Visit ___ Initial Visit ___ Follow-up Visit ___ On-call Visit ___ General Patient Visit ___ Spiritual Assessment ___ Family Conference ___ Bereavement _x__ Rapid Response ___ Code Blue ___ Other (describe below) Pastoral Care Referral From ___ Patient ___ Family ___ Nurse ___ Physician ___ Metal Filer ___ Tentmaker _x__ Other (describe below) Sacrament/Intervention ___ Active listening ___ Anointing ___ Catholic ___ Bereavement ___ Communion ___ Aida exploration ___ ___ Life review ___ Prayer ___ Reconciliation ___ Sacrament of Sick _x__ Supportive presence ___ Wedding ___ Other (describe below) Pastoral Comments came to the ED for the rapid response and pt was already in CT and daughter was in the room answering questions of medical team; when given a break, the patient is asked about her needs, fears, or challenges at this time; daughter is in the room and she is talkative; offered assistance and daughter asked for a coffee which was retrieved by this ballet soloist and given to her; no other needs identified
[2024-02-09 16:04] LABS: Squamous Epithelial Cells - UA 0-5 SEEN /hpf (5-10); White Blood Cells 0-5 SEEN /hpf (0-5)
[2024-02-09 18:19] LABS: Bedside Glucose 132 mg/dL (74-106)
== END 2024-02-09 16:47 | disposition home or self-care (01) ==
PROVIDERS: Emergency Provider Emergency Medicine; PCP Family Medicine; Visit Provider Emergency Medicine
DX: I65.22 Occlusion and stenosis of left carotid artery (principal); I50.9 Heart failure, unspecified; I48.0 Paroxysmal atrial fibrillation; Z79.01 Long term (current) use of anticoagulants; Z79.899 Other long term (current) drug therapy
CPT/HCPCS: 70450; 70496; 70498; 71045; 80048; 81001; 82962; 84484; 85025; 85610; 85730; 93005; 99285; P9612; Q9967

== ENCOUNTER 2024-02-11 13:52 | Emergency (ER) | payer MEDICARE, SELFPAY ==
[2024-02-11 13:53] VITALS: BP 154/98; PULSE 120; RESP 20; TEMP 35.8; O2SAT 95; BMI 21.9
--- NOTE | 2024-02-11 14:03 | EKG12_ITS ---
Test Reason : NEURO Blood Pressure : / mmHG Vent. Rate : 126 BPM Atrial Rate : 000 BPM P-R Int : 000 ms QRS Dur : 110 ms QT Int : 312 ms P-R-T Axes : 000 -05 095 degrees QTc Int : 451 ms Atrial fibrillation with rapid ventricular response Nonspecific ST and T wave abnormality Abnormal ECG Confirmed by Cornelio Cole ([id number]), multimedia editor VIRGIL QUIROGA ([id number]) on 02/14/2024 9:02:32 AM Referred By: Confirmed By:Cornelio Cole
--- NOTE | 2024-02-11 14:05 | CT_ITS ---
EXAM: CT HEAD WITHOUT INTRAVENOUS CONTRAST CLINICAL INDICATION: Left-sided focal status epilepticus. Recent stroke. TECHNIQUE: Multiple axial images were obtained of the head without intravenous contrast. This CT exam was performed using one or more of the following dose reduction techniques: automated exposure control, adjustment of the mA and/or kV according to patient size, and/or use of iterative reconstruction technique. RADIATION DOSE: CTDIvol = 44.99 mGy, DLP = 796.11 mGy-cm COMPARISON: CT head without contrast 02/09/2024 and 01/24/2024. MRI brain without contrast 01/25/2024. FINDINGS: BRAIN AND EXTRA-AXIAL SPACES: Old cortical-based ischemic infarct with cystic encephalomalacia and atrophy involving the right insular lobe, right superior temporal gyrus, right pars triangularis, right pars opercularis and along the right subcentral gyrus. No intra- or extra-axial hemorrhage. No intracranial mass or mass effect. Posterior fossa structures are unremarkable. No hydrocephalus. Basal cisterns are patent. BONES/JOINTS: Unremarkable. No discrete lytic or blastic abnormalities. SINUSES: Unremarkable as visualized. Clear. MASTOID AIR CELLS: Unremarkable. Clear. ORBITS: Visualized globes, extraocular muscles, optic nerves and retrobulbar fat appear unremarkable. CT/Brain/Head without Contrast IMPRESSION: 1. No CT evidence of intracranial bleeding, acute ischemic infarct or acute intracranial abnormality. 2. Old cortical-based ischemic infarct with cystic encephalomalacia involving the right insular lobe, right pars triangularis, right pars articularis, right superior temporal gyrus and along the right subsegmental gyrus. They correspond to an MCA territory. 3. No interval change when compared to 02/09/2024. Electronically Signed: El Aguero MD at 14:30 EDT ,
[2024-02-11] MEDS: Lorazepam 2 MG/ML WCH Syringe IV ×2 (14:08→14:11)
--- NOTE | 2024-02-11 14:15 | EDS_ITS ---
HPI History of Present Illness Chief Complaint: Neuro S/Sx Detail of Chief Complaint: Flaccid left side and abnormal movement left side Informant: family Onset/Context/Timing Onset: Today (Person with her states her daughter with the time it started.) Context: Sudden Onset Timing: Continuous Quality: Abnormal movement left side of face and extremities Location: Left side Mechanism/Context: Yes other Current Severity: Severe Maximum Severity: Severe Worsened by: . Recent stroke need to evaluate for hemorrhagic conversion. Relieved by: Nothing Narrative Narrative: patient is an 88-year-old woman. She presented on February 08 with strokelike symptoms. Patient had a prior stroke and has chronic left-sided weakness. Patient was recently admitted to [facility] for TIA with dysarthria. She also was found to have influenza. Patient she went to TCU and was discharged on 02 February. Apparently she received a steroid injection earlier this week per old records. Patient is not able to contribute with regards to history and limited physical. On the it was felt that patient was more confused. Per review of old records patient is on Eliquis for chronic atrial fibrillation. Patient signed out AGAINST MEDICAL ADVICE on February 08. Patient presents with abnormal movement on the left side. She is grimacing and complaining of pain. She is unable to give any other history. Her left side is flaccid. Prior similar symptoms: No Recent Illness/Hospitalization: Yes [facility] Medical History Atrial fibrillation Biatrial enlargement CHF (congestive heart failure) Chronic anticoagulation Clot Cognitive dysfunction Essential hypertension GERD (gastroesophageal reflux disease) History of cerebral thrombosis Hypothyroidism Mixed hyperlipidemia Non-Hodgkin lymphoma Non-rheumatic mitral regurgitation Nonischemic cardiomyopathy Normochromic normocytic anemia Paroxysmal atrial fibrillation Prediabetes Presbycusis Pulmonary hypertension Stroke Urine retention Home Medications levothyroxine 25 mcg tablet 25 mcg PO DAILY hypothyroidism #30 tabs 03/11/22 [Rx Last Taken Unknown] mirtazapine 15 mg tablet 7.5 mg (1/2 x 15 mg) PO QHS sleep #16 tabs 03/11/22 [Rx Last Taken Unknown] tamsulosin 0.4 mg capsule 0.4 mg PO DAILY@1730 urine retention #30 caps 03/11/22 [Rx Last Taken Unknown] fesoterodine 4 mg tablet,extended release 24 hr 4 mg PO DAILY overactive bladder 01/12/24 [History Last Taken Unknown] omeprazole 20 mg capsule,delayed release 20 mg PO DAILY acid reflux 01/24/24 [History Last Taken Unknown] potassium chloride 20 mEq tablet,extended release(part/cryst) 20 meq PO DAILY supplement 01/24/24 [History Last Taken Unknown] apixaban 5 mg tablet (Eliquis) 2.5 mg (1/2 x 5 mg) PO BID 30 days #30 tabs 01/31/24 [Rx Last Taken Unknown] atorvastatin 40 mg tablet 40 mg PO QHS 30 days #30 tabs 01/31/24 [Rx Last Taken Unknown] Allergy/AdvReac Type Severity Reaction Status Date / Time amlodipine Allergy Other Verified 02/09/24 14:10 hydrochlorothiazide Allergy Other Verified 02/09/24 14:10 Latex, Natural Rubber Allergy Other Verified 02/09/24 14:10 lisinopril Allergy Other Verified 02/09/24 14:10 losartan Allergy Other Verified 02/09/24 14:10 Family History Mother CHF (congestive heart failure) Father Diabetes Surgical History History of embolectomy History of hysterectomy History of tubal ligation Social History household members: none Smoking Status: Never smoker alcohol intake: never substance use type: does not use caffeine: Yes Type: carbonated beverages Number of servings: 1 ROS ROS ED Review of Systems ROS Unobtainable: due to mental status and other Details: Focal left-sided status epilepticus with altered mental status EXAM Physical Exam Const Vital Signs: 02/11/24 13:53 02/11/24 14:35 Temperature 96.5 F L Temperature Source Temporal Pulse Rate 120 H 104 H Respiratory Rate 20 H 20 H Blood Pressure 154/98 H 97/67 Blood Pressure Mean 116 77 Pulse Ox 95 91 Oxygen Delivery Method Room Air Nasal Cannula Oxygen Flow Rate (L/min) 3 Positive well nourished and well developed General Appearance ED: well developed and pallor; Negative for NAD HEENT normocephalic and atraumatic Eyes PERRL; Negative for EOMs intact bilaterally Eyes Narrative: Eyes are deviated to the left. General Eye ED: Negative for pale conjunctiva or scleral icterus Neck no lymphadenopathy and no JVD Resp Resp Narrative: Breath sounds are symmetric. There is adventitial breath sounds noted. There is no rales, wheezing or rhonchi. Cardio no murmurs Rate: tachycardic Rhythm: abnormal rhythm GI non-distended and no masses Auscultation: hypoactive bowel sounds Back/Spine Back/Spine Narrative: Inspection of the back is normal. Neuro No oriented x3, No CN's II-XII intact bilaterally and No no sensory deficits noted Sensorium / Orientation: Negative for alert Speech: Negative for speech normal Gait (Neuro): Negative for normal gait Psych Negative for mental status grossly normal Skin General Skin Exam: pallor Lesions: no lesions Rashes: no rashes MDM MDM MDM Narrative Medical decision making narrative: Patient was initially given 2 mg of Ativan. She is given additional 2 mg of Ativan since her seizure activity decreased minimally. There is minimal activity at this time. She has a significant decrease in her mental status. Family was with her does not know CODE STATUS. Once daughter arrives will discuss CODE STATUS. She may require intubation short-term because of the status epilepticus. CT of the head was obtained to rule out hemorrhagic conversion of the presumed right hemispheric stroke. Appropriate blood work was obtained. Prior records reviewed. Patient was ordered 40 mg/kg of Keppra IV piggyback. History & Record Review Additional record(s) reviewed:: Prior ED visit and Prior labs Lab Data Labs: Laboratory Results - last 24 hr 02/11/24 14:32 WBC 6.0 RBC 4.13 L Hgb 11.7 L Hct 38.3 MCV 92.7 MCH 28.3 MCHC 30.5 L RDW Std Deviation 55.8 H RDW Coeff of Satnam 16.4 H Plt Count 304 MPV 10.2 Immature Gran % (Auto) 0.800 Neut % (Auto) 68.9 Lymph % (Auto) 19.5 Boyle % (Auto) 9.2 Eos % (Auto) 0.8 Baso % (Auto) 0.8 Absolute Neuts (auto) 4.1 Absolute Lymphs (auto) 1.17 Nucleated RBC % 0 Sodium 138 Potassium 4.2 Chloride 109 H Carbon Dioxide 19.0 L Anion Gap 10 BUN 15 Creatinine 0.86 Estim Creat Clear Calc 43.97 Est GFR (MDRD) Af Amer 80 Est GFR (MDRD) Non-Af 66 BUN/Creatinine Ratio 17.4 Glucose 172 H Calcium 8.8 Radiography Diagnostic Testing: Clinical Impression(s) from Imaging Studies Brain CT 02/11/24 14:05 IMPRESSION: 1. No CT evidence of intracranial bleeding, acute ischemic infarct or acute intracranial abnormality. 2. Old cortical-based ischemic infarct with cystic encephalomalacia involving the right insular lobe, right pars triangularis, right pars articularis, right superior temporal gyrus and along the right subsegmental gyrus. They correspond to an MCA territory. 3. No interval change when compared to 02/09/2024. Electronically Signed: El Aguero MD at 14:30 EDT , EKG Initial EKG: Attestation: I personally reviewed and interpreted this EKG as follows: Interpretation: Atrial Fibrillation (Rate is 126. QRS duration 110 ms. Cures duration 312 ms. [place] is normal. There is nonspecific ST-T wave changes which is probably rate dependent. There is decreased anterior force.) Management Discussion w/another healthcare provider: Business Account Manager (Spoke with knockout machine operator Dr. Cornelio Real at [facility]. He is excepted patient.) Critical Care Time Critical Care Time: Yes Critical care time (excluding procedures): 30-74 minutes (36), Including time spent: (History, physical, documentation, review of prior records, and interpretation of laboratory results and treatment for status epilepticus), Discussing w/Patient &/or Family/Computer Equipment Repairer, Discussing w/Consultants, Arranging Admission or Transfer and Performing Direct Patient Care at Bedside Discharge Plan Triage Chief Complaint: Neuro S/Sx ED Provider: Kory Holley Dx/Rx/DC Orders Clinical Impression: Localization-related (focal) (partial) symptomatic epilepsy and epileptic syndromes with complex partial seizures, intractable, with status epilepticus, Hypothyroidism, Cardiomyopathy, Heart failure with reduced ejection fraction, Hyperlipidemia, Cerebrovascular accident (CVA) involving right middle cerebral artery territory, Atrial fibrillation with RVR, Anticoagulant long-term use Prescriptions: No Action tamsulosin 0.4 mg Capsule 0.4 mg PO DAILY@1730 Qty: 30 0RF Rx Instructions: To prevent urine retention mirtazapine 15 mg Tablet 7.5 mg PO QHS Qty: 16 0RF Rx Instructions: 1/2 tab at bedtime every night levothyroxine 25 mcg tablet 25 mcg PO DAILY Qty: 30 0RF fesoterodine 4 mg tablet extended release 24 hr 4 mg PO DAILY potassium chloride 20 mEq tablet,ER particles/crystals 20 meq PO DAILY Patient Comments: TAKE 1 TABLET BY MOUTH EVERY DAY omeprazole 20 mg capsule,delayed release(DR/EC) 20 mg PO DAILY Patient Comments: TAKE 1 CAPSULE BY MOUTH ONCE A DAY FOR 14 DAYS Eliquis 5 mg Tablet 2.5 mg PO BID 30 Days Qty: 30 0RF atorvastatin 40 mg Tablet 40 mg PO QHS 30 Days Qty: 30 0RF Primary Care Provider: Rebekah Beckford Referrals: Rebekah Beckford MD [Primary Care Provider] - Disposition Disposition: Acute Care Hospital Discharge Location: [facility]
[2024-02-11 14:23] VITALS: BMI 21.9
[2024-02-11] MEDS: LEVETIRACETAM IV (14:26)
[2024-02-11] MEDS: NORMAL SALINE 0.9% IV (14:26)
[2024-02-11 14:35] VITALS: BP 97/67; PULSE 104; RESP 20; O2SAT 91
[2024-02-11 14:40] LABS: Absolute Lymphocyte Count 1.17 X10^3/uL (0.83-4.51); Absolute Neutrophil Count 4.1 X10^3/uL (2.0-7.7); Basophil# 0.05 X10^3/uL; Basophil% 0.8 % (0-1); Eosinophil# 0.05 X10^3/uL; Eosinophils% 0.8 % (0-5); Hematocrit 38.3 % (37-47); Hemoglobin 11.7 g/dL (12.0-15.0); Lymphocyte # 1.17 X10^3/ul (0.83-4.51); Lymphocyte % 19.5 % (19-41); Mean Corp Hgb Conc 30.5 g/dL (32-36); Mean Corpuscular Hgb 28.3 pg (27.0-32.0); Mean Corpuscular Volume 92.7 fL (81-99); Mean Platelet Vol. 10.2 fl (6.2-12.0); Monocyte# 0.55 X10^3/uL; Monocyte% 9.2 % (0-10); NRBC Flagged by Analyzer 0 % (0-5); Neutrophil # 4.13 X10^3/uL (2.7-7.7); Neutrophil % 68.9 % (47-70); Platelet Count 304 K/mm3 (150-450); RBC Distribution Width CV 16.4 % (11.6-14.6); RBC Distribution Width SD 55.8 fl (35.1-43.9); Red Blood Count 4.13 M/mm3 (4.2-5.4)
[2024-02-11 14:52] LABS: Anion Gap 10 (5-15); BUN 15 mg/dL (7-18); BUN/Creat Ratio 17.4 RATIO (10-20); Calcium,Total 8.8 mg/dL (8.5-10.1); Chloride 109 mmol/L (98-107); Creatinine, Serum 0.86 mg/dL (0.55-1.02); EST Glomerular Filtration Rate 66 mL/min (>60); Est Glom Filt Rate - Afr Amer 80 mL/min (>60); Estimated Creatinine Clearance 43.97 ml/min; Glucose 172 mg/dL (74-106); Potassium 4.2 mmol/L (3.5-5.1); Sodium Level 138 mmol/L (136-145)
[2024-02-11] MEDS: 0.9% Normal Saline (500mL Bag) 500 ML 1000 ML IV (15:53)
[2024-02-11 15:55] VITALS: O2SAT 95
[2024-02-11 16:00] VITALS: BP 101/60; PULSE 80; RESP 19; O2SAT 100
[2024-02-11 18:07] VITALS: BP 108/68; PULSE 79; RESP 16; TEMP 36.8; O2SAT 95
--- NOTE | 2024-02-11 18:12 | ED.RN ---
This RN gave report to [facility]
== END 2024-02-11 17:45 | disposition short-term general hospital (02) ==
PROVIDERS: Emergency Provider Emergency Medicine; PCP Family Medicine; Visit Provider Emergency Medicine
DX: G40.211 Localization-related (focal) (partial) symptomatic epilepsy and epileptic syndromes with complex partial seizures, intractable, with status epilepticus (principal); I42.9 Cardiomyopathy, unspecified; I50.22 Chronic systolic (congestive) heart failure; I48.91 Unspecified atrial fibrillation; I63.511 Cerebral infarction due to unspecified occlusion or stenosis of right middle cerebral artery; I69.322 Dysarthria following cerebral infarction; E03.9 Hypothyroidism, unspecified; E78.5 Hyperlipidemia, unspecified; Z79.01 Long term (current) use of anticoagulants
CPT/HCPCS: 70450; 80048; 85025; 93005; 96365; 96375; 96376; 99285; J7040; J7050